=== PATIENT | female | born 1945 | race Caucasian/White ===

== ENCOUNTER 2016-09-16 14:49 | Inpatient (IN) ==
[2016-09-16] MEDS ORDERED: NS 1,000 ML IV SCH (14:57)
[2016-09-16] MEDS ORDERED: ZOFRAN IV PRN (14:57)
[2016-09-16] MEDS ORDERED: NS 1,000 ML IV ONE (15:02)
[2016-09-16] MEDS ORDERED: ZOSYN 3.375 GM/NS 3.375 GM/50 ML IVPB IV ONE (15:11)
[2016-09-16] MEDS ORDERED: LEVOPHED 8 MG in D5 1/2 NS 250 ML IV SCH (15:15)
[2016-09-16] MEDS ORDERED: XOPENEX NEB INH SCH (15:30)
[2016-09-16] MEDS ORDERED: ATROVENT NEB INH SCH (15:30)
--- NOTE | 2016-09-16 15:38 | Diag Imaging Result Doc PS360 ---
EXAM: CHEST-PORTABLE HISTORY: r/o pna TECHNIQUE: Portable AP COMPARISON: 03/28/2016 FINDINGS: The lungs are well expanded. The heart is not enlarged. The vessels are not distended. No pneumonia. No pleural effusions identified. IMPRESSION: Negative chest Electronically signed by Aaron Stevens 09/16/2016 3:36 PM
[2016-09-16 15:39] LABS: ALLEN TEST YES; BE -5.2 mmoll (-3.0-3.0); BLOOD TYPE ARTERIAL; DRAW SITE L RADIAL; METHB 0.4 % (0.0-1.5); MODALITY ROOM AIR; O2(CT) 10.5 mL/dL (15.0-23.0); PCO2(98.6) 36 mmHg (35-45); PO2(98.6) 71 mmHg (60-100); SAMPLE BLOOD; SAO2 96.6 % (95.0-100.0); THB 7.9 g/dL (11.5-17.4); pH(98.6) 7.35 (7.35-7.45)
--- NOTE | 2016-09-16 15:42 | Diag Imaging Result Doc PS360 ---
EXAM: KUB ABDOMEN HISTORY: perforation TECHNIQUE: Portable supine abdomen, single view COMPARISON: None. FINDINGS: No bowel obstruction. No organomegaly. Mild scoliosis. No abnormal abdominal calcifications. There are several pelvic calcifications believed to be phleboliths.. IMPRESSION: Negative exam. Free air seen on the recent abdominal CT from [facility] 09/16/2026 is poorly seen on this supine portable exam. Electronically signed by Aaron Stevens 09/16/2016 3:39 PM
[2016-09-16 16:03] LABS: BASO% 0.1 % (0.0-0.8); HEMOGLOBIN 6.9 g/dL (12.0-16.0); IMM GRAN# 0.05 X1000 (0.0-0.04); IMM GRAN% 0.3 % (0.0-0.5); LYMPH% 5.3 % (20.5-51.1); MANUAL DIFF NEEDED? YES; MCH 24.5 PG (27-31); MCHC 31.4 g/dL (33-37); MONO# 0.94 X1000 (0.11-0.59); MPV 10.5 FL (7.4-10.4); NEUT% 89.3 % (42.2-75.2); PLT 494 X1000 (130-400); RBC 2.82 XMIL (4.2-5.4)
[2016-09-16] MEDS ORDERED: NS 500 ML ONE (16:04)
[2016-09-16 16:12] LABS: INR 1.36; PROTIME 14.6 Seconds (9.2-11.7); PTT 33.6 Seconds (22.0-36.0)
[2016-09-16 16:14] LABS: BANDS 12 % (0-1); LYMPHS 6 % (21-51); MONO 2 % (1-9)
[2016-09-16 16:15] LABS: HYPOCHROM 1+
[2016-09-16] MEDS ORDERED: ALBUMIN 25% ONE (16:19)
[2016-09-16 16:30] LABS: URINE CULTURE NEEDED? NO; URINE MICRO REVIEW NEEDED? NO; URINE SOURCE CATH
[2016-09-16 16:30] LABS: ALBUMIN 2.3 g/dL (3.5-5.0); CALCIUM 7.2 mg/dL (8.8-10.2); MAGNESIUM 1.5 mg/dL (1.5-2.7); POTASSIUM 4.9 mmol/L (3.5-5.1); TOTAL BILIRUBIN 0.19 mg/dL (0.20-1.00)
[2016-09-16 16:37] LABS: BILIRUBIN URINE NEGATIVE (NEGATIVE); BLOOD URINE SMALL (NEGATIVE); COLOR YELLOW; GLUCOSE URINE NEGATIVE (NEGATIVE); LEUKOCYTES URINE NEGATIVE (NEGATIVE); NITRITE URINE NEGATIVE (NEGATIVE); PH URINE 5.5; PROTEIN URINE 30 mg/dL (NEGATIVE); SP GRAVITY URINE 1.015; TURBIDITY URINE HAZY (CLEAR); UR EPITHELIAL CELLS <10 /HPF (<10); URINE BACTERIA NEGATIVE /HPF; URINE RBC <10 /HPF (<10); URINE WBC <10 /HPF (<10); UROBILINOGEN URINE NORMAL (NORMAL)
[2016-09-16 16:46] LABS: TOTAL IRON < 5 ug/dL (49-151); UNBOUND IRON 226 ug/dL (112-346)
[2016-09-16 16:47] LABS: UR CREAT RANDOM 78.9 mg/dL (11-20)
[2016-09-16] MEDS ORDERED: PROTONIX 80 MG in NS 80 ML IV SCH (17:00)
[2016-09-16 17:05] LABS: FERRITIN 45 ng/mL (13-150)
[2016-09-16] MEDS ORDERED: DILAUDID ONE (17:35)
[2016-09-16] MEDS: DILAUDID ONE ×2 (17:48→17:53)
[2016-09-16] MEDS ORDERED: LR 500 ML ONE (18:09)
[2016-09-16] MEDS: ATROVENT NEB INH SCH ×2 (19:15→23:03)
[2016-09-16] MEDS: XOPENEX NEB INH SCH ×2 (19:15→23:03)
--- NOTE | 2016-09-16 19:15 | CONSULTATION ---
DATE OF CONSULTATION: 09/16/2016 CHIEF COMPLAINT: Generalized abdominal pain. HISTORY: This is a 70-year-old white female smoker who reports severe pain yesterday. It is generalized. She presented to the ED at [facility] because of the pain. She has a known history of duodenal ulcer disease. She presented in January of last year at [facility] with a GI bleed from a duodenal ulcer. She presented again in March and again was scoped and again revealed the duodenal ulcer. She has no longer been taking her antiulcer medication. OTHER MEDICAL PROBLEMS: Include anemia, some syncope. She also has a history of COPD, hypertension, hyperlipidemia, depression, anxiety, chronic pain, migraine headaches, iron deficiency anemia. PREVIOUS SURGERY: Includes a hysterectomy, an appendectomy and hemorrhoidectomy. SOCIAL HISTORY: She smokes a pack and half a day. She denies alcohol use. FAMILY HISTORY: Pertinent for cancer and CVA. MEDICATIONS: There are no scheduled medications at home. ALLERGIES: She denies any drug allergies. REVIEW OF SYSTEMS: Pertinent for the nausea, vomiting and abdominal pain. Otherwise negative. PHYSICAL EXAMINATION: Vital Signs: She is afebrile. Heart rate is 98, respiratory rate 18, blood pressure 78/52. General: She is awake and alert. Neck: No adenopathy. Lungs: Bilateral breath sounds. Heart: Regular rate, rhythm. Abdomen: Diffusely tender consistent with rebound tenderness. Extremities: Femoral pulses are present. No peripheral edema. DATA: CT scan shows apparently free air consistent with perforated viscus. In view of her history this is most likely due to an ulcer. PLAN: Will be to proceed with operation and we will transfuse her in view of her anemia. I have discussed the plan with her. She understands, agrees to proceed. cc: Jonathan Lezama MD
[2016-09-16] MEDS: PULMICORT INH SCH (19:16)
--- NOTE | 2016-09-16 19:26 | HISTORY AND PHYSICAL ---
PRIMARY CARE PROVIDER: None. CHIEF COMPLAINT: Abdominal pain with nausea and vomiting with diarrhea x4 days. HISTORY OF PRESENT ILLNESS: Ms. Patricia Hartley is a 70-year-old female with a medical history of COPD, gastric ulcers that were bleeding recently in March of 2016. At that time it required cauterization and epinephrine injection which was performed by Dr. Beltran. The patient states that since her last admit in March of 2016 she still had the occasional vomiting and stomach upset with abdominal pains that would come and go. She presented to [facility] today with these complaints. Apparently there they did an abdominal CT by report which showed a perforated gastric ulcer with viscous free air. Her white count was 18,000 and she was hypotensive. She received a liter of IV saline and 40 of Protonix there. Antibiotics had not yet been initiated until she arrived here. Once here she received another liter of IV fluids. Her systolic blood pressure was in the 70s on admit. She continues to complain of abdominal pain. She states this pain with the nausea, vomiting, and bloody diarrhea started about 4 days ago and would not improve, so she sought medical attention. Dr. Lezama has been consulted and the plan is for emergency exploratory laparotomy. She will receive 2 units of packed red blood cells prior to surgery. She has been started on Zosyn and was admitted to the ICU. PAST MEDICAL HISTORY: Most recently in March of 2016 she had an EGD which found esophagitis, gastritis, a large ulcer involving 3/4 circumference of the duodenal bulb which received epinephrine injection, clot removal, and cautery, duodenitis. Also a history of hypertension, COPD, hyperlipidemia, peripheral neuropathy, depression, anxiety, chronic pain, migraine headaches, and iron deficiency anemia. PAST SURGICAL HISTORY: EGD with cauterization and epinephrine injection of a large duodenal bulb ulceration that was bleeding, hysterectomy, appendectomy, hemorrhoidectomy. SOCIAL HISTORY: She smokes a half pack per day for the last 50 years. Denies alcohol or illicit drug use. She lives alone. FAMILY HISTORY: Mother of unknown cancer. Father history of CVA and sister history of diabetes. ALLERGIES: No known drug allergies. HOME MEDICATIONS: Klonopin 0.5 mg p.o. q.12 hours p.r.n., Lexapro 20 mg p.o. nightly, Icar C 1 tablet p.o. twice daily, Protonix 40 mg p.o. twice daily, Carafate 1 g p.o. 4 times a day. REVIEW OF SYSTEMS: Fourteen point review of systems were complete and all were negative except for those mentioned in the above HPI. She did state that she has some shortness of breath. PHYSICAL EXAMINATION: VITAL SIGNS: Not yet recorded but at the bedside her blood pressure was ranging primarily in the 80s systolic. GENERAL: Ms. Patricia Hartley is a 70-year-old, ill-appearing, female. She is in no acute distress but does complain of abdominal pain. She is able to answer questions appropriately. HEENT: Atraumatic, normocephalic. Pupils equal, round, reactive to light. Extraocular movements intact. Mucous membranes are dry. Pale conjunctiva. NECK: No JVD. No carotid bruits. CARDIOVASCULAR: S1, S2. Regular rate and rhythm. Tachycardic rate and rhythm. No rubs, gallops, murmurs. PULMONARY: Clear to auscultation. Bilateral breath sounds. No accessory muscle use or work of breathing noted. GI: Semi-firm. Hypoactive bowel sounds. Tenderness in all 4 quadrants. EXTREMITIES: No edema noted. There are +1 dorsalis and +2 radial pulses. Moves all extremities equally. No edema noted. NEUROLOGIC: Oriented x4. Moves all extremities equally. Right arm is contracted chronically secondary to injury as a child. SKIN: Warm, dry, intact. LABORATORY DATA: From the outside hospital performed today: Urinalysis was negative. Amylase was 85. Lipase looks like 43. White blood cells 18, hemoglobin 8, hematocrit 25, platelet count 623,000. Sodium 135, potassium 5.6, BUN 28, creatinine 3.2, glucose 123, total bilirubin 0.2, ALT 24, AST 74. IMAGING: Disk was sent with the patient and is being viewed by Dr. Lezama. Chest x-ray was obtained on admit. No acute findings on the chest. Abdominal x-ray was negative but there was free air seen on the recent abdominal CT from the [facility]. ASSESSMENT AND PLAN: 1. Gastric ulcer perforation with viscous free air found on CT at outside hospital. Dr. Lezama is on board. Zosyn was started here on admit. She is planned for emergency exploratory laparotomy with possible colostomy today. 2. Acute peritonitis secondary to perforated gastric ulcer. Again, we will start with Zosyn. Obtain blood cultures. White blood cell count was 18,000 at outside hospital. We will continue with Zosyn. 3. Chronic obstructive pulmonary disease. No exacerbation noted but we will continue with nebulizers and pulmonary toilet, and turn, cough, deep breathe. 4. Hypertension now with hypotension. Likely now with sepsis secondary to perforation. Again, continue with Zosyn. Will follow up with blood cultures, urinalysis. Chest x-ray is clear at this time. 5. Now with acute kidney injury. At outside hospital BUN and creatinine were 28 and 3.2. It is likely prerenal secondary to hypotension and hypovolemia. She has received 2-3 L of normal saline. Now will do aggressive IV fluid hydration. 6. Acute blood loss anemia secondary to perforated bleeding gastric ulcer. Outside hospital hemoglobin and hematocrit were 8 and 25 but now on admit are 6.9 and 22. She has 2 units of blood ordered and will be transfused. Could be somewhat diluted secondary to multiple IV fluids. 7. Gastrointestinal bleed secondary to perforation. She is going for surgery. Will start her on a Protonix drip and she will receive blood products. 8. Hyperlipidemia. Hold p.o. medications. 9. Depression. Hold p.o. medications. 10. Anxiety. Hold p.o. medications. 11. Iron-deficiency anemia. Will recheck labs. 12. Tobacco abuse. Cessation discussed. 13. Deep venous thrombosis prophylaxis will be SCDs. Dictated by LEX Arana for Ousmane Guerrero MD cc: LEX Arana MD
[2016-09-16] MEDS ORDERED: PULMICORT INH SCH (19:30)
--- NOTE | 2016-09-16 19:53 | OPERATIVE NOTE ---
PROCEDURE DATE: 09/16/2016 PROCEDURE PERFORMED: Exploratory laparotomy, repair of perforated duodenal ulcer with omental patch. SURGEON: Jonathan Lezama MD. PRODUCT MARKETING INTERN: Isatu Carballo. PREOPERATIVE DIAGNOSIS: Perforated viscus. POSTOPERATIVE DIAGNOSIS: Perforated duodenal ulcer. FINDINGS: There was a large duodenal ulcer that would admit your thumb. There were food stuffs actually coming out of the ulcer hole. DESCRIPTION OF PROCEDURE: Satisfactory general endotracheal anesthesia achieved, the abdomen was prepped and draped in a sterile fashion. Upper midline incision was made just around the umbilicus. We divided the subcutaneous tissue and then the midline fascia to extend the skin incision. We opened the abdominal cavity to extend the skin incision. The peritoneal fluid was noted to be quite murky. We cultured the fluid. We immediately visualized the perforated duodenal ulcer. We removed the foods stuffs that were stuck through the ulcer. We then copiously irrigated the abdominal cavity in all 4 quadrants using saline and evacuated all the purulent ascites until the effluent was clear. We then placed 2-0 silk stitches across the ulcer and closed the ulcer primarily as best we could even though the tissue was somewhat friable. Then we took a tongue of omentum and laid it over across the ulcer closure and then placed again 2-0 silks outside the previously placed sutures and this secured the omentum on top of the ulcer closure. We felt this was as good as we could close it. We then placed a Shayan drain into the subhepatic space, lying it across the closure. No other abnormalities were identified. We secured the drain to the skin with 2-0 silk. We then proceeded to close the peritoneum with 2-0 chromic. We closed the fascia with running #2 Prolene. We copiously irrigated the subcutaneous tissue. We closed the skin with leonidas. A sterile dressing was applied. She tolerated it well. Was sent to the recovery room in satisfactory condition. cc: Jonathan Lezama MD
[2016-09-16] MEDS: PERIDEX MT SCH (21:47)
[2016-09-16] MEDS: PROTONIX 80 MG in NS 80 ML IV SCH (21:47)
[2016-09-16] MEDS: ZOSYN 3.375 GM/NS 3.375 GM/50 ML IVPB IV SCH (21:47)
[2016-09-16] MEDS: NS 1,000 ML IV SCH (21:47)
[2016-09-16] MEDS ORDERED: ZOSYN 3.375 GM/NS 3.375 GM/50 ML IVPB IV SCH (22:00)
[2016-09-17 00:40] LABS: ALLEN TEST YES; BE -10.4 mmoll (-3.0-3.0); BLOOD TYPE ARTERIAL; DRAW SITE L RADIAL; METHB 1.1 % (0.0-1.5); O2(CT) 12.4 mL/dL (15.0-23.0); PCO2(98.6) 45 mmHg (35-45); PO2(98.6) 159 mmHg (60-100); SAMPLE BLOOD; SAO2 99.3 % (95.0-100.0); THB 8.9 g/dL (11.5-17.4)
[2016-09-17 00:41] LABS: MODALITY NRB
[2016-09-17 00:42] LABS: pH(98.6) 7.19 (7.35-7.45)
[2016-09-17] MEDS ORDERED: SODIUM BICARBONATE 8.4% IV PUSH ONE (01:04)
[2016-09-17] MEDS: NS 1,000 ML IV SCH ×2 (02:10→07:29)
[2016-09-17] MEDS ORDERED: NEO-SYNEPHRINE 1% NASAL SPRAY NAS PRN (02:11)
[2016-09-17] MEDS: XOPENEX NEB INH SCH ×6 (02:44→22:49)
[2016-09-17] MEDS: ATROVENT NEB INH SCH ×6 (02:44→22:49)
[2016-09-17] MEDS: ZOSYN 3.375 GM/NS 3.375 GM/50 ML IVPB IV SCH ×3 (03:11→18:00)
[2016-09-17 03:41] LABS: BASO% 0.1 % (0.0-0.8); HEMATOCRIT 29.1 % (37.0-47.0); HEMOGLOBIN 9.4 g/dL (12.0-16.0); IMM GRAN# 0.07 X1000 (0.0-0.04); IMM GRAN% 0.4 % (0.0-0.5); LYMPH# 0.67 X1000 (1.2-3.4); LYMPH% 3.4 % (20.5-51.1); MANUAL DIFF NEEDED? YES; MCH 26.3 PG (27-31); MCHC 32.3 g/dL (33-37); MCV 81.3 FL (81-99); MONO# 0.56 X1000 (0.11-0.59); MONO% 2.9 % (1.7-9.3); MPV 10.4 FL (7.4-10.4); NEUT% 93.2 % (42.2-75.2); PLT 475 X1000 (130-400); RBC 3.58 XMIL (4.2-5.4)
[2016-09-17 03:55] LABS: ALLEN TEST YES; BLOOD TYPE ARTERIAL; DRAW SITE L RADIAL; METHB 0.8 % (0.0-1.5); O2(CT) 13.1 mL/dL (15.0-23.0); PCO2(98.6) 44 mmHg (35-45); PO2(98.6) 132 mmHg (60-100); SAMPLE BLOOD; SAO2 100.2 % (95.0-100.0); THB 9.4 g/dL (11.5-17.4); pH(98.6) 7.26 (7.35-7.45)
[2016-09-17 03:56] LABS: MODALITY PRB
[2016-09-17 04:09] LABS: ALBUMIN 2.2 g/dL (3.5-5.0); MAGNESIUM 1.6 mg/dL (1.5-2.7); TOTAL PROTEIN 5.2 g/dL (6.3-8.3)
[2016-09-17 04:10] LABS: TOTAL BILIRUBIN 0.27 mg/dL (0.20-1.00)
[2016-09-17 04:19] LABS: CALCIUM 6.7 mg/dL (8.8-10.2); POTASSIUM 6.1 mmol/L (3.5-5.1)
[2016-09-17] MEDS ORDERED: ALBUTEROL 0.5% INH CONC FOR HYPERKALEMIA INH ONE (04:26)
[2016-09-17] MEDS ORDERED: HUMULIN R IV ONE (04:28)
[2016-09-17] MEDS ORDERED: CALCIUM GLUCONATE 1 GM in NS 50 ML IV ONE (04:29)
[2016-09-17] MEDS ORDERED: D50W SYRINGE IV ONE (04:29)
[2016-09-17] MEDS: PROTONIX 80 MG in NS 80 ML IV SCH ×2 (04:44→16:32)
[2016-09-17 04:46] LABS: BANDS 32 % (0-1); LYMPHS 2 % (21-51); MONO 4 % (1-9)
[2016-09-17 04:47] LABS: HYPOCHROM 1+
[2016-09-17] MEDS: ZOFRAN IV PRN ×2 (05:19→10:10)
[2016-09-17] MEDS: DILAUDID IV PRN ×4 (05:19→20:16)
[2016-09-17 07:53] LABS: POTASSIUM 4.6 mmol/L (3.5-5.1)
[2016-09-17 07:58] LABS: MAGNESIUM 1.6 mg/dL (1.5-2.7)
[2016-09-17] MEDS: PERIDEX MT SCH ×2 (08:06→21:57)
[2016-09-17] MEDS: MYCAMINE 100 MG in NS 100 ML IV SCH (08:06)
[2016-09-17 08:09] LABS: CALCIUM 7.1 mg/dL (8.8-10.2)
[2016-09-17] MEDS: PULMICORT INH SCH ×2 (08:15→19:03)
--- NOTE | 2016-09-17 09:44 | Diag Imaging Result Doc PS360 ---
EXAM: CHEST-PORTABLE HISTORY: dyspnea TECHNIQUE: Portable upright AP COMPARISON: 09/16/2016 FINDINGS: The lungs are well expanded. Heart is not enlarged. There are small basilar infiltrates. No pleural effusions identified. A nasogastric tube overlies the esophagus and stomach. IMPRESSION: Small basilar infiltrates Electronically signed by Aaron Stevens 09/17/2016 9:41 AM
[2016-09-17] MEDS ORDERED: 1/2 NS 1,000 ML IV SCH (09:49)
--- NOTE | 2016-09-17 10:52 | CONSULTATION ---
DATE OF CONSULTATION: 09/17/2016 CONCLUSION: The patient is status post patching of a duodenum perforation. A culture taken at surgery is growing gram negative rods and a gram stain also from surgery shows yeast. The patient has leukocytosis. RECOMMENDATIONS: I agree with treating the patient with Zosyn and micafungin. I agree with Dr. Lezama's decreasing the dose of Zosyn because of the patient's elevated creatinine. It may take 3-4 days before the WBC decreases. DISCUSSION: It was difficult for me to get a history from the patient. She was having a lot of pain, but in general she told me for the past 5 days she has been having abdominal pain. She was admitted to the hospital and found to have free air on the x-ray. A CT scan was done elsewhere, but I do not have the results of that. The patient's lab studies thus far show a CBC, the white count is still up today, but I think it would be awfully quick for the antibiotics and antifungal agent to act, and I would expect that the white count will stay elevated for a few days, but in any event, the CBC shows a white count of 19,530, hemoglobin 9.4, and platelet count 475,000. Creatinine is 2.7. The GFR is 17. Blood gases show a pH of 7.26, a PO2 of 132 , and a pCO2 of 44. Liver function studies are normal except for an AST of 52. Urinalysis shows does not show any white cells or bacteria. Gram stain of the intraabdominal inflammation show yeast and gram- negative rods are growing. The KUB showed free air. Chest x-ray shows no acute disease. Blood cultures are pending. PAST MEDICAL HISTORY/REVIEW OF SYSTEMS: It was difficult for me to get a good review of systems. The patient was having a lot of pain and was tired, but in any event, I will go ahead with it.Eyes and Ears: She denied having trouble hearing or seeing. Neck: No stiffness. Respiratory: She did not complain of chest pain, and she did not complain of dyspnea or coughing. Cardiovascular: No chest pain or palpitations. Gastrointestinal: See present illness. She has been having abdominal pain for the past 5 days. Genitourinary: No dysuria or flank pain. Neurologic: No seizures. No loss of strength. Endocrine: She denied having diabetes. Hematologic: No bleeding tendency or anemia. The remainder of the patient's review of systems was completed and was negative. OBSTETRICAL/GYNECOLOGICAL HISTORY: She is 3, para 3, abortus 0. One of her children she told me was killed in an accident. The patient has had a hysterectomy. PREVIOUS HOSPITALIZATIONS AND OPERATIONS: She has had labor and deliveries, hysterectomy, and appendectomy. MEDICAL DISEASES: Positive for cigarette smoking with resulting COPD. INFECTIOUS DISEASE HISTORY: Positive for pneumonia and UTI. FAMILY HISTORY: Positive for diabetes mellitus, hypertension, and cancer. SOCIAL HISTORY: The patient is . She smoke cigarettes. She does not drink alcoholic beverages or abuse drugs. She has no pets at home. HOME MEDICATIONS: Listed in the computer include Carafate, Protonix, iron with ascorbic acid, Lexapro, and Klonopin. PHYSICAL EXAMINATION: Vital Signs: Temperature is 97.1 degrees, pulse 103, respirations 13, blood pressure 79/65. The patient's weight is listed as 121 pounds. General: This is an ill- appearing elderly female. She is complaining of abdominal pain and says she wants some ice chips to suck on. Head, Eyes, Ears, Nose, and Throat: She can hear my spoken words and see near objects. She is edentulous. No drainage noted from the nose or ears. Neck: No meningismus. Thorax: There was questionable increased AP diameter to the chest. Lungs: Clear to auscultation. Cardiovascular: Regular heart rate. Abdomen: Soft but tender. A drain is in place. The drainage is serosanguineous. Neurologic: The patient is awake. She did move her extremities to request. There was no tremor. I am uncertain as to how accurate the patient's reported history is. Integumentary: No rash noted. Thank you for the consultation. cc: Linden Benson MD MTDAb
[2016-09-17 11:42] LABS: UR CREAT RANDOM 48.5 mg/dL (11-20); UR PROT RANDOM 43.8 mg/dL
--- NOTE | 2016-09-17 12:51 | PROGRESS NOTE ---
DATE: 09/17/2016 SUBJECTIVE: The patient is resting in bed. She complains of a dry mouth and abdominal pain. OBJECTIVE: Vital Signs: Temperature 96.4 degrees, blood pressure 90/58, heart rate 78, respirations 11, and O2 saturations 96% on a nonrebreather mask. General: This is a chronically ill-appearing elderly female, lying in bed, in no acute distress. HEENT: Head , normocephalic and atraumatic. Heart: S1 and S2 normal. Regular rate and rhythm. Lungs: Equal air entry bilaterally. No crackles. No rales. No wheezing. Abdomen: The patient has a clean, dry dressing on the abdomen. Hypoactive bowel sounds. Soft. Extremities: No edema. No cyanosis. No calf tenderness. Neurologic: The patient is awake and alert. LABORATORY DATA: White blood cell count 19, hemoglobin 9.4, hematocrit 29, platelets 475,000. Sodium 142, potassium 4.6, chloride 107, carbon dioxide 17, BUN 37, creatinine 2.7, glucose 204. Chest x-ray shows small basilar infiltrates. ASSESSMENT AND PLAN: 1. Septic shock secondary to a perforated viscus, status post exploratory laparotomy with repair. We will continue on intravenous antibiotic therapy. Dr. Benson is following. We will also continue with intravenous fluid hydration. 2. Perforated viscus, status post exploratory laparotomy with duodenal ulcer repair. Management as per the general surgeon. 3. Acute kidney injury. We will switch the patient to half-normal saline with bicarbonate. We will continue to monitor the urine output closely. We will check urine studies as well. 4. Metabolic acidosis. The patient will be placed on a bicarbonate drip. 5. Basilar infiltrates. Continue with intravenous antibiotic therapy. We will add Xopenex. 6. Hyperkalemia, improved. 7. Gastrointestinal prophylaxis. Continue on intravenous Protonix. 8. Deep vein thrombosis prophylaxis. Continue with sequential compression devices. cc: Tesha Montero MD MTDD
[2016-09-17] MEDS: SODIUM BICARBONATE 8.4% 100 MEQ in 1/2 NS 1,000 ML IV SCH (13:21)
[2016-09-18] MEDS: SODIUM BICARBONATE 8.4% 100 MEQ in 1/2 NS 1,000 ML IV SCH (00:44)
[2016-09-18] MEDS: ZOSYN 3.375 GM/NS 3.375 GM/50 ML IVPB IV SCH ×3 (02:54→18:52)
[2016-09-18] MEDS: PROTONIX 80 MG in NS 80 ML IV SCH ×3 (02:55→20:38)
[2016-09-18] MEDS: ATROVENT NEB INH SCH ×6 (03:15→23:10)
[2016-09-18] MEDS: XOPENEX NEB INH SCH ×6 (03:15→23:10)
[2016-09-18 04:19] LABS: ALLEN TEST YES; BE -4.8 mmoll (-3.0-3.0); BLOOD TYPE ARTERIAL; DRAW SITE L RADIAL; METHB 0.9 % (0.0-1.5); O2(CT) 12.9 mL/dL (15.0-23.0); PCO2(98.6) 45 mmHg (35-45); PO2(98.6) 106 mmHg (60-100); SAMPLE BLOOD; SAO2 99.1 % (95.0-100.0); THB 9.3 g/dL (11.5-17.4); pH(98.6) 7.29 (7.35-7.45)
[2016-09-18 04:20] LABS: MODALITY NRB
[2016-09-18] MEDS: DILAUDID IV PRN ×3 (05:07→19:50)
[2016-09-18 06:08] LABS: HEMOGLOBIN A1C 5.9 % (4.8-6.0)
[2016-09-18 06:26] LABS: BASO% 0.1 % (0.0-0.8); HEMATOCRIT 29.7 % (37.0-47.0); HEMOGLOBIN 9.4 g/dL (12.0-16.0); IMM GRAN# 0.06 X1000 (0.0-0.04); IMM GRAN% 0.4 % (0.0-0.5); LYMPH# 0.56 X1000 (1.2-3.4); LYMPH% 3.4 % (20.5-51.1); MANUAL DIFF NEEDED? YES; MCHC 31.6 g/dL (33-37); MONO# 0.48 X1000 (0.11-0.59); MONO% 2.9 % (1.7-9.3); MPV 10.6 FL (7.4-10.4); NEUT% 93.2 % (42.2-75.2); PLT 433 X1000 (130-400); RBC 3.62 XMIL (4.2-5.4)
[2016-09-18 06:48] LABS: LYMPHS 8 % (21-51); MONO 1 % (1-9)
--- NOTE | 2016-09-18 07:16 | Diag Imaging Result Doc PS360 ---
EXAM: CHEST-PORTABLE HISTORY: dyspnea TECHNIQUE: Erect AP portable chest dated 09/18/2016 at 05:15 COMMENT: There are patchy alveolar opacities bilaterally which are much worse than on 09/17/2016. There is an NG tube with tip below the diaphragm. IMPRESSION: Worsening pulmonary edema and/or pneumonia. Electronically signed by David Crouch 09/18/2016 7:13 AM
[2016-09-18] MEDS ORDERED: LASIX IV ONE (07:45)
[2016-09-18] MEDS: MYCAMINE 100 MG in NS 100 ML IV SCH (08:00)
[2016-09-18] MEDS: PULMICORT INH SCH ×2 (08:27→18:56)
[2016-09-18 08:36] LABS: ALBUMIN 1.9 g/dL (3.5-5.0); CALCIUM 7.1 mg/dL (8.8-10.2); TOTAL BILIRUBIN 0.2 mg/dL (0.20-1.00); TOTAL PROTEIN 5.3 g/dL (6.3-8.3)
[2016-09-18] MEDS ORDERED: LR 2,000 ML ONE (08:50)
[2016-09-18] MEDS ORDERED: NEO-SYNEPHRINE ONE (08:50)
[2016-09-18] MEDS ORDERED: ZOFRAN ONE (08:50)
[2016-09-18] MEDS ORDERED: OFIRMEV 1000 MG/ISOTONIC SOLN 1,000 MG/100 ML BOTTLE ONE (08:50)
[2016-09-18] MEDS ORDERED: XYLOCAINE-MPF 2% ONE (08:50)
[2016-09-18] MEDS ORDERED: NS 250 ML ONE ×2 (08:51→13:47)
[2016-09-18] MEDS ORDERED: DECADRON ONE (08:51)
[2016-09-18] MEDS: PERIDEX MT SCH ×2 (09:15→20:39)
--- NOTE | 2016-09-18 13:52 | Diag Imaging Result Doc PS360 ---
EXAM: CT THORAX W/O CONTRAST HISTORY: pneumonia TECHNIQUE: Dose reduction protocol COMPARISON: None. FINDINGS: There are aguya-hf-gaxjgxhz sized bilateral pleural effusions measuring just under 3 cm posteriorly and inferiorly in the midline. The heart is not enlarged. No thoracic aortic aneurysm. There are small mediastinal lymph nodes. There are dense bilateral infiltrates diffusely in the lungs. There is also atelectasis to the lower lobes. Tiny air-filled areas throughout the dense infiltrates. IMPRESSION: Dense multifocal and bilateral infiltrates possibly with multiple tiny cavitary areas in addition to small to moderate-sized bilateral pleural effusions. Electronically signed by Aaron Stevens 09/18/2016 1:49 PM
[2016-09-18 16:13] LABS: INR 1.13
--- NOTE | 2016-09-18 16:27 | PROGRESS NOTE ---
DATE: 09/18/2016 PRESENT ILLNESS: The patient is status post patching of a duodenal perforation. Culture taken at the time of surgery grew Klebsiella and Gram stain of the murky fluid in the abdomen showed yeast. The patient has leukocytosis but it is decreasing. MEDICATIONS: The patient is on a combination of micafungin and Zosyn. PHYSICAL EXAMINATION: Vital Signs: Temperature is 98.9 degrees, pulse 99, respiration is 17, blood pressure is 108/82. General: This is a somewhat ill-appearing, elderly female. She is in no acute distress. Lungs: Clear to auscultation. Cardiovascular: Regular heart rate. Abdomen: Soft. The patient's dressings are intact. LAB AND X-RAY: The CBC today showed that the white count has come down to 16,430, hemoglobin 9.4, and platelet count 433,000. Liver function studies are normal except for an AST which is 35. This value has been decreasing from the one yesterday. The patient's creatinine is 2.2. The GFR is 22. Blood gases show a pH of 7.29, a PO2 of 106, and a pCO2 of 45. There is no new x-ray today. ASSESSMENT AND PLAN: The patient is status post repair of a duodenal ulcer perforation. She has peritonitis and is receiving micafungin and Zosyn. COMORBIDITIES: She is elderly. She smoke cigarettes. She has COPD. Another comorbidity is that the patient has peptic ulcer disease. cc: Linden Benson MD
--- NOTE | 2016-09-18 16:39 | PROGRESS NOTE ---
DATE: 09/18/2016 SUBJECTIVE: The patient is resting comfortably. She does complain of abdominal pain. OBJECTIVE: Vital Signs: Temperature 98 degrees, blood pressure 108/82, heart rate 99, respirations 17, O2 saturations 99% on a non-rebreather. General: This is a chronically ill- appearing, elderly female, lying in bed, in no acute distress. Head: Normocephalic, atraumatic. Heart: S1, S2. Normal. Regular rate and rhythm. Lungs: Coarse breath sounds bilaterally. No wheezing. No rales. Abdomen: Positive bowel sounds. Soft, nontender, nondistended. Extremities: No edema. No cyanosis. No calf tenderness. Neurologic: The patient is alert and oriented x3. LABORATORY: White blood cell count 16, hemoglobin 9.4, hematocrit 29, platelets 433,000. ABG: PH is 7.29, pCO2 45, PO2 106, bicarb 21, sodium 145, potassium 5, chloride 109, CO2 21, BUN 42, creatinine 2.2, glucose 74. Calcium 7.1. AST 35, ALT 19, alkaline phosphatase 82m, albumin 1.9. ASSESSMENT AND PLAN: 1. Acute hypoxemic respiratory failure secondary to bilateral lobe pneumonia and bilateral pleural effusions. Infectious Disease is following. We will give the patient a dose of Lasix today. We will also consult Pulmonary Medicine. Continue with bronchodilator therapy. 2. Status post exploratory laparotomy with repair of a perforated duodenal ulcer with omental patch. Management as per the general surgeon. 3. Acute kidney injury. Slowly improving. We will avoid nephrotoxic agents. 4. Leukocytosis. Slowly improving. Continue on the current IV antibiotic regimen as directed by Dr. Benson. 5. Anemia of chronic disease. The patient's hemoglobin and hematocrit are stable. 6. Severe protein calorie malnutrition. We will defer to the general surgeon regarding nutrition. 7. Bilateral pleural effusions. The patient did receive Lasix today. We will continue to monitor this closely. 8. Deep venous thrombosis prophylaxis. We will start the patient on heparin. 9. Gastrointestinal prophylaxis. Continue on IV Protonix. cc: Tesha Montero MD
[2016-09-18] MEDS ORDERED: HALDOL ONE (18:52)
[2016-09-18 19:38] LABS: ALLEN TEST YES; BE -1.5 mmoll (-3.0-3.0); BLOOD TYPE ARTERIAL; DRAW SITE R RADIAL; MODALITY BI PAP; O2(CT) 14.1 mL/dL (15.0-23.0); PCO2(98.6) 55 mmHg (35-45); PO2(98.6) 67 mmHg (60-100); SAMPLE BLOOD; SAO2 94.4 % (95.0-100.0); THB 10.8 g/dL (11.5-17.4); pH(98.6) 7.28 (7.35-7.45)
[2016-09-18] MEDS ORDERED: HALDOL IV ONE (19:45)
[2016-09-18] MEDS: HEPARIN SUBQ SCH (20:38)
[2016-09-19 00:22] LABS: ALLEN TEST YES; BLOOD TYPE ARTERIAL; DRAW SITE L RADIAL; O2(CT) 13.3 mL/dL (15.0-23.0); PO2(98.6) 66 mmHg (60-100); SAMPLE BLOOD; SAO2 98.4 % (95.0-100.0); THB 9.9 g/dL (11.5-17.4); pH(98.6) 7.32 (7.35-7.45)
[2016-09-19 00:23] LABS: MODALITY NRB; PCO2(98.6) 56 mmHg (35-45)
[2016-09-19] MEDS: HALDOL IM PRN ×5 (01:05→20:49)
[2016-09-19] MEDS: DILAUDID IV PRN ×5 (01:22→18:14)
[2016-09-19] MEDS: ATROVENT NEB INH SCH ×6 (02:55→23:20)
[2016-09-19] MEDS: XOPENEX NEB INH SCH ×6 (02:55→23:20)
[2016-09-19] MEDS: ZOSYN 3.375 GM/NS 3.375 GM/50 ML IVPB IV SCH ×3 (03:15→17:59)
[2016-09-19 04:15] LABS: ALLEN TEST YES; BE -0.9 mmoll (-3.0-3.0); BLOOD TYPE ARTERIAL; DRAW SITE R RADIAL; METHB 0.8 % (0.0-1.5); O2(CT) 21.3 mL/dL (15.0-23.0); PO2(98.6) 186 mmHg (60-100); SAMPLE BLOOD; SAO2 99.1 % (95.0-100.0); THB 15.3 g/dL (11.5-17.4); pH(98.6) 7.26 (7.35-7.45)
[2016-09-19 04:16] LABS: MODALITY BI PAP; PCO2(98.6) 62 mmHg (35-45)
[2016-09-19 05:11] LABS: ALBUMIN 2.2 g/dL (3.5-5.0); CALCIUM 7.9 mg/dL (8.8-10.2); POTASSIUM 4.8 mmol/L (3.5-5.1); TOTAL BILIRUBIN 0.23 mg/dL (0.20-1.00); TOTAL PROTEIN 5.8 g/dL (6.3-8.3)
[2016-09-19 05:25] LABS: BASO% 0.1 % (0.0-0.8); EOS# 0.04 X1000 (0.0-0.7); EOS% 0.2 % (0.0-10.0); HEMATOCRIT 31.6 % (37.0-47.0); HEMOGLOBIN 10.1 g/dL (12.0-16.0); IMM GRAN# 0.05 X1000 (0.0-0.04); IMM GRAN% 0.3 % (0.0-0.5); LYMPH# 0.56 X1000 (1.2-3.4); LYMPH% 3.2 % (20.5-51.1); MANUAL DIFF NEEDED? YES; MCH 25.8 PG (27-31); MCV 80.8 FL (81-99); MPV 10.3 FL (7.4-10.4); NEUT% 92.2 % (42.2-75.2); PLT 441 X1000 (130-400); RBC 3.91 XMIL (4.2-5.4)
[2016-09-19] MEDS: PROTONIX 80 MG in NS 80 ML IV SCH ×3 (06:15→16:28)
--- NOTE | 2016-09-19 06:18 | Diag Imaging Result Doc PS360 ---
EXAM: CHEST-PORTABLE HISTORY: dyspnea TECHNIQUE: Portable AP COMPARISON: 09/18/2016 FINDINGS: Dense bilateral infiltrates persist. Poor inspiratory effort. A nasogastric tube overlies the esophagus and stomach. A left-sided PICC line has been placed. Tip overlies the right atrium. No pleural effusions identified. IMPRESSION: Persistent dense bilateral infiltrates. Electronically signed by Aaron Stevens 09/19/2016 6:15 AM
--- NOTE | 2016-09-19 07:17 | CONSULTATION ---
DATE OF CONSULTATION: 09/19/2016 REFERRING PHYSICIAN: . CHIEF COMPLAINT: Respiratory failure. HISTORY OF PRESENT ILLNESS: This is a 70-year-old, female with a past medical history of COPD, gastric ulcers, neuropathy, depression, anxiety, chronic pain, migraine headaches, iron deficiency anemia, hyperlipidemia, and hypertension that is currently in the intensive care unit status post exploratory laparotomy with repair of perforated duodenal ulcer with omental patch. She also has acute hypoxic respiratory failure secondary to pneumonia. She does complain of some abdominal pain but is otherwise comfortable. REVIEW OF SYSTEMS: A 10-point review of systems was conducted. Pertinent findings noted in the HPI, otherwise noncontributory. PAST MEDICAL HISTORY: As mentioned in the HPI, otherwise noncontributory. PAST SURGICAL HISTORY: EGD, hysterectomy, appendectomy, hemorrhoidectomy. SOCIAL HISTORY: The patient lives at home alone. Smokes half a pack per day of cigarettes and has for many years. Denies any usage of alcohol of illicit drugs. ALLERGIES: No known drug allergies. FAMILY HISTORY: Notable for cancer, CVA, and diabetes. ACTIVE MEDICATIONS: Pulmicort, Peridex, Haldol, heparin, Dilaudid, Atrovent, Xopenex, micafungin, Zofran, Protonix, Zosyn. PHYSICAL EXAMINATION: Vital Signs: Temperature 98.6, heart rate 107, respiratory rate 18, blood pressure 141/77, oxygen saturation 99%. General: Awake, alert, sitting up in bed, no acute distress noted. HEENT: Normocephalic, atraumatic. Cardiovascular: Regular rate and rhythm. S1 and S2 present. Chest: Reduced entry. Coarse breath sounds bilaterally. Abdomen: Diffusely tender. Bowel sounds present in all quadrants. Extremities: No edema noted. Neurologic: Alert and oriented x3. LABS AND INVESTIGATIONS: WBCs 17.72, RBCs 3.91, hemoglobin 10.1, hematocrit 31.6, platelet count 441,000. Sodium 147, potassium 4.8, chloride 102, carbon dioxide 25, anion gap 20, BUN 45, creatinine 2.2, glucose is 89. Blood gas reveals a pH of 7.26, pCO2 of 62, PO2 of 186, HC03 of 24.2, saturated oxygen of 99. Chest x-ray performed on 09/19/2016 shows persistent bilateral infiltrates. ASSESSMENT AND PLAN: This is a 70-year-old, female with a past medical history as mentioned in the history of present illness who is status post exploratory laparotomy with repair of perforated duodenal ulcer with omental patch, being managed by a surgeon. She also has hypoxic respiratory failure secondary to bilateral lobe pneumonia and bilateral pleural effusions. CHF possible, checking Pro-BNP. She is being diuresed with Lasix. Continue intravenous antibiotics, inhaled bronchodilators, deep venous thrombosis and gastrointestinal prophylaxis. Further recommendations pending diagnostic studies. Thank you for the courtesy of this consult. Dictated by LEX Coffey for Viviana Batres MD cc: LEX Coffey MD MTD
[2016-09-19 07:23] LABS: BANDS 12 % (0-1); LYMPHS 4 % (21-51); MONO 2 % (1-9)
[2016-09-19] MEDS: PULMICORT INH SCH ×2 (07:51→19:30)
[2016-09-19] MEDS: MYCAMINE 100 MG in NS 100 ML IV SCH (08:00)
[2016-09-19] MEDS: PERIDEX MT SCH ×2 (08:41→20:50)
[2016-09-19] MEDS: HEPARIN SUBQ SCH ×2 (08:41→20:32)
--- NOTE | 2016-09-19 11:46 | PROGRESS NOTE ---
DATE: 09/19/2016 PRESENT ILLNESS: The patient is status post patching in the duodenum. Culture taken at surgery is growing Klebsiella and on gram stain of the fluid, yeast was encountered. MEDICATIONS: The patient is on a combination of Zosyn and micafungin now for a total of 3 days. PHYSICAL EXAMINATION: Vital Signs: Temperature is 98.1 degrees, pulse 105, respirations 16, blood pressure 134/82. General: This is a somewhat ill-appearing elderly female. She is very lethargic. Ears, Nose, and Throat: She is wearing a BiPAP mask. No drainage noted from the nose or ears. Neck: No meningismus. Thorax: increased AP diameter. Lungs: Clear to auscultation. Cardiovascular: Regular heart rate. Abdomen and flank: Soft and nontender. The patient's dressings are intact. There is no visible erythema. Neurologic: The patient is lethargic. She has a BiPAP mask on. She did not respond to verbal stimuli. ASSESSMENT: The patient has a perforated duodenum ulcer. PLAN: Continue Zosyn and micafungin. COMORBIDITIES: She is elderly. She smokes cigarettes and has COPD. She also has peptic ulcer disease. cc: Linden Benson MD MTDD
[2016-09-19 12:56] LABS: CK INDEX 1.5 (0.0-2.5); CK-MB 13.27 ng/mL (0.0-5.0)
--- NOTE | 2016-09-19 14:57 | PROGRESS NOTE ---
DATE: 09/19/2016 SUBJECTIVE: The patient has had issues with severe agitation since yesterday evening including this morning. She appears to be calm right now. She is currently on 100% BiPAP. OBJECTIVE: Vital Signs: Temperature 97 degrees, blood pressure 132/90, heart rate 107, respirations 25, O2 sats 100% on BiPAP. General: This is a chronically ill-appearing, elderly female, lying in bed, in no acute distress. Head: Normocephalic atraumatic. Heart: S1, S2 normal, tachycardic. Lungs: Coarse breath sounds bilaterally. Diminished breath sounds at the bases. Abdomen: Positive bowel sounds. Soft, nontender, nondistended. Extremities: +1 edema. No cyanosis. No calf tenderness. Neurologic: The patient is currently agitated and confused. She is able to move all 4 extremities. LABS: White blood cell count 17, hemoglobin 10, hematocrit 31, platelets 441,000. Sodium 147, potassium 4.8, chloride 102, CO2 25, BUN 45, creatinine 2.2. ABG, pH of 7.26, pCO2 62, PO2 186, bicarb 24. ASSESSMENT AND PLAN: 1. Acute hypoxemic respiratory failure secondary to volume overload and pneumonia. We will continue to diurese the patient and continue on IV antibiotic therapy as directed by Dr. Benson. Continue with bronchodilator therapy. 2. Pneumonia. Continue on IV antibiotic therapy. 3. Volume overload with pleural effusions. We will give the patient a dose of Lasix today. 4. Hypernatremia. We will continue to monitor this closely. 5. Status post exploratory laparotomy secondary to perforated viscus and duodenal ulcer repair. Management as per the general surgeon. 6. Leukocytosis. Continue on IV antibiotic therapy. 7. Deep vein thrombosis prophylaxis. Continue on heparin. 8. Acute kidney injury. Stable. Will continue to monitor closely. 9. The plan of care was discussed with the patient's family at the bedside. cc: Tesha Montero MD
[2016-09-19] MEDS ORDERED: PROTONIX IV SCH (16:30)
[2016-09-19] MEDS: PROTONIX IV SCH (18:14)
[2016-09-19 20:38] LABS: CK INDEX 1.9 (0.0-2.5); CK-MB 15.38 ng/mL (0.0-5.0)
[2016-09-20] MEDS: DILAUDID IV PRN ×7 (00:21→23:30)
[2016-09-20] MEDS: XOPENEX NEB INH SCH ×6 (03:35→23:25)
[2016-09-20] MEDS: ATROVENT NEB INH SCH ×6 (03:35→23:25)
[2016-09-20] MEDS ORDERED: SODIUM CHLORIDE 0.9% 10 ML ONE (03:39)
[2016-09-20] MEDS: ZOSYN 3.375 GM/NS 3.375 GM/50 ML IVPB IV SCH ×2 (04:04→10:28)
[2016-09-20] MEDS: HALDOL IM PRN (04:04)
[2016-09-20 04:43] LABS: ALLEN TEST YES; BE 4.6 mmoll (-3.0-3.0); BLOOD TYPE ARTERIAL; DRAW SITE R RADIAL; METHB 0.9 % (0.0-1.5); O2(CT) 13.5 mL/dL (15.0-23.0); PO2(98.6) 123 mmHg (60-100); SAMPLE BLOOD; SAO2 98.9 % (95.0-100.0); THB 9.7 g/dL (11.5-17.4); pH(98.6) 7.32 (7.35-7.45)
[2016-09-20 04:44] LABS: MODALITY BI PAP; PCO2(98.6) 62 mmHg (35-45)
[2016-09-20 06:14] LABS: EOS# 0.01 X1000 (0.0-0.7); HEMATOCRIT 30.6 % (37.0-47.0); HEMOGLOBIN 9.5 g/dL (12.0-16.0); IMM GRAN# 0.05 X1000 (0.0-0.04); IMM GRAN% 0.2 % (0.0-0.5); LYMPH# 0.64 X1000 (1.2-3.4); LYMPH% 3.2 % (20.5-51.1); MANUAL DIFF NEEDED? NO; MCH 25.5 PG (27-31); MCV 82.3 FL (81-99); MONO# 0.88 X1000 (0.11-0.59); MONO% 4.4 % (1.7-9.3); MPV 10.5 FL (7.4-10.4); NEUT% 92.2 % (42.2-75.2); PLT 397 X1000 (130-400); RBC 3.72 XMIL (4.2-5.4)
[2016-09-20] MEDS: PROTONIX IV SCH ×2 (06:25→18:38)
[2016-09-20 06:39] LABS: ALBUMIN 2.3 g/dL (3.5-5.0); CALCIUM 8.4 mg/dL (8.8-10.2); POTASSIUM 4.3 mmol/L (3.5-5.1); TOTAL BILIRUBIN 0.21 mg/dL (0.20-1.00)
[2016-09-20 07:04] LABS: CK INDEX 1.5 (0.0-2.5); CK-MB 15.63 ng/mL (0.0-5.0)
[2016-09-20] MEDS: PULMICORT INH SCH ×2 (08:08→19:40)
[2016-09-20] MEDS: GEODON IM PRN ×2 (08:36→14:36)
[2016-09-20] MEDS: D5W 1,000 ML IV SCH ×2 (08:37→20:20)
[2016-09-20] MEDS: STERILE WATER INJ. INJ PRN ×2 (08:37→14:36)
[2016-09-20] MEDS: HEPARIN SUBQ SCH ×2 (08:37→20:19)
[2016-09-20] MEDS: MYCAMINE 100 MG in NS 100 ML IV SCH (08:47)
[2016-09-20] MEDS: PERIDEX MT SCH ×2 (08:49→20:19)
--- NOTE | 2016-09-20 10:57 | ECHO REPORT ---
ORDER DATE: 09/19/2016 INDICATION: Shortness of breath. Post perforated gastric ulcer operation. FINDINGS: 1. Right atrium is normal size. 2. There is [id number] tricuspid regurgitation with an RV systolic pressure of 57. 3. Normal RV size and systolic function. 4. Trace pulmonic insufficiency. 5. Normal left atrial size at 2.6 cm. 6. There is no mitral valve prolapse. Trace mitral regurgitation is identified. 7. Normal LV size with no evidence of left ventricular hypertrophy. Hyperdynamic LV systolic function with an estimated EF greater than 70%. Normal wall motion is noted. 8. Aortic valve opens well. No evidence of stenosis or insufficiency. The valve is trileaflet. 9. The aorta appears normal on visualized segments. 10. No pericardial effusion is identified. cc: MD Viviana Juarez MD
--- NOTE | 2016-09-20 13:17 | PROGRESS NOTE ---
DATE: 09/20/2016 SUBJECTIVE: The patient has been very agitated overnight and required Haldol several times. She remains on BiPAP. OBJECTIVE: Vital Signs: Temperature 98.5 degrees, blood pressure 157/88, heart rate 114, respirations 17, O2 saturations 98% on BiPAP. General: This is an elderly female, lying in bed, in no acute distress. Head: Normocephalic, atraumatic. Heart: S1, S2. Normal. Tachycardic. Lungs: Equal air entry bilaterally. Coarse breath sounds. Abdomen: Positive bowel sounds. Soft. Extremities: No edema. No cyanosis. No calf tenderness. Neurologic: The patient is agitated and confused. LABS: White blood cell count 20, hemoglobin 9.5, hematocrit 30, platelets 397,000. ABG pH of 7.32, pCO2 62, PO2 123. Bicarb 28, sodium 153, potassium 4.3, chloride 105, CO2 28, BUN 44, creatinine 1.8, glucose 134, albumin 2.3. ASSESSMENT AND PLAN: 1. Acute hypoxemic respiratory failure secondary to pneumonia and pulmonary edema. We will continue with BiPAP support, IV antibiotics, bronchodilator therapy. Pulmonary is following. 2. Pneumonia. Continue on IV antibiotic therapy. 3. Hypernatremia. We will start the patient on D5W. 4. Perforated viscus status post exploratory laparotomy with duodenal ulcer repair. Management as per the general surgeon. 5. Acute kidney injury. Slowly improving. Continue to monitor closely for improvement. 6. Leukocytosis. The patient's white blood cell count continues to rise. Will add Merrem. 7. Metabolic encephalopathy. This may be secondary to the patient's underlying infection. We will start the patient on Geodon to manage agitation. 8. Deep vein thrombosis prophylaxis. Continue on heparin. 9. Gastrointestinal prophylaxis. Continue on IV Protonix. cc: Tesha Montero MD
[2016-09-20] MEDS ORDERED: MERREM 500 MG in NS 50 ML IV SCH (14:00)
[2016-09-20] MEDS: TEFLARO 600 MG in NS 250 ML IV SCH (14:30)
--- NOTE | 2016-09-20 14:36 | PROGRESS NOTE ---
DATE: 09/20/2016 PRESENT ILLNESS: The patient is status post surgery for perforated duodenum ulcer, with resulting peritonitis. The cultures taken at surgery are growing Klebsiella and yeast. MEDICATIONS: The patient is on micafungin, Zosyn, and meropenem, now for a total of 4 days. PHYSICAL EXAMINATION: Vital Signs: Temperature is 98.5 degrees, pulse 105, respirations 17, blood pressure 157/88. Generally: This is an ill-appearing elderly female. She is in no acute distress. Thorax: There is an increased AP diameter of the chest. Lungs: Clear to auscultation. Cardiovascular: Regular heart rate. Abdomen: Soft. It was not tender. The dressing over the incision is intact. Neurologic: The patient is on a BiPAP mask and sedated. LAB AND X-RAY: Chest x-ray shows bilateral infiltrates. CBC shows a white count of 20,010, hemoglobin 9.5, and platelet count 397,000. Blood gases show a pH of 7.32, a pO2 of 123, and a pCO2 of 62. Creatinine is 1.8. GFR is 28. CPK is 1074. Echocardiogram shows no vegetations and no pericardial effusion. Chest x-ray shows bilateral infiltrates. ASSESSMENT AND PLAN: Patient is status post surgery for perforated duodenum ulcer. She appears to have pneumonia as well. My plan is to discontinue meropenem and Zosyn and start the patient on ceftaroline to provide continued coverage for the Klebsiella in the patient's abdominal wound, and also provide coverage both for methicillin-resistant Staph aureus, even though we have not grown it in any culture. I would like to discuss with Dr. Lezama whether it would be any help to consider a CT scan. COMORBIDITIES: May include cigarette smoking, chronic obstructive pulmonary disease, peptic ulcer disease, and being elderly. cc: Linden Benson MD
[2016-09-21] MEDS: TEFLARO 600 MG in NS 250 ML IV SCH ×2 (01:41→13:25)
[2016-09-21] MEDS: HALDOL IM PRN ×3 (01:44→16:30)
[2016-09-21] MEDS: GEODON IM PRN ×2 (02:19→10:55)
[2016-09-21] MEDS: XOPENEX NEB INH SCH ×6 (03:20→23:15)
[2016-09-21] MEDS: ATROVENT NEB INH SCH ×3 (03:20→11:19)
[2016-09-21] MEDS: DILAUDID IV PRN ×6 (03:32→23:20)
[2016-09-21 05:03] LABS: ALLEN TEST YES; BE 13.9 mmoll (-3.0-3.0); BLOOD TYPE ARTERIAL; DRAW SITE R RADIAL; METHB 0.9 % (0.0-1.5); O2(CT) 9.5 mL/dL (15.0-23.0); PO2(98.6) 61 mmHg (60-100); SAMPLE BLOOD; SAO2 93.8 % (95.0-100.0); THB 7.3 g/dL (11.5-17.4)
[2016-09-21 05:05] LABS: MODALITY PRB; PCO2(98.6) 65 mmHg (35-45)
[2016-09-21 05:20] LABS: BASO% 0.1 % (0.0-0.8); EOS# 0.08 X1000 (0.0-0.7); EOS% 0.6 % (0.0-10.0); HEMATOCRIT 26.9 % (37.0-47.0); HEMOGLOBIN 8.3 g/dL (12.0-16.0); IMM GRAN# 0.06 X1000 (0.0-0.04); IMM GRAN% 0.4 % (0.0-0.5); LYMPH# 0.75 X1000 (1.2-3.4); LYMPH% 5.4 % (20.5-51.1); MANUAL DIFF NEEDED? YES; MCH 25.3 PG (27-31); MCHC 30.9 g/dL (33-37); MONO# 0.69 X1000 (0.11-0.59); MPV 10.7 FL (7.4-10.4); NEUT% 88.5 % (42.2-75.2); PLT 313 X1000 (130-400); RBC 3.28 XMIL (4.2-5.4)
[2016-09-21 06:10] LABS: CALCIUM 7.5 mg/dL (8.8-10.2); POTASSIUM 2.7 mmol/L (3.5-5.1)
[2016-09-21 06:39] LABS: BANDS 8 % (0-1); HYPOCHROM 1+; LYMPHS 4 % (21-51); MONO 4 % (1-9)
--- NOTE | 2016-09-21 07:17 | Diag Imaging Result Doc PS360 ---
EXAM: CHEST-1 VIEW HISTORY: SOB TECHNIQUE: AP portable at 0500 COMMENT: There is an NG tube with its tip below the diaphragm. There is a PICC line on the left with its tip in the superior vena cava just above the right atrium. There is alveolar opacity throughout much of the lungs bilaterally with some sparing of the right lower lobe. The inspiration is slightly better than on 09/19/2016 otherwise has been no significant change. IMPRESSION: Pulmonary edema and/or pneumonia. Electronically signed by David Crouch 09/21/2016 7:15 AM
[2016-09-21 07:20] LABS: HEMOGLOBIN A1C 5.8 % (4.8-6.0)
[2016-09-21] MEDS ORDERED: POTASSIUM CHLORIDE 60 MEQ in NS 500 ML IV ONE (07:30)
[2016-09-21] MEDS: PROTONIX IV SCH ×2 (07:48→18:21)
[2016-09-21] MEDS: MYCAMINE 100 MG in NS 100 ML IV SCH (07:48)
[2016-09-21] MEDS: PULMICORT INH SCH ×2 (08:09→19:25)
[2016-09-21] MEDS: HEPARIN SUBQ SCH ×2 (09:10→20:16)
[2016-09-21] MEDS: PERIDEX MT SCH ×2 (09:11→20:16)
[2016-09-21] MEDS: STERILE WATER INJ. INJ PRN (10:55)
[2016-09-21] MEDS: LASIX IV SCH ×2 (13:25→20:16)
[2016-09-21] MEDS: CLINIMIX E 4.25%-5% SOLUTION 1,000 ML IV SCH (13:26)
[2016-09-21] MEDS ORDERED: CATAPRES-TTS-1 TD SCH (14:15)
--- NOTE | 2016-09-21 14:24 | PROGRESS NOTE ---
DATE: 09/21/2016 SUBJECTIVE: The patient remains very agitated and restless. She is currently on a non- rebreather. OBJECTIVE: Vital Signs: Temperature 99.2 degrees, blood pressure 186/97, heart rate 93, respirations 14, O2 saturations 93% on 70% non-rebreather hyaline. General: This is a chronically ill-appearing elderly female, lying in bed, is very agitated. Head: Normocephalic, atraumatic. Heart: S1, S2. Normal. Tachycardic. Lungs: Equal air entry bilaterally. Coarse bilaterally. Abdomen: Positive bowel sounds. Soft, nontender, nondistended. Extremities: No edema. No cyanosis. No calf tenderness. Neurologic: The patient is agitated but does move all 4 extremities. LABS: White blood cell count 13.8, hemoglobin 8.3, hematocrit 26, platelets 313,000. ABG; pH of 7.4, pCO2 65, PO2 61, bicarb 35, sodium 137, potassium 2.7, chloride 95, CO2 31, BUN 30, creatinine 1.2, glucose 153, calcium 7.5. ASSESSMENT AND PLAN: 1. Acute hypoxemic respiratory failure secondary to pneumonia and pulmonary edema. Continue on the current management as directed by Dr. Benson and the power generation equipment repairer. 2. Pneumonia. Continue on IV antibiotic therapy. 3. Hypokalemia. Will replace the patient's potassium. 4. Acute kidney injury. Improved. 5. Perforated viscus status post exploratory laparotomy with duodenal ulcer repair. Management as per the general surgeon. 6. Metabolic encephalopathy. Unchanged. The patient is requiring Geodon and Haldol for her continued agitation. Will consult Neurology for further recommendations. 7. Leukocytosis. Improved. Continue on IV antibiotic therapy. 8. Volume overload. The patient has been started on Lasix by the power generation equipment repairer. We will monitor the patient's volume status closely. 9. Hypertension. Will start the patient on a clonidine patch since she is n.p.o. at this time. 10. Gastrointestinal prophylaxis. Continue on IV Protonix. 11. Deep vein thrombosis prophylaxis. Continue on heparin. cc: Tesha Montero MD
--- NOTE | 2016-09-21 16:25 | CONSULTATION ---
DATE OF CONSULTATION: 09/21/2016 REQUESTING PHYSICIAN: The patient is seen in consultation at the request of Dr. Montero. REASON FOR EVALUATION: Evaluation of altered mental status. HISTORY OF PRESENT ILLNESS: The history is obtained from chart review as well as discussion with the staff due to the patient's altered mental status. The patient is a 70-year- old female who was admitted with perforated duodenal ulcer, status post repair, with resultant peritonitis. She is reported to have done well after surgery initially, but about 3 days ago she became confused and agitated. Her hospital course has been complicated by respiratory failure secondary to pneumonia and pulmonary edema and acute kidney injury. The nurses state that she has not really shown any improvement since 3 days ago and continues to be quite agitated. She is being managed with p.r.n. Geodon and p.r.n. Haldol. Her medical issues are being managed, as well. The patient is reported to be clawing at staff and quite combative. For the most part, she moans and only repeatedly says her first name. PAST MEDICAL HISTORY: 1. Duodenal ulcer, esophagitis, gastritis. 2. Hypertension. 3. COPD. 4. Hyperlipidemia. 5. Peripheral neuropathy. 6. Depression. 7. Anxiety. 8. Chronic pain. 9. Migraines. 10. Iron deficiency anemia. 11. Lifelong smoker. 12. Hysterectomy. 13. Appendectomy. 14. Hemorrhoidectomy. SOCIAL HISTORY: She has been a lifelong smoker and continues to smoke about a half-pack per day. No alcohol or illicit drug use. She lives alone. FAMILY HISTORY: Mother is from cancer. Father with a history of stroke and sister with diabetes. ALLERGIES: No known drug allergies. MEDICATION: Notable for p.r.n. Geodon, p.r.n. Haldol, ceftaroline, Dilaudid p.r.n., Micafungin. REVIEW OF SYSTEMS: This was unobtainable today due to the patient's altered mental status. PHYSICAL EXAMINATION: Vital Signs: Afebrile. Pulse 93-114, respiratory rate 14, blood pressure 186/97, pulse oximetry 93% on a non-rebreather. General: The patient is lying in bed with her eyes closed. She is in 4-point restraints. She is moaning and repeating her first name. Neck: Supple. No meningismus. Cardiovascular: Pulses are intact. Mildly tachycardic, regular rhythm. Abdomen: Notable for surgical incision areas, which are bandaged and intact. Extremities: Well perfused, warm, and no edema in the lower extremities. Mental status: The patient is awake. She is not attentive. She does not regard. She moans and repeats her name. She does not follow commands. She is clearly agitated. Cranial nerves: Her pupils are equal, round, reactive to light, 3 mm both eyes. She has a conjugate gaze. Face is symmetric with equal grimace. Motor exam: On strength testing, she withdraws all of her extremities and is at least against gravity. There is no obvious asymmetry detected. She has some shivering from time to time. Reflexes are 2+ throughout with the exception of the RUE where they are diminished. Toes are downgoing. Sensory exam: She withdraws to painful stimulus in all of her extremities. Coordination and gait are unable to be tested due to her mental status. DIAGNOSTICS: Chest x-ray from today shows pulmonary edema and/or pneumonia. Echocardiogram from 09/19/2016 shows mild to moderate tricuspid regurgitation, trace pulmonary insufficiency, normal left atrial size, trace mitral regurgitation, normal left ventricle size. LABORATORY: White count 13.8, which is down from yesterday. Hemoglobin and hematocrit 8.3 and 27. Platelets 313,000. PCO2 of 65. Sodium of 137. Potassium of 2.7. BUN of 30, which is down from yesterday. Creatinine of 1.2. Glucose 153. Calcium 7.5. Phosphorus 5.3. AST 49, which is up from yesterday. ALT 23. Alkaline phosphatase 123. CK 1074. proBNP 3956. Albumin is 2.3. ASSESSMENT AND PLAN: This is a 70-year-old female with a perforated duodenal ulcer and peritonitis, s/p repair, whose hospital course has been complicated by acute kidney injury and infection as well as gradual onset of altered mental status developing 3 days ago and continuing today. Her neurologic exam is nonfocal with the exception of diminished reflexes in the RUE; she does not have clear weakness of the limb, however. 1. Encephalopathy, most likely from current toxic, metabolic derangements as well as her underlying infections. Agree with treating the infectious etiologies, as is being done. Agree with continued correction of the metabolic derangements that she has ongoing. Will order a noncontrasted head CT to evaluate for any acute findings; she will not tolerate MRI at this time. Continue to monitor for improvement of symptoms as her infections and metabolic derrangements are improved. A routine EEG may be helpful if her encephalopathy doesn't resolve. Thank you for this consultation. We will follow. cc: Mikayla Christina MD MTDD
--- NOTE | 2016-09-21 17:01 | Diag Imaging Result Doc PS360 ---
EXAM: HEAD W/O CONTRAST INDICATION: altered mental status, r/o stroke COMPARISON: 08/26/2014 FINDINGS: There is fairly extensive low attenuation in the periventricular and subcortical white matter that is largely stable as compared to the previous study indicating advanced microangiopathy. There appears to be a small chronic lacunar infarct involving the right basal ganglion that may not been present previously. There is no definite acute infarct given the limited sensitivity of CT versus MRI. There is no discrete intracranial mass, mass effect, or intracranial hemorrhage. There is an incidental small right mastoid air cell effusion. Surrounding soft tissues and bony structures are essentially unremarkable, otherwise. IMPRESSION: 1.Extensive chronic appearing changes. No definite acute intracranial pathology by CT. 2.Right mastoid air cell effusion. Electronically signed by Valerio Mcnally 09/21/2016 4:58 PM
--- NOTE | 2016-09-21 17:11 | PROGRESS NOTE ---
DATE: 09/21/2016 SUBJECTIVE: The patient is status post surgery for perforated duodenal ulcer with resulting peritonitis. The patient had leukocytosis yesterday but was started on ceftaroline and the white count is coming down. Culture taken at surgery grew Klebsiella and Amara glabrata. MEDICATIONS: The patient was on micafungin, Zosyn and meropenem for 4 days. Yesterday the patient was switched to ceftaroline as a single agent. This would be day 5 for the micafungin which was also isolated from the patient's wound. PHYSICAL EXAMINATION: Vital Signs: Temperature is 99.2 degrees, pulse 93, respirations 14, blood pressure 186/97. General: This is an ill-appearing elderly female. She is somewhat delirious. Head eyes, ears, nose, and throat: No drainage noted from the nose or ears. Thorax: Patient has increased AP diameter of the chest. Lungs: Bilateral rhonchi. Cardiovascular: Regular heart rate. Abdomen: Soft and nontender. LAB AND X-RAY STUDIES: The blood gases today showed a pH of 7.4, PO2 of 61, a pCO2 of 65. Creatinine is 1.2. GFR is 44. CBC shows a white count of 13,820, hemoglobin 8.3 and platelet count 303,000. Abdominal culture grew Klebsiella and Amara glabrata. Chest has bilateral pulmonary edema and/or pneumonia. Echocardiogram shows no vegetations or pericardial effusions. ASSESSMENT AND PLAN: I plan to continue treating the patient with micafungin and ceftaroline because of her pneumonia and because of her abdominal wound infection. COMORBIDITIES: Include cigarette smoking, COPD, peptic ulcer disease and being elderly. cc: Linden Benosn MD
[2016-09-21] MEDS: LABETALOL IV PRN (20:17)
[2016-09-22] MEDS: CLINIMIX E 4.25%-5% SOLUTION 1,000 ML IV SCH ×2 (01:24→13:39)
[2016-09-22] MEDS: TEFLARO 600 MG in NS 250 ML IV SCH ×2 (01:24→14:00)
[2016-09-22] MEDS: GEODON IM PRN (02:25)
[2016-09-22] MEDS: LABETALOL IV PRN ×2 (02:25→22:04)
[2016-09-22] MEDS: LASIX IV SCH ×3 (03:32→22:06)
[2016-09-22] MEDS: XOPENEX NEB INH SCH ×6 (03:40→23:00)
[2016-09-22 05:14] LABS: ALLEN TEST YES; BE 21.6 mmoll (-3.0-3.0); BLOOD TYPE ARTERIAL; DRAW SITE R RADIAL; METHB 0.9 % (0.0-1.5); O2(CT) 15.1 mL/dL (15.0-23.0); PO2(98.6) 78 mmHg (60-100); SAMPLE BLOOD; SAO2 97.4 % (95.0-100.0); THB 11.2 g/dL (11.5-17.4)
[2016-09-22 05:15] LABS: MODALITY BI PAP; PCO2(98.6) 52 mmHg (35-45); pH(98.6) 7.56 (7.35-7.45)
[2016-09-22] MEDS: PROTONIX IV SCH ×2 (06:26→18:26)
[2016-09-22 06:51] LABS: BASO% 0.1 % (0.0-0.8); EOS# 0.18 X1000 (0.0-0.7); EOS% 1.7 % (0.0-10.0); HEMATOCRIT 32.4 % (37.0-47.0); HEMOGLOBIN 9.7 g/dL (12.0-16.0); IMM GRAN# 0.04 X1000 (0.0-0.04); IMM GRAN% 0.4 % (0.0-0.5); LYMPH# 0.83 X1000 (1.2-3.4); LYMPH% 7.9 % (20.5-51.1); MANUAL DIFF NEEDED? YES; MCH 25.6 PG (27-31); MCHC 29.9 g/dL (33-37); MCV 85.5 FL (81-99); MONO# 0.49 X1000 (0.11-0.59); MONO% 4.7 % (1.7-9.3); MPV 10.8 FL (7.4-10.4); NEUT% 85.2 % (42.2-75.2); PLT 356 X1000 (130-400); RBC 3.79 XMIL (4.2-5.4)
[2016-09-22 07:41] LABS: POTASSIUM 3.2 mmol/L (3.5-5.1)
[2016-09-22] MEDS: DILAUDID IV PRN ×4 (07:42→22:47)
[2016-09-22] MEDS: PULMICORT INH SCH ×2 (07:46→19:25)
[2016-09-22] MEDS: HEPARIN SUBQ SCH ×2 (08:07→20:27)
[2016-09-22] MEDS: PERIDEX MT SCH ×2 (08:07→21:02)
[2016-09-22] MEDS: MYCAMINE 100 MG in NS 100 ML IV SCH (08:08)
--- NOTE | 2016-09-22 08:31 | Diag Imaging Result Doc PS360 ---
EXAM: CHEST-1 VIEW INDICATION: SOB TECHNIQUE: One view COMPARISON: 09/21/2016 FINDINGS: The left PICC line is in stable position. The NG tube projects below the diaphragm and out of the [id number]. The patient is rotated toward the right. Bilateral infiltrates or approximate stable given differences in positioning. Cardiac silhouette is stable. IMPRESSION: Essentially stable chest. Electronically signed by Valerio Mcnally 09/22/2016 8:29 AM
[2016-09-22] MEDS ORDERED: POTASSIUM CHLORIDE 40 MEQ/SWI 40 MEQ/100 ML IVPB IV ONE ×2 (09:01→16:00)
--- NOTE | 2016-09-22 10:59 | PROGRESS NOTE ---
DATE: 09/22/2016 SUBJECTIVE: The patient is currently resting comfortably on BiPAP. Her blood pressure is elevated whenever she is agitated. OBJECTIVE: Vital Signs: Temperature 97.4 degrees, blood pressure 185/98, heart rate 80, respirations 25. O2 saturations 98% on 45% BiPAP. General: This is a chronically ill-appearing, elderly female, lying in bed, in no acute distress. Head: Normocephalic, atraumatic. Heart: S1, S2 normal. Regular rate and rhythm. Lungs: Equal air entry bilaterally. No crackles. No rales. Abdomen: Positive bowel sounds. Soft, nontender, nondistended. Extremities: No edema. No cyanosis. No calf tenderness. Neurologic: The patient is currently resting. She is in bilateral wrist restraints due to severe issues with severe agitation. LABORATORY DATA: White blood cell count 10, hemoglobin 9.7, hematocrit 32, platelets 356,000. Sodium 148, potassium 3.2, chloride 96, CO2 of 38. BUN 34, creatinine 1.1, glucose 187. Calcium 9. Magnesium 1.8. ASSESSMENT AND PLAN: 1. Acute hypoxemic respiratory failure secondary to pneumonia. Continue with BiPAP, bronchodilator therapy, and IV antibiotics. 2. Hypokalemia. We will replace the patient's potassium. 3. Hypernatremia. We will continue to monitor this closely. 4. Acute kidney injury. Resolved. 5. Perforated viscus status post exploratory laparotomy with duodenal ulcer repair with klebsiella infection. Stable. General Surgery is following. Continue IV antibiotic therapy. 6. Metabolic encephalopathy. Unchanged. Neurology is following. 7. Leukocytosis, resolved. 8. Anemia. The patient's hemoglobin and hematocrit is better. We will continue to monitor closely. 9. Hypertension. The patient's blood pressure does increase whenever she is agitated. Continue with p.r.n. labetalol. The patient is currently on clonidine TTS patch. 10.Nutrition. The patient is on clinimix. 11. Gastrointestinal prophylaxis. Continue on IV Protonix. 12. Deep vein thrombosis prophylaxis. Continue on heparin. cc: Tesha Montero MD [facility]
[2016-09-22] MEDS: NS NEB INH SCH (11:08)
[2016-09-22] MEDS: HALDOL IM PRN (12:31)
--- NOTE | 2016-09-22 12:41 | PROGRESS NOTE ---
DATE: 09/22/2016 SUBJECTIVE: The patient denies severe pain, but she says she hurts all over. OBJECTIVE: Vital signs: She is afebrile. Vital signs are stable. She is now on nasal cannula. The BiPAP has been discontinued. O2 sat 95%. Urine output is 7 L yesterday. NG tube 50 mL. MARYCHUY drain 30 mL. General: She is alert. She appears somewhat confused. She does follow commands. CV: Regular rate and rhythm. Respiratory: No work of breathing. GI: Soft, nondistended. She does have good bowel sounds. Incision is clean, dry, and intact. LABORATORY: White blood cell count 10, hemoglobin 9.7, platelet count 356. pH 7.6, pCO2 of 52, PaO2 of 78, bicarb 41, base excess is 21.6. Sodium 148, potassium 3.2, chloride 96, CO2 of 38, BUN 34, creatinine 1.1. ASSESSMENT AND PLAN: A 70-year-old female status post a Sunil patch repair of perforated duodenal ulcer. She also has had respiratory failure. This appears to be improving. I think we can discontinue her NG tube and start her on a clear liquid diet. cc: Cesar Branch MD
[2016-09-22] MEDS: D5W 1,000 ML IV SCH (16:00)
[2016-09-23] MEDS: CLINIMIX E 4.25%-5% SOLUTION 1,000 ML IV SCH ×2 (01:39→13:30)
[2016-09-23] MEDS: TEFLARO 600 MG in NS 250 ML IV SCH ×2 (01:44→13:30)
[2016-09-23] MEDS: ZOFRAN IV PRN (03:26)
[2016-09-23] MEDS: DILAUDID IV PRN ×5 (03:28→21:00)
[2016-09-23] MEDS: XOPENEX NEB INH SCH ×6 (03:42→23:21)
[2016-09-23 04:21] LABS: ALLEN TEST YES; BE 19.9 mmoll (-3.0-3.0); BLOOD TYPE ARTERIAL; DRAW SITE R RADIAL; METHB 0.8 % (0.0-1.5); O2(CT) 14.6 mL/dL (15.0-23.0); PO2(98.6) 85 mmHg (60-100); SAMPLE BLOOD; SAO2 97.8 % (95.0-100.0); THB 10.8 g/dL (11.5-17.4); pH(98.6) 7.47 (7.35-7.45)
[2016-09-23 04:22] LABS: MODALITY CANNULA; PCO2(98.6) 64 mmHg (35-45)
[2016-09-23 04:47] LABS: BASO% 0.2 % (0.0-0.8); EOS# 0.39 X1000 (0.0-0.7); EOS% 4.2 % (0.0-10.0); HEMATOCRIT 33.3 % (37.0-47.0); HEMOGLOBIN 10.5 g/dL (12.0-16.0); IMM GRAN# 0.06 X1000 (0.0-0.04); IMM GRAN% 0.6 % (0.0-0.5); LYMPH% 11.8 % (20.5-51.1); MANUAL DIFF NEEDED? YES; MCH 25.3 PG (27-31); MCHC 31.5 g/dL (33-37); MCV 80.2 FL (81-99); MONO# 0.63 X1000 (0.11-0.59); MONO% 6.8 % (1.7-9.3); MPV 10.4 FL (7.4-10.4); NEUT% 76.4 % (42.2-75.2); PLT 331 X1000 (130-400); RBC 4.15 XMIL (4.2-5.4)
[2016-09-23 04:59] LABS: BANDS 1 % (0-1); LYMPHS 12 % (21-51); MONO 3 % (1-9)
[2016-09-23 05:05] LABS: ALBUMIN 2.5 g/dL (3.5-5.0); CALCIUM 8.4 mg/dL (8.8-10.2); POTASSIUM 3.3 mmol/L (3.5-5.1); TOTAL BILIRUBIN 0.24 mg/dL (0.20-1.00); TOTAL PROTEIN 6.4 g/dL (6.3-8.3)
[2016-09-23] MEDS ORDERED: POTASSIUM CHLORIDE 60 MEQ in NS 500 ML IV ONE (05:37)
[2016-09-23] MEDS ORDERED: MAGNESIUM SULFATE 2 GM/S.W.I. 2 GM/50 ML IVPB IV ONE (05:37)
[2016-09-23] MEDS ORDERED: SODIUM CHLORIDE 0.9% 10 ML ONE (07:08)
[2016-09-23] MEDS: PROTONIX IV SCH ×2 (07:10→18:13)
[2016-09-23] MEDS: PULMICORT INH SCH ×2 (07:27→19:16)
--- NOTE | 2016-09-23 08:20 | Diag Imaging Result Doc PS360 ---
EXAM: CHEST-1 VIEW INDICATION: SOB TECHNIQUE: One view COMPARISON: 09/22/2016 FINDINGS: The left PICC line is in stable position. The NG tube has been removed. There has been interval improvement of the bilateral infiltrates seen on the previous studies. No new consolidations are appreciated. Cardiac silhouette is stable. IMPRESSION: Interval improvement. Electronically signed by Valerio Mcnally 09/23/2016 8:18 AM
[2016-09-23] MEDS: PERIDEX MT SCH ×2 (08:46→20:25)
[2016-09-23] MEDS: HEPARIN SUBQ SCH ×2 (08:46→20:26)
[2016-09-23] MEDS: MYCAMINE 100 MG in NS 100 ML IV SCH (08:52)
--- NOTE | 2016-09-23 10:17 | PROGRESS NOTE ---
DATE: 09/23/2016 SUBJECTIVE: The patient denies any pain. She is tolerating some clears. She says she has passed some gas. OBJECTIVE: She is afebrile. Vital signs are stable. Urine output 3.8 L. MARYCHUY drain has minimal output and it is serous in character. She is alert. She is oriented x3, less confused today. Cardiovascular: Regular rate and rhythm. Respiratory: No work of breathing. Gastrointestinal: Soft, nontender, nondistended. Her incision is clean, dry and intact. She does have some bowel sounds. LABORATORY DATA: White blood cell count 9.3, hemoglobin 10.5, pH 7.5, BUN 49, creatinine 1.1. ASSESSMENT AND PLAN: A 70-year-old female status post jaymie patch repair of perforated duodenal ulcer. She is making improvement. Her respiratory status is stable on nasal cannula. I am going to advance her to a full liquid diet today. We are going to consult Physical Therapy for assistance with her mobility and help with her deconditioning. I think she should continue her peripheral nutrition for now until her oral intake is better. cc: Cesar Branch MD
[2016-09-23] MEDS: NS NEB INH SCH ×2 (11:30→15:37)
[2016-09-23] MEDS: D5W 1,000 ML IV SCH (13:30)
--- NOTE | 2016-09-23 17:13 | PROGRESS NOTE ---
DATE: 09/23/2016 SUBJECTIVE: The patient is more awake and alert this morning. She was able to answer questions appropriately and she states that she feels a lot better. OBJECTIVE: Vital Signs: Temperature 98.4 degrees, blood pressure is 162/91, heart rate 79, respirations 20, O2 saturation is 96% on 4 L nasal cannula. General: This is an elderly female, lying in bed, in no acute distress. Head: Normocephalic, atraumatic. Heart: S1, S2. Normal. Regular rate and rhythm. Lungs: Equal air entry bilaterally. No crackles. No rales. Abdomen: Positive bowel sounds. Soft, nontender, nondistended. Extremities: No edema. No cyanosis. No calf tenderness. Neurologic: The patient is awake and alert. LABS: White blood cell count 9.3, hemoglobin 10, hematocrit 33, platelets 331,000. Sodium 142, potassium 3.3, chloride 92, CO2 37, BUN 49, creatinine 1.1, glucose 164, magnesium 1.4, phosphorus 4. ASSESSMENT AND PLAN: 1. Acute hypoxemic respiratory failure secondary to pneumonia and volume overload. This appears to be improving slowly. Continue on Lasix as directed by the color separation photographer plus IV antibiotic therapy and bronchodilator therapy. 2. Perforated viscus status post exploratory laparotomy with duodenal ulcer repair infection. Able. Continue with IV antibiotic therapy as directed by Dr. Benson. 3. Metabolic encephalopathy. Improved. 4. Acute kidney injury. Slowly improving. 5. Anemia. The patient's hemoglobin and hematocrit are stable. 6. Nutrition. Management as per the general surgeon. The patient is on Clinimix. 7. Gastrointestinal prophylaxis. Continue on the Protonix. 8. Deep vein thrombosis prophylaxis. Continue on heparin. cc: Tesha Montero MD
[2016-09-23] MEDS: STERILE WATER INJ. INJ PRN (18:13)
[2016-09-23] MEDS ORDERED: LASIX IV ONE (21:00)
[2016-09-23] MEDS: HALDOL IM PRN (23:09)
[2016-09-24] MEDS: DILAUDID IV PRN ×6 (00:24→23:52)
[2016-09-24] MEDS: CLINIMIX E 4.25%-5% SOLUTION 1,000 ML IV SCH ×4 (01:17→14:55)
[2016-09-24] MEDS: TEFLARO 600 MG in NS 250 ML IV SCH ×2 (01:23→14:02)
[2016-09-24] MEDS: ZOFRAN IV PRN (02:35)
[2016-09-24] MEDS: XOPENEX NEB INH SCH ×6 (02:52→22:47)
[2016-09-24] MEDS ORDERED: SODIUM CHLORIDE 0.9% 10 ML ONE (05:52)
[2016-09-24] MEDS: PULMICORT INH SCH ×2 (07:15→19:53)
[2016-09-24 07:43] LABS: BASO% 0.1 % (0.0-0.8); EOS# 0.46 X1000 (0.0-0.7); HEMATOCRIT 32.5 % (37.0-47.0); HEMOGLOBIN 10.1 g/dL (12.0-16.0); IMM GRAN# 0.13 X1000 (0.0-0.04); IMM GRAN% 1.4 % (0.0-0.5); LYMPH# 1.46 X1000 (1.2-3.4); LYMPH% 15.7 % (20.5-51.1); MCH 25.1 PG (27-31); MCHC 31.1 g/dL (33-37); MCV 80.6 FL (81-99); MONO# 0.93 X1000 (0.11-0.59); MPV 11.3 FL (7.4-10.4); NEUT% 67.8 % (42.2-75.2); PLT 329 X1000 (130-400); RBC 4.03 XMIL (4.2-5.4)
[2016-09-24 07:44] LABS: MANUAL DIFF NEEDED? YES
--- NOTE | 2016-09-24 08:05 | Diag Imaging Result Doc PS360 ---
CHEST-1 VIEW - 09/24/2016 INDICATION: SOB TECHNIQUE: COMPARISON: 09/23/2016 FINDINGS: Stable left PICC line in good position. There is decrease in the ill-defined infiltrate throughout the lungs bilaterally. Heart size remains top normal. No new or focal infiltrates. No pneumothorax or pleural effusion. IMPRESSION: Improvement in the ill-defined infiltrates suggesting improving pulmonary edema. Electronically signed by Lamberto Wisdom 09/24/2016 8:03 AM
[2016-09-24 08:06] LABS: ALLEN TEST YES; BE 17.3 mmoll (-3.0-3.0); BLOOD TYPE ARTERIAL; DRAW SITE R RADIAL; O2(CT) 14.2 mL/dL (15.0-23.0); PO2(98.6) 100 mmHg (60-100); SAMPLE BLOOD; SAO2 98.3 % (95.0-100.0); THB 10.4 g/dL (11.5-17.4); pH(98.6) 7.48 (7.35-7.45)
[2016-09-24 08:23] LABS: EOS 4 % (1-10); LYMPHS 18 % (21-51); MONO 11 % (1-9)
[2016-09-24 08:26] LABS: CALCIUM 8.5 mg/dL (8.8-10.2); MAGNESIUM 1.7 mg/dL (1.5-2.7); POTASSIUM 4.1 mmol/L (3.5-5.1)
[2016-09-24] MEDS: PROTONIX IV SCH ×2 (08:51→18:31)
[2016-09-24] MEDS: PERIDEX MT SCH ×2 (08:53→20:19)
[2016-09-24] MEDS: HEPARIN SUBQ SCH ×2 (08:53→20:19)
[2016-09-24] MEDS: MYCAMINE 100 MG in NS 100 ML IV SCH (08:53)
[2016-09-24 09:44] LABS: MODALITY CANNULA
--- NOTE | 2016-09-24 14:25 | PROGRESS NOTE ---
DATE: 09/24/2016 SUBJECTIVE: The patient is resting comfortably in bed and she is awake and alert and her drain was removed this morning. OBJECTIVE: Vital Signs: Temperature 97 degrees, blood pressure 131/81, heart rate 71, respirations 12, O2 saturations 97% on 4 L nasal cannula. General: This is an elderly female lying in bed in no acute distress. Head: Normocephalic, atraumatic. Heart: S1, S2. Normal. Regular rate and rhythm. Lungs: Clear to auscultation bilaterally. No crackles. No rales. Abdomen: Positive bowel sounds. Soft, nontender, nondistended. Extremities: No edema. No cyanosis. No calf tenderness. Neuro: The patient is alert and oriented x3. LABS: hemoglobin 10, hematocrit 32, platelets 329,000. Sodium 136, potassium 4.1, chloride 87, CO2 34, BUN 47, creatinine 1, glucose 153. ASSESSMENT AND PLAN: 1. Pneumonia. Continue on IV antibiotic therapy. 2. Volume overload. Resolved. 3. Perforated duodenal ulcer status post repair. The patient's drain was removed this morning. Further management as per the general surgeon. 4. Acute kidney injury. Slowly improving. 5. Metabolic encephalopathy. Resolved. 6. Anemia. The patient's hemoglobin and hematocrit are stable. 7. Nutrition. The patient is tolerating a full liquid diet. 8. Deep vein thrombosis prophylaxis. Continue on heparin. 9. The patient is stable for transfer to the surgical floor. 10. Continue with physical therapy. cc: Tesha Montero MD MTDD
--- NOTE | 2016-09-24 14:34 | PROGRESS NOTE ---
DATE: 09/24/2016 SUBJECTIVE: The patient is doing better today as compared to when I last saw her. She says she feels better, though I believe she is not quite back to 100% at baseline with regards to her mentation. A noncontrast head CT was obtained, which did not show any acute findings. OBJECTIVE: Vital Signs: She is afebrile, blood pressure 131/81, pulse 71, respiratory rate 12. General: She is in no acute distress. She is supine in bed. Was initially asleep, but easily arousable to soft voice. Neurologic: Mental status: She is awake and alert. She knows her name. She is not oriented to timing. She is able to name watch band, glasses, and frame, although not the lens. She is able to repeat. She is attentive and interactive. She does have some confusion when asked to do multistep processes. Able to follow simple commands. Cranial nerves: Pupils are equal and reactive to light. Conjugate gaze. Ocular movements are full. Face is symmetric, with equal activation. Motor exam: Her strength is symmetric, 4/5 to 5/5 throughout, with the exception of her right upper extremity, which has been weak from , and has a deformity about the elbow area. Strength there is 4-/5. Her reflexes are symmetric, 2+, as tested. DIAGNOSTIC STUDIES: A noncontrasted head CT was personally reviewed. There were no acute findings. There is right mastoid air cell effusion noted incidentally. LABORATORY STUDIES: White count is normal today. Hemoglobin 10, hematocrit 32, BUN 47, creatinine 1.00. ASSESSMENT AND PLAN: This is a 70-year-old right-handed female with a perforated duodenal ulcer and peritonitis status post repair, whose hospital course was complicated by acute kidney injury and infection, as well as encephalopathy. A noncontrast head CT did not show any acute findings. Encephalopathy. Improved. Likely multifactorial toxic metabolic and underlying infections, all of which are being managed. Her exam is nonfocal. It is reassuring that she is improving and should continue to improve with continued improvement of her underlying medical issues. I do not think we need an EEG at this time, although we can revisit that should her mentation not resolve entirely and there is concern from the primary team. No further recommendations at this time. Will sign off for now. Available as needed. Thank you for this consultation. cc: Mikayla Christina MD
--- NOTE | 2016-09-24 15:18 | PROGRESS NOTE ---
DATE: 09/24/2016 PRESENT ILLNESS: The patient is status post surgery for perforated duodenal ulcer with resulting peritonitis. The patient had leukocytosis but now her white count is in the normal range. The patient's surgical cultures of the abdomen grew Klebsiella and Amara glabrata. MEDICATIONS: The patient has been on ceftaroline for 3 days and micafungin for 8 days. PHYSICAL EXAMINATION: Vital Signs: Temperature is 97.5 degrees, pulse 71, respirations 12, blood pressure 131/81. General: This is a chronically ill-appearing, elderly female. She is much more alert today and is not complaining of any problem. Lungs: Clear to auscultation. Cardiovascular: Regular heart rate. Abdomen: Soft. It is slightly tender. The midline incision is intact and it is not erythematous. LAB AND X-RAY: Chest x-ray shows improved bilateral infiltrates. The patient's creatinine is 1. The GFR is 55. The patient's blood gases show a pH of 7.48, a PO2 of 100 and a pCO2 of 58. ASSESSMENT AND PLAN: I plan to continue with ceftaroline and micafungin for the patient's peritonitis and possible pneumonia although the pulmonary infiltrates could also be due to pulmonary edema or there could be a combination of both things going on. COMORBIDITIES: Include cigarette smoking, COPD, peptic ulcer disease and being elderly. cc: Linden Benson MD
[2016-09-24 20:25] LABS: PCO2(98.6) 58 mmHg (35-45)
[2016-09-24] MEDS: HALDOL IM PRN (23:52)
[2016-09-25] MEDS: TEFLARO 600 MG in NS 250 ML IV SCH ×2 (02:50→13:27)
[2016-09-25] MEDS: CLINIMIX E 4.25%-5% SOLUTION 1,000 ML IV SCH ×2 (02:50→16:19)
[2016-09-25] MEDS: XOPENEX NEB INH SCH ×6 (03:57→23:18)
[2016-09-25] MEDS: ZOFRAN IV PRN ×3 (04:00→19:50)
[2016-09-25] MEDS: DILAUDID IV PRN ×5 (04:00→23:05)
[2016-09-25 04:43] LABS: ALLEN TEST YES; BE 8.7 mmoll (-3.0-3.0); BLOOD TYPE ARTERIAL; DRAW SITE R RADIAL; METHB 0.7 % (0.0-1.5); MODALITY CANNULA; O2(CT) 16.1 mL/dL (15.0-23.0); PCO2(98.6) 52 mmHg (35-45); PO2(98.6) 108 mmHg (60-100); SAMPLE BLOOD; SAO2 98.7 % (95.0-100.0); THB 11.7 g/dL (11.5-17.4); pH(98.6) 7.43 (7.35-7.45)
[2016-09-25 05:54] LABS: MANUAL DIFF NEEDED? NO
[2016-09-25 06:09] LABS: BASO% 0.2 % (0.0-0.8); EOS# 0.33 X1000 (0.0-0.7); EOS% 3.2 % (0.0-10.0); HEMATOCRIT 31.7 % (37.0-47.0); HEMOGLOBIN 9.8 g/dL (12.0-16.0); IMM GRAN# 0.14 X1000 (0.0-0.04); IMM GRAN% 1.4 % (0.0-0.5); LYMPH# 1.35 X1000 (1.2-3.4); LYMPH% 13.2 % (20.5-51.1); MCH 25.1 PG (27-31); MCHC 30.9 g/dL (33-37); MCV 81.1 FL (81-99); MONO# 1.43 X1000 (0.11-0.59); MONO% 13.9 % (1.7-9.3); MPV 11.6 FL (7.4-10.4); NEUT% 68.1 % (42.2-75.2); PLT 339 X1000 (130-400); RBC 3.91 XMIL (4.2-5.4)
[2016-09-25] MEDS: PROTONIX IV SCH ×3 (06:18→18:55)
[2016-09-25 06:27] LABS: AGAP 10; BUN 38 mg/dL (8-22); CALCIUM 8.7 mg/dL (8.8-10.2); CHLORIDE 94 mmol/L (98-107); COSMO 284; MAGNESIUM 1.8 mg/dL (1.5-2.7); POTASSIUM 4.5 mmol/L (3.5-5.1); SODIUM 137 mmol/L (136-145); TCO2 33 mmol/L (25-35)
[2016-09-25] MEDS: PULMICORT INH SCH ×2 (07:16→19:03)
--- NOTE | 2016-09-25 07:51 | Diag Imaging Result Doc PS360 ---
EXAM: CHEST-1 VIEW - 09/25/2016 HISTORY: SOB TECHNIQUE: Portable chest 0500 COMPARISON: 09/24/2016 FINDINGS: Heart size is within normal limits. There is stable mild interstitial marking prominence. There is subsegmental atelectasis at the left base. Compared to the previous exam, no acute changes are identified. PICC remains in place. IMPRESSION: Stable exam compared to prior. Electronically signed by Derick Mirza 09/25/2016 7:49 AM
[2016-09-25] MEDS: PERIDEX MT SCH ×3 (08:05→22:01)
[2016-09-25] MEDS: HEPARIN SUBQ SCH ×3 (08:05→22:01)
[2016-09-25] MEDS: MYCAMINE 100 MG in NS 100 ML IV SCH (08:05)
--- NOTE | 2016-09-25 10:37 | PROGRESS NOTE ---
DATE: 09/25/2016 SUBJECTIVE: This patient is resting comfortably in bed. She does not have any specific complaints at this moment. She is tolerating p.o. but her appetite is low. For the time being I will continue with Clinimix until she is able to eat better. She is completely alert and oriented x3. OBJECTIVE: Vital Signs: Temperature 98.3 degrees, pulse 71, respiratory rate 12, blood pressure 114/97, oxygen saturation 97% on 4 L of nasal cannula. HEENT: Head normocephalic. No trauma. PERRLA. Neck: Supple. No JVD. No masses. Central trachea. Cardiovascular: RRR. No murmurs. Chest: Clear to auscultation. Mild decrease of her breath sounds at the bases with mild rales. Abdomen: Positive bowel sounds. Soft, nontender, nondistended. She has an operative wound that looks clean, dry, and intact. Extremities: No edema. No clubbing. No cyanosis. Neurological: The patient is alert and oriented x3. No focal deficits. LABORATORY: WBC 10.2, hemoglobin 9.8, hematocrit 31.7, platelets 339,000. Sodium 137, potassium 4.5, chloride 94, bicarbonate 33, BUN 38, creatinine 0.9, glucose 126, calcium 8.7, magnesium 1.8. ASSESSMENT AND PLAN: 1. Bilateral pneumonia, but the pulmonary infiltrates could also be related to a combination of atelectasis and pulmonary edema. Anyway, she is being treated by the infectious disease department with ceftaroline and micafungin. This patient had leukocytosis but now the white count is normal. Cultures from the surgical site showed Klebsiella and Amara glabrata. Blood culture has been negative so far. 2. Perforated duodenal ulcer status post repair. The abdomen is soft. She is passing gas. General surgery is following this patient. The wound looks clean, dry, and intact. 3. Acute kidney injury, improved. 4. Volume overload, improved. 5. Metabolic encephalopathy, resolved. 6. Anemia, stable. 7. Nutrition. This patient is tolerating a full liquid diet but her appetite is low. For the time being I will continue with Clinimix. 8. Deep vein thrombosis prophylaxis. Continue with heparin. 9. Physical deconditioning. Continue physical therapy. 10. This patient is stable. She needs physical therapy and increase her food intake. She will be transferred to the floor. cc: Braxton Aguilar MD
[2016-09-25] MEDS: HALDOL IM PRN ×2 (12:37→21:54)
--- NOTE | 2016-09-25 17:23 | PROGRESS NOTE ---
DATE: 09/25/2016 PRESENT ILLNESS: The patient is status post surgery for a perforated INCOMPLETE REPORT - DICTATION ENDS HERE cc: Linden Benson MD
--- NOTE | 2016-09-25 17:27 | PROGRESS NOTE ---
DATE: 09/25/2016 PRESENT ILLNESS: The patient is status post surgery for perforated duodenum ulcer with resulting peritonitis. The patient has been doing well. Her white count is normal. She is eating and is not having a fever. MEDICATIONS: The patient has been on antibiotics following surgery for 8 days after the day of surgery. Currently, she is on micafungin and ceftaroline. PHYSICAL EXAMINATION: Vital Signs: Temperature is 98.4 degrees pulse 83, respirations 18, blood pressure 132/90. General: This is a somewhat ill-appearing, elderly female but she looks much better than she did last week. She is alert, talking and eating solid food. Lungs: Clear to auscultation. Cardiovascular: Regular heart rate. Abdomen: Soft. It was not tender to light palpation. The patient's incision is intact. It is not erythematous or draining. LAB AND X-RAY: [place] [address], hemoglobin 9.8, and platelet count 339,000. Patient's blood gases show a pH of 7.43 and a PO2 of 108, and a pCO2 of 52. Creatinine is 0.9. GFR is greater than 60. ASSESSMENT AND PLAN: I discussed the patient's case with Dr. Lezama. We both feel that the patient is doing well and her intra-abdominal infection has cleared. Therefore our plan is to discontinue the patient's current antibiotics. COMORBIDITIES: Included cigarette smoking, COPD, peptic ulcer disease and being elderly. I am signing off on the case now. I am available to see the patient on a p.r.n. basis. cc: Linden Benson MD
[2016-09-25] MEDS ORDERED: LEVAQUIN PO SCH (18:00)
[2016-09-26] MEDS: XOPENEX NEB INH SCH ×6 (03:26→23:34)
[2016-09-26 03:35] LABS: ALLEN TEST YES; BE 5.6 mmoll (-3.0-3.0); BLOOD TYPE ARTERIAL; DRAW SITE R RADIAL; METHB 0.8 % (0.0-1.5); O2(CT) 11.9 mL/dL (15.0-23.0); PCO2(98.6) 41 mmHg (35-45); PO2(98.6) 53 mmHg (60-100); SAMPLE BLOOD; SAO2 91.7 % (95.0-100.0); THB 9.4 g/dL (11.5-17.4); pH(98.6) 7.47 (7.35-7.45)
[2016-09-26 03:36] LABS: MODALITY ROOM AIR
[2016-09-26] MEDS: PROTONIX IV SCH ×3 (05:40→18:34)
[2016-09-26 06:01] LABS: MANUAL DIFF NEEDED? NO
[2016-09-26 06:09] LABS: BASO% 0.1 % (0.0-0.8); EOS# 0.29 X1000 (0.0-0.7); EOS% 1.6 % (0.0-10.0); HEMOGLOBIN 9.3 g/dL (12.0-16.0); IMM GRAN# 0.09 X1000 (0.0-0.04); IMM GRAN% 0.5 % (0.0-0.5); LYMPH# 0.93 X1000 (1.2-3.4); LYMPH% 5.3 % (20.5-51.1); MCH 24.9 PG (27-31); MCV 80.2 FL (81-99); MONO# 2.69 X1000 (0.11-0.59); MONO% 15.2 % (1.7-9.3); MPV 11.6 FL (7.4-10.4); NEUT% 77.3 % (42.2-75.2); PLT 411 X1000 (130-400); RBC 3.74 XMIL (4.2-5.4)
[2016-09-26] MEDS: CLINIMIX E 4.25%-5% SOLUTION 1,000 ML IV SCH ×2 (06:30→20:12)
[2016-09-26 06:43] LABS: MAGNESIUM 1.8 mg/dL (1.5-2.7); POTASSIUM 5.2 mmol/L (3.5-5.1)
--- NOTE | 2016-09-26 07:32 | Diag Imaging Result Doc PS360 ---
CHEST-1 VIEW - 09/26/2016 INDICATION: SOB TECHNIQUE: COMPARISON: 09/25/2016 FINDINGS: Stable left PICC line. Stable coarse interstitial markings throughout the lungs with upper lobe predominance. Heart size remains normal. No pneumothorax or pleural effusion. IMPRESSION: No change from prior. Electronically signed by Lamberto Wisdom 09/26/2016 7:29 AM
[2016-09-26] MEDS: PULMICORT INH SCH ×2 (07:48→19:11)
[2016-09-26] MEDS: PERIDEX MT SCH ×2 (08:35→20:12)
[2016-09-26] MEDS: HEPARIN SUBQ SCH ×2 (08:35→20:12)
[2016-09-26] MEDS: ZOFRAN IV PRN ×2 (08:39→16:51)
[2016-09-26] MEDS: DILAUDID IV PRN ×4 (10:18→21:22)
--- NOTE | 2016-09-26 11:33 | PROGRESS NOTE ---
DATE: 09/26/2016 SUBJECTIVE: This patient is resting comfortably on the bed. She is not complaining of any specific pain at this moment. Her diet has been advanced to a soft mechanical diet and she is tolerating around the 25%. For the time being, I will continue with Clinimix until she is eating a little bit better. She is completely alert and oriented x3. This patient states also that she used to take medication for anxiety before. She has been on Klonopin. Apparently, the dose is 0.5 mg q.12 hours. OBJECTIVE: Vital Signs: Temperature 98.3 degrees, pulse 89, respiratory rate 14, blood pressure 121/74, oxygen saturation 99 on 3 L of nasal cannula. HEENT: Head normocephalic. No trauma. PERRLA. Neck: Supple. No JVD. No masses. Central trachea. Cardiovascular: RRR. No murmurs. Abdomen: Positive bowel sounds. Soft, nontender, nondistended. She has an operative wound that looks clean, dry, and intact. Mild tenderness to palpation at the level of the periumbilical area. Extremities: No edema. No clubbing. No cyanosis. Neurological Examination: The patient is alert and oriented x3. Laboratory: WBC 17.6, hemoglobin 9.3, hematocrit 30, platelets 411,000. Sodium 133, potassium 5.2, chloride 96, bicarbonate 25, BUN 36, creatinine 1, glucose 179, calcium 9, magnesium 1.8. ASSESSMENT AND PLAN: 1. Bilateral pneumonia, but the pulmonary infiltrates could also be related to a combination of atelectasis and pulmonary edema. Anyway, she has been treated by infectious disease department. Yesterday, the antibiotics were stopped. We will continue to monitor. 2. Perforated duodenal ulcer, status post repair. The abdomen is soft, mild pain. She is passing gas and having bowel movements. General surgery is following this patient. The wound looks clean, dry, and intact. 3. Acute kidney injury, improved. 4. Volume overload, improved. 5. Metabolic encephalopathy, resolved. 6. Anemia, stable. 7. Nutritional status. This patient is tolerating around 25% of her soft mechanical diet. For the time being, I will continue with Clinimix. 8. Deep vein thrombosis prophylaxis with heparin. 9. Physical deconditioning. Continue physical therapy. I already talked to the social media intern to find a rehab placement for this patient. 10. Leukocytosis. This patient's leukocytes previously were normal but today increased to 17. I will repeat the lab work at 1 p.m. 11. Hyperkalemia. The potassium is around 5.2. Again, I will repeat the lab work today in the afternoon around 1 p.m. We will monitor closely. cc: Braxton Aguilar MD
[2016-09-26 14:47] LABS: BASO% 0.1 % (0.0-0.8); EOS# 0.13 X1000 (0.0-0.7); EOS% 0.6 % (0.0-10.0); HEMATOCRIT 30.6 % (37.0-47.0); HEMOGLOBIN 9.6 g/dL (12.0-16.0); IMM GRAN# 0.13 X1000 (0.0-0.04); IMM GRAN% 0.6 % (0.0-0.5); LYMPH# 1.14 X1000 (1.2-3.4); MANUAL DIFF NEEDED? YES; MCH 25.4 PG (27-31); MCHC 31.4 g/dL (33-37); MONO# 2.32 X1000 (0.11-0.59); MONO% 10.2 % (1.7-9.3); MPV 11.5 FL (7.4-10.4); NEUT% 83.5 % (42.2-75.2); PLT 404 X1000 (130-400); RBC 3.78 XMIL (4.2-5.4)
[2016-09-26 14:55] LABS: CALCIUM 8.9 mg/dL (8.8-10.2); POTASSIUM 5.4 mmol/L (3.5-5.1)
[2016-09-26 15:28] LABS: BANDS 2 % (0-1); EOS 1 % (1-10); LYMPHS 10 % (21-51); MONO 7 % (1-9)
[2016-09-26 16:59] LABS: BASO% 0.1 % (0.0-0.8); EOS# 0.18 X1000 (0.0-0.7); EOS% 0.8 % (0.0-10.0); HEMATOCRIT 29.7 % (37.0-47.0); HEMOGLOBIN 9.3 g/dL (12.0-16.0); IMM GRAN% 0.5 % (0.0-0.5); LYMPH# 1.61 X1000 (1.2-3.4); LYMPH% 7.5 % (20.5-51.1); MANUAL DIFF NEEDED? YES; MCH 25.3 PG (27-31); MCHC 31.3 g/dL (33-37); MCV 80.9 FL (81-99); MONO# 1.84 X1000 (0.11-0.59); MONO% 8.6 % (1.7-9.3); MPV 11.4 FL (7.4-10.4); NEUT% 82.5 % (42.2-75.2); PLT 393 X1000 (130-400); RBC 3.67 XMIL (4.2-5.4)
[2016-09-26 17:12] LABS: ALBUMIN 2.7 g/dL (3.5-5.0); CALCIUM 8.7 mg/dL (8.8-10.2); POTASSIUM 5.6 mmol/L (3.5-5.1); TOTAL BILIRUBIN 0.19 mg/dL (0.20-1.00); TOTAL PROTEIN 6.4 g/dL (6.3-8.3)
[2016-09-26 17:19] LABS: LYMPHS 12 % (21-51); MONO 8 % (1-9)
[2016-09-26 17:22] LABS: TARGET CELLS OCCASIONAL
[2016-09-26] MEDS ORDERED: VANCOMYCIN IV PER PHARMACY MISC SCH (17:30)
--- NOTE | 2016-09-26 17:40 | PROGRESS NOTE ---
DATE: 09/26/2016 PRESENT ILLNESS: The patient is status post surgery for perforated duodenal ulcer with resulting peritonitis. Yesterday, the patient was doing very well. I stopped all of her antibiotics and signed off. Today, the patient actually looks fairly good but her white count has dramatically increased to 21,350. MEDICATIONS: The patient currently is on no antibiotics. PHYSICAL EXAMINATION: Vital Signs: Temperature is 98.8 degrees, pulse 76, respirations 14, blood pressure 132/85. General: This is a chronically ill-appearing, elderly female. She is in no acute distress. Lungs: Clear to auscultation. Cardiovascular: Heart rate is regular. Abdomen: Soft and nontender. Patient's incision is intact and it is not erythematous. LAB AND X-RAY: CBC today showed a white count of 21,350, hemoglobin 9.3, and platelet count 393,000. Blood gases show a pH of 7.47, a pO2 of 53, and a pCO2 of 41. Creatinine is 1.1. GFR is 49. Chest x-ray shows bilateral interstitial markings. ASSESSMENT AND PLAN: Postop leukocytosis-plan blood and urine cultures, CT scan of chest, abdomen and pelvis, start vancomycin and Zosyn. COMORBIDITIES: Elderly, COPD, cigarette smoking and peptic ulcer disease. cc: Linden Benson MD MTDD
[2016-09-26 17:41] LABS: URINE MICRO REVIEW NEEDED? NO; URINE SOURCE CATH
[2016-09-26 17:46] LABS: BILIRUBIN URINE NEGATIVE (NEGATIVE); BLOOD URINE NEGATIVE (NEGATIVE); COLOR YELLOW; GLUCOSE URINE NEGATIVE (NEGATIVE); LEUKOCYTES URINE SMALL (NEGATIVE); NITRITE URINE NEGATIVE (NEGATIVE); PH URINE 7.5; PROTEIN URINE TRACE mg/dL (NEGATIVE); SP GRAVITY URINE 1.015; TURBIDITY URINE CLEAR (CLEAR); UROBILINOGEN URINE NORMAL (NORMAL)
[2016-09-26 17:47] LABS: UR EPITHELIAL CELLS <10 /HPF (<10); URINE BACTERIA NEGATIVE /HPF; URINE RBC <10 /HPF (<10)
--- NOTE | 2016-09-26 17:52 | PROGRESS NOTE ---
DATE: 09/26/2016 PRESENT ILLNESS: The patient is status post surgery for perforated duodenal ulcer with resulting peritonitis. Yesterday the patient was doing quite well. Her white count was normal and she was not having any fever or chills. Today she still doing relatively well. However, her white count has increased to 21,350. MEDICATIONS: The patient is not on any antibiotics at this time. PHYSICAL EXAMINATION: Vital Signs: Temperature is 98.8 degrees, pulse 76, respirations 14, blood pressure 132/85. General: This is a somewhat ill-appearing, elderly female. She is in no acute distress. Lungs: Clear to auscultation. Cardiovascular: Regular heart rate. Abdomen: Soft and nontender. The midline incision is intact. Extremities: The patient has a PICC in her left arm. The PICC site is not erythematous or purulent. LABORATORY AND X-RAY: Today the patient's CBC showed a white count of 21,350, hemoglobin 9.3, and platelet count 393,000. Blood gases show a pH of 7.47, a PO2 of 53, and a pCO2 of 41. Creatinine is 1.1. GFR is 49. Chest x-ray shows bilateral interstitial markings. ASSESSMENT AND PLAN: 1. Patient is status post surgery as mentioned above. After stopping her antibiotics, her white count increased; therefore, it would seem to me that she has some type of infection which is recurring. My plan is to order the following blood cultures x2: Urinalysis, urine culture and sensitivity and a computed tomography scan of the abdomen, pelvis and chest with no intravenous contrast. I am starting the patient on vancomycin and Zosyn. 2. Comorbidities include cigarette smoking, chronic obstructive pulmonary disease, peptic ulcer disease and being elderly. cc: Linden Benson MD
[2016-09-26] MEDS ORDERED: VANCOMYCIN 1,250 MG in NS 250 ML IV ONE (18:00)
[2016-09-26] MEDS: ZOSYN 3.375 GM/NS 3.375 GM/50 ML IVPB IV SCH (20:12)
[2016-09-27] MEDS: XOPENEX NEB INH SCH ×5 (03:07→19:35)
[2016-09-27] MEDS: PROTONIX IV SCH ×3 (05:44→21:07)
[2016-09-27] MEDS: DILAUDID IV PRN (05:45)
[2016-09-27] MEDS: ZOSYN 3.375 GM/NS 3.375 GM/50 ML IVPB IV SCH ×3 (05:45→22:17)
[2016-09-27] MEDS ORDERED: SODIUM CHLORIDE 0.9% 10 ML ONE ×2 (06:10→14:54)
[2016-09-27 06:18] LABS: MANUAL DIFF NEEDED? NO
[2016-09-27 06:23] LABS: BASO% 0.1 % (0.0-0.8); EOS# 0.36 X1000 (0.0-0.7); EOS% 2.3 % (0.0-10.0); HEMATOCRIT 30.3 % (37.0-47.0); HEMOGLOBIN 9.3 g/dL (12.0-16.0); IMM GRAN# 0.11 X1000 (0.0-0.04); IMM GRAN% 0.7 % (0.0-0.5); LYMPH# 1.31 X1000 (1.2-3.4); LYMPH% 8.2 % (20.5-51.1); MCH 24.9 PG (27-31); MCHC 30.7 g/dL (33-37); MONO# 1.82 X1000 (0.11-0.59); MONO% 11.4 % (1.7-9.3); MPV 11.3 FL (7.4-10.4); NEUT% 77.3 % (42.2-75.2); PLT 480 X1000 (130-400); RBC 3.74 XMIL (4.2-5.4)
[2016-09-27 06:39] LABS: CALCIUM 8.7 mg/dL (8.8-10.2); MAGNESIUM 1.9 mg/dL (1.5-2.7); POTASSIUM 5.5 mmol/L (3.5-5.1)
[2016-09-27] MEDS ORDERED: VELTASSA PO ONE (07:32)
--- NOTE | 2016-09-27 07:57 | Diag Imaging Result Doc PS360 ---
THORAX/ABDOMEN/PELVIS W/O CONT - 09/27/2016 INDICATION: leukocytosis TECHNIQUE: A CT dose reduction protocol was used. COMPARISON: 09/18/2016, 09/16/2016 FINDINGS: CHEST: There is a left PICC line in good position. Heart and great vessels are normal. No adenopathy. There is significant improvement in the bilateral infiltrates. There is some residual infiltrate diffusely. There is some stable mild COPD. Major airways are patent. Abdomen pelvis: There are new laparotomy skin leonidas. The abdominal free air has resolved. There is trace drop of air in the urinary bladder which otherwise appears normal. There is extensive patient motion artifact. No radiodense renal stones. No hydronephrosis or hydroureter. No bowel obstruction or inflammation. Uterus is absent. Rectum is normal. There are a few diverticula of the sigmoid colon There are moderate degenerative changes of the spine. No acute or suspicious bony lesion. IMPRESSION: 1. Significant improvement in the diffuse bilateral pulmonary infiltrates. Resolution of the pleural effusions. 2. No acute disease in the abdomen or pelvis. Electronically signed by Lamberto Wisdom 09/27/2016 7:55 AM
[2016-09-27] MEDS: ZOFRAN IV PRN (07:59)
[2016-09-27] MEDS: PERIDEX MT SCH ×3 (08:01→21:08)
[2016-09-27] MEDS: HEPARIN SUBQ SCH ×2 (08:01→21:06)
[2016-09-27] MEDS: PULMICORT INH SCH ×2 (08:24→19:34)
[2016-09-27] MEDS: TYLENOL PO PRN ×3 (11:38→21:07)
[2016-09-27] MEDS: CATAPRES PO SCH (11:38)
--- NOTE | 2016-09-27 15:20 | PROGRESS NOTE ---
DATE: 09/27/2016 SUBJECTIVE: This patient is resting comfortably on the bed. She is not complaining of any specific pain at this moment. She is completely alert and oriented x3. Compared with yesterday she feels better. This patient was admitted because of bilateral pneumonia and perforated duodenal ulcer, a couple days ago, 2 days ago antibiotics were stopped by Infectious Disease Department and the white blood cells jumped to as low as 20, so we put this patient back on antibiotics vancomycin and Zosyn, and the WBC today looks better. We will continue with the same management. OBJECTIVE: Vital Signs: Temperature 98.6 degrees, pulse 70, respiratory rate 25, blood pressure 103/88, O2 saturation 95% on room air. HEENT: Head normocephalic. No trauma. PERRLA. Neck: Supple. No JVD. No masses. Central trachea. Cardiovascular: RRR. No murmurs. Chest: Bilateral scattered rhonchi. Abdomen: Positive bowel sounds. Nontender, nondistended. No hepatosplenomegaly. She has an operative wound that looks clean, dry, and intact. Mild tenderness to palpation at the level of the periumbilical area and around the wound. No edema. Extremities: No edema. No clubbing. No cyanosis. Neurological: The patient is alert, oriented x3. LABORATORY: WBC 15.9, hemoglobin 9.3, hematocrit 30.3, platelets 480,000. Sodium 135, potassium 5.5, chloride 98, bicarbonate 24, BUN 35, creatinine 1.1, glucose 172, calcium 8.7. ASSESSMENT AND PLAN: 1. Bilateral pneumonia, she has bilateral pulmonary infiltrates that also can be related to a combination of atelectasis and pulmonary edema. Anyway she has been treated by Infectious Disease Department 2 days ago, antibiotics were stopped and the WBC doubled. We will continue with the antibiotics and treatment. 2. Perforated duodenal ulcer status post repair. The abdomen is soft, mild pain. She is passing gas and having bowel movements. Surgery Department is following this patient. 3. Acute kidney injury, this is her baseline. 4. Volume overload. Improved. 5. Metabolic encephalopathy. Resolved. 6. Anemia. Stable. 7. Nutritional status. This patient is tolerating food. Continue with the same management, since she is tolerating food, I stopped the Clinimix. 8. Hypertension. This patient was placed on clonidine patch and I switched it to p.o. We will monitor the blood pressure. 9. Hyperkalemia. I will use Veltassa, and I will monitor Veltassa, and I will monitor the potassium daily. 10. Leukocytosis. Continue with antibiotics. This is getting better. 11. Physical deconditioning. Continue with physical therapy. cc: Braxton Aguilar MD
[2016-09-27] MEDS: NS NEB INH SCH (16:14)
--- NOTE | 2016-09-27 18:26 | PROGRESS NOTE ---
DATE: 09/27/2016 PRESENT ILLNESS: The patient is status post surgery for perforated duodenal ulcer. Yesterday she had a marked increase in her white count. MEDICATIONS: Currently, the patient is receiving a combination of vancomycin, Zosyn and micafungin which I have added today. PHYSICAL EXAMINATION: Vital Signs: Temperature is 98.9, pulse 63, respirations 16, blood pressure 71/47. General: The patient looks somewhat chronically ill. She is slightly lethargic. She states she feels much better today. Lungs: Clear to auscultation. Cardiovascular: Regular heart rate. Abdomen: Soft and nontender. The midline incision is intact. LAB AND X-RAY: The patient's CBC today shows a white count is down to 15,960, hemoglobin 9.3, and platelet count 480,000. Creatinine is 1.1. GFR is 49. Blood cultures are pending. Urine cultures negative. CT scan shows significant improvement in the patient's bilateral pulmonary infiltrates. There is no acute disease in the abdomen or pelvis. ASSESSMENT AND PLAN: The patient has leukocytosis and a history of peritonitis from a perforated duodenal ulcer. She is improving on the current antibiotics. I plan to continue them. Mainly vancomycin and Zosyn and also I have added back micafungin because a Amara organism was isolated from the patient's abdomen after the perforation. COMORBIDITIES: Include cigarette smoking, chronic obstructive pulmonary disease, peptic ulcer disease and the patient is elderly. cc: Linden Benson MD
[2016-09-27] MEDS ORDERED: MYCAMINE 100 MG in NS 100 ML IV SCH (20:00)
[2016-09-28] MEDS: TYLENOL PO PRN ×3 (03:33→15:47)
[2016-09-28] MEDS: XOPENEX NEB INH SCH ×4 (04:11→16:13)
[2016-09-28] MEDS ORDERED: VANCOMYCIN 1 GM/NS 1 GM/250 ML IVPB IV SCH (06:00)
[2016-09-28] MEDS ORDERED: SODIUM CHLORIDE 0.9% 10 ML ONE ×2 (06:22→15:29)
[2016-09-28] MEDS: ZOSYN 3.375 GM/NS 3.375 GM/50 ML IVPB IV SCH ×2 (06:36→15:42)
[2016-09-28] MEDS: PROTONIX IV SCH (06:36)
[2016-09-28] MEDS: PULMICORT INH SCH (07:25)
[2016-09-28 08:25] LABS: MANUAL DIFF NEEDED? NO
[2016-09-28 08:31] LABS: BASO% 0.5 % (0.0-0.8); EOS# 0.33 X1000 (0.0-0.7); EOS% 3.1 % (0.0-10.0); HEMATOCRIT 30.7 % (37.0-47.0); HEMOGLOBIN 9.7 g/dL (12.0-16.0); IMM GRAN# 0.11 X1000 (0.0-0.04); LYMPH# 1.56 X1000 (1.2-3.4); LYMPH% 14.6 % (20.5-51.1); MCH 25.2 PG (27-31); MCHC 31.6 g/dL (33-37); MCV 79.7 FL (81-99); MONO# 1.52 X1000 (0.11-0.59); MONO% 14.3 % (1.7-9.3); NEUT% 66.5 % (42.2-75.2); PLT 570 X1000 (130-400); RBC 3.85 XMIL (4.2-5.4)
[2016-09-28 08:46] LABS: CALCIUM 8.6 mg/dL (8.8-10.2); POTASSIUM 4.8 mmol/L (3.5-5.1)
[2016-09-28] MEDS: PERIDEX MT SCH (09:15)
[2016-09-28] MEDS: CATAPRES PO SCH (09:16)
[2016-09-28] MEDS: HEPARIN SUBQ SCH ×2 (09:16→09:38)
[2016-09-28] MEDS: DILAUDID IV PRN (09:43)
--- NOTE | 2016-09-28 14:37 | DISCHARGE SUMMARY ---
ADMISSION DATE: 09/16/2016 DISCHARGE DATE: 09/28/2016 DISPOSITION: [facility]. FOLLOW UP: 1. Dr. Lezama. 2. Dr. Benson. INVASIVE PROCEDURE DONE DURING THIS ADMISSION: Exploratory laparotomy with repair of perforated duodenal ulcer with omental patch done by Dr. Lezama on 09/16/2016. IMAGING STUDIES OF SIGNIFICANCE: 1. An x-ray of the abdomen on presentation showed No acute pathology seen. 2. A CT scan of the chest done on 09/18/2016 showed dense multifocal bilateral infiltrates possibly with multiple tiny cavitary lesions and pleural effusions. 3. Echocardiogram showed ejection fraction of 70%. 4. A CT scan of the chest and abdomen was done yesterday which shows significant improvement in the dense bilateral pulmonary infiltrates, and no acute disease in the abdomen or pelvis. ADMISSION DIAGNOSES: 1. Gastric ulcer perforation with viscous free air. 2. Acute peritonitis secondary to perforated gastric ulcer. 3. COPD. 4. Hypertension. DISCHARGE DIAGNOSES: 1. Acute abdomen secondary to perforated gastric ulcer. 2. Acute peritonitis with cultures positive for Klebsiella pneumonia and Amara glabrata. 3. Hypoxemic respiratory failure due to bilateral pneumonia. 4. Hypertension. DISCHARGE MEDICATIONS: 1. Klonopin. 2. Iron. 3. Pantoprazole 40 mg b.i.d. 4. Lexapro 20 mg at bedtime. 5. Micafungin 100 mg daily. 6. Zosyn 3.375 q. 6 hourly. 7. Vancomycin. PRESENTING COMPLAINT: Abdominal pain and vomiting, diarrhea for 4 days. HISTORY OF PRESENTING COMPLAINT: Ms. Hartley is a 70-year-old female with a history of gastric ulcers, bleeding which was taken care of March last year with cauterization, and epinephrine injection by Dr. Beltran, who came in at this time because of acute abdominal pain. A CT scan was done which confirmed perforated gastric ulcer with viscous-free air. The patient was taken to OR by surgery the same day. HOSPITAL COURSE: The patient did pretty well. Underwent exploratory laparotomy with repair of the gastric ulcer with the omentum patch. Had to be in ICU for a few days because of respiratory failure after procedure and also development of infection. Patient was treated with IV antibiotics. The culture from the abdomen came back positive for Klebsiella pneumonia and Amara glabrata. The patient was started on Micafungin. Today she refers to be doing a lot better. She has had bowel movement. Tolerating her diet and has had a few days with physical therapy over here. They have an arrangement for her to go to rehab and continue with physical rehabilitation and also finish the course of the antibiotics, which will be a total of 14 days and antifungal also a total of 14 days. At the time of discharge, there is not any pending labs or pending imaging studies. LAB: Lab work for today: WBC is 10.65, hemoglobin is 9.7, platelet count is 570. Chemistry is also reviewed. Creatinine is slightly high at 1.2, otherwise the rest are normal. The patient is going to be discharged to the rehabilitation. Will follow up with the staff over there. Will also follow up with Dr. Benson for the infectious disease part and Dr. Lezama to review her after the surgery. TIME SPENT FOR DISCHARGE: 37 minutes. cc: Ousmane Guerrero MD MTDD
[2016-09-28 15:13] VITALS: BP 144/93
== END 2016-09-28 16:35 ==
LOC: ICU 14:49 → SUATTDRO 14:49 → 4N 09-25 11:22
PROVIDERS: ATTEND Internal Medicine

== ENCOUNTER 2018-05-12 06:00 | Inpatient (IN) ==
--- NOTE | 2018-05-12 08:34 | HISTORY AND PHYSICAL ---
INDICATIONS: Ms. Patricia Hartley is a 72-year-old, white female smoker who has been hospitalized multiple times related to a duodenal ulcer. She has had surgery for Sunil patch of a perforated duodenal ulcer in the past by Dr. Lezama. She has been seen by Dr. Herrera for a duodenal ulcer. She has been hospitalized multiple times for nausea and vomiting and actually was seen in our emergency department on 04/27/2018 with the same symptoms. She underwent a CT scan which was essentially unremarkable. She was transferred from [facility] Emergency Department this morning after she was evaluated for intermittent epigastric pain, nausea and vomiting. There was a CT that was performed that suggested possible free air. She was transferred for further evaluation. MEDICATIONS: 1. Albuterol. 2. Norvasc. 3. Dulcolax. 4. Tums. 5. [place] 5. 6. Icar C. 7. Lisinopril. 8. Multivitamin. 9. Nicotine patch. 10. Protonix. 11. MiraLAX. 12. Sucralfate. 13. Norvasc. 14. Desyrel. 15. Zofran. 16. Protonix. She states she has been compliant with her Protonix. ALLERGIES: No known drug allergies. SOCIAL HISTORY: She is retired. She lives in [facility]. She has 6 siblings. She is a smoker about 1 pack of cigarettes a day. REVIEW OF SYSTEMS: A 14-point review of systems was performed. She weighs 110 pounds and she states that her weight has been steady. She has intermittent nausea and vomiting even when at home. FAMILY HISTORY: Noncontributory. PHYSICAL EXAMINATION: GENERAL: On exam, Ms. Patricia Hartley is a slim 72-year-old white female who appears in no acute distress. She is on the [address] [place] [id number] chambers. She is awake, cooperative. She complains of epigastric abdominal pain. VITAL SIGNS: Her heart rate is 86, blood pressure 114/79, O2 saturation 96%. Her temperature is 99.3 degrees. She has no jaundice. No oral lesions. No cervical or supraclavicular lymphadenopathy. HEART: Has a regular rate. LUNGS: Clear except for some expiratory wheezing. She has no significant shortness of breath. ABDOMEN: Soft. She has a well-healed upper midline incision. She is tender in the epigastrium. There is no palpable mass. No evidence of hernia no costovertebral tenderness. RECTAL/VAGINAL: Exams were not performed. She does have palpable peripheral pulses. No peripheral edema. NEUROLOGICAL: She has no focal deficit. We have disk from her previous CT scan performed at [facility]. No labs were sent. IMPRESSION: Epigastric pain with persistent intermittent nausea and vomiting in a patient with a history of duodenal ulcer in the past. She has had a Sunil patch closure of a perforated duodenal ulcer per Dr. Lezama. She has been seen in the past by Dr. Herrera. PLAN: I will review her latest CT per [facility] and compare it to our recent 04/27/2018 CT scan. We will ask Gastroenterology to see her and will make sure that she is on Protonix. We will have her on IV fluids. cc: Stephanie Feliciano MD
[2018-05-12] MEDS ORDERED: PROTONIX IV SCH (09:00)
[2018-05-12] MEDS: NORCO-7.5 PO PRN (09:27)
[2018-05-12] MEDS: SODIUM CHLORIDE 0.9% INJ SCH (09:27)
--- NOTE | 2018-05-12 10:21 | GASTROENTEROLOGY CONSULTATION ---
DATE: 05/12/2018 CONSULTING PHYSICIAN: Dr. Stephanei Feliciano. REASON FOR CONSULTATION: Nausea and vomiting. HISTORY OF PRESENT ILLNESS: Ms. Hartley is a 72-year-old female, who was admitted on 05/12/2018 for nausea and vomiting. According to the patient, she has been having worsening nausea and vomiting for the last 3 weeks and now she cannot keep anything down. She has a history of penetrating duodenal ulcer, which was operated on by Dr. Lezama. Subsequently, she had a GI bleed and she had EGD done by Dr. Herrera in 2018. She denies any vomiting blood. Gastroenterology consulted for further management. PAST MEDICAL HISTORY: Peptic ulcer disease. Chronic smoker. Hypertension. Chronic pain. Reflux disease. Constipation. ALLERGIES: No known drug allergies. SOCIAL HISTORY: She is retired. She lives in [facility]. She has 6 siblings. She smokes 1 pack a day. Denies history of alcohol abuse. FAMILY HISTORY: Noncontributory. REVIEW OF SYSTEMS: Denies any current fevers, rigors, or chills, chest pain, shortness of breath. She does have history of peptic ulcer disease. She denies any abdominal pain today. She does complain of chronic nausea and worsening vomiting in the last few weeks. She denies any vomiting blood or passing blood in the stools. She does have history of chronic constipation. She has history of chronic pain and arthritis. She denies any neurologic complaints. MEDICATIONS IN THE HOSPITAL: 1. Hydrocodone/acetaminophen 7.5 mg every 6 hours as needed. 2. Protonix once daily. 3. Phenergan 12.5, 25 mg IV q.6 hours. She is currently n.p.o. except ice chips. PHYSICAL EXAMINATION: Vital signs: Temperature of 99.3 degrees, pulse of 86, respiratory rate 16, blood pressure 114/79, saturating 92 percent on room air. Body weight 110 pounds 8 ounces. BMI of 20.2 kg/m2. General: Thinly built, lying in bed, in no acute distress. HEENT: No pallor, no icterus. Pupils equal, reactive to light. Neck: Supple. Abdomen: Mild discomfort. No rebound or guarding. Extremities: No cyanosis, clubbing. Neurologic: She is alert, awake, oriented. LABORATORIES: No labs were drawn in this admission. Her previous labs from 04/27/2018 showed normal hemoglobin and hematocrit of 12.4 and 37.2, white count 9.3, platelet count of 414,000. Her chemistries at that time were reviewed as well. Total bilirubin was 0.25, AST 14, ALT 8, alkaline phosphatase 110. Amylase was 64, lipase of 22. IMAGING: Imaging which was done in the form of CT of the abdomen and pelvis on 04/27/2018 showed: Lung nodules stable as before. Small hiatal hernia. Calcified exophytic lesion from the left kidney. No bowel obstruction. Sigmoid diverticulosis. Degenerative disk changes at L5-S1. IMPRESSION AND PLAN: 1. Nausea, vomiting. 2. History of large duodenal ulcer which was repaired surgically in 2018. 3. Chronic smoker. RECOMMENDATIONS: 1. We will increase the Protonix to twice daily. We will keep her on IV antiemetics. We will start her on IV fluids of D5 normal saline. We will schedule for upper GI today. Based on that, we will perform EGD tomorrow with Dr. Herrera. The risks, benefits, indications, alternatives were discussed with the patient and all questions answered. The labs have been ordered. I will follow the results. 2. The above plans were discussed with the patient and all questions answered. Please call if any further questions. cc: MD Stephanie Guan MD
[2018-05-12] MEDS ORDERED: NS 1,000 ML ONE (12:59)
[2018-05-12] MEDS ORDERED: NS 1,000 ML IV ONE (13:27)
[2018-05-12 13:45] LABS: BASO# 0.02 X1000 (0.0-0.2); BASO% 0.2 % (0.0-0.8); EOS# 0.08 X1000 (0.0-0.7); EOS% 0.7 % (0.0-10.0); HEMATOCRIT 19.8 % (37.0-47.0); IMM GRAN# 0.05 X1000 (0.0-0.04); IMM GRAN% 0.4 % (0.0-0.5); LYMPH# 4.09 X1000 (1.2-3.4); LYMPH% 35.1 % (20.5-51.1); MCH 28.3 PG (27-31); MCHC 29.3 g/dL (33-37); MCV 96.6 FL (81-99); MONO% 7.7 % (1.7-9.3); NEUT% 55.9 % (42.2-75.2); PLT 337 X1000 (130-400); RBC 2.05 XMIL (4.2-5.4); RDW 17.4 % (11.5-14.5); WBC 11.64 X1000 (4.8-10.8)
[2018-05-12 13:46] LABS: HEMOGLOBIN 5.8 g/dL (12.0-16.0)
--- NOTE | 2018-05-12 13:52 | Diag Imaging Result Doc PS360 ---
EXAM: CHEST-PORTABLE 05/12/2018 HISTORY: cat call TECHNIQUE: AP portable at 1334 COMMENT: There is no evidence of acute cardiac or pulmonary disease. The inspiration is less optimal than on 09/20/2017. IMPRESSION: No evidence of acute disease. Electronically signed by David Crouch 05/12/2018 1:49 PM
[2018-05-12 14:00] LABS: LYMPHS 33 % (21-51); MONO 3 % (1-9); SEGS 64 % (42-75)
[2018-05-12 14:01] LABS: ANISOCYTOSIS 1+; MICROCYTOSIS 1+
[2018-05-12 14:11] LABS: ALLEN TEST YES; BE -5.8 mmoll (-3.0-3.0); BLOOD TYPE ARTERIAL; HCO3-(ACT) 20.4 mmoll (20.0-26.0); METHB 1.6 % (0.0-1.5); O2(CT) 9.1 mL/dL (15.0-23.0); PCO2(98.6) 36 mmHg (35-45); PO2(98.6) 278 mmHg (60-100); SAMPLE BLOOD; SAO2 99.2 % (95.0-100.0); THB 6.2 g/dL (11.5-17.4); pH(98.6) 7.34 (7.35-7.45)
[2018-05-12 14:12] LABS: MODALITY NRB
[2018-05-12 14:12] LABS: ALB/GLOB RATIO 1.4; ALBUMIN 2.3 g/dL (3.5-5.0); CALCIUM 7.2 mg/dL (8.8-10.2); CREATININE 1.3 mg/dL (0.5-0.9); POTASSIUM 4.7 mmol/L (3.5-5.1); TOTAL BILIRUBIN 0.17 mg/dL (0.20-1.00); TOTAL PROTEIN 3.9 g/dL (6.3-8.3)
[2018-05-12] MEDS ORDERED: VANCOMYCIN IV PER PHARMACY MISC SCH (14:15)
--- NOTE | 2018-05-12 14:31 | EKG Report ---
Test Performed on : 05/12/2018 1:37:57 PM Test Reason : irregular HR Blood Pressure : / mmHG Vent. Rate : 092 BPM Atrial Rate : 092 BPM P-R Int : 140 ms QRS Dur : 068 ms QT Int : 378 ms P-R-T Axes : 063 025 048 degrees QTc Int : 467 ms Normal sinus rhythm. Possible Left atrial enlargement (doubtful) Borderline ECG When compared with ECG of 04-NOV-2017 19:50, No significant change was found Confirmed by Loan MOLINA, Albino Carson ([id number]) on 05/13/2018 5:40:00 PM
--- NOTE | 2018-05-12 14:42 | PROGRESS NOTE ---
DATE: 05/12/2018 SUBJECTIVE: Ms. Patricia Hartley was transferred from [facility] to [facility] under my service because she presented to their emergency department with epigastric pain. CT scan was performed and reported that she possibly could have free air and I accepted her early this morning. She went to our [address] [place] [address] chambers where I evaluated her. I did not feel that she had an acute abdomen at the time and I have asked Gastroenterology to see her. Dr. Abernathy has already seen her and ordered an upper GI because of her intermittent nausea and vomiting. When she was down in Radiology she was sitting in a wheelchair and fainted. She was brought back to her room on the floor and its has been evaluated by our hospitalists. She did cough up some bloody sputum and is now on a closed face mask O2. We will send her to the ICU. I reviewed the CT scan from [facility] with our radiologist, Dr. Crouch, and there does not appear to be free air or any acute surgical problem intra-abdominally. It must be noted that she does have a history of a duodenal ulcer and has had to undergo Sunil patch closure of this duodenal ulcer by Dr. Lezama last year. PLAN: She will be transferred to the ICU. Our hospitalists are evaluating her syncope episode and her hemoptysis and shortness of breath. Ms. Hartley is well known to our hospitalist service. cc: MD Musa Almonte MD
--- NOTE | 2018-05-12 15:02 | Diag Imaging Result Doc PS360 ---
CT THORAX/ABD/PELVIS W/O CON - 05/12/2018 INDICATION: ABD pain, low Heme, coughing up blood COMPARISON: 04/27/2018 FINDINGS: CHEST: There is mild COPD. No infiltrates in the lungs. Abdomen pelvis: The stomach is distended with fluid and a heterogeneously multilobular hyperdense area. In total this measures about 10 cm. This may be a blood clot. No free air. No abdominal free fluid. No bowel obstruction. No renal stones or hydronephrosis. There are moderate degenerative changes of the spine. No acute or suspicious bony lesion. IMPRESSION: Lobular hyperdense area in the gastric fundus. This may be a blood clot in the stomach. The nature is unclear. No perforation. No abdominal free fluid. This exam was performed using automated exposure control, adjustment of mA or kV according to patient size, and/or use of iterative reconstruction technique Electronically signed by Lamberto Wisdom 05/12/2018 3:00 PM
[2018-05-12] MEDS ORDERED: VANCOMYCIN 1,250 MG in NS 250 ML IV ONE (16:00)
[2018-05-12] MEDS: D5 NS 1,000 ML IV SCH (16:47)
[2018-05-12] MEDS: ZOSYN 3.375 GM in NS 50 ML IV SCH ×2 (17:20→20:31)
--- NOTE | 2018-05-12 17:34 | CONSULTATION ---
DATE OF CONSULTATION: 05/12/2018 GENERAL SURGEON: Dr. Feliciano GASTROENTEROLOGY: Dr. Cb Beltran PRIMARY CARE PHYSICIAN: None. REASON FOR CONSULTATION: Respiratory distress, CAT call while getting a barium swallow. HISTORY OF PRESENT ILLNESS: Ms. Hartley is a 72-year-old female well known to our service. Last admitted to our service in September 2017. She was admitted at that time for GI bleed secondary to a large penetrating duodenal ulcer. She had an EGD done with cautery done on 09/20/[address] Herrera. Prior to this, she had a Sunil patch placement to the ulcer site by Dr. Lezama a few months prior to that, mild anemia, chronic tobacco use and abuse. She reported to [facility] ED sometime overnight and was transferred to [facility] under the care of Dr. Feliciano. She underwent a CT scan which was essentially unremarkable. Again, she was transferred from [facility] ED after evaluated for intermittent epigastric pain, nausea and vomiting. There a CT was performed that suggested possible free air. She was evaluated by Dr. Beltran who put her on Protonix b.i.d., antiemetics, IV fluids. Scheduled her for an upper GI as well as a barium swallow. While she was getting her study, the patient went unresponsive. She was brought back up to a room where a CAT call was initiated. She was found to have blood pressures in the 80s over 40s, heart rate in the 90s, temperature was 98.2 degrees, O2 on room air was 86%. She was placed on a non-rebreather, now oxygenating 100%. Blood sugar was 167 after a liter of bolus. Blood pressures were 90s over 50s. Heart rate is still in the 90s. The patient was assessed and we will start treatment for possible aspiration pneumonia as well as possible treatment for her ulcer. We will obtain a chest, abdomen and pelvis CT move her to the ICU. Her hemoglobin and hematocrit was found to be 5 in 19. We will transfuse and follow her hemoglobin and hematocrit closely. Dr. Feliciano and Dr. Beltran have been made aware of the patient's change in condition. PAST MEDICAL HISTORY: 1. Peptic ulcer disease. 2. Chronic smoker. 3. Hypertension. 4. Chronic reflux disease. 5. Chronic pain. 6. Constipation. SURGICAL HISTORY: 1. Status post EGD with cautery of a bleeding duodenal ulcer on 09/24/[address] Herrera. 2. Perforated duodenal ulcer status post Sunil patch by Dr. Jonathan Lezama on . 3. Hysterectomy. 4. Appendectomy. 5. Hemorrhoidectomy. 6. Multiple EGDs. SOCIAL HISTORY: She is a half pack a day smoker. Denies any alcohol or illicit drug use. She has children who live in [place]. FAMILY HISTORY: Noncontributory. ALLERGIES: No known drug allergies. REVIEW OF SYSTEMS: A 14 point review of systems completely negative except for those mentioned in HPI. HOME MEDICATIONS: Protonix 40 mg p.o. p.r.n. PHYSICAL EXAMINATION: Vital Signs: Temperature is 98.2 degrees, heart rate 94 , blood pressure 90s/50s. O2 is 100% on a non-rebreather. Blood sugar 167. General: Ms. Hartley is a 72-year-old female who is lying on the hospital bed in somewhat anxious. She does not want to wear her non-rebreather. Waiting for transfer to the ICU. HEENT: Atraumatic, normocephalic. PERRL. Neck: Supple. Trachea midline. Cardiovascular: S1, S2 appreciated. No murmurs, gallops, or rubs noted. No JVD. No lower extremity edema. Gastrointestinal: Abdomen was soft, tender to the mid to left upper quadrant. Quiet bowel sounds. Skin: Patient does appear to have a skin tear to her left forearm. Neurologic: No focal deficits noted. DIAGNOSTIC DATA: Pending GI series, pending CT of the thorax, abdomen, and pelvis. Laboratory data: Pending ABGs. EKG normal sinus rhythm. Laboratory data, hemoglobin 5.8 , hematocrit of 19, white count of 11, platelet count of 337,000. CMP pending. ASSESSMENT AND PLAN: 1. Hypoxemic respiratory failure. Patient has been on non-rebreather satting 100%. Oxygen saturation was 86%. We will continue on non-rebreather. Check ABGs. Check a chest, abdomen and pelvis CT. Move her to the ICU. 2. Hypotension. The patient responded nicely to 1000 mL saline bolus. Blood pressure was 80s over 40s. She is now 90s over 50s. 3. Rule out aspiration pneumonia, possible pulmonary embolism. The patient did become unresponsive while she was down for procedure. Unsure if she aspirated or threw a blood clot. She did cough up a rather large blood clot x1. Again, we are awaiting a CT of the chest, abdomen and pelvis. 4. Probable upper GI bleed secondary to duodenal ulcer. Hemoglobin and hematocrit 5 and 19. We have typed and screened. We will go ahead and transfuse 1 unit now. Continue with serial hemoglobins and hematocrits. 5. Nausea and vomiting upon admission. Will continue with antiemetics. 6. Chronic smoker. The patient will need continued education on smoking cessation as well as the means to quit. 7. Epigastric pain believed to be secondary to her duodenal ulcer. She has had a Sunil patch and closure of perforated duodenal ulcer with Dr. Lezama as well as multiple EGDs in the past with cautery. Continues to be followed by GI as well as General Surgery. 8. Hypertension, now hypotensive. Will hold any blood pressure medications. 9. Chronic pain syndrome. Aware. 10. Further recommendations to follow physician evaluation, laboratory and diagnostic data. Dictated by LEX Sena for Musa Olson MD Addendum: Patient seen and examined by myself. Agree with LEX note. It reflects my assessment and plan. We were consulted by primary team, general surgery for acute hypoxemic respiratory failure. She also became hypotensive. At this point our differential include PE, GI bleeding, aspiration pneumonia. Will repeat CT of chest, abdomen and pelvis, will transfer her to ICU and will monitor her closely. cc: MD Dr. Braden Agustin MD [facility]
[2018-05-12] MEDS: ATIVAN IV PRN (17:38)
[2018-05-12] MEDS: PROTONIX IV SCH (20:31)
[2018-05-12] MEDS: DEMEROL IV PRN (20:53)
[2018-05-12 23:38] LABS: HEMATOCRIT 27.4 % (37.0-47.0); HEMOGLOBIN 9.1 g/dL (12.0-16.0)
[2018-05-13] MEDS: DEMEROL IV PRN ×8 (00:01→23:31)
[2018-05-13] MEDS ORDERED: NS 500 ML ONE (00:15)
[2018-05-13] MEDS: D5 NS 1,000 ML IV SCH ×2 (00:57→21:14)
[2018-05-13] MEDS: ZOSYN 3.375 GM in NS 50 ML IV SCH ×4 (02:44→20:39)
[2018-05-13] MEDS: SODIUM CHLORIDE 0.9% INJ SCH (08:06)
[2018-05-13] MEDS: PROTONIX IV SCH ×2 (08:07→20:39)
[2018-05-13 09:03] LABS: BASO# 0.02 X1000 (0.0-0.2); BASO% 0.2 % (0.0-0.8); EOS# 0.19 X1000 (0.0-0.7); EOS% 1.9 % (0.0-10.0); HEMATOCRIT 28.5 % (37.0-47.0); HEMOGLOBIN 9.6 g/dL (12.0-16.0); IMM GRAN# 0.03 X1000 (0.0-0.04); IMM GRAN% 0.3 % (0.0-0.5); LYMPH# 1.18 X1000 (1.2-3.4); MCH 29.3 PG (27-31); MCHC 33.7 g/dL (33-37); MCV 86.9 FL (81-99); MONO# 0.58 X1000 (0.11-0.59); MONO% 5.9 % (1.7-9.3); MPV 9.8 FL (7.4-10.4); NEUT# 7.81 X1000 (1.4-6.5); NEUT% 79.7 % (42.2-75.2); PLT 203 X1000 (130-400); RBC 3.28 XMIL (4.2-5.4); RDW 15.7 % (11.5-14.5); WBC 9.81 X1000 (4.8-10.8)
[2018-05-13 09:11] LABS: CALCIUM 7.8 mg/dL (8.8-10.2); POTASSIUM 4.4 mmol/L (3.5-5.1)
--- NOTE | 2018-05-13 09:58 | PROGRESS NOTE ---
DATE: 05/13/2018 SUBJECTIVE: This patient is lying comfortably in bed. Vital signs seem to be stable. Hemoglobin stabilized after 3 units of PRBCs. Hemoglobin today is 9.6. She is complaining of epigastric pain. Pending endoscopy today. OBJECTIVE: Vital Signs: Temperature 97.8, pulse 72, respiratory rate 20, blood pressure 126/82, oxygen saturation 98% on 2 L of nasal cannula. HEENT: Head normocephalic. No trauma. PERRLA. Neck: Supple. No JVD. No masses. Central trachea. Chest: Clear to auscultation. No wheezing. No rales. Abdomen: Soft. Tenderness to palpation at the level of the periumbilical area and epigastric area. No signs of peritoneal irritation. Extremities: No edema. No clubbing. No cyanosis. Skin: She has a tear to her left forearm. Neurologic: No focal deficits. LABORATORY: WBC 9.8, hemoglobin 9.6, hematocrit 28.5, platelets 203,000. Pending BMP. ASSESSMENT AND PLAN: 1. Upper GI bleed likely secondary to duodenal ulcer. This patient has a history of duodenal ulcers. Gastroenterology Department on board. She will be getting an endoscopy procedure today. Hemoglobin has been stable after 3 PRBCs. We will monitor. 2. Hypoxemic respiratory failure, better with just nasal cannula. We will continue to monitor. 3. Hypotension, resolved. Continue with the same management. Blood pressure has been more stable. 4. CT of the chest did not show any infiltrate, but mild COPD. The abdomen and pelvis CT scan showed a lobular hyperdense area in the gastric fundus that could be related to a blood clot in the stomach. 5. Nausea and vomiting upon admission, resolved. 6. Chronic smoker. This patient has been highly advised against tobacco use. I will continue with daily cessation education. 7. Epigastric pain, likely secondary to gastric ulcers/duodenal ulcer. We will continue to monitor. She is still complaining of abdominal discomfort. Continue with proton pump inhibitors. 8. Hypertension. Now she was hypotensive. We held any blood pressure medication. 9. Chronic pain syndrome, aware. CRITICAL CARE TIME: 35 minutes. cc: Braxton Aguilar MD
[2018-05-13] MEDS ORDERED: XYLOCAINE-MPF 2% ONE (12:30)
[2018-05-13] MEDS ORDERED: DIPRIVAN 1% ONE (12:30)
--- NOTE | 2018-05-13 13:03 | OPERATIVE NOTE ---
PROCEDURE DATE:05/13/2018 PERFORMING PHYSICIAN: Ellis Herrera MD. PROCEDURE: Esophagogastroduodenoscopy. PREOPERATIVE DIAGNOSIS: Epigastric pain. POSTOPERATIVE DIAGNOSES: 1. Large duodenal ulcer at the previous ulcer site. 2. Visible vessel, and no signs of active bleeding. 3. There is no evidence of outlet obstruction. PROCEDURE IN DETAIL: After informed consent and adequate intravenous sedation by Anesthesia, the scope introduced through the esophagus, which was normal. The cardia, fundus, and body are normal. Pylorus is normal in the bulb. Patient has exposed suture line with 1.5 to 2 cm duodenal ulcer. There is a exposed garcia-red spot; however, there are no signs of bleeding. There is no outlet obstruction. The scope was withdrawn. The patient tolerated the procedure well without any immediate complications. cc: MD Braxton Alvarado MD Robert C. Walker, MD MTDAb
[2018-05-13] MEDS: NORCO-7.5 PO PRN (15:42)
[2018-05-13] MEDS: CARAFATE PO SCH ×2 (15:43→20:39)
--- NOTE | 2018-05-13 19:07 | PROGRESS NOTE ---
DATE: 05/13/2018 Ms aPtricia Hartley is a 72-year-old white female who I accepted in transfer from [facility] Emergency Department because the ER physician felt that she had possible free air in her abdomen and abdominal pain. A CT scan was performed at [facility]. When she arrived to [facility] she did not appear that she had acute abdomen and review of the CT scan suggested no free air. She did have a history of peptic ulcer disease and has undergone Sunil patch closure of a perforated duodenal ulcer in the past. She does continue to smoke and has been noncompliant with her medication. She was down in radiology to get an upper GI when she experienced syncope. She was brought back to the floor and evaluated by our hospitalists and it was noted that she was profoundly anemic and was sent to the ICU for further resuscitation. Her hematocrit was 20 and she was given 2 to 3 units of blood. Today it is 28. She remains in the ICU. She is hemodynamically satisfactory. She still complains of epigastric abdominal pain. Her heart rate is 67, blood pressure 160/98, O2 saturation 97%. She is afebrile. She is on antibiotics Zosyn and vancomycin prophylactically. She is receiving Protonix and sucralfate. GI medicine has been consulted and our hospitalists are helping us take care of her. Her electrolytes are within normal limits. BUN is 51, creatinine 1.0, white blood cell count is normal. cc: MD Braxton Almonte MD
[2018-05-14] MEDS: DEMEROL IV PRN ×2 (02:38→07:34)
[2018-05-14] MEDS: ZOSYN 3.375 GM in NS 50 ML IV SCH ×2 (02:39→07:34)
[2018-05-14] MEDS: NORCO-7.5 PO PRN (04:09)
[2018-05-14] MEDS ORDERED: VANCOMYCIN 1 GM/NS 1 GM/250 ML IVPB IV SCH ×2 (06:00→16:00)
[2018-05-14 07:05] LABS: BASO# 0.02 X1000 (0.0-0.2); BASO% 0.3 % (0.0-0.8); EOS# 0.22 X1000 (0.0-0.7); EOS% 3.5 % (0.0-10.0); HEMATOCRIT 29.8 % (37.0-47.0); HEMOGLOBIN 9.8 g/dL (12.0-16.0); LYMPH# 1.17 X1000 (1.2-3.4); LYMPH% 18.6 % (20.5-51.1); MCH 29.3 PG (27-31); MCHC 32.9 g/dL (33-37); MONO# 0.45 X1000 (0.11-0.59); MONO% 7.1 % (1.7-9.3); NEUT# 4.44 X1000 (1.4-6.5); NEUT% 70.5 % (42.2-75.2); PLT 205 X1000 (130-400); RBC 3.35 XMIL (4.2-5.4); RDW 16.4 % (11.5-14.5)
[2018-05-14] MEDS: CARAFATE PO SCH ×3 (07:09→16:06)
[2018-05-14 07:48] LABS: AGAP 9; ALB/GLOB RATIO 1.2; ALBUMIN 2.5 g/dL (3.5-5.0); ALKALINE PHOSPHATASE 86 U/L (32-104); BUN 22 mg/dL (8-22); CALCIUM 7.8 mg/dL (8.8-10.2); CHLORIDE 109 mmol/L (98-107); COSMO 283; CREATININE 0.9 mg/dL (0.5-0.9); ESTIMATED GFR > 60; GLUCOSE 108 mg/dL (70-104); GOT 15 U/L (10-30); GPT 7 U/L (10-36); MAGNESIUM 1.3 mg/dL (1.5-2.7); POTASSIUM 4.2 mmol/L (3.5-5.1); SODIUM 140 mmol/L (136-145); TCO2 22 mmol/L (25-35); TOTAL BILIRUBIN 0.34 mg/dL (0.20-1.00); TOTAL PROTEIN 4.6 g/dL (6.3-8.3)
[2018-05-14] MEDS ORDERED: MAGNESIUM SULFATE 2 GM/S.W.I. 2 GM/50 ML IVPB IV ONE (08:03)
[2018-05-14] MEDS ORDERED: D5 1/2 NS 1,000 ML IV SCH ×2 (08:15→10:30)
--- NOTE | 2018-05-14 08:24 | PROGRESS NOTE ---
DATE: 05/14/2018 SUBJECTIVE: Ms Patricia Hartley is a 72-year-old, white female who has a bleeding duodenal ulcer, and she presented with profound anemia. She has been transfused and her hematocrit this morning is 30%. Her white blood cell count is normal. She is awake, cooperative. She is in our ICU. Her blood pressure is high this morning. Her heart rate 66, blood pressure is 198/113, O2 saturation 95%. She is voiding without difficulty, and she has had some bowel movements. Her abdomen is soft, but she still complains of epigastric abdominal pain and is taking pain medicine. She is on a full liquid diet per GI medicine. She is on sucralfate and Protonix. She is on antibiotics prophylactically, vancomycin and piperacillin. PLAN: Diet per GI Medicine. Protonix and sucralfate and treatment for her duodenal ulcer per GI Medicine. I have asked the nurses to speak with our hospitalist about her hypertension. cc: MD Braxton Almonte MD
--- NOTE | 2018-05-14 08:52 | PROGRESS NOTE ---
DATE: 05/14/2018 SUBJECTIVE: The patient is still complaining of abdominal pain. She has been placed on Carafate and also she has been placed on [place] 7.5. She is getting also PPIs twice a day. Her blood pressure has been a little bit elevated but I believe it is related to her pain because the blood pressure has been up and down somewhere between the 120s and 170s, again, mostly when she is in pain. Yesterday, she had an EGD done that showed a large duodenal ulcer at the previous ulcer site with a visible vessel and no signs of active bleeding, and there is no evidence of outlet obstruction. Hemoglobin has been stable compared with yesterday. OBJECTIVE: Vital Signs: Temperature 97.9 degrees, pulse 65, respiratory rate 23, blood pressure 155/101, oxygen saturation 96 on 4 L of nasal cannula. HEENT: Head normocephalic. No trauma. PERRLA. Neck: Supple. No JVD. No masses. Central trachea. Chest: Clear to auscultation. No wheezing. No rales. Abdomen: Soft. Tenderness to palpation at the level of the periumbilical area and epigastric area. No signs of peritoneal irritation. Extremities: No edema. No clubbing. No cyanosis. Skin: She has a tear to her left forearm. Neurologic Examination: No focal deficits. She is oriented x3. Laboratory: WBCs 6.3, hemoglobin 9.8, hematocrit 29.8, platelets 205,000. Sodium 140, potassium 4.2, chloride 109, bicarbonate 22, BUN 22, creatinine 0.9, glucose 108, calcium 7.8, magnesium 1.3, albumin 2.5. ASSESSMENT AND PLAN: 1. Upper gastrointestinal bleed, likely secondary to duodenal ulcer. This patient had been scoped yesterday. They saw the ulcer and also a visible vessel but no signs of active bleeding. No evidence of outlet obstruction. Hemoglobin and hematocrit have been stable. She is status post 3 units of packed red blood cells. We will continue monitoring the hemoglobin and hematocrit. 2. Hypoxemic respiratory failure, better with just nasal cannula. Chest CT showed mild chronic obstructive pulmonary disease but no infiltrates in the lungs. For now, we will continue with the same management, oxygen supplementation. She has no complaint of shortness of breath. There is no infection. 3. Hypotension, resolved. Actually, this patient has been hypertensive, likely due to her pain. 4. Nausea and vomiting upon admission, resolved. She is tolerating a little bit of fluids. I think she is recovering. 5. Chronic smoker. This patient has been highly advised against tobacco use. I will continue with daily cessation education. She does have mild chronic obstructive pulmonary disease. 6. Chronic obstructive pulmonary disease, as above. 7. Epigastric pain, likely secondary to her gastric ulcer/duodenal ulcer. We will continue to monitor. She is still complaining of abdominal discomfort. Continue proton pump inhibitor, Carafate, and pain medication. 8. Hypertension. At this moment, likely secondary to her pain but we will continue to monitor. Her blood pressure has been mostly between 120s and 170s. 9. Chronic pain syndrome. Aware. 10. I think this patient is a little bit better but she is still complaining of abdominal pain. She is not taking her medications at home because, per the patient, she does not have a primary doctor. She has been placed on antibiotics upon admission because at the beginning, we thought this patient had a bowel perforation. Her WBCs are normal and the neutrophil count, even upon admission, was normal as well. I will stop the antibiotics. I do not have any source of infection. CRITICAL CARE TIME: 35 minutes. cc: Braxton Aguilar MD
[2018-05-14] MEDS: ATIVAN IV PRN (09:05)
[2018-05-14] MEDS: PROTONIX IV SCH ×2 (09:51→20:57)
[2018-05-14] MEDS: SODIUM CHLORIDE 0.9% INJ SCH (09:51)
[2018-05-14] MEDS ORDERED: REGLAN IV ONE (10:58)
[2018-05-14 11:55] LABS: HEMOGLOBIN 7.1 g/dL (12.0-16.0)
[2018-05-14] MEDS ORDERED: EPINEPHRINE SYRINGE ONE (12:01)
[2018-05-14] MEDS ORDERED: DIPRIVAN 1% ONE (12:01)
[2018-05-14] MEDS ORDERED: ZEMURON ONE ×3 (12:08→14:42)
[2018-05-14] MEDS ORDERED: CALCIUM CHLORIDE SYRINGE ONE (12:15)
--- NOTE | 2018-05-14 12:42 | GENERAL SURGERY PROGRESS NOTE ---
DATE: 05/14/2018 SUBJECTIVE: She was in endoscopy and was found to have arterial bleeding from likely a branch of the GDA. This was temporized by Dr. Foster. She is hemodynamically stable with active bleeding undergoing mass transfusion protocol. OBJECTIVE: Temp 97.2 degrees, blood pressures systolics in 30s currently but has been as low as 90s, oxygen saturations mid 90s. She is intubated on the endoscopy suite. I have reviewed her imaging. LABS: Last hematocrit was 22. ASSESSMENT AND PLAN: A 72-year-old female with bleeding duodenal ulcer. She has been refractory to medical management and endoscopic therapy. She needs definitive surgical management with antrectomy. I have discussed Dr. Feliciano. I have also talked to her sister, who gives consent. We discussed risk of bleeding, infection, , possibility of prolonged intubation, the possibility of feeding tube and anticipated findings at time of surgery and what will require to repair that. She understands that this is an exploratory. We cannot give her the exact details of this operation, but we will keep her updated and informed. Otherwise, we will continue to aggressively transfusion till we get her to the operating room emergently. cc: MD Braxton Gutierrez MD
[2018-05-14] MEDS ORDERED: ROBINUL ONE ×2 (12:44)
[2018-05-14] MEDS ORDERED: EPHEDRINE ONE (12:44)
[2018-05-14 14:15] LABS: URINE SOURCE CATH
[2018-05-14 14:27] LABS: BILIRUBIN URINE NEGATIVE (NEGATIVE); BLOOD URINE NEGATIVE (NEGATIVE); COLOR STRAW; GLUCOSE URINE 500 mg/dL (NEGATIVE); KETONE URINE NEGATIVE (NEGATIVE); LEUKOCYTES URINE NEGATIVE (NEGATIVE); NITRITE URINE NEGATIVE (NEGATIVE); PH URINE 6.5; PROTEIN URINE NEGATIVE (NEGATIVE); SP GRAVITY URINE 1.006; TURBIDITY URINE CLEAR (CLEAR); UR EPITHELIAL CELLS <10 /HPF (<10); URINE BACTERIA NEGATIVE /HPF; URINE RBC <10 /HPF (<10); URINE WBC <10 /HPF (<10); UROBILINOGEN URINE NORMAL (NORMAL)
[2018-05-14] MEDS ORDERED: ZOFRAN ONE (14:43)
[2018-05-14] MEDS ORDERED: VERSED ONE (15:11)
[2018-05-14] MEDS ORDERED: APRESOLINE IV PRN (16:49)
[2018-05-14] MEDS: D5 1/2 NS 1,000 ML IV SCH (16:54)
[2018-05-14 17:10] LABS: BASO# 0.01 X1000 (0.0-0.2); BASO% 0.1 % (0.0-0.8); EOS# 0.03 X1000 (0.0-0.7); EOS% 0.3 % (0.0-10.0); HEMATOCRIT 34.1 % (37.0-47.0); HEMOGLOBIN 11.5 g/dL (12.0-16.0); IMM GRAN# 0.02 X1000 (0.0-0.04); IMM GRAN% 0.2 % (0.0-0.5); LYMPH# 0.76 X1000 (1.2-3.4); LYMPH% 8.2 % (20.5-51.1); MCH 29.9 PG (27-31); MCHC 33.7 g/dL (33-37); MCV 88.6 FL (81-99); MONO% 8.7 % (1.7-9.3); MPV 10.4 FL (7.4-10.4); NEUT# 7.61 X1000 (1.4-6.5); NEUT% 82.5 % (42.2-75.2); PLT 218 X1000 (130-400); RBC 3.85 XMIL (4.2-5.4); RDW 14.4 % (11.5-14.5); WBC 9.23 X1000 (4.8-10.8)
[2018-05-14] MEDS: DIPRIVAN 1% 1,000 MG/100 ML BOTTLE IV SCH ×2 (17:11→20:54)
[2018-05-14] MEDS ORDERED: MORPHINE IV ONE (17:22)
--- NOTE | 2018-05-14 17:59 | Diag Imaging Result Doc PS360 ---
CHEST-PORTABLE - 05/14/2018 INDICATION: intubation COMPARISON: 05/12/2018 FINDINGS: There is an endotracheal tube and nasogastric tube in good position. The lungs are clear. Heart size is normal. No pneumothorax or pleural effusion. IMPRESSION: No acute disease. Electronically signed by Lamberto Wisdom 05/14/2018 5:57 PM
[2018-05-14] MEDS ORDERED: LASIX IV ONE (18:16)
[2018-05-14] MEDS: MORPHINE IV PRN (21:12)
[2018-05-15] MEDS: MORPHINE IV PRN ×5 (03:07→19:45)
[2018-05-15] MEDS: DIPRIVAN 1% 1,000 MG/100 ML BOTTLE IV SCH ×3 (04:44→08:34)
[2018-05-15 04:47] LABS: ALLEN TEST YES; BE 3.3 mmoll (-3.0-3.0); BLOOD TYPE ARTERIAL; HCO3-(ACT) 27.5 mmoll (20.0-26.0); METHB 1.4 % (0.0-1.5); O2(CT) 13.5 mL/dL (15.0-23.0); PCO2(98.6) 29 mmHg (35-45); PO2(98.6) 133 mmHg (60-100); SAMPLE BLOOD; SAO2 98.1 % (95.0-100.0); SRATE 12 BPM; THB 9.8 g/dL (11.5-17.4); TVOL 650 mL; pH(98.6) 7.55 (7.35-7.45)
[2018-05-15 04:59] LABS: MODALITY VENTILATOR
--- NOTE | 2018-05-15 05:22 | PULMONOLOGY CONSULTATION ---
DATE: 05/14/2018 REQUESTING PHYSICIAN: Dr. Tj Feliciano. REASON FOR CONSULTATION: Respiratory failure following emergent surgery. HISTORY OF PRESENT ILLNESS: Ms. Hartley is a 72-year-old, white female with an extensive tobacco history, COPD, with a history of a duodenal ulcer with prior Sunil patch repair, who presented to an outside hospital with epigastric pain. A CT scan was performed which revealed possible free air within the abdomen. The patient was transferred to [facility]. She underwent an EGD which revealed an ulcer seen in the duodenum, along with stitches from the prior repair. A visible vessel was also seen but no active bleeding. This morning, she developed significant active bleeding and coughed up more than a basin of right red blood. The patient was taken the operating room and underwent a surgical repair. Surgical note is not yet available for review. The patient is back in the ICU on mechanical ventilation. She is starting to arouse and becoming hypertensive. She has received multiple blood products. PAST MEDICAL HISTORY: 1. Recurrent duodenal ulcer with prior omental patch repair. 2. COPD with ongoing tobacco use. 3. Hypertension. 4. Dyslipidemia. 5. Peripheral neuropathy. 6. Anxiety/depressive disorder. 7. Migraine headaches. 8. Chronic pain syndrome. 9. Status post hysterectomy. 10. Status post appendectomy. 11. Status post hemorrhoidectomy. SOCIAL HISTORY: Ongoing tobacco use. No alcohol use listed. FAMILY HISTORY: Notable for strokes in the father, diabetes in a sister, with unspecified cancer in her mother. REVIEW OF SYSTEMS: Cannot be obtained. PHYSICAL EXAMINATION: General: Reveals an intubated, white female who appears agitated on mechanical ventilation. Vital Signs: Blood pressure 175/102, heart rate 78, respiratory rate 15, oxygen saturation 100%. HEENT: Pupils are equal and reactive. Oropharynx appears clear. An NG tube is in place, draining coffee-grounds material. Chest: Reveals prolonged expiratory phase with no wheezing. Cardiac Examination: S1-S2. Abdomen: Soft with surgical dressings in place. Extremities: Without edema. LABORATORIES: Chest x-ray reveals endotracheal tube and NG tube to be in good position. Electrolytes this morning with sodium 140, potassium 4.2, chloride 109, bicarbonate 22, BUN 22, creatinine 0.9, with a magnesium of 1.3 and a calcium of 7.8. Most recent CBC at 1650, white blood count 7.23, hemoglobin 11.5, platelet count 218,000. IMPRESSION: A 72-year-old with recurrent gastrointestinal bleed, status post emergent surgery for significant hematemesis, acute hypoxemic respiratory failure, chronic obstructive pulmonary disease with ongoing tobacco use. She appears to have improved hemodynamically following the surgery. RECOMMENDATIONS: 1. Continue mechanical ventilation through the evening. She will be evaluated for extubation tomorrow morning. 2. We will hold bronchodilators tonight to prevent cardiac stimulation. If she is not extubated tomorrow, we will re-evaluate bronchodilators. 3. Small dose of diuretics given hypertension and significant volume resuscitation. 4. Continue gastric acid suppression. 5. Additional recommendations pending hospital course. cc: MD Braxton Mckinnon MD
--- NOTE | 2018-05-15 05:25 | OPERATIVE NOTE ---
PROCEDURE DATE: 05/12/2018 PREOPERATIVE DIAGNOSIS: Bleeding duodenal ulcer. POSTOPERATIVE DIAGNOSIS: Bleeding duodenal ulcer. PRINCIPAL PROCEDURES: 1. Truncal vagotomy. 2. Antrectomy with B2 anastomosis. 3. Feeding jejunostomy. SURGEON: Stephanie Feliciano MD RECRUITING SPECIALIST: Dr. Dionte Fitch. ANESTHESIA: General. ESTIMATED BLOOD LOSS: 250 mL. DRAINS: A 10 flat Alexx-Bedoya drain along our duodenal closure. INDICATIONS: Ms. Patricia Hartley is a 72-year-old, white female who has a history of duodenal ulcer. In August of last year, she underwent emergency surgery by Dr. Greer Lezama for a perforated duodenal ulcer. She underwent Sunil patch closure. She has been noncompliant with her medicine and was rehospitalized this weekend with epigastric pain. It was noted that she was profoundly anemic, and a repeat upper endoscopy documented a duodenal ulcer with a visible vessel. Today, she began a massive upper GI bleed, and we urgently recommended surgery. FINDINGS: Because she has been noncompliant with her medicine and this is a recurrent or nonhealing duodenal ulcer, we wanted to do a definitive ulcer operation. We chose to do a truncal vagotomy, antrectomy, and we had to do a B2 anastomosis. She had a posterior duodenal ulcer with a visible vessel which we felt was a gastroduodenal artery which was bleeding. We felt the closure of our duodenal stump was satisfactory. We did have to close it over the ulcer or imbricate it over the ulcer. We performed a loop gastrojejunostomy. Dr. Dionte Fitch was present throughout this emergency operation. His presence was necessary for help with retraction, dissection, and decision making. The patient was urgently brought to the operating room after being in the endoscopy suite. Our GI med physician was able to stop the bleeding temporarily from the duodenal ulcer using epinephrine injection, but there was a visible vessel and this was the second time during this hospitalization that she has bled. We felt she needed definitive surgery. This was a recurrent duodenal ulcer. She was urgently taken to the operating room, placed supine, and received general anesthesia, and was intubated. Her abdomen was prepped and draped within the sterile field. She had a previous upper midline incision because of a Sunil patch of a perforated duodenal ulcer less than a year ago. We reopened the upper midline incision with a 10 blade scalpel and cautery. We transected the midline fascia after removing Prolene closure stitch of the fascia using cautery and entered the abdomen. We had to take down some adhesions to the anterior abdominal wall. We did that mostly with the cautery. Once all those adhesions were taken down, we visualized where the pylorus was and where the inflammation of this ulcer was. We felt we had to do a definitive ulcer operation, and we wanted to do an antrectomy, truncal vagotomy with either a B1 or B2 anastomosis. We did a thorough Dorene maneuver by incising the peritoneum lateral to this C-loop of the duodenum and mobilizing the duodenum as much as possible with blunt dissection and sharp dissection and the cautery. Once we had a Dorene maneuver completed, we took down adhesions around the gallbladder, and identified the cystic and common bile duct. We decided to transect the stomach and bring the antrum down from the stomach to the duodenal ball to help dissect this area. We used the LigaSure to help mobilize the greater curvature. We got behind the stomach and then we took down the vessels along the lesser curve. We divided the stomach between [place] clamps, and we used a green load 80 mm in length HALLE stapler to come across the lesser curve side of the stomach. We then dissected the antrum from proximal to distal using the LigaSure to control bleeding. When we got to the ulcer bed which was on the pancreas, there was some bleeding and I had to use a [id number] to close the gastroduodenal artery at the base of the ulcer. I used a [id number] 2-0 Prolene stitch. I could not remove the ulcer from where it was adhered to the pancreas. We left the ulcer in place, and we transected the duodenum just distal to the ulcer. We removed the antrum and the pylorus, and sent it to the pathologist for permanent section. We had to imbricate or sew the open duodenum down over the ulcer bed. We did that in 2 layers, the first layer was a running 2-0 Vicryl stitch which was enforced with interrupted 2-0 silk stitches and these were Lembert stitches. Because we had done a generous Dorene maneuver, we were able to bring the healthy duodenum over the ulcer bed without tension and I was happy with our closure. We then directed our attention to the truncal vagotomy. We used the upper hand for retraction in addition to a [place] retractor. We also used handheld retractors. I mobilized the lateral lobe of the liver medially and out of the way so that I could bluntly dissect around the esophagus. We put a [place] drain around the esophagus, and identified the posterior vagus nerve and the anterior vagus nerve. A segment of those were removed and sent to the pathologist, and we completely skeletonized the esophagus of any soft tissue. We felt we had a thorough dissection of the esophagus, and any nerves in that area were divided. We then directed our attention to the reconstruction and we chose to do a loop gastrojejunostomy. We found the ligament of Treitz, and we moved up the jejunum and brought it through the transverse mesocolon up to the stomach. We positioned it in an isoperistaltic fashion, and we performed an anastomosis end stomach to side jejunum, and we performed a 2 layer anastomosis. The posterior layer with interrupted 2-0 Vicryl stitches which were reinforced with a running 3-0 double-armed Vicryl stitch which was continued on the anterior wall as a canal stitch, and then we reinforced the anterior wall with interrupted 2-0 silk Lembert stitches. The anastomosis was wide open. We secured the mesentery of the transverse colon around this loop of jejunum that we brought through the mesentery so that there was no internal hernia in this area. We then directed our attention to the feeding jejunostomy. We used a red Churchill tube, and we performed a Witzel feeding jejunostomy in the mid to distal jejunum. We made an incision in the jejunum using cautery and we placed the red Churchill tube, and did a Witzel technique with interrupted 3-0 silk stitches. Then, we secured the bowel to the anterior abdominal wall on the left side of abdomen. The red Churchill tube was brought out through the anterior abdominal wall left side. We placed a 10 flat Alexx-Bedoya drain along our duodenal closure, and it was brought out the right side of the abdomen. We took time to thoroughly irrigate the abdomen, and then warm irrigation was removed with suction. The retractors were removed, and I closed the midline fascia with a #1 Maxon stitch. The skin was closed with a skin clip mixed livestock farm worker. Dressings were applied. She tolerated the procedure well. Plans are for her to go to the ICU and remained intubated for now. She had an NG tube in place, and we had checked the position. She has a Knapp catheter tube in place. Her MARYCHUY drain was hooked to bulb suction. We clamped her feeding jejunostomy for now. cc: MD Braxton Almonte MD
[2018-05-15 05:48] LABS: BASO# 0.01 X1000 (0.0-0.2); BASO% 0.1 % (0.0-0.8); EOS% 1.1 % (0.0-10.0); HEMATOCRIT 27.2 % (37.0-47.0); HEMOGLOBIN 9.4 g/dL (12.0-16.0); IMM GRAN# 0.02 X1000 (0.0-0.04); IMM GRAN% 0.2 % (0.0-0.5); LYMPH# 1.23 X1000 (1.2-3.4); MCH 29.7 PG (27-31); MCHC 34.6 g/dL (33-37); MCV 85.8 FL (81-99); MONO# 0.62 X1000 (0.11-0.59); MONO% 7.1 % (1.7-9.3); MPV 11.1 FL (7.4-10.4); NEUT% 77.5 % (42.2-75.2); PLT 203 X1000 (130-400); RBC 3.17 XMIL (4.2-5.4); RDW 14.3 % (11.5-14.5); WBC 8.78 X1000 (4.8-10.8)
[2018-05-15 06:07] LABS: AGAP 13; BUN 14 mg/dL (8-22); CHLORIDE 102 mmol/L (98-107); COSMO 278; CREATININE 0.9 mg/dL (0.5-0.9); ESTIMATED GFR > 60; GLUCOSE 126 mg/dL (70-104); PHOSPHORUS 3.1 mg/dL (2.7-4.5); POTASSIUM 3.1 mmol/L (3.5-5.1); SODIUM 138 mmol/L (136-145); TCO2 23 mmol/L (25-35)
[2018-05-15 06:09] LABS: CALCIUM 6.9 mg/dL (8.8-10.2)
[2018-05-15] MEDS ORDERED: MAGNESIUM SULFATE 2 GM/S.W.I. 2 GM/50 ML IVPB IV ONE (06:27)
[2018-05-15] MEDS: D5 1/2 NS 1,000 ML IV SCH ×2 (06:39→19:52)
[2018-05-15] MEDS ORDERED: CALCIUM GLUCONATE 1 GM in NS 50 ML IV ONE (07:00)
--- NOTE | 2018-05-15 07:29 | Diag Imaging Result Doc PS360 ---
EXAM: CHEST-PORTABLE 05/15/2018 HISTORY: abnormal exam TECHNIQUE: AP portable at 0504 COMMENT: There is an endotracheal tube with its tip at the thoracic inlet. There is an NG tube with its tip below the diaphragm. There is a surgical drain which is partially visible in the left upper quadrant. Considering differences in technique the appearance of the chest has not changed significantly. IMPRESSION: Stable since 05/14/2018. Electronically signed by David Crouch 05/15/2018 7:27 AM
[2018-05-15] MEDS: SODIUM CHLORIDE 0.9% INJ SCH (08:34)
[2018-05-15] MEDS: POTASSIUM CHLORIDE 20 MEQ/SWI 20 MEQ/100 ML IVPB IV SCH ×2 (08:34→10:47)
[2018-05-15] MEDS: PROTONIX IV SCH (08:34)
--- NOTE | 2018-05-15 09:55 | PROGRESS NOTE ---
DATE: 05/15/2018 SUBJECTIVE: This patient is on mechanical ventilation and sedated. No acute events overnight. She went to the OR yesterday due to a bleeding duodenal ulcer, and they did a truncal vagotomy, antrectomy with B2 anastomosis and feeding jejunostomy. She seems to be stable. Pulmonary department on board as well as Gastroenterology Department. OBJECTIVE: Vital Signs: Temperature 98.7, pulse 71, respiratory rate 12, blood pressure 121/82, oxygen saturation 100% on mechanical ventilation. HEENT: Head normocephalic. No trauma. PERRLA. Neck: Supple. No JVD. No masses. Central trachea. Chest: Decreased breath sounds at the bases with some crepitus. Abdomen: Soft. She does have a dressing in the middle of the abdomen with no signs of bleeding. Decreased bowel sounds. Extremities: No edema. No clubbing. No cyanosis. Neurological: The patient is on mechanical ventilation and sedated. LABORATORY: WBC 8.7, hemoglobin 9.4, hematocrit 27.2, platelets 203. Sodium 138, potassium 3.1, chloride 102, bicarbonate 23, BUN 14, creatinine 0.9, glucose 126, calcium 6.9, magnesium 3.1. calcium 6.9, phosphorus 3.1, magnesium 1. ASSESSMENT AND PLAN: Recurrent gastrointestinal bleed, status post emergent surgery for significant bleeding. Yesterday a truncal vagotomy with antrectomy with B2 anastomosis and feeding jejunostomy was performed. Postoperative day #1. Hemoglobin looks stable. We will continue to monitor. 1. Acute hypoxemic respiratory failure. Continue with mechanical ventilation. Pulmonary Department on board. 2. Chronic obstructive pulmonary disease, not in exacerbation. It looks like she is still smoking. Continue with the same management. 3. Hypotension, resolved. 4. Chronic pain syndrome, aware. 5. Tobacco abuse. This patient has been highly advised previous to this surgery against tobacco use. When she gets better, I will continue with daily cessation education. CRITICAL CARE TIME: 35 minutes. cc: Braxton Aguilar MD
--- NOTE | 2018-05-15 10:48 | PROGRESS NOTE ---
DATE: 05/15/2018 SUBJECTIVE: Ms. Patricia Hartley is now postop day 1 from truncal vagotomy, antrectomy with B-2 anastomosis for a duodenal ulcer. We felt the surgery went well. She was brought to the ICU intubated. She has been extubated this morning per Dr. León. She is awake and looks weak but is cooperative. Her MARYCHUY drain is draining serosanguineous fluid. No evidence of bile. Her feeding tube has been clamped but we will start using that today. I have stopped her Protonix and her antibiotics. She still has an NG tube and Knapp catheter tube. OBJECTIVE: Her heart rate is 71, blood pressure 121/82, O2 saturation 100%. She is afebrile. Urine output is adequate. Her white blood cell count is normal, hematocrit is 27%. Her potassium was a little bit low, as was her calcium and magnesium. Those were being replaced. Her BUN is 14, creatinine 0.9. PLAN: They are going to try to place a PICC line today for IV access. We will begin tube feeding through her jejunum, Osmolite at 50 mL an hour. I do not want any residuals checked. We will stop the tube feeding if her abdomen becomes distended. I will leave her NG tube for now but I think within the next 24 hours, that can come out. Her Knapp catheter tube remains and I think as she gets more active, we can remove that. We will leave her MARYCHUY drain. cc: MD Braxton Almonte MD
[2018-05-15] MEDS ORDERED: NS 250 ML ONE (11:28)
[2018-05-15 11:53] LABS: INR 1.11; PROTIME 15.2 Seconds (11.0-16.0)
--- NOTE | 2018-05-15 13:26 | GASTROENTEROLOGY PROGRESS NOTE ---
DATE: 05/15/2018 SUBJECTIVE: Resting in bed. She is extubated. She is on a face mask. I spoke to the patient's sister at bedside. OBJECTIVE: Vital Signs: Temperature 98.7, pulse rate 87, respiratory rate 22, blood pressure 130/86, saturating 97% on mask. General: The patient is thinly built, lying in bed, in no acute distress. HEENT: Pale conjunctivae. No icterus. Face mask in place. Neck: Supple. Abdomen: Midline surgical dressing noted. There is a MARYCHUY drain and there is a gastrojejunostomy tube noted. Extremities: No cyanosis or clubbing. Neurologic: She is currently awake, but could not answer any of my questions. She was just extubated and she is on a face mask. LABORATORY DATA: Hemoglobin and hematocrit 9.4 and 27.2, white count 8.7, platelet count 203,000. INR 1.1, PT 15.2. pH 7.55, pCO2 29, PO2 130. This is on ventilator, AC at 40% FiO2. Sodium 138, potassium 3.1, chloride 102, bicarb 23, anion gap 13, BUN 14, creatinine 0.9, glucose 126, calcium 6.9, total bilirubin 1. IMPRESSION AND PLAN: 1. Large bleeding duodenal ulcer, status post truncal vagotomy, antrectomy, and B2 anastomosis for the duodenal ulcer. This is postoperative day 1. She is being followed Dr. Feliciano. 2. Respiratory failure post surgery. She is successfully extubated, but she is a chronic smoker. This is being followed by Dr. León. 3. She has a jejunostomy tube. She will be started on nutrition in the form of Osmolite at 50 mL/hour. 4. Anemia. Being watched for now. Transfuse as needed. 5. Will follow daily labs. 6. Gastrointestinal prophylaxis. Proton pump inhibitors. I spoke to the patient and family, and they have told me the patient has been on chronic medications and she continues to smoke. I have encouraged the need to follow up and quit smoking and take her medicines at home, with the patient's family at bedside. The above plan was discussed with the patient and family, and the nursing staff, and all questions answered. cc: MD Braxton Guan MD
--- NOTE | 2018-05-15 14:06 | PULMONOLOGY PROGRESS NOTE ---
DATE: 05/15/2018 SUBJECTIVE: The patient was evaluated earlier this morning. Propofol was held. A spontaneous breathing trial was performed while I was at the bedside. She was subsequently extubated. She has done well this morning. She is without specific complaints. She has no increased work of breathing off mechanical ventilation. OBJECTIVE: Vital Signs: Blood pressure 134/80, heart rate 92, respiratory rate 12, oxygen saturation 96% on 35% face mask. HEENT: Pupils are equal and reactive. Oropharynx is clear. Neck: Supple. Chest: Reveals good air entry bilaterally without wheezing or rhonchi. Cardiac: S1, S2. Abdomen: Soft, with surgical dressings in place. Extremities: Without edema. LABORATORIES: White blood count 8.78, hemoglobin 9.4, platelet count 203,000. Sodium 138, potassium 3.1, chloride 102, bicarbonate 23, BUN 14, creatinine 0.9, phosphorus 3.1, magnesium 1.0. Arterial blood gas: PH 7.55, pCO2 of 29, PO2 of 133. Chest x-ray reveals an NG tube in good position. No significant change from . IMPRESSION: A 72-year-old with COPD, acute hypoxemic respiratory failure, ongoing tobacco use, status post emergent abdominal surgery for massive GI bleeding. Clinically, she appears to be doing well. She is hemodynamically stable. She has been extubated earlier this morning without difficulty. RECOMMENDATIONS: 1. Smoking cessation will be discussed during this hospitalization. 2. Continue bronchial hygiene. We will encourage deep breathing and cough. We will initiate incentive spirometry. 3. Continue gastric acid suppression. cc: MD Braxton Mckinnon MD MTDD
[2018-05-15 16:51] LABS: AGAP 10; BUN 12 mg/dL (8-22); CALCIUM 7.4 mg/dL (8.8-10.2); CHLORIDE 106 mmol/L (98-107); COSMO 279; CREATININE 0.9 mg/dL (0.5-0.9); ESTIMATED GFR > 60; GLUCOSE 135 mg/dL (70-104); MAGNESIUM 1.8 mg/dL (1.5-2.7); SODIUM 139 mmol/L (136-145); TCO2 23 mmol/L (25-35)
[2018-05-15] MEDS: ATIVAN IV PRN (17:07)
[2018-05-15] MEDS: PHENERGAN IV PRN (20:09)
[2018-05-15] MEDS ORDERED: SODIUM CHLORIDE 0.9% 10 ML ONE (20:13)
[2018-05-16] MEDS: MORPHINE IV PRN ×8 (02:04→22:29)
[2018-05-16] MEDS: PHENERGAN IV PRN ×2 (05:09→20:58)
[2018-05-16 05:38] LABS: BASO# 0.02 X1000 (0.0-0.2); BASO% 0.2 % (0.0-0.8); EOS# 0.31 X1000 (0.0-0.7); EOS% 3.7 % (0.0-10.0); HEMATOCRIT 29.3 % (37.0-47.0); HEMOGLOBIN 9.4 g/dL (12.0-16.0); IMM GRAN# 0.02 X1000 (0.0-0.04); IMM GRAN% 0.2 % (0.0-0.5); LYMPH# 1.15 X1000 (1.2-3.4); LYMPH% 13.7 % (20.5-51.1); MCH 28.9 PG (27-31); MCHC 32.1 g/dL (33-37); MCV 90.2 FL (81-99); MONO% 10.7 % (1.7-9.3); MPV 10.7 FL (7.4-10.4); NEUT# 6.01 X1000 (1.4-6.5); NEUT% 71.5 % (42.2-75.2); PLT 211 X1000 (130-400); RBC 3.25 XMIL (4.2-5.4); RDW 15.2 % (11.5-14.5); WBC 8.41 X1000 (4.8-10.8)
[2018-05-16 06:05] LABS: AGAP 9; BUN 11 mg/dL (8-22); CALCIUM 7.4 mg/dL (8.8-10.2); CHLORIDE 107 mmol/L (98-107); COSMO 281; CREATININE 0.7 mg/dL (0.5-0.9); ESTIMATED GFR > 60; GLUCOSE 111 mg/dL (70-104); POTASSIUM 3.8 mmol/L (3.5-5.1); SODIUM 141 mmol/L (136-145); TCO2 25 mmol/L (25-35)
--- NOTE | 2018-05-16 07:49 | Diag Imaging Result Doc PS360 ---
EXAM: CHEST-PORTABLE INDICATION: dyspnea TECHNIQUE: One view COMPARISON: 05/15/2018 FINDINGS: There has been interval extubation. The right PICC line and NG tube are in stable positions. The lungs remain essentially clear with no new consolidation. Cardiac silhouette is essentially stable. IMPRESSION: Interval extubation. Stable chest, otherwise. Electronically signed by Valerio Mcnally 05/16/2018 7:46 AM
--- NOTE | 2018-05-16 08:06 | PROGRESS NOTE ---
DATE: 05/16/2018 SUBJECTIVE: This patient is completely alert and oriented x3. She is complaining of abdominal pain. She is status post truncal vagotomy, antrectomy with B2 anastomosis and feeding jejunostomy. On postoperative day #2, bowel sounds decreased. As per the patient, she is still passing gas. PHYSICAL EXAMINATION: Temperature 97.9 degrees, pulse 78, respiratory rate 11, blood pressure 143/93. Oxygen saturation 100% on nasal cannula.HEENT: Head normocephalic and atraumatic. PERRLA. Neck: Supple. No JVD. No masses. Central trachea. Chest: Decreased breath sounds at the bases with some crepitus. Abdomen: Soft. She has a dressing in the middle of the abdomen with no signs of bleeding or infection around that dressing. Decreased bowel sounds. Extremities: No edema. No clubbing. No cyanosis. Neurological: The patient is alert and oriented x3. No focal deficits. LABORATORY: WBC 8.1, hemoglobin 9.4, hematocrit 29.3, and platelets 211,000. Sodium 141, potassium 3.8, chloride 107, bicarbonate 25, BUN 11, and creatinine 0.7. Glucose 111. Calcium 7.4. Magnesium 1.7. ASSESSMENT AND PLAN: 1. Bleeding duodenal ulcer status post truncal vagotomy, antrectomy with B2 anastomosis and feeding jejunostomy. She seems to be stable. Bowel sounds are decreased. Surgery Department and Gastroenterology Department on board. Continue with the same management. I will place this patient on Clinimix today. She seems to be stable. 2. Acute hypoxemic respiratory failure, status post extubation, day #1, status post extubation 1 day ago. Pulmonary Department following this patient. She seems to be breathing without any kind of problems. 3. Chronic obstructive pulmonary disease, not in exacerbation. It looks like she is still smoking. Continue with same management. 4. Hypertension, resolved. 5. Chronic pain syndrome, aware. 6. Hypertension. Will continue to monitor. Blood pressure has been stable. 7. Ongoing tobacco abuse. This patient has been highly advised against tobacco use. I will continue with daily cessation education. 8. Anemia, status post 6 PRBC's, compared with yesterday the hemoglobin has been stable. We will monitor this on a daily basis. 9. The patient seems to be doing good, I do believe she needs to start physical therapy, but I will wait further recommendations of Surgery Department. cc: Braxton Aguilar MD
[2018-05-16] MEDS: CLINIMIX E 4.25%-5% SOLUTION 1,000 ML IV SCH (08:08)
--- NOTE | 2018-05-16 12:29 | GASTROENTEROLOGY PROGRESS NOTE ---
DATE: 05/16/2018 SUBJECTIVE: No acute overnight events. Afebrile. The patient reports abdominal pain at her incision site. No nausea, vomiting, fevers per RN. NG tube bloody output has decreased, only 50 mL in the last 24 hours. The patient denies having any flatus or bowel movements. Respiratory status is stable. No chest pain. OBJECTIVE: Vital signs: Temperature 99.2, heart rate 77, respiratory rate 12, blood pressure 157/100, O2 saturation 100% on 3 L nasal cannula. General: The patient is awake, alert, in no acute distress, frail appearing. HEENT: NG tube in place with minimal bloody output. Moist mucous membranes. Neck: No JVD, no lymphadenopathy. Cardiac: Regular rate and rhythm, no murmurs. Lungs: Clear to auscultation bilaterally. Abdomen: Nondistended. Incision with dressing clean, dry, and intact. Diffuse tenderness on palpation, no rebound, hypoactive bowel sounds. Extremities: No clubbing, cyanosis, or edema. Neurologic: Nonfocal. LABS: Hemoglobin has remained stable at 9.4 over the last 2 days. Platelets are normal. Chemistries only notable for mild hyperglycemia at 111. ASSESSMENT AND PLAN: 1. Ms. Patricia Hartley is a 72-year-old woman with a history of perforated duodenal ulcer who presented with acute blood loss anemia with melena status post EGD revealing large ulcer with visible vessel that was actively bleeding on 05/14. Bleeding was stopped temporarily with injection of epinephrine. Patient, however, given nonhealing ulcer and recurrent bleeding, underwent surgery on 05/14. A truncal vagotomy, antrectomy, and B2 anastomosis as well as feeding jejunostomy placement was performed. The patient has not required any further transfusions or had recurrent melena. The bloody output from her NG tube has tapered down. Surgical path is pending. Recommend that patient continue PPI IV b.i.d. For now, we will defer postsurgical management to surgery team in regard to the continuation of NG tube placement and initiation of J-tube feeding. 2. Respiratory failure postsurgery. The patient is a chronic smoker. She is being followed by Dr. León. 3. Anemia, stable. We will follow along with you. Please call with any questions or concerns. cc: Braxton Aguilar MD
--- NOTE | 2018-05-16 13:49 | PULMONOLOGY PROGRESS NOTE ---
DATE: 05/16/2018 SUBJECTIVE: The patient is awake, alert and conversant. She has no increased work of breathing. OBJECTIVE: Vitals: The patient has been afebrile for the last 24 hours. Blood pressure 159/104. Heart rate 76. Respiratory rate 11. Oxygen saturation 100% on 3 L per nasal cannula. HEENT: Pupils are equal and reactive. Oropharynx is clear. Neck: Supple. Chest: The chest reveals good air entry bilaterally. Cardiac: S1-S2. Abdomen: Soft, with surgical dressings in place. Extremities: Without cyanosis or edema. DIAGNOSTIC DATA: Chest x-ray reveals no evidence of acute infiltrates. White blood count 8.4, hemoglobin 9.4, platelet count 211,000. Sodium 141, potassium 3.8, chloride 107, bicarbonate 25, BUN 11, creatinine 0.7. IMPRESSION: A 72-year-old with chronic obstructive pulmonary disease, acute hypoxemic respiratory failure, ongoing tobacco use, following emergent surgery for massive GI bleeding. She is doing well both hemodynamically and from a pulmonary standpoint. She has been off mechanical ventilation for 24 hours. RECOMMENDATION: 1. Smoking cessation was discussed and recommended. 2. Continue bronchial hygiene. 3. Anticipate transfer to the floor today. 4. No additional pulmonary recommendations. We will follow peripherally and be available if needed. cc: MD Braxton Mckinnon MD
--- NOTE | 2018-05-16 14:04 | Diag Imaging Result Doc PS360 ---
EXAM: KUB ABDOMEN HISTORY: feeding tube position. TECHNIQUE: Abdomen single view COMPARISON: 09/27/2017 FINDINGS: There are multiple midline skin leonidas and there catheters overlying the abdomen. A nasogastric tube overlies the stomach. There are sutures in the mid left abdomen. Oral contrast fills nondilated loops of bowel in the lower abdomen and pelvis. No organomegaly. IMPRESSION: Nasogastric tube enters the stomach. Electronically signed by Aaron Stevens 05/16/2018 2:02 PM
--- NOTE | 2018-05-16 14:13 | PROGRESS NOTE ---
DATE: 05/16/2018 SUBJECTIVE: Ms Hartley is now postop day 2 from truncal vagotomy, antrectomy, B 2 anastomosis for duodenal ulcer. OBJECTIVE: Her MARYCHUY drain is still just draining serosanguineous fluid, no bile. We clamped her feeding tube overnight because she had some pain when we started tube feeding. So, today I placed some Gastrografin in her feeding tube to make sure it is in the right place. If it is, we are going to restart tube feeding so that she will not have to be on IV nutrition. She is awake, cooperative. She still has an NG tube in place which has little drainage. Will try to increase her activity and begin tube feeding. Her heart rate is 76, blood pressure 159/104, O2 saturation is 100% on nasal cannula O2, temperature is 99.2 degrees. She has a Knapp in. Urine output is adequate. Her hematocrit is stable at 29%. White blood cell count is normal. Electrolytes are within normal limits. cc: MD Braxton Almonte MD
[2018-05-16] MEDS ORDERED: LASIX IV ONE (20:00)
[2018-05-17] MEDS: MORPHINE IV PRN ×8 (00:21→20:27)
[2018-05-17] MEDS: CLINIMIX E 4.25%-5% SOLUTION 1,000 ML IV SCH ×2 (00:47→13:44)
[2018-05-17 02:15] LABS: HEMATOCRIT 33.2 % (37.0-47.0); HEMOGLOBIN 10.7 g/dL (12.0-16.0)
[2018-05-17] MEDS: PROTONIX IV SCH ×2 (02:29→13:46)
[2018-05-17] MEDS: PHENERGAN IV PRN ×3 (02:30→17:51)
[2018-05-17 06:21] LABS: BASO# 0.01 X1000 (0.0-0.2); BASO% 0.1 % (0.0-0.8); EOS# 0.25 X1000 (0.0-0.7); EOS% 3.3 % (0.0-10.0); HEMATOCRIT 32.3 % (37.0-47.0); HEMOGLOBIN 10.3 g/dL (12.0-16.0); LYMPH# 1.19 X1000 (1.2-3.4); LYMPH% 15.6 % (20.5-51.1); MCH 29.3 PG (27-31); MCHC 31.9 g/dL (33-37); MONO# 0.86 X1000 (0.11-0.59); MONO% 11.3 % (1.7-9.3); MPV 10.7 FL (7.4-10.4); NEUT% 69.7 % (42.2-75.2); PLT 256 X1000 (130-400); RBC 3.51 XMIL (4.2-5.4); RDW 14.9 % (11.5-14.5); WBC 7.61 X1000 (4.8-10.8)
[2018-05-17 06:41] LABS: MAGNESIUM 1.6 mg/dL (1.5-2.7); PHOSPHORUS 4.8 mg/dL (2.7-4.5)
--- NOTE | 2018-05-17 06:50 | GENERAL SURGERY PROGRESS NOTE ---
DATE: 05/17/2018 SUBJECTIVE: I was called last night saying there was bloody output out of the NG tube and bloody bowel movement. We got a stat hematocrit, which showed a hematocrit of 33 which is up from earlier. Otherwise, the patient is doing okay. No complaints. OBJECTIVE: Vital Signs: The patient is currently afebrile. Her vital signs are stable. General: No acute distress. Cardiovascular: Regular rate and rhythm. Lungs: Grossly clear. Abdomen soft, appropriately tender. LABORATORY: Hematocrit 33. ASSESSMENT AND PLAN: A 72-year-old female status post antrectomy with vagotomy with Billroth II anastomosis. Postop state at this time. We will monitor her NG tube output. Given the fact there was blood, we will hold off on any blood thinners for right now. We will keep the NG tube in place for right now given the bloody output, but she is receiving tube feeds via jejunostomy tube, and we will continue that. Otherwise, monitor closely. cc: MD Braxton Sal MD
[2018-05-17 06:53] LABS: AGAP 12; BUN 19 mg/dL (8-22); CALCIUM 8.8 mg/dL (8.8-10.2); CHLORIDE 101 mmol/L (98-107); COSMO 288; CREATININE 0.7 mg/dL (0.5-0.9); ESTIMATED GFR > 60; GLUCOSE 109 mg/dL (70-104); POTASSIUM 3.8 mmol/L (3.5-5.1); SODIUM 143 mmol/L (136-145); TCO2 30 mmol/L (25-35)
[2018-05-17] MEDS: SODIUM CHLORIDE 0.9% INJ SCH (13:50)
[2018-05-17] MEDS ORDERED: CLINIMIX E 4.25%-5% SOLUTION 1,000 ML IV SCH (15:00)
--- NOTE | 2018-05-17 15:17 | PROGRESS NOTE ---
DATE: 05/17/2018 SUBJECTIVE: This patient feels better. She is still complaining of abdominal pain but compared with yesterday and the day before yesterday she seems to be doing good, she is status post truncal vagotomy, antrectomy with B2 anastomosis and feeding jejunostomy postoperative day #3. Bowel sounds decreased but as per the patient she is feeling better. OBJECTIVE: Vital Signs: Temperature 98.8 degrees, pulse 86, respiratory rate 20, blood pressure 142/87, oxygen saturation 92 on 2 L of nasal cannula. HEENT: Head normocephalic. No trauma. PERRLA. Neck: Supple. No JVD. No masses. Central trachea. Chest: Clear to auscultation. No wheezing. Some crepitus at the bases. Abdomen: Soft. She has a dressing in the midline of the abdomen with no sign of bleeding or infection, she has a jejunostomy tube that is working fine and she is getting nutrition through that, she also has a drain with a little bit of serosanguineous material but not that much. Extremities: No edema. No clubbing. No cyanosis. Neurological: The patient is alert and oriented x3. No focal deficits. LABORATORY: WBC 7.6, hemoglobin 10.7, hematocrit 33.2, platelet 256,000, sodium 143, potassium 3.8, chloride 101, bicarbonate 30, BUN 19, creatinine 0.7, glucose 109, calcium 8.8, phosphorus 4.8, magnesium 1.6. ASSESSMENT AND PLAN: 1. Bleeding duodenal ulcer status post truncal vagotomy, antrectomy with B2 anastomosis and feeding jejunostomy, she seems to be stable. Bowel sounds are decreased but she is tolerating the feeding tube . Surgery Department and Gastroenterology Department on board, continue with same management. Since she is getting nutrition through the tube I will decrease the rate of the Clinimix and probably I will stop it tomorrow. She seems to be hydrated. 2. Acute hypoxemic respiratory failure status post extubation day #2, Pulmonary Department has been following this patient. She is not having any breathing issues at this moment. 3. Chronic obstructive pulmonary disease not in exacerbation. It looks like she is still smoking. Continue same management. 4. Hypertension resolved. 5. Chronic pain syndrome aware. 6. Ongoing tobacco use. This patient has been highly advised against tobacco use. I will continue with daily cessation education. 7. Anemia status post 6 packed red blood cells, hemoglobin has been stable. Continue to monitor. cc: Braxton Aguilar MD
[2018-05-17 20:50] LABS: HEMATOCRIT 33.1 % (37.0-47.0); HEMOGLOBIN 10.7 g/dL (12.0-16.0)
[2018-05-17] MEDS ORDERED: MORPHINE IV ONE (21:29)
[2018-05-18] MEDS: MORPHINE IV PRN ×7 (00:02→19:00)
[2018-05-18] MEDS: PHENERGAN IV PRN ×4 (00:02→18:59)
[2018-05-18] MEDS: SODIUM CHLORIDE 0.9% INJ SCH ×4 (00:03→18:59)
[2018-05-18 06:06] LABS: BASO# 0.03 X1000 (0.0-0.2); BASO% 0.6 % (0.0-0.8); EOS# 0.22 X1000 (0.0-0.7); EOS% 4.5 % (0.0-10.0); HEMATOCRIT 31.7 % (37.0-47.0); HEMOGLOBIN 10.1 g/dL (12.0-16.0); IMM GRAN# 0.02 X1000 (0.0-0.04); IMM GRAN% 0.4 % (0.0-0.5); LYMPH# 0.63 X1000 (1.2-3.4); MCH 30.1 PG (27-31); MCHC 31.9 g/dL (33-37); MCV 94.6 FL (81-99); MONO# 0.58 X1000 (0.11-0.59); MPV 10.1 FL (7.4-10.4); NEUT# 3.37 X1000 (1.4-6.5); NEUT% 69.5 % (42.2-75.2); PLT 246 X1000 (130-400); RBC 3.35 XMIL (4.2-5.4); RDW 14.9 % (11.5-14.5); WBC 4.85 X1000 (4.8-10.8)
[2018-05-18 06:21] LABS: AGAP 12; ALB/GLOB RATIO 0.7; ALBUMIN 2.3 g/dL (3.5-5.0); ALKALINE PHOSPHATASE 104 U/L (32-104); BUN 23 mg/dL (8-22); CALCIUM 7.8 mg/dL (8.8-10.2); CHLORIDE 103 mmol/L (98-107); COSMO 286; CREATININE 0.7 mg/dL (0.5-0.9); ESTIMATED GFR > 60; GLUCOSE 125 mg/dL (70-104); GOT 13 U/L (10-30); GPT 13 U/L (10-36); POTASSIUM 3.8 mmol/L (3.5-5.1); SODIUM 141 mmol/L (136-145); TCO2 26 mmol/L (25-35); TOTAL BILIRUBIN 0.26 mg/dL (0.20-1.00); TOTAL PROTEIN 5.4 g/dL (6.3-8.3)
--- NOTE | 2018-05-18 06:43 | GENERAL SURGERY PROGRESS NOTE ---
DATE: 05/18/2018 SUBJECTIVE: The patient had another episode of blood coming out her NG tube. We repeated a stat hematocrit. Her hematocrit has been stable. The patient says she is feeling a little bit better today but she has not passed any gas. OBJECTIVE: Vital Signs: The patient is currently afebrile. Her vital signs are stable. NG tube in place with 400 recorded out, looks like old darker blood. General Examination: No acute distress. Cardiovascular: Regular rate and rhythm. Lungs: Grossly clear. Abdomen: Soft. Appropriately tender. Laboratory: Most recent hematocrit 31.7, white blood cell count is normal, platelet count is normal. ASSESSMENT AND PLAN: A 72-year-old status post antrectomy and vagotomy with Billroth 2 reconstruction. Postoperative state. At this time, continue to monitor nasogastric tube output. Given the fact that it is bloody, we will need to continue to hold off on any kind of blood thinners. We will keep her on Protonix every 12 hours and continue on her amino acids through the intravenous, and her tube feeds which are going at 50 mL an hour through her jejunostomy tube. We will monitor her closely. cc: MD Braxton Sal MD
[2018-05-18] MEDS: PROTONIX IV SCH (12:56)
--- NOTE | 2018-05-18 16:34 | PROGRESS NOTE ---
DATE: 05/18/2018 SUBJECTIVE: This patient feels better. She is still complaining of abdominal pain but is getting better on a daily basis, she is status post truncal vagotomy, antrectomy with B2 anastomosis and feeding jejunostomy postoperative day #4. NG tube in place and we still getting some coffee- ground discharge from the stomach. OBJECTIVE: Vital Signs: Temperature 97.8 degrees, pulse 80, respiratory rate 20, blood pressure 134/80, oxygen saturation 100% on 2 L of nasal cannula. HEENT: Head normocephalic. No trauma. PERRLA. Neck: Supple. No JVD. No masses. Central trachea. Chest: Clear to auscultation. No wheezing. Some crepitations at the bases. Abdomen: Soft. She has a dressing in the midline of the abdomen with no signs of bleeding or infection, she has a jejunostomy tube that is working okay and she is getting nutrition through that tube, she also has a drain with a little bit of serosanguineous material but is not that much. Extremities: No edema. No clubbing. No cyanosis. Neurological: The patient is alert and oriented x3. No focal deficits. LABORATORY: WBC 4.8, hemoglobin 10.1, hematocrit 31.7, platelets 246,000, sodium 141, potassium 3.8, chloride 103, bicarbonate 26, BUN 23, creatinine 0.7, glucose 125, calcium 7.8, albumin 2.3. ASSESSMENT AND PLAN: 1. Bleeding duodenal ulcer status post truncal vagotomy, antrectomy with B2 anastomosis and feeding jejunostomy, she seems to be stable, bowel sounds are decreased but she is tolerating the feeding tube, she had a positive bowel movement. Since she is getting nutrition through the tube I will stop the Clinimix completely. She seems to be hydrated. 2. Acute hypoxemic respiratory failure status post extubation 3 days ago. 3. Chronic obstructive pulmonary disease not in exacerbation, it looks like she is still smoking. Continue with the same management. 4. Hypertension resolved. 5. Chronic pain syndrome aware. 6. Ongoing tobacco abuse. This patient has been highly advised against tobacco use. I will continue with daily cessation education. 7. Anemia status post 6 packed red blood cells, hemoglobin has been stable, continue to monitor. cc: Braxton Aguilar MD
[2018-05-18] MEDS: ATIVAN IV PRN (21:58)
[2018-05-19] MEDS: PROTONIX IV SCH (03:56)
[2018-05-19 06:14] LABS: HEMATOCRIT 30.7 % (37.0-47.0); HEMOGLOBIN 9.8 g/dL (12.0-16.0)
[2018-05-19 06:22] LABS: INR 0.97; PROTIME 13.7 Seconds (11.0-16.0)
[2018-05-19] MEDS: NORCO-7.5 PO PRN ×3 (06:35→18:08)
[2018-05-19 07:04] LABS: AGAP 11; BUN 18 mg/dL (8-22); CALCIUM 8.6 mg/dL (8.8-10.2); CHLORIDE 104 mmol/L (98-107); COSMO 286; CREATININE 0.7 mg/dL (0.5-0.9); ESTIMATED GFR > 60; GLUCOSE 124 mg/dL (70-104); POTASSIUM 3.6 mmol/L (3.5-5.1); SODIUM 142 mmol/L (136-145); TCO2 27 mmol/L (25-35)
--- NOTE | 2018-05-19 18:10 | PROGRESS NOTE ---
DATE: 05/19/2018 SUBJECTIVE: This patient is doing much better, the NG tube has been removed. We continue with her nutrition feeding through the jejunostomy tube. She having bowel movement. Her pain is controlled. OBJECTIVE: Vital Signs: Temperature 98.3 degrees, pulse 74, respiratory rate 20, blood pressure 126/81, oxygen saturation 98 on room air. HEENT: Head normocephalic. No trauma. PERRLA. Neck: Supple. No JVD. No masses. Central trachea. Chest: Clear to auscultation. No wheezing. Some crepitations at the bases. Abdomen: Soft. She has a dressing in the midline of the abdomen with no signs of bleeding or infection. She has a jejunostomy tube that is working fine. She is getting nutrition through that. She also has a drain with a little bit of serosanguineous discharge. Extremities: No edema. No clubbing. No cyanosis. Neurological: The patient is alert and oriented x3. She moves all 4 extremities. She is following commands. LABORATORY: Hemoglobin 9.8, hematocrit 30.7. Sodium 142, potassium 3.6, chloride 104, bicarbonate 27, BUN 18, creatinine 0.7 glucose 124, calcium 8.6. ASSESSMENT AND PLAN: 1. Bleeding duodenal ulcer status post truncal vagotomy, antrectomy with B2 anastomosis and feeding jejunostomy. She seems to be stable, bowel sounds are present. She is tolerating feeding tubes. She has been having bowel movement. She looks hydrated. 2. Acute hypoxemic respiratory failure status post extubation 4 days ago. 3. Chronic obstructive pulmonary disease not in exacerbation. It looks like she is still smoking. We will continue with same management. 4. Hypertension resolved. 5. Chronic pain syndrome aware. 6. Ongoing tobacco use. This patient has been highly advised against tobacco use. I will continue with daily cessation education. 7. Anemia status post 6 PRBCs hemodynamically. She looks stable hemoglobin is stable as well. cc: Braxton Aguilar MD
[2018-05-19] MEDS ORDERED: CALMOSEPTINE OINTMENT TOP PRN (20:58)
--- NOTE | 2018-05-20 00:25 | GASTROENTEROLOGY PROGRESS NOTE ---
DATE: 05/19/2018 SUBJECTIVE: No acute overnight events. Afebrile. Patient denies N/V, CP, SOB, rectal bleeding. She is tolerating J-tube feeds and is taking clear liquid diet. Last melenic stool was yesterday. Abdominal pain is improving. OBJECTIVE VS: T 98.4 HR 61, RR 18, BP 119/71 94% 1.5L NC GEN: awake, alert, NAD HEENT: anicteric, MMM NECK: no JVD, LAD CV: RRR, no mrg PULM: WOB, CTAB ABD: incision c/d/i, ND, NABS, mild diffuse TTP, J-tube in place, no rebound or guarding EXT: no cce NEURO: ambulatory, nonfocal LABS: BMP with glucose 124; otherwise WNL Hgb 9.8 ASSESSMENT AND PLAN: Ms. Patricia Hartley is a 72-year-old woman with a history of perforated duodenal ulcer who presented with acute blood loss anemia with melena status post EGD revealing large non-healing duodenal ulcer with bleeding visible vessel s/p EGDx2 and surgical intervention on 05/14 with truncal vagotomy, antrectomy, and B2 anastomosis as well as feeding jejunostomy placement. Her hgb has remained stable after surgery. #UGIB: from bleeding DU s/p surgery as described above - continue PPI BID, can transition to PO BID once taking meds orally - f/u surgical pathology - trend hgb daily, transfuse prn for goal hgb 7-8 #Respiratory failure s/p surgery: resolved; continue to wean O2 #Anemia: stable #FEN: J-tube feeding as per nutrition and surgery teams; advance PO diet as tolerated #HTN: controlled #COPD: stable Will follow with you. Please call with questions or concerns. cc: Braxton Aguilar MD [facility]
[2018-05-20] MEDS: NORCO-7.5 PO PRN ×4 (01:22→19:40)
--- NOTE | 2018-05-20 03:33 | PROGRESS NOTE ---
DATE: 05/19/2018 Ms Patricia Hartley is status post truncal vagotomy with antrectomy and B2 anastomosis. She has a feeding jejunostomy and she has Osmolite going at 50 mL an hour and is tolerating that well. Her NG tube has been removed. She also removed her PICC line so she has no IV access. Today we will remove her Knapp catheter tube. I will leave her MARYCHUY drain in place for another day. There was no evidence of biliary drainage. Will begin her on a clear liquid diet. Her midline incision seems to be healing without infection and overall I think she is doing well. cc: MD Braxton Almonte MD
[2018-05-20 05:21] LABS: HEMATOCRIT 27.9 % (37.0-47.0); HEMOGLOBIN 8.8 g/dL (12.0-16.0); MCH 29.6 PG (27-31); MCHC 31.5 g/dL (33-37); MCV 93.9 FL (81-99); RBC 2.97 XMIL (4.2-5.4); RDW 14.1 % (11.5-14.5); WBC 6.5 X1000 (4.8-10.8)
[2018-05-20 05:40] LABS: AGAP 9; BUN 14 mg/dL (8-22); CALCIUM 8.4 mg/dL (8.8-10.2); CHLORIDE 104 mmol/L (98-107); COSMO 284; CREATININE 0.7 mg/dL (0.5-0.9); ESTIMATED GFR > 60; GLUCOSE 142 mg/dL (70-104); MAGNESIUM 1.7 mg/dL (1.5-2.7); POTASSIUM 4.3 mmol/L (3.5-5.1); SODIUM 141 mmol/L (136-145); TCO2 28 mmol/L (25-35)
--- NOTE | 2018-05-20 11:27 | PROGRESS NOTE ---
DATE: 05/12/2018 SUBJECTIVE: A 72-year-old smoker, had been hospitalized multiple times with duodenal ulcer. He had surgery with a Sunil's patch for perforated duodenal ulcer in the past per Dr. Lezama. She had been seen and followed by Dr. Herrera for duodenal ulcer, hospitalized multiple times with nausea and vomiting, and actually had been seen in the emergency department on 04/27/2018, with the same symptoms. Underwent CT scan which was essentially unremarkable. Transferred from [facility] with epigastric pain. CT performed suggested possible free air. So was admitted to the hospital. She was seen by Dr. Beltran. She has a history of large duodenal ulcer which was repaired surgically in 2018, had her on IV Protonix. She underwent EGD on 05/13/2018 and found a large duodenal ulcer, had previous ulcer site, visible vessel. No sign of active bleeding. No evidence of outlet obstruction. Dr. Feliciano was consulted, and she underwent surgery , truncal vagotomy, and antrectomy with a B2 anastomosis, and feeding jejunostomy was placed. Tolerated this well. She feels good this morning. Pulmonary was following. She has COPD. She had acute hypoxemic respiratory failure, ongoing tobacco use, status post emergent abdominal surgery for massive GI bleeding, and she appears to be doing well. OBJECTIVE: General: She is comfortable. She is on the 4th floor, awake and alert. Breathing comfortably. Vital signs: Temperature 97.7 degrees, pulse 78, respirations 16, blood pressure 127/73. Pupils: Are equal and round. Lungs: Clear in all lung moreira. Cardiovascular: Regular rhythm and rate without murmur or S3. Abdomen: Soft, nontender. ASSESSMENT AND PLAN: 1. Status post truncal vagotomy, antrectomy with a B2 anastomosis. She has a feeding jejunostomy tube. Had been getting Osmolite 50 mL every hour, which she is tolerating well. They removed her peripherally inserted central catheter line. Had removed her Knapp catheter. She has a Alexx-Bedoya drain in, but did leave in for another day. 2. Acute hypoxemic respiratory failure status post extubation now 5 days, doing well. Respiratory status looks good. 3. Chronic obstructive pulmonary disease. Good air and gas exchange at this time. She was counseled on the importance of stopping smoking. 4. Blood pressure is controlled. 5. Chronic pain syndrome. 6. Anemia status post 6 units of packed red blood cells. Appears hemodynamically stable. LAB FROM THIS MORNING: White count 6500, hematocrit is 27, hemoglobin 8.8, platelet count 348,000. Sodium 141, potassium 4.3, chloride 104, BUN 14, creatinine 0.7. Blood sugars 125, 124, and 142. REVIEW OF HER ORDERS: I do not see any change. She is basically just on hydrocodone. She is on a clear liquid diet at this time. cc: Gm Orosco MD
--- NOTE | 2018-05-20 11:39 | GASTROENTEROLOGY PROGRESS NOTE ---
DATE: 05/20/2018 SUBJECTIVE: No acute overnight events. Afebrile. The patient denies nausea, vomiting. Abdominal pain is improving. Reports having a brown stool this morning. She is tolerating clear liquid diet and is receiving G-tube feeding. OBJECTIVE: Vital Signs: Temperature of 97.7 degrees, heart rate 78, respiratory rate 16, blood pressure 127/73. She is saturating 99% on room air. General: Awake, alert, oriented, no acute distress, frail appearing. HEENT: Sclerae anicteric. Moist mucous membranes. Neck: No JVD. No lymphadenopathy. Cardiac: Regular rate and rhythm. No murmurs. Lungs: Clear to auscultation bilaterally. Abdomen: Incision with leonidas, clean, dry, and intact. J-tube noted, as well as MARYCHUY drain with serosanguineous fluid drainage. Extremities: No clubbing, cyanosis, or edema. Neurologic: Nonfocal. The patient is ambulatory. LABORATORY DATA: White count of 6.5, hemoglobin 8.8, platelets of 348,000. Sodium 141, potassium 4.3, chloride 104, bicarbonate 28, BUN 14, creatinine 0.7. ASSESSMENT AND PLAN: Ms. Patricia Hartley is a 72-year-old woman with a history of perforated duodenal ulcer who presented with acute blood loss anemia in the setting of bleeding duodenal ulcer. She is status post esophagogastroduodenoscopy x2, as well as surgical intervention on May 14 with truncal vagotomy, antrectomy, and B2 anastomosis, as well as feeding jejunostomy placement. Her hemoglobin has remained stable without overt gastrointestinal bleeding. She continues to improve slowly. 1. Upper gastrointestinal bleed from bleeding duodenal ulcer, status post surgical intervention. Restart proton pump inhibitor twice daily. Trending hemoglobin and hematocrit daily. Transfuse as needed for a goal hemoglobin of 7 to 8. Follow up surgical pathology. 2. Acute respiratory failure, now resolved. The patient is stable on room air. 3. Anemia secondary to blood loss. As above, trending hemoglobin and hematocrit daily. 4. Fluids, electrolytes, and nutrition. The patient is tolerating clear liquids and receiving jejunostomy tube feeding. Defer diet to surgery and nutrition. 5. Hypertension is controlled. 6. Chronic obstructive pulmonary disease, stable. We will follow with you. Please call with any questions or concerns. cc: MD FROILAN Osorio
--- NOTE | 2018-05-20 15:17 | OPERATIVE NOTE ---
PROCEDURE DATE : 05/14/2018 PROCEDURE PERFORMED: Upper gastrointestinal endoscopy. PROVIDER: Sheng Foster MD INDICATION: Hematemesis, duodenal ulcer, anemia. MEDICATIONS: General anesthesia. COMPLICATIONS: No immediate complications. ESTIMATED BLOOD LOSS: 500 mL. DESCRIPTION OF PROCEDURE: Prior to the procedure, history and physical was performed, and the patient's medications and allergies were reviewed. The patient's tolerance to previous anesthesia was also reviewed. The risks and benefits of the procedure and sedation options and risks were discussed with the patient. All questions were answered, and informed consent was obtained. After reviewing the risks and benefits, the patient was deemed in satisfactory condition to undergo the procedure. The endoscope was passed under direct visualization. Throughout the procedure, the patient's blood pressure, pulse, and oxygen saturations were monitored continuously. The scope was introduced through the mouth and advanced to the duodenal bulb. The upper GI endoscopy was accomplished without difficulty. The patient tolerated the procedure well. FINDINGS: The esophagus was normal. Upon entering the stomach, there was copious amounts of blood and clots, which were irrigated. Within the duodenal bulb, a large ulcer was found in the posterior bulb with adherent clot. Prior to unroofing ulcer, 2 mL of epinephrine ([id number]:91122) was injected around the ulcer base. After removal of the clot, there was a visible vessel seen. Before monopolar probe coagulation was attempted, the blood vessel began bleeding profusely. Cautery was attempted unsuccessfully. Another 6 mL of epinephrine was injected in the mucosa within the bulb with good mucosal blanching and hemostasis. There was also notable suture material found in the bulb. Given the nature of bleed as well as recurrence, General Surgery was called into the room. A decision was to complete procedure with plan for surgical intervention following endoscopy. IMPRESSION: - Large crater duodenal ulcer with bleeding vessel - Suture material. - Blood in stomach. RECOMMENDATIONS: - Keep the patient n.p.o. - Transfuse 2 units of packed red blood cells. - Continue PPI IV b.i.d. - Recommend surgical intervention; surgical team aware; appreciate assistance. cc: Gm Orosco MD [facility]
--- NOTE | 2018-05-20 16:20 | PROGRESS NOTE ---
DATE: 05/20/2018 SUBJECTIVE: Ms. Patricia Hartley tolerated her clear liquids. She is still getting tube feedings. Her IV, NG tube, and Knapp catheter tubes have been removed. OBJECTIVE: Her upper midline incision seems to be healing well without evidence of infection. Her MARYCHUY drain continues to have no bile within it and just serosanguineous drainage. PLAN: Overall I think she is doing well. We will advance her diet to full liquids. We will continue her tube feeding. I will leave her MARYCHUY drain in for now and maybe remove it tomorrow. She is postop day 6. cc: MD Gm Almonte MD
[2018-05-20] MEDS: ZOFRAN PO PRN (21:12)
[2018-05-21] MEDS: NORCO-7.5 PO PRN ×4 (01:12→23:14)
--- NOTE | 2018-05-21 10:16 | PROGRESS NOTE ---
DATE: 05/21/2018 SUBJECTIVE: Ms. Hartley is feeling much better. She feels great. Her MARYCHUY drain was pulled yesterday. OBJECTIVE: Temperature 98.7, pulse 85, respirations 16, blood pressure 133/87. Pupils are equal and round. Lungs are clear in all lung moreira. Cardiovascular: Regular rhythm and rate without murmur or S3. Abdomen is soft. Skin is warm and dry. Urine output 1200 mL. Feeding tube in place. ASSESSMENT AND PLAN: 1. Tolerating clear liquids. Still getting tube feedings and Knapp catheter tube has been removed. Midline incision appears to be healing well. No sign of infection. This is postoperative day 7. Advance her diet per surgery. 2. Large duodenal ulcer bleeding vessel, status post truncal vagotomy, antrectomy, B2 anastomosis. 3. Acute hypoxemic respiratory failure status post extubation has been 6 days ago. She was extubated. 4. Chronic obstructive pulmonary disease. Good air and gas exchange. Comfortable breathing. 5. Blood pressure controlled. 6. Pain controlled well. She has a history of chronic pain. 7. Anemia. She had been given some blood for acute blood loss anemia. Hematocrit is stable at 27, hemoglobin 8.8. Reviewed her orders. We have her on physical therapy. Advanced her diet. Hopefully, she can go home soon. cc: Gm Orosco MD
--- NOTE | 2018-05-21 12:09 | GASTROENTEROLOGY PROGRESS NOTE ---
DATE: 05/21/2018 SUBJECTIVE: No acute overnight events. The patient is afebrile. No nausea, vomiting, chest pain, shortness of breath. Abdominal pain improving. The patient is tolerating a regular diet, continues to receive J-tube feeding. She is ambulatory, having bowel movements that are nonbloody. OBJECTIVE: Vital signs: Temperature 98.7, heart rate 85, respiratory rate 16, blood pressure 133/87, O2 saturation 99% on room air. General: The patient is awake, alert, oriented, in no acute distress, sitting in a chair comfortable. HEENT: Sclerae anicteric. Moist mucous membranes. Neck: No JVD. Cardiac: Regular rate and rhythm, no murmurs. Lungs: Clear to auscultation bilaterally. Abdomen: Soft, minimally tender. Incision clean, dry, and intact. J- tube in place. MARYCHUY drain has been removed. Site intact. Extremities: No clubbing, cyanosis, or edema. Neurologic: Nonfocal. LABS: None recent. ASSESSMENT AND PLAN: 1. Ms. Patricia Hartley is a 72-year-old woman with a history of perforated duodenal ulcer who was admitted with upper gastrointestinal bleed status post esophagogastroduodenoscopy x2 and ultimate surgical intervention on 05/14 with truncal vagotomy, antrectomy, and B2 anastomosis as well as jejunostomy tube placement. She continues to progress well during her hospitalization. Her hemoglobin has remained stable. No labs done today. She is ambulatory and tolerating a regular diet. J-tube feedings are continued to run. Upper GI bleed resolved. Continue PPI b.i.d. transitioned to oral medications. Start patient on PPI b.i.d. Status post partial gastrectomy with B2 anastomosis. Continue postsurgical care. Diet as tolerated. Defer management of J-tube to Surgery and Nutrition teams. 2. Hypertension is controlled. 3. Chronic obstructive pulmonary disease is stable. 4. Tobacco abuse. Encouraged patient to stop smoking to help promote wound healing and avoid recurrence of peptic ulcer disease. Will follow with you. Please call with any questions or concerns. cc: Gm Orosco MD
[2018-05-21] MEDS: PROTONIX PO SCH (21:21)
[2018-05-22] MEDS: NORCO-7.5 PO PRN ×2 (06:51→12:36)
[2018-05-22] MEDS: PROTONIX PO SCH (09:17)
[2018-05-22] MEDS: ZOFRAN PO PRN (11:46)
--- NOTE | 2018-05-22 11:50 | GASTROENTEROLOGY PROGRESS NOTE ---
DATE: 05/22/2018 SUBJECTIVE: Patient resting in chair. She denies any new complaints. She is feeling better. She is eating well. She is having liquid brown stools. OBJECTIVE: Vital Signs: Temperature 98.1, pulse rate of 72, respiratory rate 20, blood pressure 120/85, saturating 92% on room air. Body weight of 109 pounds 3 oz. General: Thinly built. Sitting in chair in no acute distress. HEENT: Mild pallor. No icterus. Neck : Supple. Abdomen: Soft. She had a midline surgical incision. She has a J-tube on the left side of the abdomen. Mild discomfort in the pelvic region. Extremities: No cyanosis, clubbing, edema. Neurologic: She is alert, awake, oriented. LABORATORY DATA: Hemoglobin and hematocrit 8.8 and 27.9, white count of 6.5, platelet count of 348,000. Sodium 141, potassium 4.3, chloride 104, bicarb of 28, anion gap of 9 , BUN of 14, creatinine 0.7, glucose of 142, calcium is 8.4. Total bilirubin is 1.7. IMPRESSION AND PLAN: 1. Perforated duodenal ulcer, status post esophagogastroduodenoscopy x2, followed by laparotomy with truncal vagotomy, antrectomy and billroth II anastomosis, and jejunostomy tube placement per Dr. Feliciano. The patient is doing well. Will keep her on Protonix twice daily. She will need that for 3 months, and then wean down to Zantac 150 mg by mouth twice daily. 2. Chronic smoker. The patient was counseled to quit smoking completely. 3. History of nonsteroidal anti-inflammatory drug abuse. The patient was counseled to quit using nonsteroidal anti-inflammatory drugs at home. 4. Chronic obstructive pulmonary disease. Aware. 5. Anemia. Continue to watch for now, and transfuse as needed. Will start her on iron C twice daily, multivitamins once daily. The above plan was discussed with the patient, and all questions were answered. cc: MD Gm Guan MD [facility]
--- NOTE | 2018-05-22 13:19 | DISCHARGE SUMMARY ---
ADMISSION DATE: 05/12/2018 DISCHARGE DATE: 05/22/2018 HISTORY: This is a 72-year-old white female smoker who had been hospitalized multiple times related to duodenal ulcer. She has had surgery and a Sunil's patch placed for perforated duodenal ulcer in the past per Dr. Lezama. Seeing Dr. Herrera for duodenal ulcer. She has been hospitalized multiple times for nausea and vomiting, and actually has been seen in the emergency department on 04/27/2018 with the same symptoms. She underwent CT scan which is essentially unremarkable. She was transferred from [facility], and evaluated for intermittent epigastric pain, nausea and vomiting. CT scan performed suggested possible free air so transferred to [facility] for admission. Her list of medications albuterol, Norvasc, Dulcolax, Tums, [place] 5, Icar C, lisinopril, multivitamin, nicotine patch, Protonix, MiraLAX, sucralfate, Norvasc, Desyrel, Zofran and Protonix. She has no known drug allergies. She was admitted with epigastric pain, intermittent nausea and vomiting, history of duodenal ulcer, history of having a Sunil patch closure of a perforated duodenal ulcer in the past per Dr. Lezama. Dr. Beltran was consulted, and he recommended the Protonix twice a day and IV antiemetics, some IV fluids, and scheduled for an upper GI. Dr. Herrera performed an EGD on 05/13 of a large duodenal ulcer at the previous ulcer site, visible vessel, with no signs of active bleeding. There is no evidence of outlet obstruction. Patient underwent surgery of a truncal vagotomy antrectomy with B2 anastomosis a feeding jejunostomy tube was placed. She did well through the surgery, and postop course was uneventful. Pulmonary was asked to see as she has underlying COPD, and acute hypoxemic respiratory failure, and ongoing tobacco use. He helped weaned her off of the ventilator. Chest x-ray on 05/16 interval extubation, and the chest looked stable. She continued to progress. MARYCHUY drain was removed. DISCHARGE DIAGNOSES: 1. Perforated duodenal ulcer status post esophageal EGD x2 followed by laparotomy with truncal vagotomy, antrectomy and BII anastomosis. She had a jejunostomy tube placed that we will leave in just for back up as she is swallowing and eating well. Continue Protonix 40 mg twice a day, and that will be for 3 months and then wean her down to Zantac 150 mg by mouth twice a day. 2. Underlying chronic obstructive pulmonary disease. I have counseled her on the importance of stopping smoking completely also for the sake of her peptic ulcer disease. 3. Nonsteroidal anti-inflammatory use. We have encouraged her to quit using anti-inflammatories, and discussed which medicines fell into the class of nonsteroidal anti-inflammatories. 4. Blood loss anemia from her ulcer. Hematocrit stable. It was checked on the , hematocrit 27 and hemoglobin 8.8. Follow up as an outpatient. DISCHARGE MEDICATIONS: 1. She will take Icar C1 twice a day. 2. Protonix 40 mg twice a day. 3. Really, that is the extent of her medications. cc: Gm Orosco MD
[2018-05-22 15:31] VITALS: BP 107/75
[2018-05-22] MEDS ORDERED: ICAR-C PO SCH (21:00)
--- NOTE | 2018-05-23 00:53 | DISCHARGE SUMMARY ---
ADMISSION DATE: 05/12/2018 DISCHARGE DATE: 05/22/2018 ADMITTING DIAGNOSIS: Epigastric pain, with intermittent nausea and vomiting, in a patient with a history of duodenal ulcer. DISCHARGE DIAGNOSIS: Bleeding recurrent duodenal ulcer. PRINCIPAL PROCEDURE: 1. Upper endoscopy, with control of bleeding, per Dr. Herrera and Dr. Foster. 2. Truncal vagotomy, antrectomy, with B2 anastomosis, on 05/14/2018, per Dr. Feliciano. At that time of surgery, a feeding jejunostomy was also placed. DISCHARGE DIET: Regular. DISCHARGE DISPOSITION: She will return to our outpatient offices in 7 to 10 days skin clip removal and recheck, possible removal of her feeding jejunostomy. DISCHARGE MEDICATIONS: We will give her some pain medicine to be discharged on. Otherwise, she takes no medicines. DISCHARGE DISABILITY: Full. HOSPITAL COURSE: Ms. Patricia Hartley is a 72-year-old white female. She was transferred from [facility] after a CT scan suggested possible free air. She also had epigastric pain. She was transferred to my service, where she was evaluated. We felt she did not have an acute abdomen, and Gastroenterology was consulted because of her history of duodenal ulcer. During her hospitalization, she quickly bled from her duodenal ulcer, and had to undergo upper endoscopy, which documented a recurrent duodenal ulcer with bleeding. It was initially controlled using EGD, but she rebled, and Dr. Foster our gastroenterologists had to re-scope her. He initially controlled the bleeding, but she had a visible blood vessel. We felt she should go to surgery immediately, not only because she was noncompliant with any medications, she had a recurrent duodenal ulcer, and now recurrent bleeding with a visible vessel. She went to the operating room, where we performed a truncal vagotomy, antrectomy, B2 anastomosis, and feeding jejunostomy. We felt her surgery went well, and after surgery, she was hospitalized in our ICU, and then transferred to the [address] [place] [address] chambers. We felt over the next week that she got well quickly. Initially, she was ventilated after surgery, but was extubated the following day. She stayed in the ICU for 1 to 2 more days, and then was transferred to the floor. We did use her feeding jejunostomy, but on postop day 4, she was given liquids, and her diet was slowly advanced to a regular diet at the time of discharge. She was very active in her room in the halls. Her abdomen was soft. She had bowel activity. She admitted to some nausea, but clinically she felt better, and her epigastric pain was gone. It was felt that on postop day 8, she could be discharged home under the care of her family. Initially, we were going to send her to rehab, but they felt that she was too good physically to have to go to rehab, and so we decided to send her directly home. Her upper midline incision is healing well. She still had skin clips within it. She still has her feeding jejunostomy, which is clamped. I want to see her in our outpatient offices in about 7 to 10 days for followup, and also to consider removing her feeding jejunostomy. She knows to contact us with any problems. cc: MD Gm Almonte MD
[2018-05-23] MEDS ORDERED: CENTRUM SILVER PO SCH (09:00)
== END 2018-05-22 17:27 | disposition home or self-care (01) | DRG 326 ==
LOC: DIRADM 06:00 → 4N 06:56 → ICU 16:42 → 4N 05-16 14:23
PROVIDERS: ADMIT Emergency Medicine; ATTEND Surgery
PROC: EN.HEAT (2018-05-14 11:20)
CPT/HCPCS: 36430; 36569; 71010; 71045; 71250; 74000; 74018; 74176; 80048; 80053; 81001; 82805; 82948; 83735; 84100; 85014; 85018; 85025; 85027; 85610; 86850; 86900; 86901; 86920; 88302; 88307; 93005; 93010; 94002; 94003; 94761; 97161; A9270; C9113; J0171; J0360; J0610; J1940; J2060; J2175; J2250; J2270; J2405; J2543; J2550; J2765; J3370; J3475; J3480; J7030; J7040; J7042; J7050; P9016; P9017; P9035; Q9966; Q9967; S0164; XXXXX

== ENCOUNTER 2018-10-01 01:40 | Inpatient (IN) ==
[2018-10-01] MEDS ORDERED: DILAUDID IV ONE (01:51)
[2018-10-01] MEDS ORDERED: DUONEB (A & A) INH ONE (01:51)
[2018-10-01] MEDS ORDERED: ZOFRAN IV ONE (01:51)
[2018-10-01] MEDS ORDERED: NS 500 ML IV ONE (01:51)
[2018-10-01 02:27] LABS: BASO# 0.02 X1000 (0.0-0.2); BASO% 0.2 % (0.0-0.8); EOS# 0.17 X1000 (0.0-0.7); EOS% 1.7 % (0.0-10.0); HEMATOCRIT 33.3 % (37.0-47.0); HEMOGLOBIN 10.7 g/dL (12.0-16.0); LYMPH# 1.54 X1000 (1.2-3.4); MCH 26.8 PG (27-31); MCHC 32.1 g/dL (33-37); MCV 83.5 FL (81-99); MONO% 9.7 % (1.7-9.3); MPV 10.9 FL (7.4-10.4); NEUT# 7.56 X1000 (1.4-6.5); NEUT% 73.4 % (42.2-75.2); PLT 343 X1000 (130-400); RBC 3.99 XMIL (4.2-5.4); RDW 16.2 % (11.5-14.5); WBC 10.29 X1000 (4.8-10.8)
[2018-10-01 02:39] LABS: AGAP 15; ALB/GLOB RATIO 1.3; ALBUMIN 3.8 g/dL (3.5-5.0); ALKALINE PHOSPHATASE 158 U/L (32-104); BUN 21 mg/dL (8-22); CALCIUM 8.8 mg/dL (8.8-10.2); CHLORIDE 103 mmol/L (98-107); COSMO 286; CREATININE 0.9 mg/dL (0.5-0.9); ESTIMATED GFR > 60; GLUCOSE 123 mg/dL (70-104); GOT 21 U/L (10-30); GPT 11 U/L (10-36); LIPASE 23 U/L (13-60); SODIUM 141 mmol/L (136-145); TCO2 23 mmol/L (25-35); TOTAL BILIRUBIN 0.25 mg/dL (0.20-1.00); TOTAL PROTEIN 6.7 g/dL (6.3-8.3)
[2018-10-01] MEDS ORDERED: LEVAQUIN 750 MG/D5W 750 MG/150 ML IVPB IV ONE (04:21)
--- NOTE | 2018-10-01 04:39 | PROVIDER DOCUMENTATION ---
This chart was entered by Brenda Mcnally Scribe, acting as scribe for Cesar Murillo MD. HPI-Abdominal Pain/GI Problem - General Stated Complaint: ABD PAIN/N/V Time Seen by Provider: 10/01/18 01:44 Allergies/Adverse Reactions: Patient Allergies Allergy/AdvReac Type Severity Reaction Status Date / Time No Known Allergies Allergy Verified 09/20/17 10:40 Home Medications: Home Medication List Medication Instructions Recorded Confirmed Last Taken Type Hydrocodone/Acetaminophen [Hiwasse 1 each PO Q6H PRN #10 tablet 05/22/18 Unknown Rx 10-325 Tablet] Iron Carbonyl/Ascorbic Acid 1 ea PO BID 30 Days #60 tab 05/22/18 Unknown Rx [Icar-C] Multivitamins/Minerals [Centrum 1 ea PO DAILY 30 Days #30 tab 05/22/18 Unknown Rx Silver] Pantoprazole [Protonix] 40 mg PO BID 30 Days #60 tab 05/22/18 Unknown Rx Promethazine [Phenergan] 25 mg PO Q6H PRN PRN #10 tablet 05/22/18 Unknown Rx Ciprofloxacin [Cipro] 500 mg PO BID #14 tab 06/03/18 Unknown Rx Oxycodone HCl/Acetaminophen 1 ea PO Q4-6H PRN PRN #12 tab 06/03/18 Unknown Rx [Percocet 5-325 mg Tablet] - History of Present Illness-ABD Nature of Presenting Problems: 72 yof c/o pt arrived via [facility]. pt c/o abd pain started earlier today and nausea for 3-4 days. pt is a smoker, has hx of copd. denies v/d and fever. Review of Systems - Adult - REVIEW OF SYSTEMS - ADULT Constitutional: reports: no symptoms reported. denies: fever Eyes: reports: no symptoms reported Ears, Nose, Mouth & Throat: reports: no symptoms reported Cardiovascular: reports: no symptoms reported Respiratory: reports: no symptoms reported Gastrointestinal: reports: see HPI, abdominal pain, nausea. denies: diarrhea, vomiting Genitourinary: reports: no symptoms reported Musculoskeletal: reports: no symptoms reported Integumentary: reports: no symptoms reported Neurological: reports: no symptoms reported Psychiatric: reports: no symptoms reported Endocrine: reports: no symptoms reported Hematologic/Lymphatic: reports: no symptoms reported Allergic/Immunologic: reports: no symptoms reported All Other Systems: Reviewed and Negative Past History - Adult - PAST MEDICAL HISTORY-ADULT Review of Records: reports: Old Records Reviewed, Nursing Assessment Review, Medications Reviewed, Social history reviewed & non-contributory. Major Childhood Illnesses: reports: denies history Cardiovascular: reports: CAD, HTN, hyperlipidemia Respiratory: reports: asthma, COPD, other (emphysema) Gastrointestinal: reports: GERD, ulcer Obstetrical/Gynecological: reports: denies history Genitourinary: reports: denies history Musculoskeletal: reports: denies history Neurological: reports: denies history Psychiatric: reports: denies history Endocrine/Immune: reports: denies history Other Conditions: reports: denies history - PRIOR SURGERIES/PROCEDURES Surgical/Procedure History: reports: recent surgery (post 2 weeks prior abdominal sx), cardiac stent, other (abdominal sx) - IMMUNIZATION STATUS Childhood Immunizations: See Nurse Assessment Flu Vaccine: See Nurse Assessment - FAMILY HISTORY Family History: reviewed, not pertinent - SOCIAL HISTORY Smoking: cigarettes, less than 1 pack/day Provider spent 3-5 mins advising pt. on dangers of tobacco.: Discussed manners to quit use, and f/u contacts for add'l counseling. Substance Use: none/never Physical Exam-General - PHYSICAL EXAM-ADULT Initial Vital Signs Reviewed: Yes - CONSTITUTIONAL General Appearance: alert, mild distress. negative: lethargic, slow to respond, combative - EYES Eyes: PERRL/EOMI, pink conjunctivae - HEAD, EARS, NOSE, MOUTH & THROAT HENMT: normocephalic/atraumatic, moist mucous membranes, normal ENT inspection - NECK Neck: non-tender, full range of motion, supple, normal inspection - RESPIRATORY Respiratory: chest non-tender, normal breath sounds, no pleuratic chest pain, no respiratory distress, no accessory muscle use, wheezing (bilat mild). negative: lungs clear, respiratory distress, decreased breath sounds - GASTROINTESTINAL (ABDOMEN) Abdominal Exam: normal bowel sounds, soft, no organomegaly, no pulsatile mass, tenderness (mild epigastric to palp). negative: non tender, abnormal bowel so unds, distended - LYMPHATIC Lymphatic: no adenopathy - MUSCULOSKELETAL Back Exam: normal inspection, no CVA tenderness, no vertebral tenderness Extremity: normal range of motion, non-tender, normal inspection Peripheral Pulses: radial (R): 2+, radial (L): 2+ - SKIN Integumentary: normal color, normal turgor, warm/dry - NEUROLOGIC Neurologic: grossly normal, no motor/sensory deficits - PSYCHIATRIC Psych/Mental Status: normal mood/affect, normal thought content, normal thought process, oriented x 3 Progress - PLAN OF CARE/RESULTS Result Diagrams: 10/01/18 01:59 10/01/18 01:59 - REASSESSMENT Reassessment #1 Status: improving (still having pain, no vomiting) - EKG 1 EKG Interpretation (*Must complete 3 of following elements*): Normal Rate: 72 Rhythm: sinus QRS: normal NE Interval: normal - CT/MRI 1 CT Study: Abdomen, Pelvis (distended stomach, biliary blockage, no biliary stone) Impression: See EMR Report - CONSULTS/PCP/HOSPITALIST Notification #1 *Consult/PCP/Hospitalist*: Hospitalist Time Discussed: 04:30 Consult Disposition: Admit Departure - Departure Date of Disposition Decision: 10/01/18 Time of Disposition Decision: 04:36 DIAGNOSIS: Biliary obstruction Abdominal pain Qualifiers: Abdominal location: epigastric Qualified Code(s): R10.13 - Epigastric pain Disposition: ADMITTED INPATIENT 09 Certified Medical Emergency: Emergent Condition: Serious - Critical Care Note This patient required my direct & personal management of CC.: Yes Attestation - Physician/ ROYAL Attestation Patient care was provided by Advanced Practice Provider:: No The physician spent face to face time with patient:: Yes Advanced Practice Provider documentation review:: Supervising physician onsite and consulted in the evaluation and care of this patient. The physician did have a face to face encounter with the patient. This chart was documented by the indicated scribe, (Brenda Mcnally Scribe) and accurately reflects the services I performed and decisions made by me, Cesar Murillo MD, as attested by the provider's signature.
--- NOTE | 2018-10-01 06:39 | Diag Imaging Result Doc PS360 ---
CHEST-2 VIEWS - 10/01/2018 INDICATION: short of breath COMPARISON: 05/16/2018 FINDINGS: The lungs are normally expanded and clear. Heart size and mediastinal contours are normal. No pneumothorax or pleural effusion. IMPRESSION: Negative exam. Electronically signed by Lamberto Wisdom 10/01/2018 6:37 AM
[2018-10-01] MEDS: ZOFRAN IV PRN (06:49)
[2018-10-01] MEDS: MORPHINE IV PRN ×2 (06:50→10:13)
--- NOTE | 2018-10-01 07:45 | HISTORY AND PHYSICAL ---
CHIEF COMPLAINT: Nausea and vomiting. HISTORY OF PRESENT ILLNESS: This is a 72-year-old female who comes in by [facility] with complaint of abdominal pain that started earlier today and nausea and vomiting for 1-2 days. She stated she vomited 5 times yesterday. She denied any type of nausea, vomiting, hematemesis or diarrhea. Also denied melena. A CT of her abdomen was taken in the emergency room which showed a distended abdomen, biliary blockage and no biliary stone. She does have a previous history of duodenal ulcer perforation with surgery. She will be admitted for further evaluation and treatment. PAST MEDICAL HISTORY: 1. Perforated duodenal ulcer. 2. GERD. 3. Nicotine dependence. 4. Hypertension. 5. Chronic pain. 6. Anxiety and depression. 7. Iron deficiency anemia. 8. COPD. 9. Medical noncompliance. PREVIOUS SURGICAL HISTORY: 1. She has had an exploratory laparotomy with repair of a perforated duodenal ulcer with omental patch. 2. Multiple EGDs. 3. Hysterectomy. 4. Appendectomy. 5. Hemorrhoidectomy. SOCIAL HISTORY: Smokes 1/3 pack of cigarettes a day. No alcohol or illicit drugs. FAMILY HISTORY: Mother had unknown cancer. Father, history of CVA. She has a sister with diabetes. HOME MEDICATIONS: No home medications. ALLERGIES: No known drug allergies. REVIEW OF SYSTEMS: Fourteen point review of systems conducted with the patient's pertinent positives listed above in the HPI. All other systems reviewed and found to be negative. PHYSICAL EXAMINATION: VITAL SIGNS: Temp 97.5 degrees, pulse 75, respirations 18, blood pressure 165/98, oxygen saturation 100% on room air. GENERAL: 72-year-old female lying in the ER stretcher, alert and oriented x3. Answers all questions appropriately. She is in no acute distress. Denies any pain at this time. HEENT: Head is atraumatic, normocephalic. Pupils equal, round and reactive to light. Extraocular eye movements are intact. Sclerae is anicteric. Conjunctivae pale. Oral mucosa is moist. NECK: Supple. No JVD. No thyromegaly. Trachea is midline. No cervical lymphadenopathy. CARDIAC: S1, S2 appreciated. No murmurs, gallops, rubs. LUNGS: Clear to auscultation bilaterally. No rhonchi, wheezes, rales. Symmetric rise and fall of respirations. ABDOMEN: Soft, nondistended, nontender. Bowel sounds present in all 4 quadrants. Normoactive. Midline scar noted. No pulsatile mass. No organomegaly. EXTREMITIES: No cyanosis, clubbing or edema. 2+ pedal pulses bilaterally. GENITOURINARY: No bladder distention. The patient voids. Otherwise deferred. NEUROLOGICAL: Alert and oriented x3. No focal motor deficits. Otherwise nonfocal examination. DIAGNOSTIC DATA: CT of the abdomen and pelvis, official report is pending per the ER provider. There is a biliary obstruction without a biliary stone with a distended stomach. LABORATORY DATA: WBC 10.29, hemoglobin 10.7, hematocrit 33.3, platelet count 343,000. Sodium 141, potassium 4, chloride 103, carbon dioxide 23, BUN 21, creatinine 0.9, glucose 129. ASSESSMENT AND PLAN: 1. Biliary obstruction by unknown etiology. We will consult GI. Patient has a history of perforated ulcer with previous abdominal surgery. We will put on Protonix daily. She has not been following up with a primary care provider. She denies any type of GI bleeding, just nausea and vomiting. We will also give Zofran. 2. Anemia. Order anemia panel. I believe she has iron deficiency anemia which is untreated. 3. COPD without exacerbation. We will add DuoNeb. 4. Mild fluid volume depletion secondary to nausea and vomiting. We will give maintenance fluids. 5. Nicotine dependence. We will add nicotine patch. Further recommendations per patient's clinical course. Dictated by LEX Feliciano for Sergio Marquez MD cc: LEX Feliciano MD
--- NOTE | 2018-10-01 07:48 | Diag Imaging Result Doc PS360 ---
EXAM: CT ABD/PELVIS W/IV CONT ONLY 10/01/2018 HISTORY: abd pain TECHNIQUE: This exam was performed using automated exposure control, adjustment of mA or kV according to patient size, and/or use of iterative reconstruction technique. COMMENT: The current examination is compared with that of 06/03/2018. There is a nodule in the right lower lobe on image 10 which has not changed since the previous study. There are some apparent fibrotic changes in the costophrenic sulcus on the right. There are two small nodules in the posterior costophrenic sulcus of the left lower lobe on images 11 and 12 which were also apparently present previously. The atelectatic change seen previously in the left lower lobe as well as left pleural effusion have resolved. There has been apparent Billroth type II partial gastrectomy. There are calcified granulomata in the spleen. There are atherosclerotic calcifications present in the renal arteries, the superior mesenteric artery and the aorta. There is no evidence of aneurysm. There is no evidence of cholelithiasis. The gallbladder wall appears to be thickened. There is dilatation of the common bile duct, which measures over 11 mm in the pancreatic head. This was not the case at the time the previous study. There may be some debris in the distal duct. The pancreas is slightly atrophic and there is some prominence of the distal pancreatic duct which measures almost 4 mm in diameter. The stomach is markedly distended with gas and solid material. This is similar in appearance to the previous examination. There are multiple renal cysts. The left kidney is somewhat atrophic. There is a fairly large amount of stool present in the colon. There is no evidence of significant adenopathy. Pelvis: There has been previous appendectomy. The urinary bladder is not significantly distended. There is no evidence of free fluid. There has been previous hysterectomy. There is some diverticulosis in the sigmoid colon without evidence of diverticulitis. There are degenerative disc changes in the lumbar spine particularly at the L5-S1 level. IMPRESSION: 1. Worsening biliary obstruction at the level of the ampulla. The possibility of debris in the distal duct cannot be excluded. Mild dilatation of the pancreatic duct. 2. The possibility of cholecystitis cannot be excluded. 3. Chronic gastric outlet obstruction or gastroparesis. 4. Constipation. Electronically signed by David Crouch 10/01/2018 7:46 AM
--- NOTE | 2018-10-01 08:26 | EKG Report ---
Test Performed on : 10/01/2018 02:00:18 AM Test Reason : ED. NO EKG ORDER FOR MUSE Blood Pressure : / mmHG Vent. Rate : 072 BPM Atrial Rate : 072 BPM P-R Int : 162 ms QRS Dur : 076 ms QT Int : 432 ms P-R-T Axes : 057 002 040 degrees QTc Int : 473 ms Normal sinus rhythm. Possible Left atrial enlargement Borderline ECG When compared with ECG of 12-MAY-2018 13:37, Nonspecific T wave abnormality now evident in Lateral leads Unconfirmed Result
[2018-10-01] MEDS: LOVENOX SUBQ SCH (08:39)
[2018-10-01] MEDS: NS 1,000 ML IV SCH (08:40)
[2018-10-01] MEDS: PRILOSEC PO SCH (09:50)
--- NOTE | 2018-10-01 10:24 | GASTROENTEROLOGY CONSULTATION ---
DATE: 10/01/2018 REASON FOR CONSULTATION: Elevated alkaline phosphatase, common bile duct dilation, right upper quadrant pain. HISTORY OF PRESENT ILLNESS: Ms. Patricia Hartley is a 72-year-old woman with past medical history of hypertension, COPD, GERD, tobacco abuse, and hospitalization in Mar-Apr for perforated bleeding duodenal ulcer requiring antrectomy, vagotomy, Billroth 2 anastomosis and feeding jejunostomy, who presents with 1 week of nausea, vomiting and right upper quadrant pain. The patient describes her pain as being up to 8/10, sharp and radiates to the epigastrium. Her pain is worse with eating. She has not been able to tolerate solids or liquids over this period. No change in bowel habits. No rectal bleeding or melena. She does describe recent weight loss up to 20 pounds. She attributes much of her symptoms to losing her son in an accidental overdose about 2 weeks ago. She complains of chills but no fevers or sweats. She does feel depressed and does not really want of talk to anyone including her family members. She lives with her brother. She denies any suicidal or homicidal ideation. She is currently not on any medications including blood thinners and NSAIDs. REVIEW OF SYSTEMS: As per HPI. She does complain of headaches, chronic right upper extremity myalgias, neck pain; remaining 12-point ROS negative PAST MEDICAL HISTORY: As per HPI. PAST SURGICAL HISTORY: Includes hysterectomy, appendectomy, appendectomy, hemorrhoidectomy, exploratory laparoscopy with for perforated duodenal ulcer requiring antrectomy, vagotomy, Billroth II anastomosis, and feeding jejunostomy tube, has which has since been removed. SOCIAL HISTORY: She smokes 1/3 pack of cigarettes daily. No alcohol or drug use. She lives with her brother. FAMILY HISTORY: Father had an unknown malignancy. No known GI malignancies in her family. No history of liver disease or gallstones. HOME MEDICATIONS: She takes Tylenol p.m. as needed. ALLERGIES: No known drug allergies. PHYSICAL EXAMINATION: Vital Signs: Temperature 98.1 degrees, heart rate of 64, respiratory rate 18, blood pressure 146/85, O2 saturation 100% on room air. Generally: Frail, elderly, awake, alert, in no acute distress. HEENT: Sclerae anicteric. Extraocular motor intact. Moist mucous membranes. Neck: Supple. No JVD or lymphadenopathy. Cardiac: Regular rate and rhythm. No murmurs. Lungs: Clear to auscultation bilaterally. No wheezing. Abdomen: Exploratory laparoscopy scar. Nondistended. Tenderness to palpation in the right upper quadrant. No rebound or guarding. No ascites. Bowel sounds are present. Extremities: No clubbing, cyanosis, or edema. Neurologic: Cranial nerves II-XII grossly intact. Moving extremities symmetrically. LABORATORY DATA: White count of 10.2, hemoglobin 10.7 from 9.3 in May 2018, platelets are 343,000. Sodium 141, potassium 4.0, chloride 103, bicarb 23, BUN 21, creatinine 0.9, glucose of 123, total bilirubin 0.25, AST of 21, ALT of 11, alkaline phosphatase of 158, total protein 6.7, albumin 3.8, lipase 23, lactate of 1.5. IMAGING: Chest x-ray is normal. CT of the abdomen and pelvis with IV contrast only shows a Billroth II partial gastrectomy anatomy. No evidence of cholelithiasis. Gallbladder wall appears to be thickened. There is dilation of the common bile duct which measures over 11 mm in the pancreatic head. This was not present at the time of the previous study. The pancreas is slightly atrophic and there is some prominence of the distal pancreatic duct which measures 4 mm in diameter. Stomach is markedly distended with gas and solid material. This is similar in appearance to previous exam. There is a possibility of cholecystitis, could not be excluded, chronic gastric outlet obstruction or gastroparesis. Constipation. ASSESSMENT AND PLAN: Ms. Patricia Hartley is a 72-year-old woman with hypertension, COPD, and history of perforated duodenal ulcer requiring antrectomy, vagotomy, and Billroth II anastomosis, who presents with 1 week of nausea, vomiting, right upper quadrant pain. Her imaging is concerning for possible biliary obstruction, although her alkaline phosphatase is elevated only to 158 and bilirubin and transaminases are normal. There are no obvious stones seen on CT. Her gallbladder wall is thickened. She does have some right upper quadrant pain on exam. No signs of fever. Her vital signs are stable. White count is normal. Chest x-ray is clear. No urinalysis has been done. She has had some significant weight loss which she attributes to not eating well, a poor appetite and secondary to depression from the recent loss of her son. She feels better this morning. She has not had any vomiting since admission. She does complain of right upper quadrant pain. We would like to proceed with MRCP prior to considering ERCP in light of her Billroth II anatomy, which would would make it difficult to access the afferent limb. If there is choledocholithiasis, sludge or strictures, she may need intraoperative ERCP versus transfer to another hospital where an advanced endoscopist can access the ampulla within the efferent limb # Abnormal weight loss: attributed to poor PO intake; no change in bowel habits or rectal bleeding # Anemia has improved since last admission. No overt bleeding. # Tobacco abuse. Encouraged smoking cessation. # Nausea, vomiting, may be related to her findings on CT. We will treat with antiemetics. # History of perforated duodenal ulcer. No history of Helicobacter pylori. She does not take any NSAIDs; she is currently on omeprazole # Right upper quadrant pain. Analgesics p.r.n. imaging as above. Thank you for this consult. We will follow with you. Please call with any questions or concerns. [email or web address]
[2018-10-01 13:12] LABS: URINE SOURCE CLEAN CATCH
[2018-10-01] MEDS: DILAUDID IV PRN ×3 (13:15→19:58)
[2018-10-01 13:19] LABS: BILIRUBIN URINE NEGATIVE (NEGATIVE); BLOOD URINE NEGATIVE (NEGATIVE); COLOR YELLOW; GLUCOSE URINE NEGATIVE (NEGATIVE); KETONE URINE NEGATIVE (NEGATIVE); LEUKOCYTES URINE NEGATIVE (NEGATIVE); NITRITE URINE NEGATIVE (NEGATIVE); PH URINE 6.5; PROTEIN URINE TRACE mg/dL (NEGATIVE); SP GRAVITY URINE 1.035; TURBIDITY URINE CLEAR (CLEAR); UROBILINOGEN URINE NORMAL (NORMAL)
[2018-10-01 13:20] LABS: UR EPITHELIAL CELLS <10 /HPF (<10); URINE BACTERIA NEGATIVE /HPF; URINE RBC <10 /HPF (<10); URINE WBC <10 /HPF (<10)
[2018-10-01] MEDS ORDERED: ATIVAN IV ONE (20:12)
[2018-10-02] MEDS: NS 1,000 ML IV SCH ×3 (00:30→23:52)
[2018-10-02] MEDS: DILAUDID IV PRN ×6 (01:47→23:51)
[2018-10-02 06:59] LABS: BASO# 0.02 X1000 (0.0-0.2); BASO% 0.3 % (0.0-0.8); EOS# 0.13 X1000 (0.0-0.7); HEMATOCRIT 32.4 % (37.0-47.0); LYMPH# 1.81 X1000 (1.2-3.4); LYMPH% 27.8 % (20.5-51.1); MCH 26.6 PG (27-31); MCHC 30.9 g/dL (33-37); MCV 86.2 FL (81-99); MONO# 0.67 X1000 (0.11-0.59); MONO% 10.3 % (1.7-9.3); MPV 10.8 FL (7.4-10.4); NEUT# 3.88 X1000 (1.4-6.5); NEUT% 59.6 % (42.2-75.2); PLT 330 X1000 (130-400); RBC 3.76 XMIL (4.2-5.4); RDW 16.5 % (11.5-14.5); WBC 6.51 X1000 (4.8-10.8)
[2018-10-02 07:23] LABS: AGAP 10; ALKALINE PHOSPHATASE 146 U/L (32-104); BUN 12 mg/dL (8-22); CALCIUM 8.7 mg/dL (8.8-10.2); CHLORIDE 107 mmol/L (98-107); COSMO 278; CREATININE 0.8 mg/dL (0.5-0.9); ESTIMATED GFR > 60; GLUCOSE 72 mg/dL (70-104); GOT 15 U/L (10-30); GPT 8 U/L (10-36); POTASSIUM 4.4 mmol/L (3.5-5.1); SODIUM 140 mmol/L (136-145); TCO2 23 mmol/L (25-35)
[2018-10-02] MEDS ORDERED: ATIVAN IV ONE (09:45)
[2018-10-02] MEDS: PRILOSEC PO SCH ×2 (10:08→20:29)
[2018-10-02] MEDS: NICODERM PATCH TD SCH (10:08)
[2018-10-02] MEDS: XANAX PO PRN ×2 (10:09→20:37)
[2018-10-02] MEDS: MIRALAX PO SCH ×2 (10:09→20:29)
[2018-10-02] MEDS: LOVENOX SUBQ SCH (10:09)
--- NOTE | 2018-10-02 13:31 | Diag Imaging Result Doc PS360 ---
MRI MRCP (ABD W/O CONTRAST) - 10/02/2018 INDICATION: r/o choledocholithaisis, biliary stricture TECHNIQUE: COMPARISON: CT from 10/01/2018 FINDINGS: The stomach is distended with solid appearing material similar to prior. Compatible with chronic gastric outlet obstruction or a bezoar. There is also diffuse fecal impaction of the colon. There is moderate diffuse intra and extrahepatic biliary dilation stable from prior. No visible stones, strictures, or filling defect. Common bile duct measures 13.4 mm in caliber. The gallbladder appears normal. The main pancreatic duct appears normal. The duct measures less than 2 mm. Spleen size is borderline measuring 12.4 x 4.7 cm. No abnormal fluid collections. There are a couple of small bilateral renal cysts. IMPRESSION: 1. Diffuse dilation of the biliary collecting system, indeterminate. No stone or stricture. 2. Normal main pancreatic duct. Normal gallbladder. 3. Severe distention of the stomach with solid material and moderate constipation. Stable from prior. Electronically signed by Lamberto Wisdom 10/02/2018 1:29 PM
[2018-10-02] MEDS: DULCOLAX PR SCH ×2 (13:47→20:29)
--- NOTE | 2018-10-02 15:16 | GASTROENTEROLOGY PROGRESS NOTE ---
DATE: 10/02/2018 SUBJECTIVE: Patient resting in bed. She is feeling anxious. She is a smoker. She wants NicoDerm patch. She needs something to relax her. She takes Xanax as needed. She refused MRCP this morning given anxiety so we will give one dose of Ativan. I have spoken to Dr. Duncan about the above plan. He acknowledged understanding. The primary care team and the nurse will follow the patient for any kind of over-sedation. The patient complains of epigastric pain with burning. She denies any fevers, rigors, chills. She complains of nausea and vomiting. She has not thrown up since she has been NPO. She has history of intermittent constipation. She denies any fevers, rigors, or chills. OBJECTIVE: Vital signs: Temperature 97.9 degrees, pulse of 61, respiratory rate 17, blood pressure 134/82, saturating 92% on room air. Body weight of 104 pounds, 4.8 ounces. BMI of 19.1 kg/m2. General Appearance: Thinly built, lying in bed, in no acute distress. HEENT: Positive pallor. No icterus. Pupils equal, reactive to light. Neck: Neck is supple. Abdomen: Discomfort in the epigastrium. No rebound or guarding. Extremities: No cyanosis or clubbing. Neurologic: Alert, awake, oriented x3. LABS: Hemoglobin and hematocrit is 10 and 32.4, white count 6.1, platelet count 330, sodium 140, potassium 4.4, chloride 107, bicarb 23, anion gap of 10, BUN of 12, creatinine 0.8, glucose of 72, calcium is 8.7, total bilirubin is 0.3, AST 15, ALT 8, alkaline phosphatase 146, total protein is 6, albumin of 3. TSH 3.86. Urinalysis trace protein. CT scan was reviewed which showed evidence of worsening biliary obstruction at the level of the ampulla. The possibility of debris in the common bile duct cannot be excluded. Mild dilation of pancreatic duct was noted. The possibility of cholecystitis cannot be excluded. Chronic gastric outlet obstruction or gastroparesis and constipation. IMPRESSION AND PLAN: 1. Abdominal pain. This could be secondary to peptic ulcer disease versus common bile duct dilation or choledocholithiasis. We will give her Xanax 0.25 mg p.o. b.i.d. as needed for anxiety, will give 1 dose of Ativan 1 mg IV once in order to pursue MRCP today. If MRCP shows evidence of common bile duct stone, then she will need ERCP. Otherwise she will need EGD to evaluate her gastric outlet obstruction and abdominal pain. We will tentatively schedule ERCP/EGD tomorrow by Dr. Herrera. We will also call surgery consult for possible thickening of the gallbladder garibay and biliary sludge. 2. History of peptic ulcer disease. She will continue on Prilosec, will increase her to b.i.d. as she has a history of peptic ulcer disease in the past. She complains of increasing abdominal pain in the epigastric region. 3. Constipation. We will start her on MiraLAX twice daily and Dulcolax twice daily. Continue to watch for now. We will start her on Iron C b.i.d. and multivitamin once daily. 4. Tobacco abuse. Patient counseled to quit smoking completely. We will start NicoDerm patch today. 5. DVT prophylaxis with Lovenox. GI prophylaxis with PPIs. 6. Pain controlled with IV Dilaudid. We need to reduce the dose of narcotics to as low as possible. The patient has constipation. 7. We will follow the results of the MRI, MRCP which is scheduled for today. The above plans with the patient and all questions answered. I also spoke with the patient's nurse at bedside and all questions answered. Please call us with any further questions. cc: MD Dr. Dakota Guan
--- NOTE | 2018-10-02 18:51 | PROGRESS NOTE ---
DATE: 10/02/2018 INTERVAL HISTORY: Ms. Hartley was admitted for abdominal pain, and she was found to have elevated alkaline phosphatase with CAT scan of the abdomen and pelvis directing dilated intrahepatic biliary tree. She underwent MRCP, which had detected suspected block at the common bile duct. SUBJECTIVE: Patient is still complaining of abdominal pain. Denies any more vomiting. Her nausea is well controlled. She is an active smoker. I counseled her about not smoking in future. PHYSICAL EXAMINATION: Vital Signs: Temperature 98 degrees, pulse 68, respiratory rate 18, blood pressure 160/106, saturating 97% room air. General: Appears cachectic, not in any acute distress. HEENT: Missing teeth. Oral cavity is moist. Lungs: Air entry bilaterally equal. No wheezing, rhonchi, crackles. Heart: S1, S2 normal. No murmur or gallop. Abdomen: Soft. Mild tenderness in right upper quadrant. Active bowel sounds. Extremities: No lower extremity edema. LABS: Suggestive of normocytic anemia, normal platelet count. She does have normal kidney function. Normal electrolytes except elevated alkaline phosphatase, which has been present since 2015. ASSESSMENT AND PLAN: 1. Acute abdominal pain with magnetic resonance cholangiopancreatography showing diffuse dilation of biliary collecting system without any stone or stricture. Gastroenterology on board and planning endoscopic retrograde cholangiopancreatography tomorrow to further evaluate. 2. Gastroparesis with constipation. Continue the patient on bisacodyl and MiraLAX. I will also continue patient on intravenous fluids. 3. History of perforated gastric ulcer. Continue patient on proton pump inhibitors b.i.d. 4. Chronic anemia. Continue iron carbonyl, ascorbic acid, and multivitamins. 5. Continue nicotine patch for tobacco abuse. 6. Continue alprazolam for anxiety. 7. Hydromorphone as needed for abdominal pain. 8. Disposition. Patient remains inside the hospital as we evaluate her abdominal pain and biliary dilatation. Plan of care discussed with patient and her family at the bedside. All of their questions have been answered. cc: Yusef Duncan MD
[2018-10-02] MEDS: ICAR-C PO SCH (20:27)
[2018-10-03 06:54] LABS: BASO# 0.02 X1000 (0.0-0.2); BASO% 0.2 % (0.0-0.8); EOS# 0.16 X1000 (0.0-0.7); EOS% 1.9 % (0.0-10.0); HEMATOCRIT 31.8 % (37.0-47.0); IMM GRAN# 0.02 X1000 (0.0-0.04); IMM GRAN% 0.2 % (0.0-0.5); LYMPH# 1.68 X1000 (1.2-3.4); LYMPH% 19.6 % (20.5-51.1); MCH 26.7 PG (27-31); MCHC 31.4 g/dL (33-37); MCV 84.8 FL (81-99); MONO# 0.89 X1000 (0.11-0.59); MONO% 10.4 % (1.7-9.3); MPV 10.6 FL (7.4-10.4); NEUT# 5.79 X1000 (1.4-6.5); NEUT% 67.7 % (42.2-75.2); PLT 337 X1000 (130-400); RBC 3.75 XMIL (4.2-5.4); RDW 15.9 % (11.5-14.5); WBC 8.56 X1000 (4.8-10.8)
[2018-10-03 07:30] LABS: AGAP 15; ALB/GLOB RATIO 1.1; ALBUMIN 3.1 g/dL (3.5-5.0); ALKALINE PHOSPHATASE 143 U/L (32-104); BUN 13 mg/dL (8-22); CALCIUM 8.1 mg/dL (8.8-10.2); CHLORIDE 102 mmol/L (98-107); COSMO 273; CREATININE 0.7 mg/dL (0.5-0.9); ESTIMATED GFR > 60; GLUCOSE 53 mg/dL (70-104); GOT 17 U/L (10-30); GPT 7 U/L (10-36); SODIUM 138 mmol/L (136-145); TCO2 21 mmol/L (25-35); TOTAL BILIRUBIN 0.36 mg/dL (0.20-1.00)
[2018-10-03] MEDS: PRILOSEC PO SCH ×2 (07:35→20:45)
[2018-10-03] MEDS: DILAUDID IV PRN ×3 (07:53→20:44)
[2018-10-03] MEDS ORDERED: LABETALOL IV PRN (09:37)
[2018-10-03] MEDS: CENTRUM SILVER PO SCH (12:05)
[2018-10-03] MEDS: LOVENOX SUBQ SCH (12:05)
[2018-10-03] MEDS: DULCOLAX PR SCH ×2 (12:06→20:45)
[2018-10-03] MEDS: NICODERM PATCH TD SCH (12:07)
[2018-10-03] MEDS: MIRALAX PO SCH ×2 (12:07→20:45)
[2018-10-03] MEDS: ICAR-C PO SCH ×2 (12:07→20:45)
[2018-10-03] MEDS: NS 1,000 ML IV SCH (12:07)
--- NOTE | 2018-10-03 13:27 | PROGRESS NOTE ---
DATE: 10/03/2018 INTERVAL HISTORY: I saw patient prior to her ERCP procedure. She states she was occasionally nauseous but denies any vomiting. Her abdominal pain is reasonably well controlled. We discussed about the ERCP procedure with the patient's family as well. She denies any new complaints. VITALS: Temperature 98 degrees, pulse 63, respiratory blood pressure 165/90, and saturating 97% on room air. PHYSICAL EXAMINATION: Cachectic appearing not in any acute distress. Oral cavity is moist. No pallor, cyanosis, clubbing, or icterus. Missing teeth. Air entry bilaterally equal. No wheeze, rhonchi, or crackles.Cardiovascular: S1, S2 normal. No murmur or gallop. Abdomen: Soft. Mild tenderness in right upper quadrant. Active bowel sounds. Extremities: No lower extremity edema. LABORATORY: Stable hemoglobin with normocytic anemia. Normal platelet count. Normal electrolytes. She does have persistently elevated alkaline phosphatase. ASSESSMENT AND PLAN: 1. Acute abdominal pain with MRCP showing diffuse dilatation of biliary collecting system without any stone or stricture. GI planning ERCP. Other differential of her abdominal pain could also include gastroparesis. CT scan did have a possibility of cholecystitis. However, the MRCP was unremarkable. I will continue her on bisacodyl MiraLAX, and I will stop intravenous fluids. I will start her on diet post ERCP. 2. History of perforated peptic ulcer. Continue patient on proton pump inhibitors b.i.d. 3. Chronic normocytic anemia. Continue iron carbonyl ascorbic acid with multivitamins. 4. Others: Continue nicotine patch for tobacco abuse. Patient was counseled about quitting tobacco; alprazolam for anxiety; hydromorphone as needed for abdominal pain, which I will change to tramadol. 5. Disposition: Patient remains inside the hospital as we await post ERCP recommendation. Plan of care discussed with the patient. All of her questions have been answered. The family is at the bedside, and all their questions have also been answered. cc: Yusef Duncan MD
[2018-10-03] MEDS: XANAX PO PRN (14:14)
[2018-10-04] MEDS: DILAUDID IV PRN (04:54)
[2018-10-04] MEDS: PRILOSEC PO SCH ×2 (06:49→20:54)
[2018-10-04] MEDS: XANAX PO PRN ×2 (06:49→18:53)
[2018-10-04 07:44] LABS: HEMATOCRIT 33.1 % (37.0-47.0); HEMOGLOBIN 10.5 g/dL (12.0-16.0); LYMPH% 17.8 % (20.5-51.1); MCH 26.5 PG (27-31); MCHC 31.7 g/dL (33-37); MCV 83.6 FL (81-99); MONO% 10.7 % (1.7-9.3); MPV 10.8 FL (7.4-10.4); NEUT% 69.3 % (42.2-75.2); PLT 319 X1000 (130-400); RBC 3.96 XMIL (4.2-5.4); RDW 15.9 % (11.5-14.5); WBC 6.75 X1000 (4.8-10.8)
[2018-10-04 07:45] LABS: BASO# 0.01 X1000 (0.0-0.2); BASO% 0.1 % (0.0-0.8); EOS# 0.14 X1000 (0.0-0.7); EOS% 2.1 % (0.0-10.0); MONO# 0.72 X1000 (0.11-0.59); NEUT# 4.68 X1000 (1.4-6.5)
[2018-10-04] MEDS: DULCOLAX PR SCH ×2 (08:06→21:28)
[2018-10-04] MEDS: ZOFRAN IV PRN ×4 (08:07→22:45)
[2018-10-04] MEDS: NORVASC PO SCH (08:08)
[2018-10-04] MEDS: NICODERM PATCH TD SCH (08:08)
[2018-10-04] MEDS: CENTRUM SILVER PO SCH (08:08)
[2018-10-04] MEDS: ICAR-C PO SCH ×2 (08:08→20:54)
[2018-10-04 08:09] LABS: ALB/GLOB RATIO 1.1; ALBUMIN 3.3 g/dL (3.5-5.0); CALCIUM 8.7 mg/dL (8.8-10.2); POTASSIUM 3.8 mmol/L (3.5-5.1); TOTAL BILIRUBIN 0.3 mg/dL (0.20-1.00); TOTAL PROTEIN 6.4 g/dL (6.3-8.3)
[2018-10-04] MEDS: LOVENOX SUBQ SCH (08:09)
[2018-10-04] MEDS: MIRALAX PO SCH ×2 (08:09→21:28)
--- NOTE | 2018-10-04 11:32 | PROGRESS NOTE ---
DATE: 10/04/2018 INTERVAL HISTORY: Patient underwent ERCP yesterday; however, I have been informed that procedure could not be performed because of previous Billroth II procedure. The ERCP scope could not be passed beyond a certain point. The patient was sent back to the floor. The official report is pending. SUBJECTIVE: Patient is feeling fine. She states she has been eating okay. She has not had any vomiting. VITAL SIGNS: Temperature 98 degrees, pulse 55, respiratory rate 18, blood pressure 150/97, saturating 100% on room air. PHYSICAL EXAMINATION: General: Does not appear in any acute distress; cachectic. HEENT: Oral cavity is moist. No pallor, cyanosis, clubbing, or icterus. Missing teeth. Lungs: Air entry equal bilaterally. No wheeze, rhonchi, crackles. Cardiovascular: S1, S2 normal. No murmur or gallop. Abdomen: Soft, nontender. Active bowel sounds. Extremities: No lower extremity edema. LABS: Suggestive of normocytic anemia, normal platelet count. Creatinine of 1. She does have persistently elevated alkaline phosphatase. ASSESSMENT AND PLAN: 1. Acute abdominal pain, nausea and vomiting on presentation, with magnetic resonance cholangiopancreatography showing diffuse dilatation of biliary collecting system, without any stone or stricture. The differential includes gastroparesis, which could be secondary to her previous antrectomy and truncal vagotomy because of perforated peptic ulcer. I will follow up with GI recommendations. Meanwhile, continue her on bowel regimen with bisacodyl and MiraLAX to avoid constipation. 2. History of perforated peptic ulcer, requiring omental patch in the past, later on requiring gastric antrectomy and truncal vagotomy. Continue patient on proton pump inhibitors twice daily. 3. Chronic normocytic anemia because of chronic debility and previous history of acute blood loss anemia multiple times. Continue iron carbonyl and ascorbic acid with multivitamins. 4. Others. Continue nicotine patch for tobacco abuse; alprazolam for anxiety; hydromorphone as needed for abdominal pain, which I will change to tramadol today. DISPOSITION: Patient remains inside the hospital as I await post endoscopic retrograde cholangiopancreatography recommendations. She has been tolerating diet well. I counseled her about taking small, frequent meals. Appreciate Gastroenterology's recommendation if she will need metoclopramide or erythromycin in the future. Plan of care is discussed with patient and all of her questions have been answered. cc: Yusef Duncan MD
[2018-10-04] MEDS: ULTRAM PO PRN ×3 (12:15→23:29)
[2018-10-04] MEDS: LEVSIN-SL SL SCH ×2 (17:27)
[2018-10-04] MEDS: TYLENOL PO PRN (18:53)
[2018-10-05] MEDS: XANAX PO PRN ×2 (00:04→21:52)
[2018-10-05] MEDS: ULTRAM PO PRN ×3 (05:47→17:08)
[2018-10-05] MEDS: PRILOSEC PO SCH ×2 (06:18→21:52)
[2018-10-05] MEDS: MIRALAX PO SCH ×2 (09:11→21:51)
[2018-10-05] MEDS: CENTRUM SILVER PO SCH (09:12)
[2018-10-05] MEDS: DULCOLAX PR SCH ×2 (09:12→21:42)
[2018-10-05] MEDS: NICODERM PATCH TD SCH (09:12)
[2018-10-05] MEDS: NORVASC PO SCH (09:12)
[2018-10-05] MEDS: ICAR-C PO SCH ×2 (09:12→21:51)
[2018-10-05] MEDS: LEVSIN-SL SL SCH ×2 (09:12→13:40)
[2018-10-05] MEDS: LOVENOX SUBQ SCH (09:13)
[2018-10-05] MEDS: ZOFRAN IV PRN ×2 (13:40→17:08)
[2018-10-05] MEDS: REGLAN PO SCH (16:06)
--- NOTE | 2018-10-05 16:19 | PROGRESS NOTE ---
DATE: 10/05/2018 INTERVAL HISTORY: No acute event overnight. She is able to eat, but she is every now and then vomiting it out. She has been having good bowel movements. We discussed about abdominal cramps. We also discussed about starting her on Reglan. Gastroenterology evaluation is pending post ERCP. OBJECTIVE: Vitals: Temperature 98.2 degrees, pulse 59, respiratory rate 16, blood pressure 142/89, saturating 100% room air. General: She does not appear in any acute distress. She is sitting in the chair, eating crackers. No pallor, cyanosis, clubbing, or icterus. Missing teeth. Air entry bilaterally equal. No wheeze, rhonchi, crackles. S1, S2 normal. No murmur, rub, gallop. Abdomen is soft. Mild tenderness in generalized abdomen. Active bowel sounds. No lower extremity edema. DIAGNOSTIC STUDIES: Normocytic anemia, normal platelet count. Creatinine of 1. No new microbiological data. Persistently elevated alkaline phosphatase. ASSESSMENT AND PLAN: 1. Acute abdominal pain, nausea, and vomiting on presentation with magnetic resonance cholangiopancreatography suggestive of diffuse dilatation of biliary collecting system without any stone or stricture. She could not get ERCP because of previous Billroth surgery. However, the formal ERCP and post ERCP recommendations are pending. Her gastroparesis secondary to her previous antrectomy and truncal vagotomy for perforated peptic ulcer could be contributing to her nausea and vomiting as well. Continue bowel regimen with bisacodyl, MiraLAX to avoid constipation; start on metoclopramide for gastroparesis; Levsin sublingually as needed for abdominal cramps. 2. History of perforated peptic ulcer requiring omental patch and later on requiring gastric antrectomy and truncal vagotomy. Continue proton pump inhibitors twice daily. 3. Chronic normocytic anemia because of chronic debility, poor nutritional status, and multiple acute anemia due to blood loss in the past. Continue iron carbonyl/ascorbic acid with multivitamins. 4. Others: Continue nicotine patch for tobacco abuse and she was counseled about quitting smoking; alprazolam for anxiety; tramadol as needed for abdominal pain. DISPOSITION: The patient has been hemodynamically stable. I am awaiting further Gastroenterology recommendation. If she is able to tolerate diet reasonably okay with Reglan, my plan is to discharge her home if no further GI interventions are planned tomorrow. cc: Yusef Duncan MD
[2018-10-05] MEDS: LEVSIN-SL SL PRN (18:28)
[2018-10-06] MEDS: ULTRAM PO PRN ×2 (02:53→14:34)
[2018-10-06] MEDS: REGLAN PO SCH ×4 (06:03→16:18)
[2018-10-06] MEDS: PRILOSEC PO SCH ×2 (06:03→21:34)
[2018-10-06] MEDS: ZOFRAN IV PRN ×2 (06:27→16:13)
[2018-10-06] MEDS ORDERED: MORPHINE IV PRN (09:36)
[2018-10-06] MEDS ORDERED: DIPRIVAN 1% ONE (12:07)
[2018-10-06] MEDS ORDERED: FENTANYL ONE (12:08)
--- NOTE | 2018-10-06 13:22 | ENDOSCOPY OPERATIVE NOTE ---
[facility] ENDOSCOPY OPERATIVE NOTE , PATIENT: Patricia Hartley ADMISSION DATE: 10/06/2018 MR#: [id number] : 1945 EGD PROCEDURE REPORT PROCEDURE DATE: 10/06/2018 SURGEON: Glenn Stewart MD STATUS: inpatient HIDE SPREADER: Bernarda Sanders and Benny Jimenez PREOPERATIVE DIAGNOSIS: The patient is a 72 yr old female here for an EGD due to abdominal pain, farida sea, and Status post BII. PROCEDURE PERFORMED: EGD, diagnostic MEDICATIONS: Per Anesthesia TOPICAL ANESTHETIC: none CONSENT: The patient understands the risks and benefits of the procedure and understands that these r isks include, but are not limited to: sedation, allergic reaction, infection, perforation and/or bleeding. Alternative means of evaluation and treatment include, among others: physical exam, x-rays, and/or surgical intervention. The patient elects to proceed with this endoscopic procedure. HISORY AND PHYSICAL: 10/06/2018 function. Hand hygiene and appropriate measures for infection prevention was taken. After the risks, benefits and alternatives of the procedure were thoroughly explained, Informed consent was verified, confirmed and timeout was successfully executed by the treatment team. The patient was anesthetized with topical anesthesia and the XT21-[id number] ([id number]) endoscope was introduced through the mouth and advanced to the second portion of the duoden um. Retroflexion was performed in the stomach and revealed no abnormalities. The gastroscope was then slowly withdraw n and removed. ESOPHAGUS: The mucosa of the esophagus appeared normal. STOMACH: There was a large amount of residual food in the entire examined stomach. Due to the residu al food, complete mucosal examination could not be performed. An antrectomy was found at the pylorus characterized by erythema. The area was congested. DUODENUM: The duodenal mucosa showed no abnormalities in the 2nd part of the duodenum. SPECIMENS REMOVED: No ADVERSE EVENTS: There were no complications. POSTOPERATIVE DIAGNOSIS: 1. The mucosa of the esophagus appeared normal 2. Food residue in the entire examined stomach 3. Antrectomy was found at the pylorus 4. The duodenal mucosa showed no abnormalities in the 2nd part of the duodenum RECOMMENDATIONS: Full liquid diet. Gastric emptying study vs UGI with SBFT Resume pre procedure orders. Transfer to the floor. Dr. Mcguire to see her in AM REPEAT EXAM: Glenn Stewart MD eSigned: Glenn Stewart MD 10/06/2018 1:03 PM cc: PATIENT NAME: Patricia Hartley MR#: [id number]
[2018-10-06] MEDS: XANAX PO PRN (14:35)
[2018-10-06] MEDS: CENTRUM SILVER PO SCH (14:35)
[2018-10-06] MEDS: LOVENOX SUBQ SCH (14:35)
[2018-10-06] MEDS: NORVASC PO SCH (14:36)
[2018-10-06] MEDS: NICODERM PATCH TD SCH (14:36)
[2018-10-06] MEDS: ICAR-C PO SCH ×2 (14:36→21:33)
[2018-10-06] MEDS: MIRALAX PO SCH ×2 (14:36→21:34)
[2018-10-06] MEDS: DULCOLAX PR SCH ×2 (14:44→21:33)
[2018-10-06] MEDS: LEVSIN-SL SL PRN (16:13)
[2018-10-07] MEDS: TYLENOL PO PRN (02:29)
[2018-10-07] MEDS: ZOFRAN IV PRN ×3 (04:07→17:24)
[2018-10-07] MEDS: REGLAN PO SCH ×3 (06:09→16:17)
[2018-10-07] MEDS: PRILOSEC PO SCH ×2 (06:09→20:20)
--- NOTE | 2018-10-07 08:01 | Diag Imaging Result Doc PS360 ---
EXAM: GASTRIC EMPTYING INDICATION: vs UGI with SBFT TECHNIQUE: 561 uCi of technetium 99 sulfur colloid was administered orally with oatmeal. Images were obtained in usual fashion. COMPARISON: None. FINDINGS: Normal activity is seen in the gastric lumen initially. After 60 minutes, there was no detectable gastric emptying. At just over one hour, the patient refused to complete the study due to discomfort. IMPRESSION: Shortened study due to patient discomfort. However, there is evidence of significant delayed gastric emptying. Electronically signed by Valerio Mcnally 10/07/2018 7:59 AM
[2018-10-07] MEDS: DULCOLAX PR SCH ×2 (09:19→20:21)
[2018-10-07] MEDS: NORVASC PO SCH (09:19)
[2018-10-07] MEDS: MIRALAX PO SCH ×3 (09:19→20:21)
[2018-10-07] MEDS: LOVENOX SUBQ SCH (09:20)
[2018-10-07] MEDS: CENTRUM SILVER PO SCH (09:20)
[2018-10-07] MEDS: ULTRAM PO PRN ×2 (09:20→16:23)
[2018-10-07] MEDS: ICAR-C PO SCH (09:20)
[2018-10-07] MEDS: NICODERM PATCH TD SCH (09:20)
[2018-10-07] MEDS: XANAX PO PRN (11:22)
[2018-10-07] MEDS: LEVSIN-SL SL PRN (13:21)
--- NOTE | 2018-10-07 14:02 | PROVIDER PROGRESS NOTE ---
Progress Note SUBJECTIVE: No acute overnight event. No current N/V/F, CP, SOB. She reports some RUQ abdominal pain. +BMs, no rectal bleeding or melena. OBJECTIVE: Last Vital Signs Temp 98.3 F 10/07/18 11:11 Pulse 108 H 10/07/18 11:11 Resp 19 10/07/18 03:44 BP 129/90 10/07/18 11:11 Pulse Ox 95 10/07/18 11:11 Height 5 ft 2 in Weight 104 lb 4.8 oz GEN: awake, alert, NAD HEENT: anicteric, MMM NECK: supple, no jvd CV: RRR, no murmurs PULM: CTAB, no wheezing ABD: soft ND, mild TTP RUQ, no rebound or guarding EXT: no cce NEURO: nonfocal, ambulatory LABS: None today EXAM: GASTRIC EMPTYING INDICATION: vs UGI with SBFT TECHNIQUE: 561 uCi of technetium 99 sulfur colloid was administered orally with oatmeal. Images were obtained in usual fashion. COMPARISON: None. FINDINGS: Normal activity is seen in the gastric lumen initially. After 60 minutes, there was no detectable gastric emptying. At just over one hour, the patient refused to complete the study due to discomfort. IMPRESSION: Shortened study due to patient discomfort. However, there is evidence of significant delayed gastric emptying. EGD 10/06 ESOPHAGUS: The mucosa of the esophagus appeared normal. STOMACH: There was a large amount of residual food in the entire examined stomach. Due to the residual food, complete mucosal examination could not be performed. An antrectomy was found at the pylorus characterized by erythema. The area was congested. DUODENUM: The duodenal mucosa showed no abnormalities in the 2nd part of the duodenum. A/P: Ms. Patricia Hartley is a 72-year-old woman with hypertension, COPD, and history of perforated duodenal ulcer requiring antrectomy, vagotomy, and Billroth II anastomosis who presented with N/V, RUQ pain found to have biliary dilation with elevated ALP. MRCP was negative for choledocholithiasis or stricture. ERCP was attempted, but could not be done 2/2 to Billroth II anatomy. EGD on 10/06 showed retained gastric contents suggestive of gastroparesis. There was no evidence of gastric outlet obstruction. Gastric emptying study could not be done 2/2 to abdominal discomfort. Her labs have remained stable. I suspect her abdominal pain may be related gastroparesis after vagotomy. She does have elevated ALP; however, it is only mildly elevated, stable, and bilirubin has remained normal without signs of cholangitis. # Suspected gastroparesis: continue scheduled reglan TID, advance diet low fat, small frequent meals # RUQ pain: likely 2/2 to above; minimize analgesics as can exacerbate gastropa resis # Biliary dilation: patient will need outpatient referral for evaluation of biliary dilation with EUS +/- ERCP done by advanced endoscopist # History of perforated PUD: continue PPI daily Will follow with you. Please call with questions
[2018-10-08] MEDS: PRILOSEC PO SCH ×2 (06:11→20:58)
[2018-10-08] MEDS: REGLAN PO SCH ×3 (06:11→15:34)
[2018-10-08] MEDS: ULTRAM PO PRN ×2 (08:51→15:34)
[2018-10-08] MEDS: CENTRUM SILVER PO SCH (08:53)
[2018-10-08] MEDS: MIRALAX PO SCH ×2 (08:53→20:58)
[2018-10-08] MEDS: NORVASC PO SCH (08:53)
[2018-10-08] MEDS: NICODERM PATCH TD SCH (08:53)
[2018-10-08] MEDS: LOVENOX SUBQ SCH (08:53)
[2018-10-08] MEDS: DULCOLAX PR SCH ×2 (08:53→20:58)
--- NOTE | 2018-10-08 10:40 | PROGRESS NOTE ---
DATE: 10/06/2018 INTERVAL HISTORY: No acute events. Patient was made NPO, and she is to go for an EGD today. I saw her just prior to EGD. She says she did have vomiting episode yesterday evening as well. OBJECTIVE: Currently, vitals temperature 98.1, pulse 56, respiratory rate of 14, blood pressure 150/89, saturating 99% on room air. General: Not in any acute distress. HEENT: Oral cavity is moist. Abdomen: Soft. Mild generalized tender. She appears to have lost a lot of weight. Extremities : No lower extremity edema. LABORATORY: No new labs today. MICROBIOLOGY: No new microbiology data. ASSESSMENT AND PLAN: 1. Acute abdominal pain, nausea, and vomiting on presentation with MRCP suggestive of diffuse biliary dilatation with elevated alkaline phosphatase. The patient to undergo EGD today. She previously had perforated duodenal ulcer requiring antrectomy and truncal vagotomy so it is possible that her symptoms are related to gastroparesis. I will follow up with post ERCP recommendations. Continue bowel regimen with bisacodyl, MiraLAX to avoid constipation, and continue metoclopramide and Levsin as needed for abdominal cramps. I would also continue proton pump inhibitors b.i.d. 2. History of perforated peptic ulcer requiring omental patch and gastric antrectomy and truncal vagotomy in the past. 3. Chronic normocytic anemia because of chronic debility, poor nutritional status, and multiple acute blood loss anemia due to blood loss in the past. Continue anion gap and ascorbic acid with multivitamins. 4. Others: Continue nicotine patch for tobacco abuse. 5. Alprazolam for anxiety. 6. Tramadol as needed for abdominal pain. I will give her IV morphine today as she is NPO. DISPOSITION: I will await post EGD's recommendations from Gastroenterology. Plan of care discussed with the family. All of her questions have been answered. cc: Yusef Duncan MD [facility]
--- NOTE | 2018-10-08 16:49 | PROGRESS NOTE ---
DATE: 10/06/2018 INTERVAL HISTORY: The patient is likely to undergo EGD today and she is npo for the EGD. She still states that she had a vomiting episode yesterday and I talked with her about EGD procedure. I will follow up post EGD recommendation. CURRENT VITALS: Temperature 98.1 degrees, pulse 68, respiratory rate 14, blood pressure 130/86, saturating 100% on room air. PHYSICAL EXAMINATION: She is not in acute distress. Oral cavity is moist. Air entry bilaterally equal. No wheeze, rhonchi, or crackles. Cardiovascular: S1, S2 normal. No murmur or gallop. Abdomen: Soft. Generalized tender. No lower extremity edema. She appears cachectic. LABORATORY DATA: No CBC or BMP today. ASSESSMENT AND PLAN: 1. Acute abdominal pain, nausea, and vomiting with suspicion of gastroparesis. The patient to undergo esophagogastroduodenoscopy today. 2. History of perforated peptic ulcer requiring omental patch and later on requiring gastric antrectomy and truncal vagotomy. 3. Chronic normocytic anemia because of chronic debility. 4. Tobacco abuse. 5. Anxiety. PLAN: I will continue her on current medications of alprazolam for anxiety, hyoscyamine with intravenous morphine for abdominal pain, omeprazole for history of a perforated peptic ulcer, and a bowel regimen with MiraLAX and bisacodyl to avoid constipation. I will follow up with post EGD recommendation. Likely, patient would need a gastric emptying study. Plan of care discussed with her. All of her questions have been answered. cc: Yusef Duncan MD MTDD
[2018-10-08] MEDS: REGLAN IV SCH (20:57)
[2018-10-08] MEDS ORDERED: MELATONIN PO SCH (21:00)
--- NOTE | 2018-10-08 21:29 | PROGRESS NOTE ---
DATE: 10/08/2017 HOSPITAL COURSE SUMMARY: Ms. Hartley is a 72-year-old lady with past medical history of perforated peptic ulcer requiring omental patch in 2017 and again bleeding peptic ulcer in April 2018 eventually requiring gastric antrectomy and truncal vagotomy who comes in with chief complaints of persistent nausea, vomiting and abdominal pain. She was found to have mildly elevated alkaline phosphatase for which she underwent MRCP, which had suggested diffuse dilatation of biliary tree, which was a new finding. An ERCP was attempted; however, considering her previous antrectomy and Billroth type 2 surgery, the scope could not be advanced. She underwent upper endoscopy which had suggested there was no new peptic ulcer; however, there was evidence of gastroparesis, which was confirmed on gastric emptying study since throughout this hospital admission, she has continued to have nausea, vomiting and abdominal pain. Eventually surgery has been consulted to see if she would need a repeat revision of her surgery as per Gastroenterology recommendation. SUBJECTIVE: The patient denies any new complaints. She had vomited yesterday. She has been able to keep her food down today, though. OBJECTIVE: Vitals: Temperature 98.1 degrees, pulse 63, respiratory rate 16, blood pressure 110/76, saturating 99% on room air. General: Does not appear in any acute distress. Cachectic. Oral cavity is moist. Lungs: Air entry bilaterally equal. No wheeze, rhonchi or crackles. Cardiovascular: S1, S2 normal. No murmur or gallop. Abdomen: Soft, generalized tender. No lower extremity edema. LABORATORY DATA: No CBC or BMP today. ASSESSMENT: 1. Intractable nausea and vomiting due to gastroparesis. 2. Prior history of bleeding and perforated peptic ulcer status post gastric antrectomy and truncal vagotomy in April 2018. 3. Mildly elevated alkaline phosphatase with diffuse dilatation of biliary tree with inability to pass ERCP scope. 4. Chronic normocytic anemia because of chronic debility and bleeding peptic ulcers in the past. 5. Ongoing tobacco abuse. 6. Anxiety and insomnia. PLAN: Continue current dose of intravenous and p.o. metoclopramide for gastroparesis which is likely postsurgical after her antrectomy and truncal vagotomy. After discussion with GI, I have consulted surgery to see if she could be a candidate for further surgery evaluation. Meanwhile continue hyoscyamine for abdominal cramps; bisacodyl suppository and MiraLAX to avoid constipation; as needed tramadol and alprazolam for anxiety and pain. DISPOSITION: I am awaiting further GI and surgery recommendations about further management of her vomiting and abdominal pain, and based on that, my plan is to discharge her whenever cleared from GI and surgery. Plan of care discussed with the patient and her questions have been answered. cc: Yusef Duncan MD MTDD
--- NOTE | 2018-10-08 21:38 | PROGRESS NOTE ---
DATE: 10/07/2018 INTERVAL HISTORY: The patient underwent EGD yesterday which had food contents without any gastric outlet obstruction. She underwent gastric emptying study would also had suggestive of gastroparesis. The patient continues to have nausea, vomiting, abdominal pain. We discussed about gastroparesis. I val a diagram and explained to her about the gastroparesis and that we are going to start her on IV Reglan. CURRENT VITALS: Temperature 98 degrees, pulse 62, respiratory rate 18, blood pressure 140/78, saturating 99% on room air. PHYSICAL EXAMINATION: General: Does not appear in any acute distress, except abdominal pain. HEENT: Oral cavity is moist. Lungs: Air entry bilaterally. No wheeze or crackles. Cardiovascular: S1, S2 normal. No murmur, rub, or gallop. Abdomen: Soft, nontender, except in the epigastric region, where there is severe tenderness. Active bowel sounds. Extremities: No lower extremity edema. LABS: No CBC or BMP today. ASSESSMENT AND PLAN: 1. Acute abdominal pain, nausea, vomiting likely in the setting of gastroparesis because of prior history of antrectomy and vagal trunk colotomy when she had bleeding duodenal ulcer with history of perforated duodenal ulcer in the past as well. Continue IV as well as p.o. Reglan. Continue small frequent meals. Continue bowel regimen with bisacodyl and MiraLAX to avoid constipation. Also, continue Levsin sublingually as needed for abdominal pain and cramps with tramadol. 2. History of perforated duodenal ulcer in August 2016 and a bleeding duodenal ulcer in April 2018 status post enterectomy and truncal vagotomy. Continue proton inhibitors twice b.i.d. 3. Chronic normocytic anemia because of chronic debility, poor nutritional status and multiple acute anemias. Continue ascorbic acid. I am holding her iron tablets considering her abdominal pain and nausea and vomiting. OTHERS: 1. Continue nicotine patch for tobacco abuse. 2. Alprazolam for anxiety. DISPOSITION: The patient remains inside the hospital because of continued nausea and vomiting. Plan of care discussed with her. All of her questions answered. cc: Yusef Duncan MD
--- NOTE | 2018-10-08 23:46 | PROVIDER PROGRESS NOTE ---
Progress Note SUBJECTIVE: No acute overnight events. Patient continues to have mild to moderate RUQ pain and intermittent N/V. No CP, SOB, constipation, rectal bleeding, melena OBJECTIVE: Last Vital Signs Temp 98.1 F 10/08/18 19:26 Pulse 61 10/08/18 19:26 Resp 20 10/08/18 19:26 BP 145/82 10/08/18 19:26 Pulse Ox 99 10/08/18 19:26 Height 5 ft 2 in Weight 104 lb 4.8 oz GEN: awake, alert, NAD HEENT: anicteric, MMM NECK: supple, no jvd CV: RRR, no murmurs PULM: CTAB, no wheezing ABD: soft ND, mild TTP RUQ, no rebound or guarding EXT: no cce NEURO: nonfocal, ambulatory LABS: None today A/P: Ms. Patricia Hartley is a 72-year-old woman with hypertension, COPD, and history of perforated duodenal ulcer requiring antrectomy, vagotomy, and Billroth II anastomosis who presented with N/V, RUQ pain found to have biliary dilation with elevated ALP. MRCP was negative for choledocholithiasis or stricture. ERCP was attempted, but could not be done 2/2 to Billroth II anatomy. EGD on 10/06 showed retained gastric contents suggestive of gastroparesis. There was no evidence of gastric outlet obstruction. Gastric emptying study could not be done 2/2 to abdominal discomfort. I suspect her abdominal pain may be related gastroparesis after vagotomy. She does have elevated ALP; however, it is only mildly elevated, stable, and bilirubin has remained normal without signs of cholangitis. # Suspected gastroparesis: continue scheduled reglan TID, advance diet low fat, small frequent meals # RUQ pain: likely 2/2 to above; minimize analgesics as can exacerbate gastroparesis; asked surgery to reevaluate patient # Biliary dilation: patient will need outpatient referral for evaluation of biliary dilation with EUS +/- ERCP done by advanced endoscopist # History of perforated PUD: continue PPI daily Will follow with you. Please call with questions
[2018-10-09] MEDS: PRILOSEC PO SCH (06:19)
[2018-10-09] MEDS: REGLAN PO SCH ×2 (06:20→11:32)
[2018-10-09] MEDS: REGLAN IV SCH ×3 (06:20→15:33)
[2018-10-09 07:22] LABS: CALCIUM 9.2 mg/dL (8.8-10.2); CREATININE 1.1 mg/dL (0.5-0.9); POTASSIUM 4.8 mmol/L (3.5-5.1)
[2018-10-09] MEDS: ULTRAM PO PRN ×2 (09:14→15:02)
[2018-10-09] MEDS: LOVENOX SUBQ SCH (09:29)
[2018-10-09] MEDS: NORVASC PO SCH (09:29)
[2018-10-09] MEDS: CENTRUM SILVER PO SCH (09:29)
[2018-10-09] MEDS: NICODERM PATCH TD SCH (09:29)
[2018-10-09] MEDS: DULCOLAX PR SCH (09:30)
[2018-10-09] MEDS: MIRALAX PO SCH (09:30)
[2018-10-09 15:25] VITALS: BP 133/90
--- NOTE | 2018-10-09 15:54 | GASTROENTEROLOGY PROGRESS NOTE ---
DATE: 10/09/2018 SUBJECTIVE: Patient is resting in bed. She is feeling better. She denies any new complaints. She had bowels she had a bowel movement today. She denies any fevers, rigors, chills. Denies any nausea or vomiting. OBJECTIVE: Vital signs: Temperature 97.7 degrees, pulse rate of 54, respiratory rate of 14, blood pressure 130/86, saturating 90% on room air. Body weight of 104 pounds 4.8 ounces, BMI 19.1 kg/m2. General Appearance: Thinly built, lying in bed, in no acute distress. HEENT: Pale conjunctivae. No icterus. Neck: Supple. Abdomen: Soft. Mild discomfort on the right side of the abdomen. No rebound or guarding. Extremities: No cyanosis, clubbing. Neurologic: Alert, awake, oriented x3. LABORATORY DATA: Hemoglobin and hematocrit on 10/04 were 10.5 and 33.1. Her current labs, sodium 142, potassium 4.8, chloride 105, bicarb 27, anion gap 10, BUN of 18, creatinine 1.1, glucose of 82, calcium 9.2, magnesium 2.0. Alkaline phosphatase on 10/04 was 151. IMPRESSION AND PLAN: 1. Suspected gastroparesis. We will continue patient on Reglan 3 times daily. Hold for side effects like tardive dyskinesia. She is to take small frequent meals. 2. Right upper quadrant pain. It could be secondary to gastroparesis. We will continue to watch. 3. Biliary dilation. ERCP was attempted during this admission but because of the altered anatomy and Billroth surgery, ERCP was not successful. We will refer her to [facility] for ERCP /EUS for elevated alkaline phosphatase and biliary ductal dilation workup in setting of Billroth II anatomy. 4. History of perforated peptic ulcer disease status post antrectomy, vagotomy, and Billroth II anastomosis. She will continue on PPIs daily. 5. Constipation. We will keep her on bowel regimen. 6. Esophagogastroduodenoscopy on 10/06 showed evidence of retained gastric contents suggestive of gastroparesis. There was no evidence of any gastric outlet obstruction. 7. Anemia. Continue to watch for now and transfuse as needed. 8. Deep vein thrombosis prophylaxis with Lovenox. 9. Gastrointestinal prophylaxis with PPIs. 10. Tobacco abuse. Patient counseled to quit smoking. She will continue NicoDerm patch. 11. The above plan was discussed with the patient and all questions were answered. Please call us with any further questions. cc: MD Ousmane Guan MD MTDD
--- NOTE | 2018-10-10 09:54 | DISCHARGE SUMMARY ---
ADMISSION DATE: 10/01/2018 DISCHARGE DATE: 10/09/2018 DISPOSITION: Home. FOLLOW-UP: 1. Dr. Foster. 2. Dr. Ku. CONSULTATION DURING THIS ADMISSION: GI was consulted. Patient was seen by Dr. Foster and Dr. Beltran. INVASIVE PROCEDURES DONE DURING THIS ADMISSION: An esophagogastroduodenoscopy was done by Dr. Addison. IMAGING STUDIES: 1. Chest x-ray was negative. 2. A CT scan of the abdomen and pelvis showed worsening biliary obstruction at the level of the ampulla. Possibility of cholecystitis. 1. Chronic gastric outlet obstruction or gastroparesis. 2. An MRCP showed diffuse dilation of the biliary collecting system. No stones or strictures. 3. Normal main pancreatic duct and normal gallbladder. There is severe distention of the stoma with solid material and moderate constipation stable from prior. 4. Gastroenteritis study showed significant delayed gastric emptying. ASSESSMENT: At the time of admission : 1. Biliary obstruction by unknown etiology. 2. Anemia. 3. Chronic obstructive pulmonary disease 4. Clinical volume depletion. DIAGNOSIS AT THE TIME OF DISCHARGE: 1. Intractable nausea and vomiting secondary to gastroparesis. 2. History of bleeding and perforated peptic ulcer disease status post gastric antrectomy and truncal vagotomy in April,. 3. Chronically dilated biliary tract with unremarkable MRCP presumably related to narcotic use. However, organic etiology needs to be ruled out. Patient is advised to follow up with endoscopist for EUS +/- ERCP. This will be arranged by Dr. Foster when the patient follows up with him. 4. History of chronic obstructive pulmonary disease , currently not in exacerbation. 5. Ongoing tobacco abuse. 6. Anxiety and insomnia. 7. Hypertension. DISCHARGE MEDICATIONS: 1. Amlodipine 10 mg p.o. daily. 2. Metoclopramide 5 mg p.o. 3 times per day. 3. Melatonin. 4. Multivitamin. 5. Omeprazole 40 mg p.o. b.i.d. PRESENTING COMPLAINT: Nausea and vomiting. HISTORY OF PRESENTING COMPLAINT: Ms. Hartley is a 72-year-old female with history of perforated duodenal ulcer, status post recent truncal vagotomy with antrectomy with Billroth II anastomosis who seems to have been doing fairly okay at home. Presented because of nausea and vomiting which was intractable. Patient was subsequently admitted for medical care. HOSPITAL COURSE: Ms. Hartley was admitted to the medical floor. Was initially kept NPO and fluid resuscitated. GI was consulted. EGD was eventually done by Dr. Addison. Please refer to the details in her chart. MRCP, a CT scan of the abdomen and pelvis were all done, but no conclusive etiology for the biliary dilation. This is theorized to be related to the GI surgery versus opioids. The patient is also advised to follow up with an advanced endoscopist for EUS +/- ERCP. Today Ms. Hartley refers to be feeling a whole lot better, does not have any more nausea, and she is tolerating her diet and she has had multiple bowel movements. We think she is stable for discharge from acute care and she will need to follow up with both surgery and GI for outpatient management. All the discharge instructions have been discussed with her she voiced understanding. TIME SPENT FOR DISCHARGE: 35 minutes. cc: MD Sheng Person MD Matthew L. Figh, MD
== END 2018-10-09 15:49 | disposition home or self-care (01) | DRG 392 ==
LOC: ED 01:40 → SUATTDRO 07:15 → 3N 07:15
PROVIDERS: ATTEND Internal Medicine
CPT/HCPCS: 71020; 71046; 74177; 74181; 78264; 80048; 80053; 81001; 82948; 83605; 83690; 83735; 84443; 84484; 85025; 93005; 94640; 96365; 96366; 96375; 96376; 99285; A9270; A9541; J1170; J1650; J1956; J2060; J2270; J2405; J2765; J3010; J7030; J7040; Q9967; XXXXX

== ENCOUNTER 2018-10-24 16:29 | Inpatient (IN) ==
[2018-10-24 19:27] LABS: BASO% 0.9 % (0.0-0.8); HEMATOCRIT 39.8 % (37.0-47.0); HEMOGLOBIN 13.7 g/dL (12.0-16.0); IMM GRAN% 0.6 % (0.0-0.5); LYMPH% 1.8 % (20.5-51.1); MCH 26.9 PG (27-31); MCHC 34.4 g/dL (33-37); MCV 78.2 FL (81-99); MONO% 5.6 % (1.7-9.3); MPV 10.5 FL (7.4-10.4); NEUT% 91.1 % (42.2-75.2); PLT 457 X1000 (130-400); RBC 5.09 XMIL (4.2-5.4); RDW 17.4 % (11.5-14.5); WBC 19.66 X1000 (4.8-10.8)
[2018-10-24 19:28] LABS: BASO# 0.18 X1000 (0.0-0.2); IMM GRAN# 0.12 X1000 (0.0-0.04); LYMPH# 0.36 X1000 (1.2-3.4); MONO# 1.11 X1000 (0.11-0.59); NEUT# 17.89 X1000 (1.4-6.5)
[2018-10-24] MEDS ORDERED: ZOFRAN IV PRN (19:51)
[2018-10-24] MEDS ORDERED: ROCEPHIN 1 GM in NS 50 ML IV ONE (19:51)
[2018-10-24] MEDS ORDERED: NS 500 ML IV ONE (19:51)
[2018-10-24] MEDS ORDERED: DILAUDID IV ONE (19:51)
[2018-10-24 19:55] LABS: ALBUMIN 2.9 g/dL (3.5-5.0); CREATININE 6.8 mg/dL (0.5-0.9); TOTAL BILIRUBIN 0.49 mg/dL (0.20-1.00); TOTAL PROTEIN 7.5 g/dL (6.3-8.3)
[2018-10-24 19:56] LABS: ALB/GLOB RATIO 0.6; CALCIUM 6.9 mg/dL (8.8-10.2); POTASSIUM 8.3 mmol/L (3.5-5.1)
[2018-10-24] MEDS ORDERED: SODIUM CHLORIDE 0.9% INJ ONE ×2 (20:35)
[2018-10-24] MEDS ORDERED: PEPCID IV ONE (20:35)
[2018-10-24] MEDS ORDERED: PROTONIX IV ONE (20:35)
[2018-10-24] MEDS ORDERED: NEXIUM IV ONE (20:45)
[2018-10-24 20:50] LABS: URINE SOURCE CATH
[2018-10-24 20:52] LABS: BILIRUBIN URINE NEGATIVE (NEGATIVE); BLOOD URINE NEGATIVE (NEGATIVE); COLOR YELLOW; GLUCOSE URINE TRACE mg/dL (NEGATIVE); KETONE URINE NEGATIVE (NEGATIVE); LEUKOCYTES URINE NEGATIVE (NEGATIVE); NITRITE URINE NEGATIVE (NEGATIVE); PH URINE 5.5; PROTEIN URINE 100 mg/dL (NEGATIVE); SP GRAVITY URINE 1.016; TURBIDITY URINE HAZY (CLEAR); UROBILINOGEN URINE NORMAL (NORMAL)
[2018-10-24 20:56] LABS: UR EPITHELIAL CELLS <10 /HPF (<10); URINE BACTERIA NEGATIVE /HPF; URINE RBC <10 /HPF (<10); URINE WBC <10 /HPF (<10)
--- NOTE | 2018-10-24 21:09 | Diag Imaging Result Doc PS360 ---
EXAM: CT ABDOMEN/PELVIS W/O CONTRAST 10/24/2018 HISTORY: abdominal pain TECHNIQUE: This exam was performed using automated exposure control, adjustment of mA or kV according to patient size, and/or use of iterative reconstruction technique. COMMENT: There are minimal tree-in-bud opacities present in the left costophrenic sulcus which may indicate pneumonitis. This is worse than on the previous examination of 10/01/2018. There is postsurgical change in the distal stomach. The distention of the stomach which was present at the time the previous study has improved. There is unfortunately also extraluminal gas present adjacent to the distal stomach below the level of the anastomosis and in the lesser sac and sanjuana hepatis region. The possibility of an abscess around image 67 near the gallbladder fossa and second portion of the duodenum cannot be excluded. There are fluid-filled distended jejunal loops. The distal jejunum and ileum are normal in caliber. There is some gas and stool in the colon. The urinary bladder is unremarkable. There is less biliary dilatation than on the previous study. There is no evidence of hydronephrosis or nephrolithiasis. There is no evidence of acute bony abnormality. IMPRESSION: Probable anastomotic leak versus penetrated ulcer in the distal stomach or duodenum. The possibility of an abscess in the right upper quadrant cannot be excluded. Probable focal ileus. Electronically signed by David Crouch 10/24/2018 9:06 PM
[2018-10-24 22:39] LABS: ALB/GLOB RATIO 0.7; ALBUMIN 2.9 g/dL (3.5-5.0); CREATININE 6.8 mg/dL (0.5-0.9); POTASSIUM 8.2 mmol/L (3.5-5.1); TOTAL BILIRUBIN 0.48 mg/dL (0.20-1.00); TOTAL PROTEIN 7.2 g/dL (6.3-8.3)
[2018-10-24 22:40] LABS: CALCIUM 6.5 mg/dL (8.8-10.2)
[2018-10-24] MEDS ORDERED: MORPHINE IV ONE (23:03)
[2018-10-24] MEDS ORDERED: ZOFRAN IV ONE (23:03)
[2018-10-24] MEDS ORDERED: ZOSYN 4.5 GM in NS 100 ML IV ONE (23:03)
[2018-10-24] MEDS ORDERED: NS 1,000 ML IV ONE (23:03)
--- NOTE | 2018-10-24 23:23 | PROVIDER DOCUMENTATION ---
This chart was entered by Fannie Quintanilla Scribe, acting as scribe for Jonathan Mazariegos MD. HPI-Abdominal Pain/GI Problem - General Chief Complaint: Abdominal Pain Stated Complaint: ABD PAIN, NAUSEA Time Seen by Provider: 10/24/18 19:21 Source: patient Allergies/Adverse Reactions: Patient Allergies Allergy/AdvReac Type Severity Reaction Status Date / Time No Known Allergies Allergy Verified 09/20/17 10:40 Home Medications: Home Medication List Medication Instructions Recorded Confirmed Last Taken Type Amlodipine [Norvasc] 10 mg PO DAILY #120 tab 10/09/18 Unknown Rx Bisacodyl [Dulcolax] 10 mg NV BID #30 supp 10/09/18 Unknown Rx Hyoscyamine Subl [Levsin-Sl] 0.125 mg SUBLINGUAL TID PRN PRN 10/09/18 Unknown Rx #60 tab Melatonin 3 mg PO QHS #30 tab 10/09/18 Unknown Rx Metoclopramide [Reglan] 5 mg PO TID AC #120 tab 10/09/18 Unknown Rx Multivitamins/Minerals [Centrum 1 ea PO DAILY #120 tab 10/09/18 Unknown Rx Silver] Omeprazole [Prilosec] 40 mg PO BID@0700,2100 #120 cap 10/09/18 Unknown Rx Polyethylene Glycol 3350 [Miralax] 17 gm PO BID #30 powder, packet 10/09/18 Unknown Rx Tramadol [Ultram] 25 mg PO Q6H PRN PRN #30 tab 10/09/18 Unknown Rx - History of Present Illness-ABD Nature of Presenting Problems: pt is 73/F presenting to ED to EMS from home, sts that she was having ABD pain and R arm pain. Pt sts that she has been having ABD pain for about a week. Pt is poor historian. Sts that she has hx of hysterectomy and cholecystectomy, pt does still have appendix. Abdominal Pain Onset Location: reports: RUQ Pain Radiation: reports: no radiation Quality of Pain: reports: aching Severity in ED: reports: moderate Onset/Duration: reports: 1 week ago Timing: reports: still present Activities at Onset: reports: none Modifying Factors: improves with: other (palpation worsens pain) Associated Symptoms: reports: arm pain (R elbow pain from previous surgery.) Last BM: 24 hours ago Dark Stools Present?: reports: none noticed Rectal Bleeding: reports: none Rectal Pain: reports: none Emesis Description: reports: none Bruising or Bleeding Gums?: No Similar Symptoms Previously?: No Recently seen or treated by another doctor?: No Review of Systems - Adult - REVIEW OF SYSTEMS - ADULT Constitutional: denies: chills, fever Eyes: reports: no symptoms reported Ears, Nose, Mouth & Throat: reports: no symptoms reported Cardiovascular: reports: no symptoms reported Respiratory: reports: no symptoms reported Gastrointestinal: reports: abdominal pain. denies: diarrhea, nausea, vomiting Genitourinary: reports: no symptoms reported Musculoskeletal: reports: no symptoms reported Integumentary: reports: no symptoms reported Neurological: reports: no symptoms reported. denies: dizziness/vertigo, headache/migraines Psychiatric: reports: no symptoms reported Endocrine: reports: no symptoms reported Hematologic/Lymphatic: reports: no symptoms reported Allergic/Immunologic: reports: no symptoms reported All Other Systems: Reviewed and Negative Past History - Adult - PAST MEDICAL HISTORY-ADULT Review of Records: reports: Old Records Reviewed, Nursing Assessment Review, Medications Reviewed, Social history reviewed & non-contributory. Major Childhood Illnesses: reports: denies history Cardiovascular: reports: CAD, HTN, hyperlipidemia Respiratory: reports: asthma, COPD, other (emphysema) Gastrointestinal: reports: GERD, ulcer Obstetrical/Gynecological: reports: denies history Genitourinary: reports: denies history Musculoskeletal: reports: denies history Neurological: reports: denies history Psychiatric: reports: denies history Endocrine/Immune: reports: denies history Other Conditions: reports: denies history - PRIOR SURGERIES/PROCEDURES Surgical/Procedure History: reports: recent surgery (post 2 weeks prior abdominal sx), cardiac stent, other (abdominal sx) - IMMUNIZATION STATUS Childhood Immunizations: See Nurse Assessment Flu Vaccine: See Nurse Assessment - FAMILY HISTORY Family History: reviewed, not pertinent - SOCIAL HISTORY Smoking: cigarettes, less than 1 pack/day Provider spent 3-5 mins advising pt. on dangers of tobacco.: Discussed manners to quit use, and f/u contacts for add'l counseling. Substance Use: none/never Alcohol Use Frequency: never Living Situation: alone Physical Exam-General - PHYSICAL EXAM-ADULT Initial Vital Signs Reviewed: Yes - CONSTITUTIONAL General Appearance: appears well, alert, no apparent distress - EYES Eyes: PERRL/EOMI, pink conjunctivae - HEAD, EARS, NOSE, MOUTH & THROAT HENMT: normocephalic/atraumatic, moist mucous membranes, normal ENT inspection, TMs normal, pharynx normal - NECK Neck: non-tender, full range of motion, supple, normal inspection - RESPIRATORY Respiratory: lungs clear - CARDIOVASCULAR Cardiovascular: regular rate, rhythm - GASTROINTESTINAL (ABDOMEN) Abdominal Exam: normal bowel sounds, tenderness (RUQ tenderness upon palpation) - LYMPHATIC Lymphatic: no adenopathy - MUSCULOSKELETAL Back Exam: normal inspection, no CVA tenderness, no vertebral tenderness Extremity: normal range of motion, non-tender, normal gait - SKIN Integumentary: normal color, warm/dry - NEUROLOGIC Neurologic: grossly normal - PSYCHIATRIC Psych/Mental Status: normal mood/affect, normal thought content, normal thought process, oriented x 3 Progress - PLAN OF CARE/RESULTS Progress/Plan/Lab Results: Vital Signs - 8 hr 10/24/18 16:37 Temperature 98.1 F Pulse Rate 97 H Respiratory Rate 17 Blood Pressure 103/68 O2 Sat by Pulse Oximetry 98 Laboratory Results - last 24 hr 10/24/18 19:21 WBC 19.66 H RBC 5.09 Hgb 13.7 Hct 39.8 MCV 78.2 L MCH 26.9 L MCHC 34.4 RDW Std Deviation 17.4 H Plt Count 457 H MPV 10.5 H Immature Gran % (Auto) 0.6 H Neut % (Auto) 91.1 H Lymph % (Auto) 1.8 L Rhea % (Auto) 5.6 Eos % (Auto) 0.0 Baso % (Auto) 0.9 H Immature Gran # (Auto) 0.12 H Neut # (Auto) 17.89 H Lymph # (Auto) 0.36 L Rhea # (Auto) 1.11 H Eos # (Auto) 0.00 Baso # (Auto) 0.18 Orders Category Date Time Status Saline Loc DIRECTED Care 10/24/18 17:24 Active NPO Diet 10/24/18 17:24 Active AMYLASE [CHEM] Stat Lab 10/24/18 19:21 Received CBC WITH ELECTRONIC DIFF [HEME] Stat Lab 10/24/18 19:21 Completed COMPREHENSIVE METABOLIC PANEL [CHEM] Stat Lab 10/24/18 19:21 Received LIPASE [CHEM] Stat Lab 10/24/18 19:21 Received URINALYSIS W/POSS RFLX CULT [URINALYSIS] Stat Lab 10/24/18 17:24 Uncollected Result Diagrams: 10/24/18 19:21 10/24/18 21:37 - CT/MRI 1 CT Study: Abdomen, Pelvis Impression: Abnormal (IMPRESSION: Probable anastomotic leak versus penetrated ulcer in the distal stomach or duodenum. The possibility of an abscess in the right upper quadrant cannot be excluded. Probable focal ileus. Electronically signed by David Crouch 10/24/2018 9:06 PM 10/24/182105 Interpreting Physician: David Crouch MD Dictated Date/Time: 10/24/182100) - CONSULTS/PCP/HOSPITALIST Notification #1 *Consult/PCP/Hospitalist*: Dr. Lezama Time Discussed: 22:59 Reason/Comments: Readmit via hospitalist, will see in AM as pt is hemodyn stable.LINDA [place] Consult Disposition: other (Will see in AM.) #2 Consult: Dr. Zamarripa Time Discussed: 22:59 Consult Disposition: Admit Departure - Departure Date of Disposition Decision: 10/24/18 Time of Disposition Decision: 23:21 DIAGNOSIS: Perforated gastric ulcer, Abdominal pain Disposition: ADMITTED INPATIENT 09 Certified Medical Emergency: Emergent Condition: Fair Referrals and Follow-Ups: None,PCP [Primary Care Provider] - - Critical Care Note This patient required my direct & personal management of CC.: No Attestation - Physician/ ROYAL Attestation Patient care was provided by Advanced Practice Provider:: No The physician spent face to face time with patient:: Yes Advanced Practice Provider documentation review:: Supervising physician onsite and consulted in the evaluation and care of this patient. The physician did have a face to face encounter with the patient. This chart was documented by the indicated scribe, (Fannie Quintanilla, Scribe) and accurately reflects the services I performed and decisions made by me, Jonathan Mazariegos MD, as attested by the provider's signature.
[2018-10-24] MEDS ORDERED: CALCIUM GLUCONATE IV PUSH ONE (23:42)
[2018-10-25] MEDS: DUONEB (A & A) INH PRN ×2 (03:50→19:24)
--- NOTE | 2018-10-25 05:29 | HISTORY AND PHYSICAL ---
PRIMARY CARE PHYSICIAN: None. CHIEF COMPLAINT: Abdominal pain. HISTORY OF PRESENTING ILLNESS: A 73-year-old female with a previous history of perforated duodenal ulcer status post repair, GERD, hypertension, COPD, who had presented to emergency department for 4 days history of worsening abdominal pain. The patient states that the pain seemed to be worsening and she was not feeling well. The patient is a poor historian and most of the history is obtained from her previous records and ER chart. During her initial evaluation in the ED, she had imaging done which did show suspected anastomotic leak versus penetrating ulcer in the distal stomach or duodenum. Her case was discussed with General Surgery recommended admission for further management. The patient also was found to be hyperkalemic and in renal failure. Her hyperkalemia was treated in the ER by ER physician. The patient will require admission to ICU for further management. At the time of my examination, patient was able to deny any headache, fever, chills, chest pain or shortness of breath, but complained of abdominal pain. PAST MEDICAL HISTORY: Perforated duodenal ulcer, GERD, hypertension, COPD. PAST SURGICAL HISTORY: Duodenal ulcer repair, hysterectomy, appendectomy, hemorrhoidectomy. ALLERGIES: No known drug allergies. CURRENT MEDICATIONS: Include amlodipine 10 mg p.o. daily, melatonin 3 mg p.o. at bedtime, Reglan 5 mg p.o. t.i.d., omeprazole 40 mg p.o. b.i.d., tramadol 25 mg p.o. q.6 hours. SOCIAL HISTORY: Sixty pack years history of smoking. No history of alcohol or illicit drug use. FAMILY HISTORY: No history of coronary artery disease. REVIEW OF SYSTEMS: Fourteen point systems as listed in HPI. Other systems negative. PHYSICAL EXAMINATION: GENERAL: The patient is resting comfortably, but complains of abdominal pain intermittently. Frail ill-looking female. VITAL SIGNS: Temperature 98.1 degrees, pulse 97, respirations 17, blood pressure 103/68. HEENT: Atraumatic, normocephalic. Extraocular movements intact. PERRLA. NECK: No masses. CHEST: Rhonchi. CARDIOVASCULAR: Regular rate and rhythm. ABDOMEN: Has diffuse tenderness. EXTREMITIES: No edema. NEUROLOGIC: She is awake, alert, oriented x2. GENITOURINARY: No bladder distention. SKIN: Warm. LABORATORIES AND STUDIES: WBCs 19.66, hemoglobin 13.7, hematocrit 39.8, platelets 457,000. Sodium 128, potassium 3.3, chloride 87, CO2 is 14, BUN is 94, creatinine 6.8, glucose 154, calcium 6.9. CT of the abdomen and pelvis shows probable anastomotic leak versus penetrating ulcer in the distal stomach or duodenum, also possibility of an abscess in the right upper quadrant. ASSESSMENT: This is a 73-year-old female with a previous history of perforated duodenal ulcer, gastroesophageal reflux disease, hypertension and chronic obstructive pulmonary disease, who presented to the emergency department with 4 days history of having worsening abdominal pain. She was evaluated in the emergency department. She had imaging done which did show suspicion for anastomotic leak versus penetrated ulcer in distal stomach or duodenum. Case was discussed with General Surgery who recommended admission for further management. 1. Abdominal pain. 2. Suspected anastomotic leak versus a penetrating ulcer in the distal stomach or duodenum. 3. Acute kidney injury. 4. Hyperkalemia. 5. Chronic obstructive pulmonary disease. 6. Hypertension. PLAN: 1. We will admit patient to ICU. 2. Check blood cultures. Start patient on IV antibiotics. 3. Monitor renal function closely. 4. We will monitor her potassium closely. She was already treated in the ER with calcium gluconate. 5. We will continue with Shankar p.r.n. 6. We will consult Nephrology also. 7. Monitor blood pressure closely. 8. Put patient on DVT prophylaxis with SCDs. 9. Patient's condition is guarded. 10. We will continue to follow, and reassess and make further recommendation based on patient's clinical course. cc: Hector Zamarripa MD
[2018-10-25] MEDS ORDERED: CALCIUM GLUCONATE 1 GM in NS 50 ML IV ONE (06:37)
[2018-10-25] MEDS ORDERED: SODIUM BICARBONATE 8.4% IV PUSH ONE (06:37)
[2018-10-25] MEDS ORDERED: D50W SYRINGE IV ONE ×2 (06:38→10:42)
[2018-10-25] MEDS ORDERED: HUMULIN R IV ONE ×3 (06:39→10:42)
[2018-10-25] MEDS ORDERED: ALBUTEROL 0.5% INH CONC FOR HYPERKALEMIA INH ONE ×2 (06:39→10:42)
--- NOTE | 2018-10-25 07:01 | Diag Imaging Result Doc PS360 ---
EXAM: CHEST-PORTABLE 10/25/2018 HISTORY: For NG Tube Placement. TECHNIQUE: AP portable at 0407 COMMENT: There is an NG tube with its tip below the diaphragm presumably in the stomach. There is some coarse opacity in both lung bases particularly the left base where it partially obscures the hemidiaphragm. There may be some degree of bronchiectasis. This has been present on previous studies including the examination of 10/01/2018. IMPRESSION: Basilar fibrosis with possible bronchiectasis particularly in the left lower lobe. NG tube in the stomach. Electronically signed by David Crouch 10/25/2018 6:58 AM
[2018-10-25] MEDS ORDERED: ALBUTEROL 0.5% INH CONC FOR HYPERKALEMIA ONE (07:58)
[2018-10-25] MEDS ORDERED: KAYEXALATE PO ONE (08:11)
--- NOTE | 2018-10-25 08:38 | GENERAL SURGERY CONSULTATION ---
DATE: 10/25/2018 HISTORY OF PRESENT ILLNESS: Ms. Hartley apparently presented to the emergency department last night complaining of abdominal pain. Her CT scan shows some questionable extraluminal gas adjacent to the distal stomach in the lesser sac and in the sanjuana hepatis region. Her history is that she has had a previous Sunil patch about a year and a half ago. She then presented back in April of this year with the bleeding duodenal ulcer the could not be controlled well, and then she underwent a definitive ulcer operation, that being a truncal vagotomy antrectomy with a Billroth- II anastomosis. She presented in September with a dilated biliary tree which, to my knowledge, there was uncertainty as to why she presented this way. I do not think that she could have an ERCP in a typical way due to her Billroth-II anastomosis. She does have a history of nicotine abuse. PAST MEDICAL HISTORY: Pertinent for COPD, hypertension, gastroesophageal reflux disease, and medical noncompliance. PAST SURGICAL HISTORY: Previous surgery includes hysterectomy, appendectomy hemorrhoidectomy, as well as the vagotomy antrectomy and Billroth-II anastomosis. MEDICATIONS AT HOME: Amlodipine, melatonin, Reglan, omeprazole and tramadol. ALLERGIES: She has no known drug allergies. SOCIAL HISTORY: She smokes. She lives with her brother. Denies alcohol or drug use. FAMILY HISTORY: Pertinent for coronary disease. REVIEW OF SYSTEMS: Pertinent for abdominal pain and vomiting. PHYSICAL EXAMINATION: Vital Signs: Temperature is 98.9 degrees, heart rate 103, blood pressure is recorded as 170/109, respiratory rate at 14. Lungs: She does have bilateral breath sounds. Heart: Regular rate and rhythm. Abdomen: Tender, especially in the epigastrium. Extremities: Femoral pulses are present. No peripheral edema. Neurologic: She does answer questions. LABORATORY DATA: Reveals a white count of 19,000, hemoglobin 13.7, hematocrit 39.8. Sodium 127, potassium 8.2, chloride 88, carbon dioxide 14. BUN 99, creatinine 6.8, alkaline phosphatase 161, amylase 435. ASSESSMENT: 1. Hyperkalemia. 2. Acute kidney injury. 3. History of definitive ulcer operation now with possible free air in the lesser sac. RECOMMENDATIONS: I would just simply use NG suction for now. We would need to control her potassium and get it down to normal, rehydrate her and get her electrolytes more normal. Treat her with IV antibiotic therapy and then we will further work up her possible perforation. It is difficult to determine whether this is from her stapled stomach or whether it is from her duodenal stump at the level of the previous ulcer closure, which would be in the defunctionalized limb, but I think conservative management for now is appropriate until we get her electrolytes better and hydrated better. cc: Jonathan Lezama MD
[2018-10-25] MEDS: NS 1,000 ML IV SCH ×3 (09:11→20:47)
[2018-10-25] MEDS: ZOSYN 3.375 GM in NS 50 ML IV SCH ×4 (09:12→23:44)
--- NOTE | 2018-10-25 09:47 | PROGRESS NOTE ---
DATE: 10/25/2018 SUBJECTIVE: This patient is lying in bed and she is complaining of abdominal pain. She has been evaluated by Surgery Department for the possibility of an anastomotic leak versus penetrated ulcer in the distal stomach or duodenum. She does have elevated white blood cells, electrolyte imbalance including hyponatremia and hyperkalemia. She does have an acute kidney injury on chronic kidney disease, her last creatinine was 1.1 last month and today is 6.8. She received treatment for hyperkalemia today in the morning. She also has been getting fluids. Lactate level is 1.1. Pending laboratory report, has been ordered a BMP and CBC stat. For now, she will keep an NG tube in place and we will try to improve her kidney function and electrolytes as well before thinking about surgery. PHYSICAL EXAMINATION: Vital signs: Temperature 98.9 degrees, pulse 103, respiratory rate 14, blood pressure 170/109, oxygen saturation 93 on room air. HEENT: Head normocephalic. No trauma. PERRLA. Neck: Supple. No JVD. No masses. Central trachea. Chest: Clear to auscultation. Some crepitus at the bases. Abdomen: Soft. Generalized tenderness to palpation. Probably she has some signs of peritoneal irritation. Neurological: This patient is awake, she is alert, she is following commands but she does have generalized weakness and she cannot talk very much. It is hard to understand what she says. LABORATORY DATA: WBC 19.6, hemoglobin 13.7, hematocrit 39.8, platelets 457,000. Chemistry on 10/24/2018 at 21:37 p.m., sodium 127, potassium 8.2, chloride 88, bicarbonate 14, BUN 99, creatinine 6.8, glucose 155, calcium 6.5. Albumin 2.9. ASSESSMENT AND PLAN: 1. Abdominal pain, likely due to an anastomotic leak versus penetrating ulcer in the distal stomach or duodenum. Surgery Department on board. For now, we will use an NG tube and we will try to improve her kidney function and electrolytes. We will continue with the same management, broad-spectrum antibiotics as well. 2. Acute on chronic kidney disease. Last month her creatinine was around 1 to 1.1, yesterday was 6.8. I do not have a new result, pending BMP. We will continue with IV fluids. We will continue to monitor this patient closely. 3. Hyperkalemia. She received treatment today in the morning. I will wait for the new BMP to see if we need to continue treating the potassium. 4. Electrolyte imbalance including hyponatremia, hyperkalemia, hypochloremia. Aware. Continue with IV fluids. Potassium has been treated today in the morning. I will wait for the new BMP. 5. History of chronic obstructive pulmonary disease, not in exacerbation. 6. Hypertension. Aware. I will keep an eye on that right now. At the beginning, she came in with low blood pressure, the lowest documented was 95/65. Now the blood pressure has been elevated. Like I said, I will monitor. 7. Gastroesophageal reflux disease. Continue with proton pump inhibitors. 8. Nicotine dependence. I am not quite sure if this patient is still smoking or not, she is weak and is hard to understand what she says. I will continue to monitor. 9. History of medical noncompliance. Aware. cc: Braxton Aguilar MD
[2018-10-25 10:07] LABS: INR 1.07; PROTIME 14.8 Seconds (11.0-16.0)
[2018-10-25 10:08] LABS: PTT 32.3 Seconds (22.3-41.8)
[2018-10-25 10:29] LABS: AGAP 26; BUN 106 mg/dL (8-22); CHLORIDE 92 mmol/L (98-107); COSMO 305; CREATININE 6.6 mg/dL (0.5-0.9); GLUCOSE 166 mg/dL (70-104); SODIUM 134 mmol/L (136-145); TCO2 16 mmol/L (25-35)
[2018-10-25 10:30] LABS: CALCIUM 6.7 mg/dL (8.8-10.2); POTASSIUM 6.7 mmol/L (3.5-5.1)
[2018-10-25 10:47] LABS: BASO# 0.01 X1000 (0.0-0.2); BASO% 0.1 % (0.0-0.8); HEMATOCRIT 32.8 % (37.0-47.0); HEMOGLOBIN 11.1 g/dL (12.0-16.0); IMM GRAN# 0.11 X1000 (0.0-0.04); LYMPH# 0.17 X1000 (1.2-3.4); LYMPH% 1.5 % (20.5-51.1); MCH 26.1 PG (27-31); MCHC 33.8 g/dL (33-37); MCV 77.2 FL (81-99); MONO% 5.2 % (1.7-9.3); MPV 10.4 FL (7.4-10.4); NEUT# 10.62 X1000 (1.4-6.5); NEUT% 92.2 % (42.2-75.2); PLT 442 X1000 (130-400); RBC 4.25 XMIL (4.2-5.4); RDW 16.8 % (11.5-14.5); WBC 11.51 X1000 (4.8-10.8)
[2018-10-25 10:51] LABS: BANDS 16 % (0-1); LYMPHS 8 % (21-51); MONO 2 % (1-9); SEGS 74 % (42-75)
[2018-10-25 13:50] LABS: ALLEN TEST YES; BE -13.2 mmoll (-3.0-3.0); BLOOD TYPE ARTERIAL; HCO3-(ACT) 14.6 mmoll (20.0-26.0); METHB 1.2 % (0.0-1.5); MODALITY CANNULA; O2(CT) 13.6 mL/dL (15.0-23.0); O2HB 96.2 % (95.0-99.0); PCO2(98.6) 34 mmHg (35-45); PO2(98.6) 104 mmHg (60-100); SAMPLE BLOOD; SAO2 98.4 % (95.0-100.0); THB 9.9 g/dL (11.5-17.4); pH(98.6) 7.21 (7.35-7.45)
--- NOTE | 2018-10-25 14:45 | NEPHROLOGY CONSULTATION ---
DATE: 10/25/2018 REASON FOR CONSULTATION: Acute kidney injury. HISTORY OF PRESENT ILLNESS: Ms. Hartley is a 73-year-old white female who has a history of a duodenal ulcer perforation requiring repair. She came to the emergency room at [facility] because of increasing abdominal pain. CT of the abdomen demonstrated possible extraluminal air in the area of the stomach and lesser sac and in the sanjuana hepatis region. It has been over a year since her original surgery. She also has a history of Billroth II for management of ulcer disease. Her initial evaluation at [facility] disclosed potassium of 8.3, anion gap acidosis and acute kidney injury. She was treated with IV fluid resuscitation and transferred to [facility]. She also received medical management for her hyperkalemia. Repeat labs were collected at the time of my consultation and her potassium was down to 6.7. She is spontaneously awake but really does not interact. She is not able to answer my questions. She simply groans. PAST MEDICAL HISTORY: As above. She also has a history of COPD, hypertension, GERD. HOME MEDICATIONS: Include amlodipine, melatonin, Reglan, omeprazole, tramadol. ALLERGIES: None. Social history, family history, review of systems are not obtainable except as listed in the chart. OBJECTIVE: Vital Signs: Blood pressure 133/76, heart rate 108, respirations 14. General: She is a thin, chronically ill-appearing woman lying in bed. No acute distress but in obvious discomfort. Skin: Warm and dry with thinning and ecchymoses. HEENT: Conjunctivae are pink and dry. Oropharynx is dry. Neck: Supple. Neck veins are flat. Trachea is midline. Heart: PMI is nondisplaced. Regular rhythm and tachycardic. No gallops. Lungs: Have equal breath sounds, shallow. No crackles. Abdomen: Soft, quiet and obviously tender. NG tube is in place. Extremities: Have no edema, clubbing or cyanosis. IMPRESSION: Acute kidney injury complicated by hyperkalemia and metabolic acidosis. Potassium is improving. BUN and creatinine have not improved but her urine output is picking up in the last 5 hours. We will simply repeat labs in 4 hours. Parenteral treatment for her hyperkalemia. I would avoid Kayexalate and other enteral agents given her low gut function. If her potassium and kidney function do not improve promptly, she may require dialysis. We will check ABG. Medications are reviewed. No other changes are required. cc: Kemar Dent MD
[2018-10-25 16:22] LABS: CALCIUM 6.6 mg/dL (8.8-10.2); CREATININE 6.5 mg/dL (0.5-0.9); POTASSIUM 5.8 mmol/L (3.5-5.1)
[2018-10-25] MEDS ORDERED: CALCIUM GLUCONATE 4.65 MEQ in NS 50 ML IV ONE (16:23)
[2018-10-25] MEDS: MORPHINE IV PRN ×2 (17:02→22:51)
[2018-10-25 17:26] LABS: URINE SOURCE CATH
[2018-10-25 17:44] LABS: BILIRUBIN URINE NEGATIVE (NEGATIVE); BLOOD URINE SMALL (NEGATIVE); COLOR YELLOW; GLUCOSE URINE NEGATIVE (NEGATIVE); KETONE URINE NEGATIVE (NEGATIVE); LEUKOCYTES URINE NEGATIVE (NEGATIVE); NITRITE URINE NEGATIVE (NEGATIVE); PH URINE 5.5; PROTEIN URINE 100 mg/dL (NEGATIVE); SP GRAVITY URINE 1.015; TURBIDITY URINE HAZY (CLEAR); UROBILINOGEN URINE NORMAL (NORMAL)
[2018-10-25 17:46] LABS: UR EPITHELIAL CELLS <10 /HPF (<10); URINE BACTERIA NEGATIVE /HPF
[2018-10-25 17:54] LABS: URINE CASTS GRANULAR PRESENT; URINE YEAST NONE SEEN
[2018-10-25] MEDS: NEXIUM IV SCH (20:47)
[2018-10-26] MEDS ORDERED: NICODERM PATCH TD ONE (02:14)
[2018-10-26] MEDS ORDERED: HALDOL IV ONE (02:17)
[2018-10-26] MEDS: NS 1,000 ML IV SCH ×4 (04:47→21:56)
[2018-10-26] MEDS: ZOSYN 3.375 GM in NS 50 ML IV SCH ×3 (05:45→17:53)
[2018-10-26 06:10] LABS: CALCIUM 7.4 mg/dL (8.8-10.2); CREATININE 5.8 mg/dL (0.5-0.9); POTASSIUM 5.8 mmol/L (3.5-5.1)
[2018-10-26 06:14] LABS: EOS# 0.01 X1000 (0.0-0.7); EOS% 0.1 % (0.0-10.0); HEMOGLOBIN 9.9 g/dL (12.0-16.0); IMM GRAN# 0.08 X1000 (0.0-0.04); IMM GRAN% 0.8 % (0.0-0.5); LYMPH# 0.26 X1000 (1.2-3.4); LYMPH% 2.5 % (20.5-51.1); MCH 26.6 PG (27-31); MCHC 34.1 g/dL (33-37); MONO# 0.73 X1000 (0.11-0.59); MONO% 7.1 % (1.7-9.3); MPV 10.8 FL (7.4-10.4); NEUT# 9.13 X1000 (1.4-6.5); NEUT% 89.5 % (42.2-75.2); PLT 349 X1000 (130-400); RBC 3.72 XMIL (4.2-5.4); RDW 17.1 % (11.5-14.5); WBC 10.21 X1000 (4.8-10.8)
[2018-10-26] MEDS ORDERED: ALBUTEROL 0.5% INH CONC FOR HYPERKALEMIA INH ONE (07:10)
[2018-10-26] MEDS ORDERED: D50W SYRINGE IV ONE (07:11)
[2018-10-26] MEDS ORDERED: HUMULIN R IV ONE (07:11)
[2018-10-26] MEDS ORDERED: CALCIUM GLUCONATE 4.65 MEQ in NS 50 ML IV ONE (07:11)
[2018-10-26 07:22] LABS: BANDS 1 % (0-1); LYMPHS 5 % (21-51); MONO 7 % (1-9); SEGS 87 % (42-75)
--- NOTE | 2018-10-26 08:16 | PROGRESS NOTE ---
DATE: 10/26/2018 SUBJECTIVE: This patient is lying in bed. She feels better. She is following commands and answering my questions. She is still complaining of abdominal pain and generalized weakness, mild shortness of breath. Her potassium level is still high at 5.8 and I will treat it. Her creatinine is trending down and she is making some urine. I will decrease the amount of the normal saline and I will put her also on Clinimix since this patient is not eating. I will continue to monitor this patient closely. OBJECTIVE: Vital Signs: Temperature 98.1 degrees, pulse 93, respiratory rate 13, blood pressure 129/81, oxygen saturation 100% on 2 L of nasal cannula. HEENT: Head normocephalic. No trauma. PERRLA. Neck: Supple. No JVD. No masses. Central trachea. Chest: Clear to auscultation. Some crepitus at the bases. Abdomen: Soft. Generalized tenderness to palpation. Probably, she has some signs of peritoneal irritation and is really tender to palpation. Neurological Examination: She is alert and awake. She is following commands but she has generalized weakness. Laboratory Data: WBC 10, hemoglobin 9.9, hematocrit 29, platelets 349,000. Sodium 139, potassium 5.8, chloride 103, bicarbonate 15, BUN 104, creatinine 5.8, glucose 122, calcium 7.4. ASSESSMENT AND PLAN: 1. Abdominal pain, likely due to an anastomotic leak versus penetrating ulcer in the distal stomach or duodenum. Surgery department on board. For now, we will continue with the nasogastric tube. We will try to improve her kidney function and electrolytes. We will continue with the same management, broad-spectrum antibiotics as well. I think the electrolytes are getting better but her potassium is still high. 2. Acute on chronic kidney disease. Last month, her creatinine was around 1 to 1.1. Yesterday, it was 6.8 and today 5.8. We will continue with the same management. I will repeat a new BMP today at noon. 3. Hyperkalemia. She received treatment for the high potassium yesterday x2. Her potassium is still elevated at 5.8. I will give her calcium and treatment for the high potassium. 4. Electrolyte imbalance including hyponatremia, resolved; hyperkalemia, we will treat it; hypochloremia, resolved; hypocalcemia, better. 5. History of chronic obstructive pulmonary disease, not in exacerbation. 6. Hypertension. Aware. Continue with the same management. Blood pressure has been stable. 7. Gastroesophageal reflux disease. Continue with proton pump inhibitors. 8. Nicotine dependence. I am not sure if she is still smoking. We will continue to monitor. We will do daily cessation education. 9. History of medical noncompliance. Aware. CRITICAL CARE TIME: 35 minutes. cc: Braxton Aguilar MD
[2018-10-26] MEDS: CLINIMIX E 4.25%-5% SOLUTION 1,000 ML IV SCH (08:38)
--- NOTE | 2018-10-26 10:06 | GENERAL SURGERY PROGRESS NOTE ---
DATE: 10/26/2018 SUBJECTIVE: Ms. Hartley is afebrile. Blood pressure is 153/85, heart rate is 90. Her clinical exam is about the same. She has some mild abdominal tenderness. Intake 2075, output 1150. NG tube had 300 mL of NG output. LABORATORY DATA: White count is down to 10,200, hemoglobin 9.9, hematocrit 29. Her potassium is stable at 5.8, BUN stable at 104, creatinine is down to 5.8. ASSESSMENT: Will continue with antibiotic therapy. Continue to try to resolve her renal dysfunction before deciding about any other operative intervention. I will discuss with the findings that were made at the time of her operation in April and at the time of her endoscopic retrograde cholangiopancreatography back last month. cc: Jonathan Lezama MD
[2018-10-26 13:17] LABS: CALCIUM 7.7 mg/dL (8.8-10.2); CREATININE 5.6 mg/dL (0.5-0.9); POTASSIUM 5.4 mmol/L (3.5-5.1)
[2018-10-26] MEDS: NEXIUM IV SCH (21:55)
[2018-10-27] MEDS: ZOSYN 3.375 GM in NS 50 ML IV SCH ×4 (00:12→18:15)
[2018-10-27] MEDS: CLINIMIX E 4.25%-5% SOLUTION 1,000 ML IV SCH ×2 (03:00→08:05)
[2018-10-27 06:40] LABS: BASO# 0.01 X1000 (0.0-0.2); BASO% 0.1 % (0.0-0.8); EOS# 0.03 X1000 (0.0-0.7); EOS% 0.2 % (0.0-10.0); HEMATOCRIT 30.1 % (37.0-47.0); HEMOGLOBIN 10.2 g/dL (12.0-16.0); IMM GRAN# 0.05 X1000 (0.0-0.04); IMM GRAN% 0.4 % (0.0-0.5); LYMPH# 0.31 X1000 (1.2-3.4); LYMPH% 2.5 % (20.5-51.1); MCH 26.6 PG (27-31); MCHC 33.9 g/dL (33-37); MCV 78.4 FL (81-99); MONO# 0.78 X1000 (0.11-0.59); MONO% 6.4 % (1.7-9.3); MPV 11.1 FL (7.4-10.4); NEUT# 10.99 X1000 (1.4-6.5); NEUT% 90.4 % (42.2-75.2); PLT 277 X1000 (130-400); RBC 3.84 XMIL (4.2-5.4); RDW 17.6 % (11.5-14.5); WBC 12.17 X1000 (4.8-10.8)
[2018-10-27 07:14] LABS: CALCIUM 7.5 mg/dL (8.8-10.2); CREATININE 4.6 mg/dL (0.5-0.9); PHOSPHORUS 9.1 mg/dL (2.7-4.5)
[2018-10-27] MEDS ORDERED: SODIUM BICARBONATE 8.4% IV ONE (07:32)
[2018-10-27 07:42] LABS: ANISOCYTOSIS 1+; BANDS 16 % (0-1); HYPOCHROM 2+; LYMPHS 2 % (21-51); MONO 8 % (1-9); SEGS 74 % (42-75)
[2018-10-27 07:43] LABS: TARGET CELLS 1+
[2018-10-27 07:48] LABS: POTASSIUM 6.3 mmol/L (3.5-5.1)
--- NOTE | 2018-10-27 07:51 | Diag Imaging Result Doc PS360 ---
EXAM: CHEST-PORTABLE HISTORY: dyspnea TECHNIQUE: Portable chest single view COMPARISON: 10/25/2018 FINDINGS: The lungs are well expanded. The heart is borderline mildly prominent. No consolidation. Trace left pleural fluid. Apparent scarring in the left base. IMPRESSION: Stable exam. Electronically signed by Aaron Stevens 10/27/2018 6:18 AM
[2018-10-27] MEDS ORDERED: HUMULIN R IV ONE ×2 (07:54→09:53)
[2018-10-27] MEDS ORDERED: ALBUTEROL 0.5% INH CONC FOR HYPERKALEMIA INH ONE (07:54)
[2018-10-27] MEDS ORDERED: D50W SYRINGE IV ONE ×2 (07:54→09:53)
--- NOTE | 2018-10-27 07:55 | PROGRESS NOTE ---
DATE: 10/27/2018 SUBJECTIVE: This patient is lying in bed. She seems to be lethargic. She is following commands and she is able to say her name for me. Her creatinine is down from 5.6 to 4.6. I do not see any fluid collection/pleural effusion on the chest x-ray. No fever. Urine output improving and, as per the nurse, she did not receive any morphine or any treatment that can cause sedation. OBJECTIVE: Vital Signs: Temperature 98.5 degrees, pulse 96, respiratory rate 11, blood pressure 101/62, oxygen saturation 99 on 2 L of nasal cannula. HEENT: Head normocephalic. No trauma. PERRLA. Neck: Supple. No JVD. No masses. Central trachea. Chest: Clear to auscultation. Some crepitus at the bases. Abdomen: Soft. Generalized tenderness to palpation. Neurological Examination: She is lethargic but she is able to say her name and follows commands, but she is extremely weak today. Laboratory: WBC 12.1, hemoglobin 10.2, hematocrit 30.1, platelets 277,000. Sodium 140, potassium is pending at this moment, chloride 108, bicarbonate 9, BUN 106, creatinine 4.6, glucose 131, calcium 7.5, phosphorus 9.1, magnesium 2. ASSESSMENT AND PLAN: 1. Abdominal pain, likely due to anastomotic leak versus penetrating ulcer in the distal stomach or duodenum. Surgery department on board. For now, we will continue with the nasogastric tube. We will try to improve the kidney function and electrolytes. She is acidotic. Pending potassium at this moment. 2. Acute kidney injury. Her creatinine is getting better and she is having better urine output. She is acidotic. Bicarb level is low at 9. 3. Metabolic acidosis. Her potassium is pending at this moment but the bicarbonate is 9. I will start this patient on a bicarb drip and monitor. 4. Hyperkalemia. Yesterday, the potassium came down to 5.4. Today, the potassium level is pending. We will monitor. 5. Hyponatremia, resolved. 6. Hypocalcemia, better. 7. History of chronic obstructive pulmonary disease, not in exacerbation. 8. Hypertension. Continue with the same management. Stable. 9. Gastroesophageal reflux disease. Continue proton pump inhibitors. 10. Nicotine dependence. Continue to monitor. 11. History of noncompliance. Aware. CRITICAL CARE TIME: 45 minutes. cc: Braxton Aguilar MD
[2018-10-27] MEDS ORDERED: CALCIUM GLUCONATE 4.65 MEQ in NS 50 ML IV ONE (07:56)
[2018-10-27] MEDS: SODIUM BICARBONATE 8.4% 100 MEQ in D5W 1,000 ML IV SCH ×2 (08:05→18:15)
[2018-10-27] MEDS ORDERED: ALBUTEROL NEB INH ONE (09:53)
[2018-10-27 10:29] LABS: BLOOD TYPE ARTERIAL; SAMPLE BLOOD
[2018-10-27 10:30] LABS: ALLEN TEST YES; BE -10.1 mmoll (-3.0-3.0); METHB 0.7 % (0.0-1.5); O2(CT) 15.4 mL/dL (15.0-23.0); O2HB 96.3 % (95.0-99.0); PCO2(98.6) 40 mmHg (35-45); PO2(98.6) 98 mmHg (60-100); SAO2 98.2 % (95.0-100.0); THB 11.3 g/dL (11.5-17.4); pH(98.6) 7.23 (7.35-7.45)
[2018-10-27 10:32] LABS: MODALITY CANNULA
[2018-10-27 13:05] LABS: CALCIUM 7.5 mg/dL (8.8-10.2); CREATININE 4.7 mg/dL (0.5-0.9); POTASSIUM 4.6 mmol/L (3.5-5.1)
--- NOTE | 2018-10-27 14:07 | GENERAL SURGERY PROGRESS NOTE ---
DATE: 10/27/2018 SUBJECTIVE: Ms. Hartley is poorly responsive. She does respond and mumble. Her abdomen is mildly tender. OBJECTIVE: She remains afebrile. Heart rate 95, blood pressure 126/75. NG tube output is bilious. Her intake was 3300; output 1350. NG had 300 mL. [place]: [place] [address]. Hemoglobin 10.2, hematocrit 30. Her potassium is up to 6.3. BUN is 106. Creatinine 4.6. ASSESSMENT/PLAN: We will more fully evaluate her stomach after we resolve her hyperkalemia. I will consider contrast through her NG tube with imaging to see if there is any evidence of a leak. cc: Jonathan Lezama MD
--- NOTE | 2018-10-27 15:15 | NEPHROLOGY PROGRESS NOTE ---
DATE: 10/27/2018 TIME SEEN: 06:25 SUBJECTIVE: Ms. Hartley is currently resting quietly in bed. She does not open her eyes to verbal or tactile stimuli. OBJECTIVE: Her most recent vital signs temperature 98.5 degrees, blood pressure 101/62, heart rate 98, respirations 15. She is on 2 L nasal cannula. Last recorded saturation is 99%. She has had 2280 in. She has had 975 out to Knapp catheter. LABORATORY DATA: Her sodium is 140, potassium 6.3. Her chlorides are 108. Her CO2 is 9, BUN of 106. She has a creatinine of 4.6. She has a glucose of 131. Anion gap is 23. Calcium is 7.5. She has a phosphorus of 9.1 and magnesium of 2. White count 12.17, hemoglobin of 10.2, hematocrit is 30.1, platelet count is 277,000. The patient has a negative acetone. PHYSICAL EXAMINATION: General: This is a 73-year-old, elderly female, resting quietly in bed. She appears chronically ill. She is in no acute distress. Skin: Warm and dry. HEENT: Normocephalic. Atraumatic. Unable to look at eyes secondary to resistance on exam. She has no JVD. Cardiovascular: She is regular rate and rhythm. She is tachycardic on the monitor. Slightly irregular. She has no appreciable gallop. Lungs: Clear to auscultation bilaterally. Equal excursion. Quiet bowel sounds noted. NG tube remains to low intermittent suction. Abdomen: Tender to touch. Genitourinary: Not inspected. Knapp catheter is in place with adequate urine out. Extremities: Trace right upper arm edema. No lower extremity edema. No clubbing or cyanosis. Integumentary: With different stages of ecchymosis that are healing. ASSESSMENT AND PLAN: 1. Acute kidney injury complicated with hyperkalemia and metabolic acidosis. Her BUN is slightly elevated. Her creatinine has improved to 4.6. She remains on IV fluids of normal saline at 75 mL an hour. 2. Electrolytes. Patient continues with hyperkalemia. She has been treated with an amp of D50, 10 units of insulin, calcium and albuterol. We will repeat labs at noon. 3. Metabolic acidosis. Patient remains on sodium bicarbonate drip. Her gap is now 23 with a CO2 of 9. We have checked ABGs this a.m. with a pH of 7.23, CO2 40, PO2 98, bicarb is 17, a lactate of 2 on 2 L nasal cannula. We will recheck these labs again at noon after her treatment for her hyperkalemia. If these do not continue to improve, she may possibly be indicated for starting dialysis. I would like to thank you for allowing us to follow with this patient. Dictated by LEX Lynn for Kemar Dent MD Face to face encounter, data reviewed, discussed with Sheela Zamora on 10/27/18. I agree with the above assessment and plan of care. cc: LEX Lynn MD [facility]
[2018-10-27] MEDS: NEXIUM IV SCH (20:14)
[2018-10-28 04:35] LABS: BLOOD TYPE ARTERIAL; SAMPLE BLOOD
[2018-10-28 04:36] LABS: ALLEN TEST YES; BE -0.8 mmoll (-3.0-3.0); HCO3-(ACT) 24.3 mmoll (20.0-26.0); METHB 0.7 % (0.0-1.5); MODALITY CANNULA; O2(CT) 8.6 mL/dL (15.0-23.0); O2HB 96.1 % (95.0-99.0); PCO2(98.6) 41 mmHg (35-45); PO2(98.6) 94 mmHg (60-100); SAO2 98.2 % (95.0-100.0); THB 6.2 g/dL (11.5-17.4); pH(98.6) 7.38 (7.35-7.45)
[2018-10-28] MEDS: SODIUM BICARBONATE 8.4% 100 MEQ in D5W 1,000 ML IV SCH (05:44)
[2018-10-28] MEDS: ZOSYN 3.375 GM in NS 50 ML IV SCH ×5 (06:30→23:39)
[2018-10-28 06:32] LABS: HEMATOCRIT 24.2 % (37.0-47.0); HEMOGLOBIN 8.5 g/dL (12.0-16.0); MCH 26.6 PG (27-31); MCHC 35.1 g/dL (33-37); MCV 75.6 FL (81-99); MPV 10.7 FL (7.4-10.4); PLT 240 X1000 (130-400); WBC 15.12 X1000 (4.8-10.8)
[2018-10-28 06:33] LABS: BASO# 0.01 X1000 (0.0-0.2); BASO% 0.1 % (0.0-0.8); EOS# 0.14 X1000 (0.0-0.7); EOS% 0.9 % (0.0-10.0); IMM GRAN# 0.06 X1000 (0.0-0.04); IMM GRAN% 0.4 % (0.0-0.5); LYMPH# 0.54 X1000 (1.2-3.4); LYMPH% 3.6 % (20.5-51.1); MONO# 0.67 X1000 (0.11-0.59); MONO% 4.4 % (1.7-9.3); NEUT% 90.6 % (42.2-75.2)
[2018-10-28 06:48] LABS: POTASSIUM 4.1 mmol/L (3.5-5.1)
[2018-10-28 06:49] LABS: ALB/GLOB RATIO 0.6; ALBUMIN 1.9 g/dL (3.5-5.0); CALCIUM 7.9 mg/dL (8.8-10.2); CREATININE 3.7 mg/dL (0.5-0.9); MAGNESIUM 1.7 mg/dL (1.5-2.7); TOTAL BILIRUBIN 0.35 mg/dL (0.20-1.00); TOTAL PROTEIN 4.9 g/dL (6.3-8.3)
--- NOTE | 2018-10-28 07:03 | Diag Imaging Result Doc PS360 ---
EXAM: CHEST-PORTABLE 10/28/2018 HISTORY: dyspnea TECHNIQUE: AP portable at 0535 COMMENT: There is opacity in the left lower lobe silhouetting the left hemidiaphragm which has worsened since 10/27/2018. Otherwise are has been no significant change. IMPRESSION: Worsened atelectasis versus pneumonia left lower lobe. Electronically signed by David Crouch 10/28/2018 7:01 AM
[2018-10-28 07:47] LABS: BANDS 3 % (0-1); EOS 1 % (1-10); LYMPHS 2 % (21-51); MONO 3 % (1-9); SEGS 90 % (42-75)
--- NOTE | 2018-10-28 08:03 | PROGRESS NOTE ---
DATE: 10/28/2018 SUBJECTIVE: This patient is lying in bed. She is still complaining of abdominal pain. She is extremely weak but she is answering some of my questions and following commands. Yesterday, she was lethargic. Her creatinine is trending down. She is making urine. We will continue with IV fluids. We will continue with Clinimix as well. OBJECTIVE: Vital Signs: Temperature 97.6 degrees, pulse 81, respiratory rate 16, blood pressure 122/72, oxygen saturation 99 on 2 L of nasal cannula. HEENT: Head normocephalic. No trauma. PERRLA. Neck: Supple. No JVD. No masses. Central trachea. Chest: Clear to auscultation. Some crepitus at the bases, mostly on the left side. Abdomen: Soft. Generalized tenderness to palpation. Decreased bowel sounds. Neurological Examination: The patient is really weak but she is answering some of my questions and following commands. She moves all 4 extremities. Laboratory: WBC 15, hemoglobin 8.5, hematocrit 24.2, platelets 240,000. Sodium 145, potassium 4.1, chloride 105, bicarbonate 23, BUN 99, creatinine 3.7, glucose 183, calcium 7.9, phosphorus 6. AST 21, ALT 8, alkaline phosphatase 70, albumin 1.9. ASSESSMENT AND PLAN: 1. Abdominal pain, likely due to anastomotic leak versus penetrating ulcer in the distal stomach or duodenum. Surgery department on board. For now, we will continue with the nasogastric tube. We will try to continue improving her kidney function and electrolytes. 2. Acute kidney injury. This is getting better. She is having some urine output. Nephrology department on board. 3. Metabolic acidosis. The anion gap is closing. The bicarb level is much better compared with yesterday, increased from 9 to 23. Nephrology department on board. We will monitor. 4. Hyperkalemia, resolved. 5. Hyponatremia, resolved. 6. History of chronic obstructive pulmonary disease, not in exacerbation. 7. Hypertension. We will continue with the same management. 8. Gastroesophageal reflux disease. Continue with proton pump inhibitors. 9. Nicotine dependence. Continue to monitor. 10. Medical noncompliance. Aware. CRITICAL CARE TIME: 35 minutes. cc: Braxton Aguilar MD
[2018-10-28] MEDS: CLINIMIX E 4.25%-5% SOLUTION 1,000 ML IV SCH (08:49)
[2018-10-28] MEDS: MORPHINE IV PRN ×3 (14:05→23:54)
[2018-10-28] MEDS: LR 1,000 ML IV SCH (15:10)
--- NOTE | 2018-10-28 18:01 | NEPHROLOGY PROGRESS NOTE ---
DATE: 10/28/2018 TIME SEEN: 0645 SUBJECTIVE: Ms. Hartley is resting quietly in bed. She is more awake today, she is conversive with monosyllables. Denies discomfort. OBJECTIVE: Vital Signs: Temperature 97.6 degrees, blood pressure 122/72, heart rate 87, respirations 16, she is on 2 L nasal cannula, her last recorded saturation is 99%, she has had 3150 in, 1480 out with 450 mL of NG. She remains 4.5 L positive. LAB: Sodium 145, potassium 4.1, chloride 105, CO2 23, BUN 99, creatinine 3.7, glucose 183, her anion gap is 17, calcium 7.9, phosphorus 6, albumin 1.9. The patient has a white count of 15.12, hemoglobin is 8.5, hematocrit is 24.2, her platelet count is 240,000. ABGs pH 7.38, CO2 41, PO2 94, bicarb 24.3 on 2 L with a lactate of 1.9. PHYSICAL EXAMINATION: This is a 73-year-old white female resting quietly in bed. She appears chronically ill no acute distress.Skin: Warm and dry. HEENT: Normocephalic, atraumatic. Conjunctiva is pale./ she has DARLEEN. Mucous membranes are dry. Neck: Supple. Trachea midline. She does have positive JVD. Cardiovascular: She is regular rate and rhythm, she has a systolic murmur. S4 is present. She has a slightly displaced PMI. Lungs: Diminished breath sounds bilateral, equal excursion on O2. Abdomen: Soft, quiet bowel sounds noted. NG tube remains to low intermittent suction, tender to palpation. Genitourinary: Knapp catheter is in place, she has adequate urine output has been documented. Extremities: Her trace edema to her right upper extremity is improved. No edema to lower extremities. No clubbing or cyanosis. Integument: The patient has different stages of healing of ecchymosis to upper and lower extremities. ASSESSMENT AND PLAN: 1. Acute kidney injury. Patient's BUN and creatinine have slowly improved today with a BUN of 99, creatinine 3.7, adequate urine output, no indications for intervention. She continues on intravenous fluids. We will change this to a liter of LR at 75 mL an hour. 2. Electrolytes and acid-base balance. Her hyperkalemia has resolved. Her metabolic acidosis has improved. She has a closing anion gap at 17, CO2 of 23. We will stop her sodium bicarbonate and again place her on LR at 75 mL an hour monitoring labs in the a.m. 3. Status post perforated gastric ulcer repair followed by surgery. Patient continues on Clinimix. She remains NPO, nasogastric tube remains to low intermittent suction. Like to thank you for allowing us to follow with this patient. Dictated by LEX Lynn for Kemar Dent MD Face to face encounter, data reviewed, discussed with Sheela Zamora on 10/28/18. I agree with the above assessment and plan of care. cc: LEX Lynn MD [facility]
--- NOTE | 2018-10-28 18:04 | ECHO REPORT ---
ORDER DATE: 10/28/2018 INDICATION: Possible mitral regurgitation. FINDINGS: 1. Right atrium appears normal in size. 2. Trace tricuspid regurgitation. RV systolic pressure of 46. 3. Normal RV size and systolic function. 4. No significant pulmonic insufficiency. 5. Normal left atrial size with a dimension of 3.5 cm. 6. No mitral prolapse. Trace mitral regurgitation. 7. Normal LV size, end-diastolic dimension of 4.8 cm. Normal wall thicknesses with a posterior and interventricular septal wall thickness of 0.8 cm each. Normal LV systolic function. The estimated EF appears to be in the 65% to 70% range. 8. The aortic valve opens well. There is mild insufficiency. No clear evidence of significant stenosis. 9. The aorta appears normal in visualized segments. 10. No pericardial effusion is identified. cc: MD Kemar Juarez MD
--- NOTE | 2018-10-28 19:27 | GENERAL SURGERY PROGRESS NOTE ---
DATE: 10/28/2018 SUBJECTIVE: Ms. Hartley is starting to be awake now and alert and can answer questions appropriately. Her temp is 99 degrees, heart rate 89, blood pressure 133/75. She continues to complain of abdominal pain. She is tender in her epigastrium. Her NG tube has put out 150 mL. This continues to be bilious. Her white count is 15,000 today. Hemoglobin 8.5, hematocrit 24. The pH 7.3, pCO2 41, PO2 94. Her potassium was down to 4.1, BUN down to 99, creatinine down to 3.7. PLAN: The plan will be to get a Gastrografin study through her NG tube tomorrow to look for any ulcer leak. She may still come to operative intervention, but she is obviously hemodynamically and improved and her renal perfusion is better. cc: Jonathan Lezama MD
[2018-10-28] MEDS: NEXIUM IV SCH (20:25)
[2018-10-29] MEDS: LR 1,000 ML IV SCH ×2 (03:21→17:03)
[2018-10-29 04:43] LABS: BASO# 0.05 X1000 (0.0-0.2); BASO% 0.3 % (0.0-0.8); EOS# 0.15 X1000 (0.0-0.7); EOS% 0.9 % (0.0-10.0); HEMATOCRIT 25.8 % (37.0-47.0); HEMOGLOBIN 8.8 g/dL (12.0-16.0); IMM GRAN# 0.09 X1000 (0.0-0.04); IMM GRAN% 0.5 % (0.0-0.5); LYMPH# 0.83 X1000 (1.2-3.4); LYMPH% 4.8 % (20.5-51.1); MCH 26.3 PG (27-31); MCHC 34.1 g/dL (33-37); MCV 77.2 FL (81-99); MONO# 1.03 X1000 (0.11-0.59); MONO% 5.9 % (1.7-9.3); MPV 11.3 FL (7.4-10.4); NEUT# 15.27 X1000 (1.4-6.5); NEUT% 87.6 % (42.2-75.2); PLT 232 X1000 (130-400); RBC 3.34 XMIL (4.2-5.4); RDW 17.6 % (11.5-14.5); WBC 17.42 X1000 (4.8-10.8)
[2018-10-29 05:06] LABS: ALB/GLOB RATIO 0.5; ALBUMIN 1.7 g/dL (3.5-5.0); CALCIUM 7.8 mg/dL (8.8-10.2); CREATININE 2.7 mg/dL (0.5-0.9); MAGNESIUM 1.4 mg/dL (1.5-2.7); PHOSPHORUS 4.3 mg/dL (2.7-4.5); POTASSIUM 3.8 mmol/L (3.5-5.1); TOTAL BILIRUBIN 0.54 mg/dL (0.20-1.00)
[2018-10-29 05:15] LABS: LYMPHS 8 % (21-51); MONO 4 % (1-9); SEGS 88 % (42-75)
[2018-10-29] MEDS: ZOSYN 3.375 GM in NS 50 ML IV SCH ×3 (06:11→17:03)
[2018-10-29] MEDS: MORPHINE IV PRN (06:12)
[2018-10-29] MEDS ORDERED: MAGNESIUM SULFATE 2 GM/S.W.I. 2 GM/50 ML IVPB IV ONE (07:14)
--- NOTE | 2018-10-29 08:15 | Diag Imaging Result Doc PS360 ---
EXAM: GI SERIES PARTIAL 10/29/2018 HISTORY: evaluate for ulcer perforation TECHNIQUE: Limited upper GI series with water-soluble contrast through NG tube. Four images, one minute 14 seconds fluoroscopy time, 1128.9 cGy. COMMENT: There has been partial gastrectomy and gastrojejunostomy (Billroth II) and there is no evidence of obstruction at the anastomosis nor is there evidence of leak of contrast from the anastomosis or elsewhere. There is some retained gastric contents possibly representing blood clots. IMPRESSION: No evidence of obstruction or perforation. Electronically signed by David Cruoch 10/29/2018 8:13 AM
[2018-10-29] MEDS: CLINIMIX E 4.25%-5% SOLUTION 1,000 ML IV SCH (08:21)
[2018-10-29] MEDS: ZYVOX 600 MG/D5W 600 MG/300 ML IVPB IV SCH ×2 (08:21→20:01)
--- NOTE | 2018-10-29 08:42 | PROGRESS NOTE ---
DATE: 10/29/2018 SUBJECTIVE: This patient is lying in bed. She has been placed on restraints because she has been trying to pull out lines and NG tube. She is able to say her name and place. She is not oriented to time, and she has been confused on and off. She is getting a bowel series today. Surgery Department on board. OBJECTIVE: Vital Signs: Temperature 99.7 degrees, pulse 94, respiratory rate 22, blood pressure 158/101, oxygen saturation 96% on 2 L of nasal cannula. HEENT: Head normocephalic. No trauma. PERRLA. Neck: Supple. No JVD. No masses. Central trachea. Chest: Clear to auscultation. Some crepitus at the bases, mostly on the left side. Abdomen: Soft. Generalized tenderness to palpation, but a little bit better compared with the previous days. Neurological: The patient is alert, awake. She is answering some of my questions. She is oriented x2. She has been confused on and off, and trying to pull out IV lines and NG tube. LABORATORY DATA: WBC 17.4, hemoglobin 8.8, hematocrit 25.8, platelets 232,000. Sodium 143, potassium 3.8, chloride 104, bicarbonate 27, BUN 88, creatinine 2.7, glucose 124, calcium 7.8, magnesium 1.4, albumin 1.7. ASSESSMENT AND PLAN: 1. Abdominal pain. There is a possibility of anastomotic leak versus penetrating ulcer in the distal stomach or duodenum. We are getting today, a bowel series. Surgery Department on board. 2. Acute kidney injury. This is getting better. Will continue with the same management. Nephrology on board. 3. Metabolic acidosis, resolved. 4. Hyperkalemia, resolved. 5. Hyponatremia, resolved. 6. Hypomagnesemia. I will replace the magnesium today. 7. Hypertension. Continue with the same management. 8. History of chronic obstructive pulmonary disease, not in exacerbation. 9. Gastroesophageal reflux disease. Continue proton pump inhibitors. 10. Nicotine dependence. Continue to monitor. 11. Medical noncompliance. Aware. This patient's WBC has been increasing on a daily basis, so I will add Zyvox to her medications, and I will continue to monitor this patient closely. CRITICAL CARE TIME: 35 minutes. cc: Braxton Aguilar MD
--- NOTE | 2018-10-29 08:55 | Diag Imaging Result Doc PS360 ---
EXAM: CT ABD/PELVIS W/ORAL CONT ONLY 10/29/2018 HISTORY: EVALUATE FOR ULCER PERFORATION TECHNIQUE: This exam was performed using automated exposure control, adjustment of mA or kV according to patient size, and/or use of iterative reconstruction technique. COMMENT: The current study is compared with the previous study of 10/24/2018. There are bilateral pleural effusions. There is bibasilar atelectasis. This was not the case at the time the previous study. There has been partial gastrectomy and gastrojejunostomy. There is free fluid in the cul-de-sac and paracolic gutters. The extraluminal gas which was demonstrated at the time of the previous study of 10/24/2018 in the right and mid upper abdomen adjacent to the liver and pancreatic head has diminished. There does appear to be some extravasation of oral contrast in this area. It is likely that this is coming from the duodenum at the end of the afferent loop. There is perinephric stranding bilaterally but particularly on the right. There is increased anasarca. There is a Knapp catheter in the bladder. There is a large amount of free fluid in the anterior pelvis above the bladder. The regional skeleton appears to be intact. IMPRESSION: Perforation of the afferent loop (duodenum). Worsened ascites and anasarca. Bilateral pleural effusions and basilar atelectasis. The findings were discussed with Jonathan Lezama MD at 10/29/2018 8:52 AM. Electronically signed by David Crouch 10/29/2018 8:52 AM
--- NOTE | 2018-10-29 14:34 | NEPHROLOGY PROGRESS NOTE ---
DATE: 10/29/2018 TIME SEEN: 0630 hours. SUBJECTIVE: Ms. Hartley is resting quietly in bed. Her head of the bed is slightly elevated. She has no complaints. Her skin is warm and dry. She is restrained. OBJECTIVE: Her most recent vital signs ,temperature 99.7 degrees, blood pressure 138/84, heart rate 84, respirations 19. She is on 2 L nasal cannula. Last recorded saturation is 95%. She has had 2750 in and 2010 out with her NG tube drainage. LABORATORY DATA: Sodium 143, potassium 3.8, chloride 104, CO2 27, BUN 88, creatinine 2.7, glucose 124. Her anion gap is 12. Her calcium is 7.8, phosphorus 4.3, albumin is 1.7. White count 17.42, hemoglobin 8.8, hematocrit 25.8, with a platelet count of 232,000. PHYSICAL EXAMINATION: General: This is a 73-year-old white female resting quietly in bed. She appears chronically ill. No acute distress. Skin: Warm and dry. She remains in bilateral wrist restraints. HEENT: Normocephalic, atraumatic. Conjunctivae pale. She has DARLEEN. Mucous membranes are dry. Neck: Supple. Trachea midline. She does have no JVD. She does not have any JVD today. Cardiovascular: Regular rate and rhythm. She has a systolic murmur. No gallop is present. Lungs: Clear to auscultation bilaterally. Equal excursion. She is on O2. Abdomen: Tender, quiet bowel sounds. NG tube continues to low intermittent suction. Genitourinary: Not inspected. Patient has Knapp catheter with increased urinary output. Extremities: No edema. No clubbing or cyanosis. She does have some puffiness to her bilateral hands below the bilateral wrist restraints. Neurological: She is alert to person. She has no other orientation. ASSESSMENT AND PLAN: 1. Acute kidney injury. Patient's BUN and creatinine continue to slowly improve. Adequate urine output. No indications for changes at this time. 2. Electrolytes, acid-base balance and anemia. These all remain acceptable. 3. Status post perforated gastric ulcer repair followed by surgery. I would like to thank you for allowing us to follow with this patient. Dictated by LEX Lynn for Kemar Dent MD Face to face encounter, data reviewed, discussed with Sheela Zamora on 10/29/18. I agree with the above assessment and plan of care. cc: LEX Lynn MD [facility]
[2018-10-29] MEDS ORDERED: HALDOL IV ONE ×2 (15:10→22:19)
[2018-10-29] MEDS: DUONEB (A & A) INH PRN (16:23)
[2018-10-29] MEDS: NEXIUM IV SCH (20:02)
[2018-10-30] MEDS: ZOSYN 3.375 GM in NS 50 ML IV SCH ×4 (02:28→18:04)
[2018-10-30 05:16] LABS: BASO# 0.04 X1000 (0.0-0.2); BASO% 0.2 % (0.0-0.8); EOS# 0.26 X1000 (0.0-0.7); EOS% 1.5 % (0.0-10.0); HEMATOCRIT 29.7 % (37.0-47.0); HEMOGLOBIN 9.9 g/dL (12.0-16.0); IMM GRAN# 0.11 X1000 (0.0-0.04); IMM GRAN% 0.6 % (0.0-0.5); LYMPH% 4.7 % (20.5-51.1); MCHC 33.3 g/dL (33-37); MONO# 1.35 X1000 (0.11-0.59); MONO% 7.9 % (1.7-9.3); MPV 11.5 FL (7.4-10.4); NEUT# 14.49 X1000 (1.4-6.5); NEUT% 85.1 % (42.2-75.2); PLT 244 X1000 (130-400); RBC 3.81 XMIL (4.2-5.4); WBC 17.05 X1000 (4.8-10.8)
[2018-10-30 05:17] LABS: CALCIUM 8.5 mg/dL (8.8-10.2); POTASSIUM 3.3 mmol/L (3.5-5.1)
[2018-10-30] MEDS: LR 1,000 ML IV SCH (05:24)
[2018-10-30] MEDS ORDERED: D5 1/2 NS + KCL 20 MEQ 1,000 ML IV SCH (07:15)
[2018-10-30] MEDS: CLINIMIX E 4.25%-5% SOLUTION 1,000 ML IV SCH (08:10)
[2018-10-30] MEDS: ZYVOX 600 MG/D5W 600 MG/300 ML IVPB IV SCH ×2 (08:11→21:03)
[2018-10-30] MEDS: MORPHINE IV PRN ×2 (08:39→18:04)
--- NOTE | 2018-10-30 10:02 | PROGRESS NOTE ---
DATE: 10/30/2018 SUBJECTIVE: This patient is lying in bed. She has been placed in restraints because she has been trying to pull out lines and NG tube. She is able to say her name, date of and place. She is not oriented to time, and she has been confused on and off. Surgery Department on board. Her abdomen is still painful. We did an upper GI series that did not show any evidence of obstruction or perforation. Her sodium is slightly elevated and her potassium is slightly low so I will stop the Ringer lactate, and I will put her on D5 half NS with some potassium. I will recheck her BMP in the afternoon. Kidney function is getting better. OBJECTIVE: Vital Signs: Temperature 98.4 degrees, pulse 67, respiratory rate 29, blood pressure 178/87, and oxygen saturation 96% on 2 L of nasal cannula. HEENT: Head normocephalic. No trauma. PERRLA. Neck: Supple. No JVD. No masses. Central trachea. Chest: Clear to auscultation with some crepitus at the bases, mostly on the left side. Abdomen: Soft. Generalized tenderness to palpation. Positive bowel sounds but decreased. Neurological: The patient is alert and awake. She is answering some of my questions. She is oriented x2, but she has been confused on and off, and trying to pull out IV lines and NG tube. LABORATORY: WBC 17, hemoglobin 9.9, hematocrit 29.7, and platelets 244,000. Sodium 146, potassium 3.3, chloride 107, bicarbonate 27, BUN 71, creatinine 2, glucose 120, and calcium 8.5. ASSESSMENT AND PLAN: 1. Abdominal pain. Initially admitted due to the possibility of anastomotic leak versus penetrating ulcer in the distal stomach or duodenum. We did an upper GI series yesterday that did not show any evidence of obstruction or perforation. I will wait for surgery department recommendations. 2. Acute kidney injury. This is getting better. Continue with same management. Nephrology on board. 3. Metabolic acidosis, resolved. 4. Hyperkalemia resolved. 5. Hyponatremia resolved. Actually, this patient today is hypernatremic. 6. Hypernatremia. I will continue to monitor. I have placed this patient on D5 half NS. 7. Hypomagnesemia. We will monitor, it has been replaced yesterday. 8. Hypertension. Continue with same management. 9. History of chronic obstructive pulmonary disease, not in exacerbation. 10. Gastroesophageal reflux disease. Continue with proton pump inhibitors. 11. Hypokalemia. I will add potassium to her fluids. 12. Nicotine dependence. Continue to monitor. 13. Medical noncompliance. Aware. CRITICAL CARE TIME: 30 minutes. cc: Braxton Aguilar MD
--- NOTE | 2018-10-30 13:48 | GENERAL SURGERY PROGRESS NOTE ---
DATE: 10/30/2018 Ms. Hartley' imaging yesterday showed probable leak from her afferent limb of her B2 anastomosis. This is the area where the previous ulcer had been covered. She has increased free fluid in the abdomen. She continues to be tender, and her white count remains elevated at 17,000. The plan will be to exploration today with drainage of the infection and probable duodenostomy tube. I have discussed this with her and her family. They understand and agree to proceed. cc: Jonathan Lezama MD
--- NOTE | 2018-10-30 14:44 | NEPHROLOGY PROGRESS NOTE ---
DATE: 10/30/2018 TIME SEEN: 0640. SUBJECTIVE: Ms. Hartley is currently resting quietly in bed. Her head of the bed is slightly elevated. She is awake and alert to person. She remains in bilateral wrist restraints. LABORATORY DATA: Sodium 146, potassium 3.3, chloride 107, CO2 of 27, BUN 71, creatinine 2, glucose 120, her anion gap is 12, calcium 8.5. White count 17.05, hemoglobin 9.9, hematocrit 29.7, platelet count 244,000. Her blood cultures are now negative. PHYSICAL EXAMINATION: Vital Signs: Temperature 98.4 degrees, blood pressure 178/87, heart rate 67, respirations 23. She is on 2 L nasal cannula. Last recorded saturation is 94%. She has had 3200 in. She has had 2425 out to Knapp with NG tube. General: This is a 73-year-old white, female resting quietly in bed. She appears chronically ill. No acute distress. Skin: Warm and dry. HEENT: Normocephalic, atraumatic. Conjunctiva is pale. She has DARLEEN. Mucous membranes are dry. Neck: Supple. Trachea midline. No JVD. Cardiovascular: She is regular rate and rhythm. She has a systolic murmur. No gallop. Lungs: Clear to auscultation bilaterally. Equal excursion on O2. Abdomen: Remains slightly tender. NG tube remains to low intermittent suction. She has quiet bowel sounds. Genitourinary: Not inspected. Knapp catheter is in place with adequate urine out. Extremities: No edema. No clubbing or cyanosis. Integumentary: The patient has different stages of ecchymoses that are healing to her upper and lower extremities. She does have bilateral wrist restraints. Puffiness noted above these restraints. Neurological: She is alert to person only. ASSESSMENT AND PLAN: 1. Acute kidney injury. The patient's BUN and creatinine continue to slowly improve, BUN of 71, creatinine of 2. Adequate urine output. No indications for intervention at this time. 2. Electrolytes, acid-base balance, and anemia. These are all acceptable. 3. Status post perforated gastric ulcer repair, followed by Surgery and primary care. Blood cultures are now negative. I would like to thank you for allowing us to follow with this patient. Dictated by LEX Lynn for Kemar Dent MD Face to face encounter, data reviewed, discussed with Sheela Zamora on 10/30/18. I agree with the above assessment and plan of care. cc: LEX Lynn MD [facility]
[2018-10-30] MEDS ORDERED: NEO-SYNEPHRINE ONE (15:22)
[2018-10-30] MEDS ORDERED: AMIDATE ONE (15:22)
[2018-10-30] MEDS ORDERED: XYLOCAINE-MPF 2% ONE (15:22)
[2018-10-30] MEDS ORDERED: QUELICIN (DOSE) ONE (15:22)
[2018-10-30] MEDS ORDERED: KETAMINE ONE (15:36)
[2018-10-30] MEDS ORDERED: DEMEROL ONE (15:37)
[2018-10-30] MEDS ORDERED: VERSED ONE (15:37)
--- NOTE | 2018-10-30 17:50 | Diag Imaging Result Doc PS360 ---
EXAM: CHEST-PORTABLE - 10/30/2018 HISTORY: central line placement TECHNIQUE: Portable chest COMPARISON: 10/28/2018 FINDINGS: There has been interval placement of a right internal jugular central venous catheter, with its tip at or near the caval atrial junction. There is no pneumothorax identified. There is been apparent increase in infiltrate or atelectasis at the medial left base. There are no other interval changes identified. There is a nasogastric tube again seen which can be followed to the stomach. IMPRESSION: Tip of central venous catheter at or near caval atrial junction. No evidence of pneumothorax. Apparent increase in infiltrate or atelectasis at medial left base. Electronically signed by Derick Mirza 10/30/2018 5:48 PM
[2018-10-30 18:26] LABS: CREATININE 1.5 mg/dL (0.5-0.9); POTASSIUM 3.9 mmol/L (3.5-5.1)
[2018-10-30] MEDS: D5W 1,000 ML IV SCH (21:04)
[2018-10-30] MEDS: SODIUM CHLORIDE 0.9% INJ SCH (21:06)
[2018-10-30] MEDS: NEXIUM IV SCH (21:06)
--- NOTE | 2018-10-30 22:25 | OPERATIVE NOTE ---
PROCEDURE DATE: 10/30/2018 NAME OF PROCEDURE: 1. Exploratory laparotomy. 2. Drainage of right upper quadrant Phlegmon; excision of portion of omentum. SURGEON: Jonathan Lezama MD. COMMUNITY DEVELOPMENT TECHNICIAN: Stephanie Feliciano MD, who assisted in the opening of the abdominal cavity, the dissection of the adhesions, the exploration of the phlegmon and drainage of the phlegmon. He was quite helpful in that as well as the decision-making process. DESCRIPTION OF PROCEDURE: After satisfactory general endotracheal anesthesia, the abdomen was prepped and draped in a sterile fashion. A midline incision was made in the area of the old scar carrying it just down below the umbilicus. We used the electrocautery to divide the subcutaneous tissue and open the fascia. We then carefully dissected the bowel from the back of the anterior abdominal wall. Inferiorly we entered a large fluid-filled space that had bile. There was a lot of bile staining as well as exudate on the bowel. We carefully dissected between the loops of bowel. In our dissection we identified the transverse colon. We identified the ligament of Treitz. We identified the loop of bowel going up to the stomach for the Billroth II anastomosis. We identified the stomach. We dissected underneath the liver. We identified the gallbladder. We identified the space toward the duodenum. Even there was a lot of biliary staining, we could identify no obvious spot of leakage from the bowel proper. We dissected along the hepatic flexure of the colon. We thoroughly evaluated the small bowel from the ligament of Treitz down to the cecum. We removed what exudate we could off the surface of the bowel. This probably represented some saponification from the pancreas, but it was impossible to identify a particular site that had leaked. Because we could not identify a specific site, we just decided to leave a drain in the right upper quadrant where most of the staining and contamination was. We copiously irrigated the abdominal cavity. We removed all the debris and we irrigated until the effluent was clear. We then placed a Shayan drain in the right upper quadrant going under the surface of the liver all the way up to the site of the closure of the duodenum over the ulcer area and then back between the duodenum in the transverse colon. We felt like it was adequately drained with this drain. We then proceeded to close the peritoneum with a 2-0 chromic. We closed the fascia with #1 Maxon beginning superiorly and inferiorly and meeting in the middle. The subcutaneous tissue was copiously irrigated out, and the skin was closed with leonidas. Sterile dressing was applied. She tolerated the procedure satisfactory and was sent to the recovery room in satisfactory condition. cc: Jontahan Lezama MD
[2018-10-31] MEDS: ZOSYN 3.375 GM in NS 50 ML IV SCH ×5 (00:38→23:32)
[2018-10-31] MEDS: MORPHINE IV PRN ×2 (04:55→15:14)
[2018-10-31 06:25] LABS: BASO# 0.04 X1000 (0.0-0.2); BASO% 0.2 % (0.0-0.8); EOS# 0.06 X1000 (0.0-0.7); EOS% 0.3 % (0.0-10.0); HEMATOCRIT 24.3 % (37.0-47.0); HEMOGLOBIN 7.9 g/dL (12.0-16.0); IMM GRAN# 0.18 X1000 (0.0-0.04); LYMPH# 0.92 X1000 (1.2-3.4); LYMPH% 5.2 % (20.5-51.1); MCHC 32.5 g/dL (33-37); MCV 79.9 FL (81-99); MONO# 2.28 X1000 (0.11-0.59); MONO% 12.8 % (1.7-9.3); MPV 12.2 FL (7.4-10.4); NEUT# 14.31 X1000 (1.4-6.5); NEUT% 80.5 % (42.2-75.2); PLT 196 X1000 (130-400); RBC 3.04 XMIL (4.2-5.4); RDW 17.8 % (11.5-14.5); WBC 17.79 X1000 (4.8-10.8)
[2018-10-31 06:34] LABS: ALBUMIN 1.5 g/dL (3.5-5.0); CALCIUM 7.6 mg/dL (8.8-10.2); CREATININE 1.7 mg/dL (0.5-0.9); MAGNESIUM 1.3 mg/dL (1.5-2.7); PHOSPHORUS 3.3 mg/dL (2.7-4.5); POTASSIUM 3.7 mmol/L (3.5-5.1)
[2018-10-31] MEDS: CLINIMIX E 4.25%-5% SOLUTION 1,000 ML IV SCH (06:54)
[2018-10-31] MEDS ORDERED: MAGNESIUM SULFATE 2 GM/S.W.I. 2 GM/50 ML IVPB IV ONE (07:11)
[2018-10-31] MEDS: ZYVOX 600 MG/D5W 600 MG/300 ML IVPB IV SCH ×2 (07:47→20:31)
[2018-10-31 07:58] LABS: LYMPHS 7 % (21-51); MONO 13 % (1-9); SEGS 80 % (42-75)
[2018-10-31] MEDS: D5W 1,000 ML IV SCH ×2 (09:38→23:32)
[2018-10-31] MEDS: TPN ELECTROLYTES IV SCH ×10 (09:47)
[2018-10-31] MEDS: [UNRECOGNIZED DRUG - OTHER] IV SCH ×10 (09:47)
[2018-10-31] MEDS: AMINOSYN IV SCH ×10 (09:47)
[2018-10-31] MEDS: LIPOSYN 20% 500 ML IV SCH (09:47)
[2018-10-31] MEDS: HUMULIN R SUBQ SCH ×2 (12:15→20:32)
--- NOTE | 2018-10-31 14:29 | PROGRESS NOTE ---
DATE: 10/31/2018 SUBJECTIVE: Patient is lying in bed. We will continue with physical restraints to avoid problems pulling out the NG tube and the line. She is answering to most of my questions. She is oriented x2. She had a surgery done yesterday that showed a right upper quadrant phlegmon and also they did an excision of a portion of omentum. A drain has been left. Surgery Department on board. We will continue to monitor. OBJECTIVE: Vital Signs: Temperature 98.2 degrees, pulse 96 respiratory rate 25, blood pressure 110/72, oxygen saturation 100% on 2 L of nasal cannula. HEENT: Head normocephalic, no trauma. PERRLA. Neck: Supple. No JVD. No masses. Central trachea. Chest: Clear to auscultation with some crepitus at the bases. Abdomen: Soft, generalized tenderness to palpation. Decreased bowel sounds. Neurological: The patient is alert, awake. She is answering to some of my questions. She is oriented x2. It looks like she has been confused on and off. LABORATORY: WBC 17.7, hemoglobin 7.9, hematocrit 24.3, platelets 196,000. Sodium 145, potassium 3.7, chloride 105, bicarbonate 27, BUN 57, creatinine 1.7, glucose 201, calcium 7.6, magnesium 1.3, albumin 1.5. ASSESSMENT AND PLAN: 1. Abdominal pain. Initially admitted due to the possibility of anastomotic leak versus penetrating ulcer in the distal stomach or duodenum. She went for an exploratory laparotomy yesterday and they drained a right upper quadrant phlegmon and they also did an excision of the portion of the omentum. We will continue with antibiotics. We will continue to monitor this patient closely. 2. Acute kidney injury, this is getting better. Continue with same management. Nephrology on board. 3. Metabolic acidosis, resolved. 4. Hyperkalemia, resolved. 5. Hyponatremia resolved actually this patient was hypernatremic a little bit hypernatremic. 6. Hypernatremia. Continue to monitor. This patient has been placed on D5W. 7. Hypomagnesemia. I will monitor. It has been low today, so I will replace it. 8. Hypertension continue with same management. 9. History of chronic obstructive pulmonary disease, not in exacerbation. 10. Gastroesophageal reflux disease. Continue with proton pump inhibitors. 11. Hypokalemia is within normal limits today. 12. Nicotine dependence. This patient has been advised against tobacco use will continue with daily cessation education. 13. Medical noncompliance, aware. CRITICAL CARE TIME: 35 minutes. cc: Braxton Aguilar MD
[2018-10-31] MEDS: ZOFRAN IV PRN (15:13)
--- NOTE | 2018-10-31 19:18 | GENERAL SURGERY PROGRESS NOTE ---
DATE: 10/31/2018 SUBJECTIVE: She is 1 day after exploratory laparotomy and drainage of her biliary peritonitis. No definitive site of leakage was identified. She says she feels better today. OBJECTIVE: She is afebrile. Her heart rate is 96, blood pressure 110/72. She is awake, alert and oriented. Her drain output was 365 mL. There is no bile in it. Her NG tube put out 450 mL. It is bilious. LABORATORY DATA: White count is 17,800, hemoglobin 7.9 hematocrit 24.3. BUN 57, creatinine 1.7, albumin is 1.5. ASSESSMENT AND PLAN: This lady no doubt needs nourishment. I think we should consider her for total parenteral nutrition as well, in view of her chronic malnutrition. [facility] will cover the weekend. cc: Jonathan Lezama MD
[2018-10-31] MEDS: NEXIUM IV SCH (20:31)
[2018-10-31] MEDS: SODIUM CHLORIDE 0.9% INJ SCH (20:32)
--- NOTE | 2018-10-31 21:25 | PROGRESS NOTE ---
DATE: 10/31/2018 SUBJECTIVE: Patient resting in bed. She has been in restraints overnight. OBJECTIVE: Vital Signs: Temperature afebrile, pulse 96, respiratory rate 25, blood pressure 110/72. Intake 2.3 L, output 2.3 L. General: Elderly female, resting in bed. She does not appear in acute distress, but apparently has been pulling at her medical devices. HEENT: Normocephalic, atraumatic. DARLEEN. Chronically ill. Neck: Supple. No JVD. Cardiovascular: Regular rate and rhythm with a murmur. Pulmonary: Clear bilaterally. Abdomen: Soft. Positive bowel sounds. She has an NG tube to LIS. Continues with some tenderness. Genitourinary: Knapp catheter. Extremities: No clubbing, cyanosis. She has edema to the left upper extremity. Integumentary: Skin is pale, warm, and dry. LABORATORY DATA: Creatinine 1.7. ASSESSMENT AND PLAN: Acute kidney injury. She has had some stabilization of renal function over the last 24-48 hours. She has no indications for intervention other than current treatment plan. Continue to follow. Dictated by LEX Stahl for Kemar Dent MD Face to face encounter, data reviewed, discussed with Shorty Geller on 10/31/18. I agree with the above assessment and plan of care. cc: Kemar Dent MD [facility]
[2018-11-01] MEDS: MORPHINE IV PRN ×4 (00:09→23:48)
[2018-11-01] MEDS: HUMULIN R SUBQ SCH ×5 (00:17→20:24)
[2018-11-01] MEDS: ZOSYN 3.375 GM in NS 50 ML IV SCH ×4 (05:15→23:50)
[2018-11-01 05:59] LABS: BASO# 0.02 X1000 (0.0-0.2); BASO% 0.1 % (0.0-0.8); EOS# 0.52 X1000 (0.0-0.7); EOS% 3.3 % (0.0-10.0); HEMATOCRIT 18.9 % (37.0-47.0); HEMOGLOBIN 6.1 g/dL (12.0-16.0); IMM GRAN# 0.14 X1000 (0.0-0.04); IMM GRAN% 0.9 % (0.0-0.5); LYMPH# 1.32 X1000 (1.2-3.4); LYMPH% 8.4 % (20.5-51.1); MCH 25.8 PG (27-31); MCHC 32.3 g/dL (33-37); MCV 80.1 FL (81-99); MPV 12.9 FL (7.4-10.4); NEUT# 11.54 X1000 (1.4-6.5); NEUT% 73.3 % (42.2-75.2); PLT 184 X1000 (130-400); RBC 2.36 XMIL (4.2-5.4); RDW 17.7 % (11.5-14.5); WBC 15.74 X1000 (4.8-10.8)
[2018-11-01 06:16] LABS: MAGNESIUM 1.6 mg/dL (1.5-2.7)
[2018-11-01 06:30] LABS: ALBUMIN 1.4 g/dL (3.5-5.0); CALCIUM 7.6 mg/dL (8.8-10.2); CREATININE 1.5 mg/dL (0.5-0.9); PHOSPHORUS 2.7 mg/dL (2.7-4.5); POTASSIUM 3.1 mmol/L (3.5-5.1)
[2018-11-01] MEDS: TPN ELECTROLYTES IV SCH ×10 (06:56)
[2018-11-01] MEDS: [UNRECOGNIZED DRUG - OTHER] IV SCH ×10 (06:56)
[2018-11-01] MEDS: AMINOSYN IV SCH ×10 (06:56)
[2018-11-01] MEDS ORDERED: POTASSIUM CHLORIDE 40 MEQ/SWI 40 MEQ/100 ML IVPB IV ONE (07:13)
[2018-11-01] MEDS: ZYVOX 600 MG/D5W 600 MG/300 ML IVPB IV SCH ×2 (07:48→19:58)
[2018-11-01] MEDS ORDERED: NS 250 ML IV ONE (09:00)
[2018-11-01] MEDS: LIPOSYN 20% 500 ML IV SCH (10:00)
--- NOTE | 2018-11-01 14:30 | PROGRESS NOTE ---
DATE: 11/01/2018 SUBJECTIVE: This patient seems to be doing better today. She is not on physical restraints. She is more awake, alert. She is following commands. She is anemic and she is receiving 2 units of PRBCs. Also, I will replace the potassium. WBC decreased from 17 to 15. OBJECTIVE: Vital Signs: Temperature 99.5 degrees, pulse 74, respiratory rate 24, blood pressure 126/74. Oxygen saturation 100% on 2 L of nasal cannula. HEENT: Head normocephalic. No trauma. PERRLA. Neck: Supple. No JVD. No masses. Central trachea. Chest: Clear to auscultation with some crepitus at the bases. Abdomen: Soft, generalized tenderness to palpation. Decreased bowel sounds. Neurological: The patient is alert, awake. She is answering some of my questions. She is oriented x2. She is following commands consistently, today. She seems to be more awake. LABORATORY: WBC 15.7, hemoglobin 6.1, hematocrit 18.9, platelets 184,000. Sodium 136, potassium 3.1, chloride 101, bicarbonate 26, BUN 43, creatinine 1.5, glucose 131, calcium 7.6, magnesium 1.6, albumin 1.4. ASSESSMENT AND PLAN: 1. Abdominal pain. Initially admitted due to the possibility of an anastomotic leak versus penetrating ulcer, she went for exploratory laparotomy 2 days ago and they drained a right upper quadrant phlegmon and they also did an excision of a portion of the omentum, we will continue with antibiotics. Continue to monitor WBC trending down. She is feeling better. 2. Acute kidney injury. This is getting better continue with same management. Nephrology on board. 3. Metabolic acidosis, resolved. 4. Hyperkalemia resolved. 5. Hyponatremia resolved. 6. Hypomagnesemia today is normal. 7. Hypokalemia. I will replace it. 8. Hypertension. Continue same management. 9. History of chronic obstructive pulmonary disease not in exacerbation. 10. Gastroesophageal reflux disease. Continue with proton pump inhibitors. 11. Nicotine dependence. This patient has been advised against tobacco use. I will continue with daily cessation education. 12. Medical noncompliance. Aware. 13. Anemia, hemoglobin is around 6.1. We have requested 2 units of PRBCs. CRITICAL CARE TIME: Thirty-five minutes. cc: Braxton Aguilar MD
[2018-11-01] MEDS: D5W 1,000 ML IV SCH (15:32)
[2018-11-01] MEDS: SODIUM CHLORIDE 0.9% INJ SCH (20:17)
[2018-11-01] MEDS: NEXIUM IV SCH (20:17)
--- NOTE | 2018-11-01 20:51 | GENERAL SURGERY PROGRESS NOTE ---
DATE: 11/01/2018 SUBJECTIVE: Feels well. She is alert. Her drain is in place. It does have purulent bilious tinged fluid. White count down to 15, hematocrit is 18. She is being transfused this morning. Creatinine is 1.5, down from 1.7, and high is 3.7. Pre-albumin 6. ASSESSMENT/PLAN: A 73-year-old female with repair of a complication associated with peptic ulcer disease. Remains very guarded clinically, but does seem to be doing better. We will continue following her. Keep her drain and she is on Zyvox and Zosyn. cc: Madeleine Fitch MD
--- NOTE | 2018-11-01 22:04 | NEPHROLOGY PROGRESS NOTE ---
DATE: 11/01/2018 SUBJECTIVE: The patient is sitting up in bed. No complaints today. She is awake and alert. OBJECTIVE: Vital signs: Temperature 98 degrees, pulse 73, respiratory rate 13, blood pressure 109/65. Intake 3.5 L. Output 1.8 L.General: This is an elderly female sitting up in bed in no acute distress. HEENT: Normocephalic, atraumatic. Conjunctivae are pale. Oral mucosa moist. Neck is supple. Cardiovascular: Regular rate and rhythm, with a murmur. Pulmonary: She is clear bilaterally. Abdomen: Soft, with positive bowel sounds. Continues with NG tube to LIS and some tenderness noted diffusely. : Knapp catheter. Extremities: Continues with left upper extremity edema. Integumentary: Skin is warm and dry. MARYCHUY drain noted in right lower quadrant, clean, dry and intact. Serosanguineous fluid. LABORATORY DATA: WBC of 15.7, hemoglobin 6.1. Sodium 136, potassium 3.1, CO2 is 26, creatinine 1.5. ASSESSMENT AND PLAN: 1. Acute kidney injury. Renal function remains stable. No indications for intervention otherwise. 2. Anemia. The patient is receiving packed red blood cells today. No change in treatment. 3. Status post perforated gastric ulcer, followed by Surgery. Dictated by LEX Stahl for Kemar Dent MD cc: Kemar Dent MD
[2018-11-02] MEDS: HUMULIN R SUBQ SCH ×3 (04:21→22:47)
[2018-11-02] MEDS: MORPHINE IV PRN ×4 (04:22→23:20)
[2018-11-02] MEDS: D5W 1,000 ML IV SCH (05:03)
[2018-11-02] MEDS: [UNRECOGNIZED DRUG - OTHER] IV SCH ×10 (05:15)
[2018-11-02] MEDS: AMINOSYN IV SCH ×10 (05:15)
[2018-11-02] MEDS: TPN ELECTROLYTES IV SCH ×10 (05:15)
[2018-11-02] MEDS: ZOSYN 3.375 GM in NS 50 ML IV SCH ×4 (05:15→23:41)
[2018-11-02] MEDS ORDERED: APRESOLINE IV PRN (06:46)
[2018-11-02 06:57] LABS: ALBUMIN 1.5 g/dL (3.5-5.0); CALCIUM 7.9 mg/dL (8.8-10.2); CREATININE 1.4 mg/dL (0.5-0.9); MAGNESIUM 1.4 mg/dL (1.5-2.7); PHOSPHORUS 2.8 mg/dL (2.7-4.5); POTASSIUM 3.7 mmol/L (3.5-5.1)
[2018-11-02 07:02] LABS: BASO# 0.03 X1000 (0.0-0.2); BASO% 0.2 % (0.0-0.8); EOS# 0.56 X1000 (0.0-0.7); EOS% 3.9 % (0.0-10.0); HEMOGLOBIN 10.6 g/dL (12.0-16.0); IMM GRAN# 0.18 X1000 (0.0-0.04); IMM GRAN% 1.3 % (0.0-0.5); LYMPH# 1.21 X1000 (1.2-3.4); LYMPH% 8.5 % (20.5-51.1); MCH 27.4 PG (27-31); MCHC 34.2 g/dL (33-37); MCV 80.1 FL (81-99); MONO# 1.69 X1000 (0.11-0.59); MONO% 11.9 % (1.7-9.3); MPV 12.8 FL (7.4-10.4); NEUT# 10.54 X1000 (1.4-6.5); NEUT% 74.2 % (42.2-75.2); PLT 193 X1000 (130-400); RBC 3.87 XMIL (4.2-5.4); RDW 17.4 % (11.5-14.5); WBC 14.21 X1000 (4.8-10.8)
[2018-11-02] MEDS ORDERED: MAGNESIUM SULFATE 2 GM/S.W.I. 2 GM/50 ML IVPB IV ONE (07:05)
[2018-11-02] MEDS ORDERED: 1/2 NS 1,000 ML IV SCH (07:15)
[2018-11-02] MEDS: ZYVOX 600 MG/D5W 600 MG/300 ML IVPB IV SCH ×2 (07:45→21:04)
[2018-11-02] MEDS: D5 1/2 NS 1,000 ML IV SCH ×2 (07:46→23:42)
[2018-11-02] MEDS: LIPOSYN 20% 500 ML IV SCH (09:18)
--- NOTE | 2018-11-02 10:30 | PROGRESS NOTE ---
DATE: 11/02/2018 SUBJECTIVE: The patient seems to be doing better. Her white blood cell count is trending down. We will replace the magnesium. BUN and creatinine are better today again. I think this patient is stable enough to go to the floor. I will stop the D5W and I will put this patient on half NS. OBJECTIVE: Vital Signs: Temperature 98.6 degrees, pulse 66, respiratory rate 22, blood pressure 124/96, oxygen saturation 98 on nasal cannula. HEENT: Head normocephalic. No trauma. PERRLA. Neck: Supple. No JVD. No masses. Central trachea. Chest: Clear to auscultation. Some crepitus at the bases. Abdomen: Soft. Generalized tenderness to palpation. Decreased bowel sounds but present. Neurological: The patient is alert, awake. She is answering some of my questions. She is oriented x2. She is following commands consistently. She seems to be more awake and she seems to be getting better. She feels better as well. LABORATORY DATA: WBC 14.2, hemoglobin 10.6, hematocrit 31, platelets 193,000. Sodium 131, potassium 3.7, chloride 98, bicarbonate 21, BUN 33, creatinine 1.4, glucose 175, calcium 7.9, magnesium 1.5, albumin 1.5. ASSESSMENT AND PLAN: 1. Abdominal pain, this is getting better. She is status post exploratory laparotomy, postoperative day #3. They drained a right upper quadrant phlegmon and they also did an excision of a portion of the omentum. She will continue with antibiotics. Continue to monitor WBC, which is trending down. She is feeling better. 2. Acute kidney injury, getting better. Continue with IV fluids. 3. Metabolic acidosis, resolved. 4. Hyperkalemia, resolved. 5. Hyponatremia. Continue with same management. 6. Hypomagnesemia. Will continue to monitor. I will replace it today. 7. Hypokalemia. Resolved. 8. Hypertension. Continue with same management. 9. History of chronic obstructive pulmonary disease, not in exacerbation. 10. Gastroesophageal reflux disease. Continue with proton pump inhibitors. 11. Nicotine dependence. This patient has been advised against tobacco use. Will continue with daily cessation education. 12. Medical noncompliance, aware. 13. Anemia status post 2 PRBCs. Hemoglobin improved from 6.1 to 10.6. 14. Severe protein calorie malnutrition, aware. Continue with same management for now. cc: Braxton Aguilar MD
--- NOTE | 2018-11-02 15:08 | GENERAL SURGERY PROGRESS NOTE ---
DATE: 11/02/2018 SUBJECTIVE: She says she feels very well. Hemodynamically stable overnight. No fevers documented. OBJECTIVE: Vital signs: Pulse has been in the 70s to 90s for the most part. Blood pressure 174/96, oxygen saturation high 90s on 2 L. General: She is alert. Abdomen: Soft. MARYCHUY drain continues to have bile tinge. LABORATORY: White count is down to 14. Hematocrit is up to 31 after transfusion yesterday. Creatinine is 1.4. Glucose 170s, 160s. Albumin is 1.5, magnesium is 1.4, prealbumin was 6. ASSESSMENT AND PLAN: This is a 73-year-old female with apparent perforation or leak from prior ulcer repair. After drain placement she is clinically doing surprisingly well. We will continue her on her broad-spectrum antibiotics. We will keep her drain for now. Nutritional support peripherally. Continue to monitor going forward. cc: Madeleine Fitch MD
--- NOTE | 2018-11-02 16:05 | NEPHROLOGY PROGRESS NOTE ---
DATE: 11/02/2018 SUBJECTIVE: Patient is resting in bed. She has no complaints this morning. OBJECTIVE: Vital Signs: Temperature 98.6 degrees, pulse 66, respiratory rate 22, blood pressure 174/96. Intake 4.4 L. Output 2.0 L. PHYSICAL EXAMINATION: General: Elderly female, resting in bed, no acute distress. HEENT: Normocephalic, atraumatic. DARLEEN. She does have a little bit of periorbital edema. Her oral mucosa is moist. Neck: Supple. She has perhaps some trace JVD. Cardiovascular: Reveals regular rate and rhythm. Pulmonary: She has equal excursion. No increased work of breathing. Abdomen: Soft. Diffusely tender. MARYCHUY during noted, serosanguineous fluid. : Knapp catheter dark clear yellow urine, adequate amount. Extremities: Continues with left upper extremity edema. None to the right upper extremity. Trace pretibial. Integumentary: Skin is pale, warm, and dry. LAB DATA: Sodium 131, potassium 3.7, CO2 21, creatinine 1.4. ASSESSMENT AND PLAN: 1. Acute kidney injury. She has had stable to mild improvement with renal function over the weekend. No change to current treatment plan. 2. Electrolytes, acid-base balance. Continue to monitor. 3. Fluid volume. She is about 2 L positive today. Will continue to monitor closely that she does not become significantly overloaded. Dictated by LEX Stahl for Kemar Dent MD cc: Kemar Dent MD
[2018-11-02] MEDS: SODIUM CHLORIDE 0.9% INJ SCH (21:04)
[2018-11-02] MEDS: NEXIUM IV SCH (21:04)
[2018-11-03] MEDS: [UNRECOGNIZED DRUG - OTHER] IV SCH ×10 (02:50)
[2018-11-03] MEDS: AMINOSYN IV SCH ×10 (02:50)
[2018-11-03] MEDS: TPN ELECTROLYTES IV SCH ×10 (02:50)
[2018-11-03] MEDS: HUMULIN R SUBQ SCH ×6 (03:15→21:03)
[2018-11-03] MEDS: ZOSYN 3.375 GM in NS 50 ML IV SCH ×3 (06:28→17:25)
[2018-11-03] MEDS: MORPHINE IV PRN (06:28)
[2018-11-03 07:08] LABS: BASO# 0.03 X1000 (0.0-0.2); BASO% 0.2 % (0.0-0.8); EOS# 0.31 X1000 (0.0-0.7); EOS% 2.4 % (0.0-10.0); HEMATOCRIT 29.1 % (37.0-47.0); HEMOGLOBIN 9.6 g/dL (12.0-16.0); IMM GRAN# 0.15 X1000 (0.0-0.04); IMM GRAN% 1.2 % (0.0-0.5); LYMPH# 0.71 X1000 (1.2-3.4); LYMPH% 5.6 % (20.5-51.1); MCH 26.7 PG (27-31); MCV 81.1 FL (81-99); MONO# 1.24 X1000 (0.11-0.59); MONO% 9.7 % (1.7-9.3); MPV 12.2 FL (7.4-10.4); NEUT# 10.32 X1000 (1.4-6.5); NEUT% 80.9 % (42.2-75.2); PLT 222 X1000 (130-400); RBC 3.59 XMIL (4.2-5.4); RDW 16.9 % (11.5-14.5); WBC 12.76 X1000 (4.8-10.8)
[2018-11-03 07:11] LABS: ALBUMIN 1.6 g/dL (3.5-5.0); CALCIUM 7.6 mg/dL (8.8-10.2); CREATININE 1.2 mg/dL (0.5-0.9); MAGNESIUM 1.5 mg/dL (1.5-2.7); PHOSPHORUS 2.9 mg/dL (2.7-4.5); POTASSIUM 3.1 mmol/L (3.5-5.1)
[2018-11-03 07:35] LABS: EOS 2 % (1-10); LYMPHS 10 % (21-51); MONO 9 % (1-9); SEGS 79 % (42-75)
[2018-11-03] MEDS: ZYVOX 600 MG/D5W 600 MG/300 ML IVPB IV SCH ×2 (07:46→20:48)
[2018-11-03] MEDS: D5 1/2 NS 1,000 ML IV SCH ×2 (12:30→14:35)
--- NOTE | 2018-11-03 13:02 | NEPHROLOGY PROGRESS NOTE ---
DATE: 11/03/2018 SUBJECTIVE: Patient is resting in bed. She is awake, alert, and interactive. OBJECTIVE: Vital Signs: Temperature 98 degrees, pulse 73, respiratory rate 15, blood pressure 158/86. Intake 1.7 L. Output 2.6 L. Physical Examination: General: Elderly female, resting in bed. Awake and alert. No acute distress. HEENT: Normocephalic, atraumatic. DARLEEN. Her periorbital edema is improved. Oral mucosa moist. Neck: Supple with trace JVD. Cardiovascular: Regular rate and rhythm. Pulmonary: Equal excursion. No increased work of breathing. Abdomen: Soft. Continues with tenderness. : Knapp catheter with a full urometer of clear yellow urine. Extremities: No lower extremity edema. Her left upper extremity edema has improved significantly. Integumentary: Skin remains pale, warm, and dry. Lab Data: Sodium 134, potassium 3.1, CO2 of 24, creatinine 1.2 (1.4, 1.5). ASSESSMENT AND PLAN: Acute kidney injury with continued improvement over the weekend. Renal function is almost to normal at this time. We will sign off. rg Dictated by LEX Stahl for Kemar Dent MD Face to face encounter, data reviewed, discussed with Shorty Geller on 11/03/18. I agree with the above assessment and plan of care. shaun cc: Kemar Dent MD [facility]
[2018-11-03] MEDS: LIPOSYN 20% 500 ML IV SCH (13:49)
[2018-11-03] MEDS: POTASSIUM CHLORIDE 20 MEQ in D5 1/2 NS 1,000 ML IV SCH (14:57)
[2018-11-03] MEDS ORDERED: D5 1/2 NS + KCL 20 MEQ 1,000 ML ONE (15:10)
--- NOTE | 2018-11-03 15:43 | PROGRESS NOTE ---
DATE: 11/03/2018 SUBJECTIVE: Patient is doing better. I will add potassium to her fluids because she is hyponatremic. Kidney function is getting better as well. It looks like she is tolerating some ice chips. She is on TPN. We will continue with same management. OBJECTIVE: Vital Signs: Temperature 98.4 degrees, pulse 80, respiratory rate 24, blood pressure 181/90, oxygen saturation 100% on 2 L of nasal cannula. HEENT: Head normocephalic. No trauma. PERRLA. Neck: Supple. No JVD. No masses. Central trachea. Chest: Clear to auscultation. Some crepitus at the bases. Abdomen: Soft. Generalized tenderness to palpation. Decreased bowel sounds but present. Neurological: The patient is alert, awake. She is answering to some of my questions. She is oriented x2. She is following commands. Concedes consistently. She seems to be getting better. LABORATORY DATA: WBC 12.7, hemoglobin 9.6, hematocrit 29.1, platelets 222,000. Sodium 134, potassium 3.1, chloride 100, bicarbonate 24, BUN 28, creatinine 1.2, glucose 170, calcium 7.6, albumin 1.6. ASSESSMENT AND PLAN: 1. Abdominal pain. This is better status post exploratory laparotomy, postoperative day #4. They drained a right upper quadrant phlegmon and they also did an excision of a portion of the omentum. She will continue with antibiotics. Continue to monitor white blood cell count, which is trending down. This patient is getting better. 2. Acute kidney injury, getting better. Continue with IV fluids. 3. Hypokalemia. I will replace the potassium. 4. Hyperkalemia on presentation, resolved. 5. Hyponatremia. Continue with same management. 6. Hypomagnesemia. Will monitor. 7. Hypertension. Continue with same treatment for now. She is not tolerating p.o. 8. History of chronic obstructive pulmonary disease, not in exacerbation. 9. Gastroesophageal reflux disease. Continue with proton pump inhibitors. 10. Nicotine dependence. This patient has been highly advised against tobacco use. Will continue with daily cessation education. 11. Medical noncompliance, aware. 12. Anemia, status post 2 PRBCs, stable. 13. Severe protein calorie malnutrition, aware. cc: Braxton Aguilar MD
[2018-11-03] MEDS: NICODERM PATCH TD SCH (16:00)
[2018-11-03] MEDS ORDERED: NICODERM PATCH ONE (16:31)
[2018-11-03] MEDS ORDERED: TYLENOL PR ONE (17:29)
[2018-11-03] MEDS: NEXIUM IV SCH (20:47)
--- NOTE | 2018-11-03 20:47 | GENERAL SURGERY PROGRESS NOTE ---
DATE: 11/03/2018 PROGRESS NOTE: She is now 4 days after her exploratory laparotomy, placement of a drain. Her NG tube has bilious output as expected due to her B2 anastomosis. Her drain put out what looks like down to 105 mL. It is non bilious now. Her abdomen feels better. Her white count is down to 12,700, hemoglobin 9.6, hematocrit 29, BUN 28, creatinine 1.2. She continues to improve. She is passing flatus. So, we will clamp her NG tube in hopes that we can get it out tomorrow and start her on p.o. intake. She will continue TPN. cc: Jonathan Lezama MD
[2018-11-03] MEDS: SODIUM CHLORIDE 0.9% INJ SCH (20:48)
[2018-11-04] MEDS: HUMULIN R SUBQ SCH ×6 (01:12→22:59)
[2018-11-04] MEDS: ZOSYN 3.375 GM in NS 50 ML IV SCH ×4 (01:14→17:59)
[2018-11-04] MEDS: AMINOSYN IV SCH ×20 (01:16→22:30)
[2018-11-04] MEDS: TPN ELECTROLYTES IV SCH ×20 (01:16→22:30)
[2018-11-04] MEDS: [UNRECOGNIZED DRUG - OTHER] IV SCH ×20 (01:16→22:30)
[2018-11-04 06:13] LABS: BASO% 0.2 % (0.0-0.8); EOS% 3.1 % (0.0-10.0); HEMOGLOBIN 9.8 g/dL (12.0-16.0); LYMPH% 7.3 % (20.5-51.1); MCH 26.9 PG (27-31); MCHC 32.7 g/dL (33-37); MCV 82.4 FL (81-99); MONO% 9.5 % (1.7-9.3); MPV 11.9 FL (7.4-10.4); NEUT% 78.9 % (42.2-75.2); PLT 225 X1000 (130-400); RBC 3.64 XMIL (4.2-5.4); RDW 17.1 % (11.5-14.5); WBC 10.13 X1000 (4.8-10.8)
[2018-11-04 06:14] LABS: BASO# 0.02 X1000 (0.0-0.2); EOS# 0.31 X1000 (0.0-0.7); LYMPH# 0.74 X1000 (1.2-3.4); MONO# 0.96 X1000 (0.11-0.59)
[2018-11-04 06:24] LABS: ALBUMIN 1.5 g/dL (3.5-5.0); CREATININE 1.1 mg/dL (0.5-0.9); MAGNESIUM 1.3 mg/dL (1.5-2.7); PHOSPHORUS 3.1 mg/dL (2.7-4.5); POTASSIUM 3.2 mmol/L (3.5-5.1)
[2018-11-04 06:58] LABS: LYMPHS 6 % (21-51); MONO 6 % (1-9); SEGS 88 % (42-75)
[2018-11-04] MEDS ORDERED: POTASSIUM CHLORIDE 40 MEQ/SWI 40 MEQ/100 ML IVPB IV ONE (09:01)
[2018-11-04] MEDS ORDERED: MAGNESIUM SULFATE 2 GM/S.W.I. 2 GM/50 ML IVPB IV ONE (09:01)
[2018-11-04] MEDS: ZYVOX 600 MG/D5W 600 MG/300 ML IVPB IV SCH ×2 (09:20→20:58)
[2018-11-04] MEDS: NORVASC PO SCH (09:20)
[2018-11-04] MEDS: NICODERM PATCH TD SCH (09:20)
[2018-11-04] MEDS: POTASSIUM CHLORIDE 20 MEQ in D5 1/2 NS 1,000 ML IV SCH (09:29)
[2018-11-04] MEDS: MORPHINE IV PRN ×4 (09:43→22:30)
--- NOTE | 2018-11-04 12:58 | PROGRESS NOTE ---
DATE: 11/04/2018 SUBJECTIVE: The patient is doing better. No acute events overnight. I will replace her magnesium and potassium today. I will add amlodipine to her medications due to her elevated blood pressure. OBJECTIVE: Vital signs: Temperature is 98.6, pulse 72, respiratory rate 14, blood pressure 163/78, oxygen saturation 98% on 2 L of nasal cannula. HEENT: Head is normocephalic and atraumatic. PERRLA. Neck: Supple. No JVD. No masses. Central trachea. Chest: Clear to auscultation. Some crepitans at the bases. Abdomen: Soft. Generalized tenderness to palpation. Decreased bowel sounds but present. She has a drain coming out from her abdominal wall. Neurologic: This patient is sleepy but arousable. She is answering some of my questions. She is oriented x2. She is following commands. She seems to be more stable. DIAGNOSTIC DATA: WBC is 10.1, hemoglobin 9.8, hematocrit 30, platelets 225. Sodium is 135, potassium 3.2, chloride 102, bicarbonate 24, BUN is 23, creatinine 1.1, glucose 185, calcium 8, magnesium 1.3, albumin 1.5. ASSESSMENT AND PLAN: 1. Abdominal pain. This patient is status post exploratory laparotomy, postoperative day number 5. They drained a right upper quadrant phlegmon, and they also did an excision of a portion of the omentum. She will continue with antibiotics. We just started this patient on a liquid diet. We will see how she does. WBC normalized, and kidney function is getting better. 2. Acute kidney injury, getting better. Continue with the same management. 3. Hypokalemia. I will replace the potassium. 4. Hypomagnesemia. We will monitor. 5. Hyperkalemia on presentation, resolved. 6. Hypomagnesemia, will replace. 7. Hypertension. I will add amlodipine to her medications. 8. Gastroesophageal reflux disease. Continue with PPI. 9. Nicotine dependence. This patient has been advised against tobacco use. I will continue with daily cessation education. 10.Medical noncompliance, aware. 11.Anemia, status post 2 PRBCs. Stable. 12.Severe protein calorie malnutrition. Continue with TPN. We just started this patient on a liquid diet. Overall, this patient is getting better. Probably she needs to go to a rehab center, but she is getting TPN. We just started this patient on a diet and will see how she does. cc: Braxton Aguilar MD
[2018-11-04] MEDS: LIPOSYN 20% 500 ML IV SCH (13:39)
--- NOTE | 2018-11-04 14:32 | GENERAL SURGERY PROGRESS NOTE ---
DATE: 11/04/2018 Ms. Hartley has done well with her NG tube clamped. She remains afebrile. Heart rate 72, blood pressure 163/78. Laboratory data reveals a white count down to 10,000, hemoglobin 9.8. BUN 23, creatinine 1.1. The plan will be to remove her NG tube. We will start her on clear liquids. She continues on TPN. cc: Jonathan Lezama MD
[2018-11-04] MEDS: NEXIUM IV SCH (21:51)
[2018-11-04] MEDS: SODIUM CHLORIDE 0.9% INJ SCH (21:52)
[2018-11-05] MEDS: POTASSIUM CHLORIDE 20 MEQ in D5 1/2 NS 1,000 ML IV SCH (00:10)
[2018-11-05] MEDS: ZOSYN 3.375 GM in NS 50 ML IV SCH ×4 (00:43→17:37)
[2018-11-05] MEDS: HUMULIN R SUBQ SCH ×4 (01:43→21:57)
[2018-11-05] MEDS: ZOFRAN IV PRN (02:55)
[2018-11-05] MEDS: MORPHINE IV PRN ×2 (02:55→08:25)
[2018-11-05] MEDS ORDERED: D5 1/2 NS + KCL 20 MEQ 1,000 ML IV SCH (05:45)
[2018-11-05] MEDS: DUONEB (A & A) INH PRN (07:58)
[2018-11-05] MEDS: NICODERM PATCH TD SCH (08:25)
[2018-11-05] MEDS: NORVASC PO SCH (08:25)
[2018-11-05] MEDS: ZYVOX 600 MG/D5W 600 MG/300 ML IVPB IV SCH ×2 (08:25→20:08)
[2018-11-05 08:30] LABS: BASO# 0.05 X1000 (0.0-0.2); BASO% 0.5 % (0.0-0.8); EOS# 0.28 X1000 (0.0-0.7); EOS% 2.7 % (0.0-10.0); HEMATOCRIT 30.1 % (37.0-47.0); HEMOGLOBIN 9.7 g/dL (12.0-16.0); IMM GRAN# 0.11 X1000 (0.0-0.04); IMM GRAN% 1.1 % (0.0-0.5); LYMPH# 0.76 X1000 (1.2-3.4); LYMPH% 7.3 % (20.5-51.1); MCH 27.2 PG (27-31); MCHC 32.2 g/dL (33-37); MCV 84.3 FL (81-99); MONO# 1.14 X1000 (0.11-0.59); MPV 11.4 FL (7.4-10.4); NEUT# 8.07 X1000 (1.4-6.5); NEUT% 77.4 % (42.2-75.2); PLT 254 X1000 (130-400); RBC 3.57 XMIL (4.2-5.4); RDW 17.3 % (11.5-14.5); WBC 10.41 X1000 (4.8-10.8)
[2018-11-05 08:49] LABS: ALBUMIN 1.7 g/dL (3.5-5.0); CALCIUM 7.8 mg/dL (8.8-10.2); CREATININE 1.1 mg/dL (0.5-0.9); PHOSPHORUS 3.5 mg/dL (2.7-4.5); POTASSIUM 4.5 mmol/L (3.5-5.1)
[2018-11-05 08:51] LABS: CALCIUM 7.6 mg/dL (8.8-10.2); CREATININE 1.1 mg/dL (0.5-0.9); MAGNESIUM 1.6 mg/dL (1.5-2.7); POTASSIUM 4.4 mmol/L (3.5-5.1)
[2018-11-05 10:17] LABS: BANDS 6 % (0-1); EOS 2 % (1-10); HYPOCHROM 1+; LARGE PLATELETS 1+; LYMPHS 6 % (21-51); MONO 10 % (1-9); SEGS 76 % (42-75)
[2018-11-05] MEDS: LIPOSYN 20% 500 ML IV SCH (12:25)
--- NOTE | 2018-11-05 13:23 | PROGRESS NOTE ---
DATE: 11/05/2018 SUBJECTIVE: Patient is doing better. No acute events overnight. She is still on TPN. Vital signs are more stable after putting this patient on amlodipine. WBC normalized and lab work looks better. OBJECTIVE: Vital Signs: Temperature 97.7 degrees, pulse 79, respiratory rate 14, blood pressure 129/77, oxygen saturation 100% on 2 L of nasal cannula. HEENT: Head normocephalic, no trauma. PERRLA. Neck: Supple. No JVD. No masses. Central trachea. Chest: Clear to auscultation. Some crepitus at the bases. Abdomen: Soft. Generalized tenderness to palpation. No changes compared with yesterday. Decreased bowel sounds, but present. She has a drain. Neurological: The patient is alert. She is answering my questions. She is oriented x2. She is following commands. She seems to be more stable. LABORATORY: WBC 10.4, hemoglobin 9.7, hematocrit 30.1, platelets 254,000. Sodium 137, potassium 4.4, chloride 103, bicarbonate 25, BUN 22, creatinine 1.1, glucose 136, calcium 7.6, magnesium 1.6, albumin 1.7. ASSESSMENT AND PLAN: 1. Abdominal pain status post exploratory laparotomy, postoperative day #6. They drained a right upper quadrant phlegmon, and they also did an excision of a portion of the omentum. She will continue with antibiotics. She is getting a TPN and a full liquid diet. Once this patient is off TPN, probably this patient can go to a rehabilitation center if Surgery department is okay. 2. Acute kidney injury, much better. Continue with same management. 3. Hypokalemia, resolved. 4. Hypomagnesemia, resolved. 5. Hyperkalemia on presentation, resolved. 6. Hypertension, stable after putting this patient back on amlodipine. 7. Gastroesophageal reflux disease. Continue with PPIs. 8. Nicotine dependence. This patient has been advised against tobacco use. I will continue with daily cessation education. 9. Medical noncompliance. Aware. 10. Anemia status post status post 2 packed red blood cells, stable. 11. Severe protein-calorie malnutrition. Continue TPN. We advanced the diet to a full liquid diet. We will monitor this patient closely. Once Surgery department decided to stop the TPN, probably we will be able to transfer this patient to a rehabilitation center. cc: Braxton Aguilar MD
--- NOTE | 2018-11-05 13:48 | GENERAL SURGERY PROGRESS NOTE ---
DATE: 11/05/2018 Ms. Hartley is afebrile, heart rate 73, blood pressure 141/77. She is tolerating clear liquids satisfactorily. Her drain has drained only 50 mL. She had 5622 in and 2550 out. I will advance her to full liquids today and if she does okay with that, we will go to solids tomorrow. Then we can start looking for a rehab facility. cc: Jonathan Lezama MD
[2018-11-05] MEDS: NORCO-5 PO PRN (17:37)
[2018-11-05] MEDS: D5 1/2 NS + KCL 20 MEQ 1,000 ML IV SCH (17:38)
[2018-11-05] MEDS: NEXIUM IV SCH (20:08)
[2018-11-05] MEDS: TPN ELECTROLYTES IV SCH ×10 (20:08)
[2018-11-05] MEDS: AMINOSYN IV SCH ×10 (20:08)
[2018-11-05] MEDS: [UNRECOGNIZED DRUG - OTHER] IV SCH ×10 (20:08)
[2018-11-05] MEDS: SODIUM CHLORIDE 0.9% INJ SCH (20:09)
[2018-11-06] MEDS: ZOSYN 3.375 GM in NS 50 ML IV SCH ×4 (00:29→17:49)
[2018-11-06] MEDS: HUMULIN R SUBQ SCH ×7 (01:35→22:18)
[2018-11-06] MEDS: ZOFRAN IV PRN (04:46)
[2018-11-06] MEDS: NORCO-5 PO PRN ×3 (04:46→17:49)
[2018-11-06 07:39] LABS: BASO# 0.04 X1000 (0.0-0.2); BASO% 0.4 % (0.0-0.8); EOS# 0.36 X1000 (0.0-0.7); EOS% 3.4 % (0.0-10.0); HEMOGLOBIN 8.8 g/dL (12.0-16.0); IMM GRAN# 0.06 X1000 (0.0-0.04); IMM GRAN% 0.6 % (0.0-0.5); LYMPH# 0.86 X1000 (1.2-3.4); LYMPH% 8.2 % (20.5-51.1); MCH 26.9 PG (27-31); MCHC 31.4 g/dL (33-37); MCV 85.6 FL (81-99); MONO# 1.08 X1000 (0.11-0.59); MONO% 10.3 % (1.7-9.3); MPV 11.2 FL (7.4-10.4); NEUT# 8.09 X1000 (1.4-6.5); NEUT% 77.1 % (42.2-75.2); PLT 270 X1000 (130-400); RBC 3.27 XMIL (4.2-5.4); RDW 17.3 % (11.5-14.5); WBC 10.49 X1000 (4.8-10.8)
[2018-11-06 07:55] LABS: CALCIUM 7.9 mg/dL (8.8-10.2); CREATININE 1.1 mg/dL (0.5-0.9); MAGNESIUM 1.4 mg/dL (1.5-2.7); PHOSPHORUS 3.6 mg/dL (2.7-4.5); POTASSIUM 4.8 mmol/L (3.5-5.1); PREALBUMIN 15.7 mg/dL (20-40)
[2018-11-06] MEDS: ZYVOX 600 MG/D5W 600 MG/300 ML IVPB IV SCH ×2 (09:35→20:34)
[2018-11-06] MEDS: NORVASC PO SCH (09:35)
[2018-11-06] MEDS: NICODERM PATCH TD SCH (09:36)
--- NOTE | 2018-11-06 11:41 | GENERAL SURGERY PROGRESS NOTE ---
DATE: 11/06/2018 SUBJECTIVE: Ms. Hartley is now a week after her laparotomy. She continues to progress well. She is afebrile. Her hemodynamics are good. She is tolerating liquid satisfactorily. Her intake was recorded as 720 in, which is probably not accurate in view of her IV fluids, and output of 3975. Her bowels did move. PLAN: The plan will be to advance her diet today. Will probably remove her drain tomorrow. I think we should start considering her disposition. cc: Jonathan Lezama MD
[2018-11-06] MEDS ORDERED: MAGNESIUM SULFATE 2 GM/S.W.I. 2 GM/50 ML IVPB IV ONE (13:03)
--- NOTE | 2018-11-06 13:30 | PROGRESS NOTE ---
DATE: 11/06/2018 SUBJECTIVE: The patient seems to be stable. Her diet will be advanced today, and we will stop the TPN. Hopefully tomorrow, Surgery Department will remove her drain, and after that, if she is doing fine, probably she can go to a rehab center, if she has a bed already. OBJECTIVE: Vital Signs: Temperature 98.5 degrees, pulse 71, respiratory rate 14, blood pressure 139/91, oxygen saturation 98 on 2 L of nasal cannula. HEENT: Head normocephalic. No trauma. PERRLA. Neck: Supple. No JVD. No masses. Central trachea. Chest: Clear to auscultation. Some crepitus at the bases. Abdomen: Soft. Generalized tenderness to palpation. No changes compared with yesterday. Decreased bowel sounds, but present. She has a drain. Neurological: The patient is alert. She is oriented x2. She is answering my questions. She is following commands. She seems to be more stable. LABORATORY DATA: WBC 10.4, hemoglobin 8.8, hematocrit 28, platelet 270,000. Sodium 135, potassium 4.8, chloride 102, bicarbonate 26, BUN 24, creatinine 1.1, glucose 130, calcium 7.9. Magnesium 1.4. ASSESSMENT AND PLAN: 1. Abdominal pain, status post exploratory laparotomy, postoperative day #7, with drainage of the right upper quadrant phlegmon, excision of a portion of the omentum. She will continue with antibiotics. Tomorrow will be day #14. She is getting total parenteral nutrition today, which will be stopped. The diet has been advanced to a mechanical soft diet. Hopefully tomorrow, the drain is going to be removed, and we will wait for a bed in a rehab center. 2. Acute kidney injury, much better, likely this is going to be her baseline. 3. Hypomagnesemia. I will replace the magnesium. 4. Hyperkalemia on presentation, resolved. 5. Hypertension, stable. 6. Gastroesophageal reflux disease. Continue with proton pump inhibitors. 7. Nicotine dependence. This patient has been advised against tobacco use. Will continue with daily cessation education. 8. Medical noncompliance. Aware. 9. Anemia, status post 2 packed red blood cells, stable. 10. Severe protein calorie malnutrition. We have advanced the diet. Total parenteral nutrition will be stopped. Hopefully tomorrow, we will remove the abdominal drain. She will be ready to be transferred to a rehab center. cc: Braxton Aguilar MD
[2018-11-06] MEDS: DUONEB (A & A) INH PRN (19:47)
[2018-11-06] MEDS: NEXIUM IV SCH (20:34)
[2018-11-06] MEDS: SODIUM CHLORIDE 0.9% INJ SCH (20:35)
[2018-11-07] MEDS: NORCO-5 PO PRN ×4 (00:02→19:28)
[2018-11-07] MEDS: ZOSYN 3.375 GM in NS 50 ML IV SCH ×2 (00:03→05:28)
[2018-11-07] MEDS: ZOFRAN IV PRN ×2 (00:18→14:33)
[2018-11-07] MEDS: HUMULIN R SUBQ SCH ×6 (02:46→20:42)
[2018-11-07 08:06] LABS: BASO# 0.07 X1000 (0.0-0.2); BASO% 0.8 % (0.0-0.8); EOS# 0.29 X1000 (0.0-0.7); EOS% 3.2 % (0.0-10.0); HEMATOCRIT 27.5 % (37.0-47.0); HEMOGLOBIN 8.7 g/dL (12.0-16.0); IMM GRAN# 0.06 X1000 (0.0-0.04); IMM GRAN% 0.7 % (0.0-0.5); LYMPH# 0.86 X1000 (1.2-3.4); LYMPH% 9.6 % (20.5-51.1); MCH 27.6 PG (27-31); MCHC 31.6 g/dL (33-37); MCV 87.3 FL (81-99); MONO# 0.75 X1000 (0.11-0.59); MONO% 8.4 % (1.7-9.3); MPV 11.2 FL (7.4-10.4); NEUT% 77.3 % (42.2-75.2); PLT 279 X1000 (130-400); RBC 3.15 XMIL (4.2-5.4); RDW 17.7 % (11.5-14.5); WBC 8.93 X1000 (4.8-10.8)
[2018-11-07 08:27] LABS: CALCIUM 7.4 mg/dL (8.8-10.2); POTASSIUM 4.9 mmol/L (3.5-5.1)
--- NOTE | 2018-11-07 09:19 | PROGRESS NOTE ---
DATE: 11/07/2018 SUBJECTIVE: The patient seems to be stable. Her diet has been advanced and she is tolerating p.o. She is no longer on TPN. The abdominal drain has been removed. She is doing fine. She can be discharged as soon as we have a bed in a rehab center. OBJECTIVE: Vital Signs: Temperature 98.6 degrees, pulse 67, respiratory rate 18, blood pressure 135/73, oxygen saturation 100% on 1 L of nasal cannula. HEENT: Head normocephalic, no trauma. PERRLA. Neck: Supple. No JVD. No masses. Central trachea. Chest: Clear to auscultation. Some crepitus at the bases. Abdomen: Soft. Generalized tenderness to palpation, but no changes compared with yesterday. Positive bowel sounds, but decreased a little bit. A drain has been removed. The wound looks fine, dry. No signs of infection or bleeding. Neurological examination: The patient is alert. She is oriented x2. She is answering my questions. She is following commands. She seems to be stable. LABORATORY: WBC 8.9, hemoglobin 8.7, hematocrit 27.5, platelets 279, glucose 124. Pending BMP. ASSESSMENT AND PLAN: 1. Abdominal pain status post exploratory laparotomy, postoperative day #8 with drainage of the right upper quadrant phlegmon, excision of a portion of the omentum. She will continue with antibiotics; today is #14. She was getting total parenteral nutrition which has been stopped yesterday. Her diet has been advanced. Abdominal drain has been removed. Now we believe she can be discharged to a rehabilitation center. I do not think she needs to be discharged with antibiotics. 2. Acute kidney injury. This is her baseline. 3. Hypomagnesemia has been replaced already. I will ask for a new set of magnesium in the morning. 4. Hyperkalemia on presentation, resolved. 5. Hypertension, stable. 6. Nicotine dependence. This patient has been advised against tobacco use. I will continue with daily cessation education. 7. Medical noncompliance, aware. 8. Anemia, status post 2 packed red blood cells, stable. 9. Severe protein calorie malnutrition. She is tolerating oral. Diet has been advanced. She used to be on total parenteral nutrition until yesterday. 10. Generalized weakness and physical deconditioning. This patient has been followed by physical therapy and occupational therapy. The plan is to send this patient to a rehabilitation center; once we have a bed available, she can be discharged. I do not think she needs to be on antibiotics anymore since she has been 14 days with Zosyn. The leukocyte count is negative. No more fever as well. cc: Braxton Aguilar MD
[2018-11-07] MEDS: NICODERM PATCH TD SCH (09:34)
[2018-11-07] MEDS: NORVASC PO SCH (09:34)
[2018-11-07] MEDS: MORPHINE IV PRN ×2 (12:25→20:33)
--- NOTE | 2018-11-07 13:30 | GENERAL SURGERY PROGRESS NOTE ---
DATE: 11/07/2018 She is 8 days after her laparotomy. She continues to improve. She is tolerating solid food now. Her bowels have moved. Her abdomen feels significantly better. She is afebrile with stable hemodynamics. Her white count is down to a normal range. Her BUN and creatinine are 24 and 1.1, which is significantly improved compared to her admission numbers. Her wound was fine. We will remove her drain today. It is okay for me for her to be transferred to rehab when a bed becomes available. She will need her leonidas out in a week. cc: Jonathan Lezama MD
[2018-11-07] MEDS: NEXIUM IV SCH (20:32)
[2018-11-07] MEDS: SODIUM CHLORIDE 0.9% INJ SCH (20:32)
[2018-11-07] MEDS: D5 1/2 NS + KCL 20 MEQ 1,000 ML IV SCH (20:39)
[2018-11-08] MEDS: HUMULIN R SUBQ SCH ×6 (01:33→21:19)
[2018-11-08] MEDS: NORCO-5 PO PRN ×4 (03:27→23:09)
[2018-11-08 08:21] LABS: HEMATOCRIT 29.5 % (37.0-47.0); HEMOGLOBIN 9.3 g/dL (12.0-16.0)
[2018-11-08 08:44] LABS: CALCIUM 7.7 mg/dL (8.8-10.2); MAGNESIUM 1.3 mg/dL (1.5-2.7); PHOSPHORUS 3.8 mg/dL (2.7-4.5); POTASSIUM 4.8 mmol/L (3.5-5.1)
[2018-11-08] MEDS: NICODERM PATCH TD SCH (10:09)
[2018-11-08] MEDS: NORVASC PO SCH (10:10)
[2018-11-08] MEDS ORDERED: MAGNESIUM SULFATE 2 GM/S.W.I. 2 GM/50 ML IVPB IV ONE (10:48)
--- NOTE | 2018-11-08 19:28 | GENERAL SURGERY PROGRESS NOTE ---
DATE: 11/08/2018 Patient seems to be doing well. She is not having significant abdominal pain. She has tolerated her drain out. She has been hemodynamically stable from a surgical point of view. She continues to improve. At this point, disposition is the main holdup. I am waiting for her to get to a rehab facility. cc: Ernst Ku MD
[2018-11-08] MEDS: MORPHINE IV PRN (19:56)
[2018-11-08] MEDS: ZOFRAN IV PRN (21:26)
[2018-11-08] MEDS: SODIUM CHLORIDE 0.9% INJ SCH (21:26)
[2018-11-08] MEDS: NEXIUM IV SCH (21:26)
--- NOTE | 2018-11-08 23:59 | PROGRESS NOTE ---
DATE: 11/08/2018 SUBJECTIVE: The patient is sitting up eating lunch. She has no complaints. OBJECTIVE: Vital Signs: Temperature 98 degrees, blood pressure 156/90, heart rate 87, respirations 21, O2 saturation 94% on room air. General: This is a chronically ill-appearing, elderly female lying in bed, in no acute distress. Heart: S1, S2 normal. Regular rate and rhythm. Lungs: Clear to auscultation bilaterally. Abdomen: Positive bowel sounds. Soft, nontender, nondistended. Extremities: No edema, no cyanosis. Neurologic: The patient is alert and oriented. LABS: Hemoglobin 9.3, hematocrit 29. Sodium 136, potassium 4.8, chloride 102, CO2 of 23, BUN 15, creatinine 1. Glucose 144. Magnesium 1.3, phosphorus 3.7. ASSESSMENT AND PLAN: 1. Status post exploratory laparotomy with drainage of a right upper quadrant phlegmon. Stable. General Surgery is following. 2. Hypertension. Controlled. 3. Anemia. Stable. 4. Chronic kidney disease. Stable. 5. Hypomagnesemia. Will replace the patient's magnesium. 6. Disposition. The patient will be discharged to inpatient rehab once a bed is available. cc: Tesha Montero MD MTDD
[2018-11-09] MEDS: MORPHINE IV PRN ×4 (00:40→21:43)
[2018-11-09] MEDS: HUMULIN R SUBQ SCH ×5 (01:00→21:00)
[2018-11-09 07:46] LABS: HEMATOCRIT 28.4 % (37.0-47.0); MCH 27.9 PG (27-31); MCHC 31.7 g/dL (33-37); MCV 87.9 FL (81-99); MPV 10.2 FL (7.4-10.4); RBC 3.23 XMIL (4.2-5.4); RDW 17.2 % (11.5-14.5); WBC 11.08 X1000 (4.8-10.8)
[2018-11-09 08:02] LABS: CALCIUM 7.4 mg/dL (8.8-10.2); MAGNESIUM 1.5 mg/dL (1.5-2.7); PHOSPHORUS 4.4 mg/dL (2.7-4.5); POTASSIUM 4.5 mmol/L (3.5-5.1)
[2018-11-09] MEDS ORDERED: MAGNESIUM SULFATE 2 GM/S.W.I. 2 GM/50 ML IVPB IV ONE (08:26)
[2018-11-09] MEDS: NORCO-5 PO PRN ×4 (08:38→22:58)
[2018-11-09] MEDS: NICODERM PATCH TD SCH (08:38)
[2018-11-09] MEDS: NORVASC PO SCH (08:38)
--- NOTE | 2018-11-09 10:49 | GENERAL SURGERY PROGRESS NOTE ---
DATE: 11/09/2018 The patient seems to be doing well. No real significant abdominal pain at this. At this point, disposition is the main hold-up, and we are awaiting her to go to a rehabilitation facility. cc: Ernst Ku MD
--- NOTE | 2018-11-09 18:05 | PROGRESS NOTE ---
DATE: 11/09/2018 SUBJECTIVE: The patient is resting comfortably in bed. She has no complaints. OBJECTIVE: Vital Signs: Temperature 98.2 degrees, blood pressure 138/84, heart rate 82, respirations 20, O2 saturations 98% on room air. General: This is a chronically ill-appearing elderly female lying in bed in no acute distress. Heart: S1, S2 normal. Regular rate and rhythm. Lungs: Equal air entry bilaterally. No wheezing. No rales. No rhonchi. Abdomen: Positive bowel sounds. Soft, nontender, nondistended. Extremities: No edema, no cyanosis. Neuro: The patient is alert and oriented x3. LABS: White blood cell count 11, hemoglobin 9, hematocrit 28, platelets 371,000, sodium 138, potassium 4.5, chloride 102, CO2 26, BUN 12, creatinine 1, glucose 90, magnesium 1.5. ASSESSMENT AND PLAN: 1. Status post exploratory laparotomy with drainage of a right upper quadrant phlegmon. Stable. 2. Hypertension. Controlled. 3. Anemia. Stable. 4. Leukocytosis. The patient is afebrile. Will monitor the white count closely. 5. Chronic kidney disease. Stable. 6. Disposition. The patient will be discharged to inpatient rehab once a bed is available. 7. Continue with physical therapy. cc: Tesha Montero MD
[2018-11-09] MEDS: ZOFRAN IV PRN (19:02)
[2018-11-09] MEDS: NEXIUM IV SCH (20:47)
[2018-11-10] MEDS: HUMULIN R SUBQ SCH ×7 (01:00→20:02)
[2018-11-10 08:02] LABS: HEMATOCRIT 29.7 % (37.0-47.0); HEMOGLOBIN 9.4 g/dL (12.0-16.0); MCH 27.3 PG (27-31); MCHC 31.6 g/dL (33-37); MCV 86.3 FL (81-99); MPV 10.1 FL (7.4-10.4); RBC 3.44 XMIL (4.2-5.4); RDW 17.2 % (11.5-14.5); WBC 9.06 X1000 (4.8-10.8)
[2018-11-10 08:17] LABS: CALCIUM 7.8 mg/dL (8.8-10.2); MAGNESIUM 1.5 mg/dL (1.5-2.7); POTASSIUM 4.5 mmol/L (3.5-5.1)
[2018-11-10] MEDS ORDERED: MAGNESIUM SULFATE 2 GM/S.W.I. 2 GM/50 ML IVPB IV ONE (08:24)
[2018-11-10] MEDS: NORVASC PO SCH (09:14)
[2018-11-10] MEDS: NICODERM PATCH TD SCH (09:14)
[2018-11-10] MEDS: MAG-OX PO SCH (09:17)
[2018-11-10] MEDS: NORCO-5 PO PRN ×3 (10:34→18:22)
--- NOTE | 2018-11-10 15:25 | PROGRESS NOTE ---
DATE: 11/10/2018 SUBJECTIVE: The patient states that she has no appetite. She also complains of abdominal pain. She has been having bowel movements every day. OBJECTIVE: Vital Signs: Temperature 98.2 degrees, blood pressure 127/81, heart rate 76, respirations 16, and O2 saturation 96% on room air. General: This is a chronically ill-appearing elderly female lying in bed in no acute distress. Heart: S1, S2 normal. Regular rate and rhythm. Lungs: Clear to auscultation bilaterally. No wheezing. No rales. Abdomen: Positive bowel sounds. Soft, nontender, and nondistended. Extremities: No edema. No cyanosis. Neurologic: The patient is alert and oriented x3. LABORATORY: Hemoglobin 9.4, hematocrit 29, and platelets 399,000. Sodium 137, potassium 4.5, chloride 103, CO2 24, BUN 10, creatinine 1, glucose 115, and magnesium 1.5. ASSESSMENT AND PLAN: 1. Status post exploratory laparotomy with drainage of a right upper quadrant phlegmon. Stable. 2. Hypertension. Controlled. 3. Hypomagnesemia. We will start the patient on magnesium oxide daily. 4. Anemia. Stable. 5. Chronic kidney disease. Stable. 6. Continue with physical therapy. 7. Disposition. The patient will be discharged to inpatient rehab once a bed has been found, and the patient's insurance approves it. cc: Tesha Montero MD MTDD
[2018-11-10] MEDS: ZOFRAN IV PRN ×2 (15:33→20:00)
--- NOTE | 2018-11-10 19:32 | GENERAL SURGERY PROGRESS NOTE ---
DATE: 11/10/2018 Ms. Hartley continues to convalesce from her laparotomy. She is eating. Her bowels were moving. She is afebrile. Hemodynamics are good. Her wound was fine. She is awaiting a rehab bed. We will remove her leonidas today. cc: Jonathan Lezama MD
[2018-11-10] MEDS: MORPHINE IV PRN (20:00)
[2018-11-10] MEDS: NEXIUM IV SCH (20:01)
[2018-11-10] MEDS ORDERED: D50W SYRINGE IV PRN (20:08)
[2018-11-10] MEDS ORDERED: MELATONIN PO SCH (21:00)
[2018-11-11] MEDS ORDERED: CALMOSEPTINE OINTMENT TOP PRN (02:25)
[2018-11-11 06:32] LABS: HEMATOCRIT 27.7 % (37.0-47.0); HEMOGLOBIN 8.8 g/dL (12.0-16.0); MCH 27.2 PG (27-31); MCHC 31.8 g/dL (33-37); MCV 85.8 FL (81-99); MPV 9.8 FL (7.4-10.4); RBC 3.23 XMIL (4.2-5.4); RDW 17.1 % (11.5-14.5); WBC 9.96 X1000 (4.8-10.8)
[2018-11-11 06:52] LABS: AGAP 8; BUN 9 mg/dL (8-22); CALCIUM 7.6 mg/dL (8.8-10.2); CHLORIDE 103 mmol/L (98-107); COSMO 270; CREATININE 0.9 mg/dL (0.5-0.9); ESTIMATED GFR > 60; GLUCOSE 86 mg/dL (70-104); MAGNESIUM 1.6 mg/dL (1.5-2.7); POTASSIUM 4.4 mmol/L (3.5-5.1); SODIUM 136 mmol/L (136-145); TCO2 25 mmol/L (25-35)
[2018-11-11] MEDS: NORCO-5 PO PRN ×2 (07:52→12:31)
[2018-11-11] MEDS: NORVASC PO SCH (08:14)
[2018-11-11] MEDS: NICODERM PATCH TD SCH (08:14)
[2018-11-11] MEDS: MAG-OX PO SCH (08:14)
[2018-11-11 08:21] LABS: HEMOGLOBIN A1C 5.6 % (4.8-6.0)
--- NOTE | 2018-11-11 11:25 | Diag Imaging Result Doc PS360 ---
EXAM: ABDOMEN FLAT/UPRIGHT INDICATION: constipation/abdominal pain TECHNIQUE: 2 views COMPARISON: 05/16/2018 FINDINGS: There is a large amount stool in the colon indicating fairly severe constipation. This is mainly at the transverse colon and at the flexures. There is no obstructive bowel pattern. There is no evidence of large volume free abdominal gas. There is a stable metallic staple line just to the left of midline. IMPRESSION: Constipation. Electronically signed by Valerio Mcnally 11/11/2018 11:23 AM
[2018-11-11] MEDS ORDERED: FLEET MINERAL OIL ENEMA PR ONE (11:30)
[2018-11-11] MEDS ORDERED: LACTULOSE PO SCH (11:30)
[2018-11-11] MEDS ORDERED: MAGNESIUM SULFATE 2 GM/S.W.I. 2 GM/50 ML IVPB IV ONE (11:31)
[2018-11-11 15:59] VITALS: BP 138/77
--- NOTE | 2018-11-11 21:42 | DISCHARGE SUMMARY ---
ADMISSION DATE: 10/25/2018 DISCHARGE DATE: 11/11/2018 PRIMARY CARE PHYSICIAN: The patient does not have a primary care physician. FINAL DISCHARGE DIAGNOSIS: 1. Status post exploratory laparotomy with drainage of right upper quadrant phlegmon. 2. Hypertension. 3. Hypomagnesemia. 4. Anemia. 5. Acute kidney injury. 6. Severe hyperkalemia. 7. Hypocalcemia. 8. Chronic constipation. CONSULTATIONS: 1. General Surgery consultation with Dr. Lezama. 2. Nephrology consultation with Dr. Dent. PROCEDURES: Exploratory laparotomy with drainage of right upper quadrant phlegmon performed on 10/30/2018. HOSPITAL COURSE: Ms. Hartley is a 73-year-old female with a history of multiple medical problems who presented to the ER with a chief complaint of abdominal pain. On admission the patient was noted to have a white blood cell count of 19,000, a potassium of 8.3 and a creatinine of 6.8. Also a CT of the abdomen and pelvis was done that revealed anastomotic leak versus a perforated ulcer in the distal stomach or duodenum as well as an abscess in the right upper quadrant. Nephrology as well as General Surgery were notified and the patient was admitted to the hospitalist service. Patient was started on aggressive IV fluid hydration and hyperkalemia was treated. The patient was also noted to be in severe metabolic acidosis. The patient was treated with a bicarbonate drip as well. A repeat CT of the abdomen and pelvis was done on 10/29/2018 that revealed perforation of the efferent loop of the duodenum and worsened ascites and anasarca. The patient was taken to the OR on 10/30/2018 at which time an exploratory laparotomy was performed and drainage of the right upper quadrant phlegmon was performed. The patient had prolonged hospitalization, eventually the patient improved and was able to be transferred out of the ICU. The patient's renal function also improved and IV fluids were eventually discontinued. The patient continued to improve over the course of the hospitalization and her diet was slowly advanced. The patient was noted to have issues with constipation so scheduled laxative therapy was added. The patient was seen by physical therapy daily. The patient continued to improve clinically and was ultimately cleared for discharge home on 11/11/2018. DISCHARGE MEDICATIONS: 1. [place] 5/325 one tab oral every 6 hours p.r.n. for pain. 2. Magnesium oxide 400 mg oral daily. 3. MiraLAX 17 g oral twice a day. 4. Norvasc 10 mg p.o. daily. 5. Melatonin 3 mg oral at bedtime. 6. Multivitamin 1 tab oral daily. 7. Omeprazole 40 mg p.o. twice a day. DISCHARGE DIET: Low-sodium diet. ACTIVITY: As tolerated. FOLLOWUP INSTRUCTIONS: The patient will need to follow up with Dr. Lezama in 1 to 2 weeks. cc: Tesha Montero MD
== END 2018-11-11 16:29 | disposition home health service (06) | DRG 356 ==
LOC: SUPCPDRO → ED 16:29 → SUATTDRO 10-25 02:51 → EDIPHOLD 10-25 02:51 → ICU 10-25 14:09 → 4N 11-02 16:02 → 1N 11-03 12:39
PROVIDERS: ATTEND Internal Medicine
PROC: GE.OMEN (2018-10-30 15:31)
CPT/HCPCS: 36430; 51702; 71010; 71045; 74019; 74020; 74176; 74240; 80048; 80053; 80069; 81001; 82009; 82150; 82465; 82550; 82805; 82948; 83036; 83605; 83690; 83735; 84100; 84132; 84134; 84450; 84478; 84484; 85014; 85018; 85025; 85027; 85610; 85730; 86850; 86900; 86901; 86920; 87040; 87070; 87075; 87088; 87205; 88305; 88313; 93306; 94640; 94761; 94762; 96361; 96365; 96366; 96367; 96375; 96376; 97110; 97116; 97162; 97166; 97530; 99285; A9270; C9113; J0330; J0610; J0696; J1170; J1630; J2020; J2175; J2250; J2270; J2370; J2405; J2543; J3475; J3480; J7030; J7040; J7050; J7070; J7120; P9016; Q9966; Q9967; S0028; S0164; XXXXX